=== PATIENT | female | born 1985 ===

== ENCOUNTER 2020-12-03 00:46 | Emergency (ER) | payer OTHER, SELFPAY ==
[2020-12-03 01:12] VITALS: BP 114/67; PULSE 78; RESP 16; TEMP 36.9; O2SAT 99; BMI 24.1
--- NOTE | 2020-12-03 03:12 | ED_ITS ---
HPI - General Adult General Chief complaint: General Medical Stated complaint: abscess Time Seen by Provider: 12/03/20 02:57 History of Present Illness HPI narrative: Patient is 35-year-old female with a history of IV drug abuse. Presents today having swelling to the right hand. Patient denies any fever chills. Has a long history of IV heroin abuse. Related Data Previous Rx's Medication Instructions Recorded clindamycin HCl 300 mg PO Q6H 7 Days #28 cap 12/03/20 ibuprofen 400 mg PO Q6H PRN #20 tab 12/03/20 Allergies Allergy/AdvReac Type Severity Reaction Status Date / Time bee pollen [Bee Stings] Allergy Unknown SWELLING Verified 12/03/20 01:11 AT SITE morphine [Morphine] Allergy Unknown SKIN Verified 12/03/20 01:11 BUBBLED Penicillins Allergy Unknown HIVES Verified 12/03/20 01:11 BREATHING PBROBLEM Review of Systems Review of Systems: No fever no chills Positive rash Positive swelling to the right hand All systems reviewed otherwise negative PMFSH Past Medical History Attestation statement: The following information was validated with the patient. Medical History Asthma Fungus infection in blood MRSA (methicillin resistant staph aureus) culture positive Sepsis Substance abuse Social History Social History Advance Directives: No Physical Exam Vital Signs: Vital Signs: Last Vital Signs Temp 98.4 F 12/03/20 01:12 Pulse 78 12/03/20 01:12 Resp 16 12/03/20 01:12 BP 114/67 12/03/20 01:12 Pulse Ox 99 12/03/20 01:12 Body Mass Index 24.1 Appearance: Alert. Oriented X3. No acute distress. Eyes: Pupils equal, round and reactive to light. ENT: Pharynx normal. Neck: Normal inspection. Neck supple. No lymph nodes noted. No crepitus CVS: Normal heart rate and rhythm. Pulses normal. Normal S1 and S2 Respiratory: No respiratory distress. Breath sounds normal. No Wheezing. No rales Abdomen: Soft and nontender. No rigidity. No distention. good BS x4 Skin: Positive abscess noted in the dorsum of right hand Extremities: No lower extremity edema. Neurovascular intact to all extremities. No Lacerations. Positive large fluctuant swelling approximately 5 cm x 5 cm in size over the dorsum of right hand. Red warm and tender to the Neuro: Oriented X 3. No motor deficit. No sensory deficit. Moving all extermities. No slurred speech Procedures Abscess I/D Site: hand Side (if applicable): right Sedation/analgesia: other Local Anesthetic: lidocaine 1% Amount of anesthesia used (mL): 5 Technique: needle aspiration and incised with blade Amount of fluid expressed (mL): 20 Sent for culture/gram staining?: Yes Irrigation: Yes Packing used?: iodoform Medical Decision Making MDM Narrative Medical decision making narrative: Abscess I&D close follow-up in 2 days for wo und check. Will start antibiotic as there is gross erythema. Patient has a previous history of MRSA. Will start patient on clindamycin. Discharge Plan Discharge Clinical Impression: Abscess Patient Disposition: Home, Self-Care Instructions: Cellulitis (ED), Abscess (ED) Prescriptions: New ibuprofen 400 mg tablet 400 mg PO Q6H PRN (Reason: pain) Qty: 20 RF: 0 clindamycin HCl 300 mg capsule 300 mg PO Q6H 7 Days Qty: 28 RF: 0 Referrals: Physician,None [Primary Care Provider] - 2 days (Follow-up in the emergency department in 2 days.)
--- NOTE | 2020-12-03 03:39 | PC.NURSE ---
This tech assisted with an abscess to the right outer hand. pt was cleaned and a bulky dressing was applied with a cling wrap. pt tolerated procedure well, wound culture collected and sent to lab. rosalio aware
[2020-12-03] MEDS: Lidocaine HCl 1 % MPF 5 ML VIAL 10 ML SUBCUT (03:51)
== END 2020-12-03 05:00 | disposition home or self-care (01) ==
PROVIDERS: Emergency Provider Emergency Medicine Emergency Medical Services
DX: L02.511 Cutaneous abscess of right hand (principal); F11.10 Opioid abuse, uncomplicated
CPT/HCPCS: 10060; 87071; 87077; 87186; 87205; 96372; 99284

== ENCOUNTER 2021-08-12 10:56 | Emergency (ER) | payer OTHER, SELFPAY ==
[2021-08-12 11:08] VITALS: BP 132/80; PULSE 50; PULSE 60; RESP 12; O2SAT 100; BMI 20.9
--- NOTE | 2021-08-12 11:11 | ED.OVERDOSE ---
HPI - Overdose General Chief Complaint: ETOH/Substance Use Stated Complaint: HEROIN USE, ? LACED PER PT Time Seen by Provider: 08/12/21 10:59 Source: patient Mode of arrival: EMS Limitations: no limitations History of Present Illness HPI Narrative: 35 y/o female presenting for evaluation after she injected heroin today. She thinks that was something else in it and does not feel right. She reports feeling cold all over and having body aches as well as severe nausea. She is uncooperative with examination or history taking. Wants to be left alone. She was not given any Narcan. complaint: accidental overdose Onset (ago): minute(s) Intent: unwilling to say Context: Accidental Overdose: wanted to get high Associated symptoms: depression and paranoia Related Data Previous Rx's Medication Instructions Recorded clindamycin HCl 300 mg capsule 300 mg PO Q6H 7 Days #28 cap 12/03/20 ibuprofen 400 mg tablet 400 mg PO Q6H PRN #20 tab 12/03/20 Allergies Allergy/AdvReac Type Severity Reaction Status Date / Time bee pollen [Bee Stings] Allergy Unknown SWELLING Verified 12/03/20 01:11 AT SITE morphine [Morphine] Allergy Unknown SKIN Verified 12/03/20 01:11 BUBBLED Penicillins Allergy Unknown HIVES Verified 12/03/20 01:11 BREATHING PBROBLEM Review of Systems Review of Systems: Constitutional: No Fever, + Chills ENT/Mouth: No sore throat, No Rhinorrhea, No Swallowing Difficulty Eyes: No Eye Pain, No Swelling, No Redness Cardiovascular: No Chest Pain, No SOB Respiratory: No Cough, No Sputum Gastrointestinal: + Nausea, No Vomiting, No Diarrhea, No abdominal Pain Genitourinary: No Dysuria, No Urinary Frequency, No Hematuria Musculoskeletal: No joint pain, No Myalgias Skin: No Skin Lesions, No rash Neuro: No Weakness, No Numbness, No Dizziness, + Headache Psych: + Anxiety/Panic, + Depression, No SI Heme/Lymph: No Bruising, No Lymphadenopathy PMFSH Past Medical History Medical History Asthma Fungus infection in blood MRSA (methicillin resistant staph aureus) culture positive Sepsis Substance abuse Social History Social History Substance Use Type: Heroin Advance Directives: No Advance Directives Information Provided: Yes Physical Exam Vital Signs: Vital Signs: Last Vital Signs Pulse 50 08/12/21 11:08 Resp 14 08/12/21 14:00 Pulse Ox 100 08/12/21 11:08 BMI result Body Mass Index 20.9 Appearance: Curled up on the stretcher young female wrapped in several blankets HEENT: normal inspection. Pupils 2 mm bilaterally reactive to light. CVS: Normal heart rate and rhythm. Pulses normal. Respiratory: No respiratory distress. Answering yes no questions lungs are clear Skin: Skin warm and dry. Normal skin color. Normal skin turgor. No rashes. Extremities: Wrapped up in pants and a puffy jacket unable to assess unwilling to take them off Neuro: Lethargic, uncooperative when awoken. Moves all extremities. Intermittently follows commands. Course Course Course Narrative: 35-year-old female with a history of heroin use presents to the ER after IV heroin use concerned that there was ?something else in it. She rides the ER lethargic but protecting her airway. No hypoxia. RR 12. Uncooperative with examination, refusing to change consultant. She is in agreement to stay in ERfor monitoring and is interested in talking to aircraft launch and recovery technician about detox. Reevaluation(s) Reevaluation #1: Patient has been accepted to a detox facility in [place]. She will need to do intake. Labs and COVID have been sent for medical clearance. Reevaluation #2: Labs are normal, COVID negative, negative. U tox positive for opiates, fentanyl, cocaine. She is starting to feel unwell and would like some ?medications for comfort. Will give her dose of clonidine and monitor closely. She has been accepted to a detox awaiting placement between 8 09:00 o'clock tonight. Physician observation started at 5:37pm. Patient placed in physician observation because patient is awaiting placement to detox. At the time observation was started patient's vital signs were stable. Patient is alert and oriented. Neuro exam is lethargi but non-focal. CV: RRR and lungs are clear. Will continue to monitor. MDM - Overdose Lab Data Result diagrams: 08/12/21 12:59 08/12/21 12:59 Labs: Lab Results 08/12/21 08/12/21 08/12/21 Range/Units 12:59 12:59 12:59 WBC 8.2 (4.8-10.8) X10*3/uL RBC 4.67 (4.20-5.50) X10*6/uL Hgb 12.6 (12.0-16.0) g/dl Hct 38.3 (37.0-47.0) % MCV 82.0 (80.0-98.0) fL MCH 27.0 (27.0-33.0) pg MCHC 32.9 (31.0-35.0) g/dl RDW 13.8 (11.0-16.0) % Plt Count 206 (160-400) X10*3/uL MPV 11.0 (9.4-12.3) fL Immature Gran % (Auto) 0.2 (0.0-0.4) % Neut % (Auto) 68.5 (45-73) % Lymph % (Auto) 20.7 (20-40) % [place] % (Auto) 8.9 (2-11) % Eos % (Auto) 1.3 (0-4) % Baso % (Auto) 0.4 (0-2) % Lymph # (Auto) 1.7 (1.2-4.9) X10*3/uL [place] # (Auto) 0.7 (0.1-1.2) X10*3/uL Eos # (Auto) 0.1 (0.0-0.4) X10*3/uL Baso # (Auto) 0.0 (0.0-0.2) X10*3/uL Abs Immat Gran (auto) 0.02 (0.00-0.03) X10*3/uL Absolute Neuts (auto) 5.6 (2.0-8.3) x10*3/uL Absolute Nucleated RBC 0.000 (0.0-0.012) X10*3/uL Nucleated RBC % (auto) 0.0 (0.0-0.2) /100WBC Sodium 139 (135-145) mmol/L Potassium 3.6 (3.3-5.1) mmol/L Chloride 105 (96-108) mmol/L Carbon Dioxide 26 (22-29) mmol/L Anion Gap 12 (12-20) BUN 15 (9-16) mg/dL Creatinine 0.75 (0.5-1.4) mg/dL Estim Creat Clear Calc 94.2 Estimated GFR > 60 Random Glucose 109 (60-115) mg/dL Calcium 9.3 (8.4-10.2) mg/dL Total Bilirubin 0.3 (0.0-1.0) mg/dL Direct Bilirubin 0.2 (0.0-0.5) mg/dL AST 18 (5-31) U/L ALT 19 (0-31) U/L Alkaline Phosphatase 98 (39-117) U/L Total Protein 7.4 (6.5-8.0) g/dL Albumin 3.9 (3.5-5.0) g/dL Urine Test (NEGATIVE) Urine Opiates Screen (Not Detect) Urine Fentanyl Screen (Not Detect) Ur Barbiturates Screen (Not Detect) Ur Phencyclidine Scrn (Not Detect) Ur Amphetamines Screen (Not Detect) U Benzodiazepines Scrn (Not Detect) Urine Cocaine Screen (Not Detect) U Marijuana (THC) Screen (Not Detect) COVID-19 (KORI) Negative (Negative) COVID-19 Clin Com See Note 08/12/21 08/12/21 Range/Units 17:00 17:00 WBC (4.8-10.8) X10*3/uL RBC (4.20-5.50) X10*6/uL Hgb (12.0-16.0) g/dl Hct (37.0-47.0) % MCV (80.0-98.0) fL MCH (27.0-33.0) pg MCHC (31.0-35.0) g/dl RDW (11.0-16.0) % Plt Count (160-400) X10*3/uL MPV (9.4-12.3) fL Immature Gran % (Auto) (0.0-0.4) % Neut % (Auto) (45-73) % Lymph % (Auto) (20-40) % [place] % (Auto) (2-11) % Eos % (Auto) (0-4) % Baso % (Auto) (0-2) % Lymph # (Auto) (1.2-4.9) X10*3/uL [place] # (Auto) (0.1-1.2) X10*3/uL Eos # (Auto) (0.0-0.4) X10*3/uL Baso # (Auto) (0.0-0.2) X10*3/uL Abs Immat Gran (auto) (0.00-0.03) X10*3/uL Absolute Neuts (auto) (2.0-8.3) x10*3/uL Absolute Nucleated RBC (0.0-0.012) X10*3/uL Nucleated RBC % (auto) (0.0-0.2) /100WBC Sodium (135-145) mmol/L Potassium (3.3-5.1) mmol/L Chloride (96-108) mmol/L Carbon Dioxide (22-29) mmol/L Anion Gap (12-20) BUN (9-16) mg/dL Creatinine (0.5-1.4) mg/dL Estim Creat Clear Calc Estimated GFR Random Glucose (60-115) mg/dL Calcium (8.4-10.2) mg/dL Total Bilirubin (0.0-1.0) mg/dL Direct Bilirubin (0.0-0.5) mg/dL AST (5-31) U/L ALT (0-31) U/L Alkaline Phosphatase (39-117) U/L Total Protein (6.5-8.0) g/dL Albumin (3.5-5.0) g/dL Urine Test NEGATIVE (NEGATIVE) Urine Opiates Screen POSITIVE H (Not Detect) Urine Fentanyl Screen POSITIVE H (Not Detect) Ur Barbiturates Screen Not Detected (Not Detect) Ur Phencyclidine Scrn Not Detected (Not Detect) Ur Amphetamines Screen Not Detected (Not Detect) U Benzodiazepines Scrn Not Detected (Not Detect) Urine Cocaine Screen POSITIVE H (Not Detect) U Marijuana (THC) Screen Not Detected (Not Detect) COVID-19 (KORI) (Negative) COVID-19 Clin Com Critical Care Time Critical Care Time Critical Care Time: No Discharge Plan Discharge Clinical Impression: Opioid use disorder Patient Disposition: Xfer Other Transfer Details: Detox facility in [place] Instructions: Opioid Use Disorder (ED) Additional Instructions: Your urine test was positive for fentanyl, opiates, cocaine. Do not use heroin, it can kill you Go directly to detox from the ER Take all of your medications as prescribed. Follow up with your doctor NICKOLAS Prescriptions: No Action ibuprofen 400 mg tablet 400 mg PO Q6H PRN (Reason: pain) Qty: 20 RF: 0 clindamycin HCl 300 mg capsule 300 mg PO Q6H 7 Days Qty: 28 RF: 0
--- NOTE | 2021-08-12 11:32 | PC.NURSE ---
patient refusing to keep o2 sat prob on to monitor o2 level. will continue to monitor patient respiratory status.
--- NOTE | 2021-08-12 11:46 | MHC.RECOVSUP ---
? Reason for consult:Recovery Support o Current location:[facility] o Identified substance use concern:Heroin - Withdrawal - Seeking ATS (detox) - Support ? Intervention: o Community resources provided o Harm reduction discussion ? Plan: To attempt to speak with patient later. o ? Additional information:Attempted to speak with patient, but patient appears to be impaired. Patient says she wants detox but is uncooperative.
[2021-08-12 13:04] LABS: MANUAL DIFF FLAG NO
[2021-08-12 13:07] LABS: Basophils Percent Auto 0.4 % (0-2); Eosinophils Absolute Auto 0.1 X10*3/uL (0.0-0.4); Eosinophils Percent Auto 1.3 % (0-4); Hematocrit 38.3 % (37.0-47.0); Hemoglobin 12.6 g/dl (12.0-16.0); Imm Gran Abs Auto 0.02 X10*3/uL (0.00-0.03); Imm Gran Pct Auto 0.2 % (0.0-0.4); Lymphocytes Absolute Auto 1.7 X10*3/uL (1.2-4.9); Lymphocytes Percent Auto 20.7 % (20-40); Mean Corpuscular HGB Conc 32.9 g/dl (31.0-35.0); Monocytes Absolute Auto 0.7 X10*3/uL (0.1-1.2); Monocytes Percent Auto 8.9 % (2-11); Neutrophils Absolute Auto 5.6 x10*3/uL (2.0-8.3); Neutrophils Percent Auto 68.5 % (45-73); Platelet Count 206 X10*3/uL (160-400); Red Blood Count 4.67 X10*6/uL (4.20-5.50); Red Cell Distribution Width 13.8 % (11.0-16.0); White Blood Count 8.2 X10*3/uL (4.8-10.8)
--- NOTE | 2021-08-12 13:19 | MHC.RECOVSUP ---
Recovery Support note: Patient is a 35 year old [place] speaking female who presented to [facility] ED under the influence of heroin. Patient reports that she uses IV heroin and that she was concerned that something besides heroin was in her supply. Patient stated she feels different. Patient came to the hospital to be evaluated. Patient was seen by passenger coach driver and patient expressed interest in going to detox. This property underwriter attempted to meet with patient however she is still under the influence of heroin and difficult to arouse. Patient wakes briefly and endorses interest in going to detox. This property underwriter will refer patient to ATS facilities.
[2021-08-12 13:21] LABS: Alanine Aminotransferase 19 U/L (0-31); Albumin Level 3.9 g/dL (3.5-5.0); Alkaline Phosphatase 98 U/L (39-117); Anion Gap 12 (12-20); Aspartate Amino Transferase 18 U/L (5-31); Bilirubin Direct 0.2 mg/dL (0.0-0.5); Bilirubin Total 0.3 mg/dL (0.0-1.0); Blood Urea Nitrogen 15 mg/dL (9-16); Calcium 9.3 mg/dL (8.4-10.2); Carbon Dioxide 26 mmol/L (22-29); Chloride 105 mmol/L (96-108); Creatinine Clr Calc Pharmacy 94.2; Estimated Glomerular Filt Rate > 60; Glucose Random 109 mg/dL (60-115); Potassium 3.6 mmol/L (3.3-5.1); Sodium 139 mmol/L (135-145); Total Protein 7.4 g/dL (6.5-8.0)
[2021-08-12 13:28] LABS: COVID-19 Test Negative (Negative)
[2021-08-12 14:00] VITALS: RESP 14
[2021-08-12 16:00] VITALS: BP 108/57; PULSE 72; RESP 12; TEMP 36.8; O2SAT 97
[2021-08-12 17:09] LABS: UPreg QC Valid YES; Urine Pregnancy NEGATIVE (NEGATIVE)
[2021-08-12 17:20] LABS: Amphetamine Screen Urine Not Detected (Not Detect); Barbiturates, Urine Not Detected (Not Detect); Benzodiazepines Screen Urine Not Detected (Not Detect); Cannabinoid Screen Urine Not Detected (Not Detect); Cocaine Screen Urine POSITIVE (Not Detect); Fentanyl, urine POSITIVE (Not Detect); Opiate Screen Urine POSITIVE (Not Detect); Phencyclidine Screen Urine Not Detected (Not Detect)
--- NOTE | 2021-08-12 17:30 | MHC.RECOVSUP ---
Recovery Support note: Patient completed intake with [facility] and has been accepted. Admission time scheduled for [id number].
[2021-08-12 17:46] VITALS: BP 108/57; PULSE 72
[2021-08-12] MEDS: cloNIDine HCL 0.1 MG TABLET PO (17:46)
== END 2021-08-12 20:31 | disposition other institution (70) ==
PROVIDERS: Physician Assistant; Emergency Provider Emergency Medicine
DX: F11.10 Opioid abuse, uncomplicated (principal); Z20.822 Contact with and (suspected) exposure to COVID-19; F41.9 Anxiety disorder, unspecified; R11.0 Nausea; R53.83 Other fatigue; F19.10 Other psychoactive substance abuse, uncomplicated; Z86.14 Personal history of Methicillin resistant Staphylococcus aureus infection; Z91.19 Patient's noncompliance with other medical treatment and regimen
CPT/HCPCS: 36415; 80048; 80076; 80307; 81025; 85025; 87635; 99284; 99285

== ENCOUNTER 2021-09-23 20:29 | Inpatient (IN) | payer OTHER, SELFPAY ==
--- NOTE | ~2021-09-23 | US_ITS ---
EXAMINATION: US OBSTETRICAL ULTRASOUND CLINICAL INFORMATION: New . Drug use. Quadrants 5975, 6-7 weeks COMPARISON: None. LMP: Not known. Gestational age by maternal dates is not known. Estimated date of delivery by maternal dates is not known. TECHNIQUE: Routine transabdominal imaging of pelvis was performed. FINDINGS: There is a single intrauterine gestational sac with visible yolk sac, embryo/fetus, and cardiac activity. There is no significant subchorionic hemorrhage or hematoma. HR: 150 beats per minute. CRL (crown rump length): 0.54 cm (6 weeks 3 days +/- 4 days). STEPAN (estimated date of delivery): 05/17/2022 +/- 4 days. MATERNAL ADNEXA: The right maternal ovary measures 4.0 x 2.7 x 2.6 cm. Probable corpus luteal. The left maternal ovary measures 2.8 x 2.0 x 2.9 cm. There is no significant maternal adnexal mass. No free fluid seen in the cul-de-sac. No maternal pelvic ascites. US/US OB <= 14 weeks fetus IMPRESSION: 1. Single intrauterine gestation with ultrasound gestational age of 6 weeks and 3 days +/- 4 days. 2. Estimated date of delivery is 05/17/2022 +/- 4 days. 3. No maternal adnexal mass or pelvic ascites.
--- NOTE | ~2021-09-23 | XR_ITS ---
EXAMINATION: XR FOOT, LEFT CLINICAL INFORMATION: Swelling and infection COMPARISON: 03/07/2008 TECHNIQUE: AP, lateral, and oblique views of the left foot. FINDINGS: Diffuse soft tissue swelling about the forefoot and midfoot. No acute fracture or dislocation seen. No bony destructive lesion or periosteal reaction. No radiopaque foreign body or soft tissue gas XR/XR foot LT min 3V IMPRESSION: Diffuse soft tissue swelling but no acute bony abnormality.
[2021-09-23 20:39] VITALS: BP 90/56; BP 96/61; PULSE 102; PULSE 103; RESP 18; TEMP 36.6; O2SAT 100; O2SAT 98; BMI 21.5
[2021-09-23 21:12] LABS: MANUAL DIFF FLAG NO
[2021-09-23 21:16] LABS: Basophils Percent Auto 0.2 % (0-2); Eosinophils Absolute Auto 0.1 X10*3/uL (0.0-0.4); Eosinophils Percent Auto 0.3 % (0-4); Hematocrit 41.9 % (37.0-47.0); Hemoglobin 13.6 g/dl (12.0-16.0); Imm Gran Abs Auto 0.09 X10*3/uL (0.00-0.03); Imm Gran Pct Auto 0.5 % (0.0-0.4); Lymphocytes Percent Auto 11.3 % (20-40); Mean Corpuscular HGB Conc 32.5 g/dl (31.0-35.0); Mean Corpuscular Hemoglobin 26.8 pg (27.0-33.0); Mean Corpuscular Volume 82.6 fL (80.0-98.0); Mean Platelet Volume 10.8 fL (9.4-12.3); Monocytes Absolute Auto 1.4 X10*3/uL (0.1-1.2); Monocytes Percent Auto 7.8 % (2-11); Neutrophils Absolute Auto 14.3 x10*3/uL (2.0-8.3); Neutrophils Percent Auto 79.9 % (45-73); Platelet Count 284 X10*3/uL (160-400); Red Blood Count 5.07 X10*6/uL (4.20-5.50); White Blood Count 17.9 X10*3/uL (4.8-10.8)
[2021-09-23 21:22] LABS: COVID-19 Test Positive (Negative)
[2021-09-23 21:23] LABS: Lactic Acid 1.1 mmol/L (0.5-2.0)
[2021-09-23 21:26] LABS: Anion Gap 13 (12-20); Blood Urea Nitrogen 7 mg/dL (9-16); Calcium 9.3 mg/dL (8.4-10.2); Carbon Dioxide 25 mmol/L (22-29); Chloride 98 mmol/L (96-108); Estimated Glomerular Filt Rate > 60; Glucose Random 109 mg/dL (60-115); Sodium 132 mmol/L (135-145)
[2021-09-23 22:00] VITALS: BP 97/55; PULSE 68; RESP 16; TEMP 36.7; O2SAT 97
--- NOTE | 2021-09-23 22:16 | ED_ITS ---
HPI - Extremity Injury (Lower) General Chief Complaint: Skin/Abscess/Foreign Body Stated Complaint: L foot Infection Time Seen by Provider: 09/23/21 21:34 Source: patient Mode of arrival: EMS History of Present Illness HPI Narrative: 35-year-old female arrives via EMS with complaints of left foot infection that she states started when she injected cocaine into left foot 4 weeks ago, states she noticed her foot getting infected 2 weeks ago. Patient states she tried draining the foot today using needle of her own inset pus started come out. Patient last injected heroin and cocaine this morning and describes her pain as 10/10 and unable to ambulate on the foot. She also describes chills but is unsure of any fevers. Patient states she has not COVID- 19 vaccinated. Related Data Home Medications Medication Instructions Recorded Confirmed methadone 10 mg/mL intravenous 80 mg DAILY 09/23/21 09/23/21 syringe Allergies Allergy/AdvReac Type Severity Reaction Status Date / Time bee pollen [Bee Stings] Allergy Unknown SWELLING Verified 09/23/21 20:39 AT SITE morphine [Morphine] Allergy Unknown SKIN Verified 09/23/21 20:39 BUBBLED Penicillins Allergy Unknown HIVES Verified 09/23/21 20:39 BREATHING PBROBLEM Review of Systems Review of Systems: Pertinent positives and negatives as stated in HPI 10 point review of systems otherwise negative. PMFSH Past Medical History Source: nursing notes reviewed Medical History Asthma Fungus infection in blood MRSA (methicillin resistant staph aureus) culture positive Sepsis Substance abuse Social History Social History Substance Use Type: Heroin Advance Directives: No Advance Directives Information Provided: Yes Patient : No Physical Exam Vital Signs: Vital Signs: Last Vital Signs Temp 97.6 F 09/23/21 23:20 Pulse 61 09/23/21 23:20 Resp 14 09/23/21 23:20 BP 96/51 L 09/23/21 23:20 Pulse Ox 100 09/23/21 23:20 BMI result Body Mass Index 21.5 VITAL SIGNS: Reviewed. GENERAL: Appears older than stated age, in no acute distress. HEAD: Normocephalic/atraumatic EYES: PERRLA, EOMI EARS: Ext canals without abnormality OROPHARYNX: no oral lesions noted, posterior pharynx clear LUNGS: Normal breath sounds. No adventitious sounds or accessory muscle use. SpO2<97> CARDIOVASCULAR: Regular rate and rhythm without noted murmurs. ABDOMEN: Soft, non-tender, non-distended with bowel sounds. MUSCULOSKELETAL: No tenderness, deformities, or effusions noted on gross inspection. EXTREMITIES: No cyanosis, clubbing or edema; LEFT FOOT: Erythematous, swollen, with noted 3 cm fluctuant abscess on the dorsum of the foot SKIN: Inspection of the skin reveals no rashes, ulcerations NEUROLOGIC: Alert and oriented x 4. Course Course Course Narrative: 2216: I suspect infection. 35-year-old female with history and clinical presentation consistent with left foot cellulitis and suspect patient is bacteremic. She received sepsis fluids as well as antibiotics and incision and drainage was conducted. She is otherwise hemodynamically stable and is also noted be COVID-19 positive. All investigations reviewed. This case was discussed with inpatient hospitalist who accepts admission. MDM - Extremity Injury (Lower) Lab Data Result diagrams: 09/23/21 21:02 09/23/21 21:02 Labs: Lab Results 09/23/21 09/23/21 09/23/21 Range/Units 21:02 21:02 21:02 WBC 17.9 H (4.8-10.8) X10*3/uL RBC 5.07 (4.20-5.50) X10*6/uL Hgb 13.6 (12.0-16.0) g/dl Hct 41.9 (37.0-47.0) % MCV 82.6 (80.0-98.0) fL MCH 26.8 L (27.0-33.0) pg MCHC 32.5 (31.0-35.0) g/dl RDW 14.0 (11.0-16.0) % Plt Count 284 D (160-400) X10*3/uL MPV 10.8 (9.4-12.3) fL Immature Gran % (Auto) 0.5 H (0.0-0.4) % Neut % (Auto) 79.9 H (45-73) % Lymph % (Auto) 11.3 L (20-40) % [place] % (Auto) 7.8 (2-11) % Eos % (Auto) 0.3 (0-4) % Baso % (Auto) 0.2 (0-2) % Lymph # (Auto) 2.0 (1.2-4.9) X10*3/uL [place] # (Auto) 1.4 H (0.1-1.2) X10*3/uL Eos # (Auto) 0.1 (0.0-0.4) X10*3/uL Baso # (Auto) 0.0 (0.0-0.2) X10*3/uL Abs Immat Gran (auto) 0.09 H (0.00-0.03) X10*3/uL Absolute Neuts (auto) 14.3 H (2.0-8.3) x10*3/uL Absolute Nucleated RBC 0.000 (0.0-0.012) X10*3/uL Nucleated RBC % (auto) 0.0 (0.0-0.2) /100WBC Sodium 132 L (135-145) mmol/L Potassium 4.0 (3.3-5.1) mmol/L Chloride 98 (96-108) mmol/L Carbon Dioxide 25 (22-29) mmol/L Anion Gap 13 (12-20) BUN 7 L D (9-16) mg/dL Creatinine 0.75 (0.5-1.4) mg/dL Estim Creat Clear Calc 79.0 Estimated GFR > 60 Random Glucose 109 (60-115) mg/dL Lactic Acid 1.1 (0.5-2.0) mmol/L Calcium 9.3 (8.4-10.2) mg/dL COVID-19 (KORI) (Negative) COVID-19 Clin Com 09/23/21 Range/Units 21:02 WBC (4.8-10.8) X10*3/uL RBC (4.20-5.50) X10*6/uL Hgb (12.0-16.0) g/dl Hct (37.0-47.0) % MCV (80.0-98.0) fL MCH (27.0-33.0) pg MCHC (31.0-35.0) g/dl RDW (11.0-16.0) % Plt Count (160-400) X10*3/uL MPV (9.4-12.3) fL Immature Gran % (Auto) (0.0-0.4) % Neut % (Auto) (45-73) % Lymph % (Auto) (20-40) % [place] % (Auto) (2-11) % Eos % (Auto) (0-4) % Baso % (Auto) (0-2) % Lymph # (Auto) (1.2-4.9) X10*3/uL [place] # (Auto) (0.1-1.2) X10*3/uL Eos # (Auto) (0.0-0.4) X10*3/uL Baso # (Auto) (0.0-0.2) X10*3/uL Abs Immat Gran (auto) (0.00-0.03) X10*3/uL Absolute Neuts (auto) (2.0-8.3) x10*3/uL Absolute Nucleated RBC (0.0-0.012) X10*3/uL Nucleated RBC % (auto) (0.0-0.2) /100WBC Sodium (135-145) mmol/L Potassium (3.3-5.1) mmol/L Chloride (96-108) mmol/L Carbon Dioxide (22-29) mmol/L Anion Gap (12-20) BUN (9-16) mg/dL Creatinine (0.5-1.4) mg/dL Estim Creat Clear Calc Estimated GFR Random Glucose (60-115) mg/dL Lactic Acid (0.5-2.0) mmol/L Calcium (8.4-10.2) mg/dL COVID-19 (KORI) Positive A (Negative) COVID-19 Clin Com See Note Procedures Abscess I/D Site: lower extremity Side (if applicable): left Technique: incised with blade Amount of fluid expressed (mL): 30 Sent for culture/gram staining?: No Irrigation: No Packing used?: none Complications: pain Critical Care Time Critical Care Time Critical Care Time: Yes Total Critical Care Time: 30 Attestation: I personally attest to this time spent taking care of the patient. Discharge Plan Discharge Clinical Impression: Cellulitis of foot, left, Status post incision and drainage, Severe sepsis Patient Disposition: Admitted As Inpatient
[2021-09-23] MEDS: cefEPime HCl 2 GM in 0.9 % Sodium Chloride 50 ML IV (22:49)
[2021-09-23] MEDS: 0.9 % Sodium Chloride 1,551.3 ML 1551.3 ML IV (22:49)
--- NOTE | 2021-09-23 22:57 | PC.NURSE ---
IV established, IVF and ABX infusing per MAR. Med Rec completed with pt. at bedside draining abscess. Pt provided with food/drink per request.
[2021-09-23 23:20] VITALS: BP 96/51; PULSE 61; RESP 14; TEMP 36.4; O2SAT 100
--- NOTE | 2021-09-23 23:21 | PM.IMHP ---
History of Present Illness Date of Service: 09/23/21 Chief Complaint: foot abscess 35-year-old female with past medical history of asthma, MRSA bacteremia, and septae as a boost who presents to the hospital with complaints of left foot abscess. Patient reports that she has had this abscess for few weeks, worsening, no drainage but swelling has increased, increased pain, 10/10, unable to walk on her left foot due to the pain. She denies any fever but has chills. She has no chest pain, no shortness of breath, no abdominal pain nausea or vomiting, no diarrhea constipation, no urinary symptoms and no lower extremity edema. Denies injecting in that area. On arrival to the ED patient's vitals were significant for blood pressure of 108/57 otherwise unremarkable Labs are significant for WBC count of 17.9, sodium of 132, UA positive for leukocyte Estrace 0 with some WBC, positive opioid and fentanyl, as well as cocaine, COVID-19 positive. Denies any shortness of breath and no cough. Foot x-ray shows diffuse soft tissue swelling but no acute bony abnormality. Patient had a slight I&D in the ED and will be admitted for further management Review of Systems Review of Systems: Yes all other systems are reviewed and are negative [facility] Medical History (Updated 09/24/21 @ 03:53 by Jeramy Soto MD) Asthma Fungus infection in blood MRSA (methicillin resistant staph aureus) culture positive Sepsis Substance abuse Pertinent family history: no hx of CAD Surgical History (Updated 09/24/21 @ 03:53 by Jeramy Soto MD) No pertinent past surgical history Social History Substance Use Type: Heroin Advance Directives: No Advance Directives Information Provided: Yes Patient : No Meds Allergies Allergy/AdvReac Type Severity Reaction Status Date / Time bee pollen [Bee Stings] Allergy Unknown SWELLING Verified 09/23/21 20:39 AT SITE morphine [Morphine] Allergy Unknown SKIN Verified 09/23/21 20:39 BUBBLED Penicillins Allergy Unknown HIVES Verified 09/23/21 20:39 BREATHING PBROBLEM Active Medications: Current Medications Acetaminophen (Acetaminophen 325 Mg Tablet) 650 mg PO Q6H PRN PRN Reason: Pain, Mild (Pain Scale 1-3) Enoxaparin Sodium (Enoxaparin Sodium 40 Mg/0.4 Ml Syringe) 40 mg SUBCUT Q24H [facility] Cefepime HCl 2 gm/ Sodium (Chloride) 50 mls @ 100 mls/hr IV Q8H [facility] Vancomycin HCl 1,250 mg/ (Sodium Chloride) 250 mls @ 166.667 mls/hr IV Q12H [facility] Ondansetron HCl (Ondansetron Hcl 4 Mg/2 Ml Vial) 4 mg IVPUSH Q8H PRN PRN Reason: Nausea and Vomiting Pharmacy Consult (Consult Rx Vancomycin Dosing) 1 each MISCELLANE DAILY PRN PRN Reason: Consult order Sodium Chloride (0.9 % Sodium Chloride Flush 3 Ml Syringe) 3 ml IVFLUSH QSHIFT [facility] Home Medications Medication Instructions Recorded Confirmed Last Taken Type methadone 10 mg/mL intravenous 80 mg DAILY 09/23/21 09/23/21 09/21/21 History syringe Physical Exam Vital Signs and Narrative: Vital Signs: Last Vital Signs Temp 97.6 F 09/23/21 23:20 Pulse 61 09/23/21 23:20 Resp 14 09/23/21 23:20 BP 96/51 L 09/23/21 23:20 Pulse Ox 100 09/23/21 23:20 BMI result Body Mass Index 21.5 Const: General: cooperative and no acute distress Orientation/consciousness: patient oriented x3 Eyes: General: appearance normal, both eyes and all related structures Pupils: Equal, round and reactive pupils present Resp: Effort & Inspection: normal respiratory effort Auscultation: clear to auscultation bilaterally Cardio: Rate: regular rate Rhythm: regular rhythm GI: Palpation (GI): Soft to palpation Auscultation: normal bowel sounds Skin: General skin exam: no rashes or lesions noted Neuro: General: patient oriented x3 Cranial nerves: Yes Equal, round and reactive pupils present Cognition (Neuro): normal cognition Extrem: Other: large abscess on the dorsum of left foot, eyrthema, sig tenderenss, draiange Results Labs CBC and Chem 7: 09/23/21 21:02 09/23/21 21:02 Labs: Laboratory Results - last 24 hr 09/23/21 09/23/21 09/23/21 21:02 21:02 21:02 MCV 82.6 MCH 26.8 L MCHC 32.5 RDW 14.0 Plt Count 284 D MPV 10.8 Immature Gran % (Auto) 0.5 H Neut % (Auto) 79.9 H Lymph % (Auto) 11.3 L [place] % (Auto) 7.8 Eos % (Auto) 0.3 Baso % (Auto) 0.2 Lymph # (Auto) 2.0 [place] # (Auto) 1.4 H Eos # (Auto) 0.1 Baso # (Auto) 0.0 Abs Immat Gran (auto) 0.09 H Absolute Neuts (auto) 14.3 H Absolute Nucleated RBC 0.000 Nucleated RBC % (auto) 0.0 Anion Gap 13 Estim Creat Clear Calc 79.0 Estimated GFR > 60 Random Glucose 109 Lactic Acid 1.1 Calcium 9.3 COVID-19 ([facility]I) COVID-19 Clin Com 09/23/21 21:02 MCV MCH MCHC RDW Plt Count MPV Immature Gran % (Auto) Neut % (Auto) Lymph % (Auto) [place] % (Auto) Eos % (Auto) Baso % (Auto) Lymph # (Auto) [place] # (Auto) Eos # (Auto) Baso # (Auto) Abs Immat Gran (auto) Absolute Neuts (auto) Absolute Nucleated RBC Nucleated RBC % (auto) Anion Gap Estim Creat Clear Calc Estimated GFR Random Glucose Lactic Acid Calcium COVID-19 (KORI) Positive A COVID-19 Clin Com See Note Imaging Radiologist's Impressions: Impressions Foot X-Ray 09/23/21 21:51 IMPRESSION: Diffuse soft tissue swelling but no acute bony abnormality. Assessment and Plan (1) Cellulitis of foot, left: Status: Acute (2) Status post incision and drainage: Status: Acute (3) Abscess of left foot: Status: Acute 85-year-old with past medical history of back to ok as well as IV drug use who presents to the hospital with abscess of left foot # left foot abscess/ cellulitis - will treat with broad-spectrum antibiotics given her history of bacteremia and MRSAinfection in the past - general surgery for possible I&D - follow cultures # IV drug use - continue methadone DVT prophylaxis: Lovenox Quality Stroke Does the patient have a stroke diagnosis?: No VTE Prior VTE?: No VTE Risk Level:: Medical - moderate - high VTE Device Contraindication: Treatment Not Indicated VTE Drug Contraindication: N/A - Med Ordered
[2021-09-23] MEDS: vancomycin HCL 1,000 MG in 0.9 % Sodium Chloride 250 ML 270 MG IV (23:22)
[2021-09-24] VITALS (7 sets, daily range): BP systolic 97–137; BP diastolic 50–83; PULSE 61–89; RESP 12–20; TEMP 36.7–37.3; O2SAT 94–100
[2021-09-24 00:18] LABS: Appearance Urine CLEAR; Color Urine YELLOW; Glucose Urine UA NEG (NEG); Leukocyte Esterase Urine 1+ (NEG); Nitrite Urine NEG (NEG); PH 6.5 (5.0-8.0); Specific Gravity - Urine <= 1.005 (1.005-1.025); UACC Culture Trigger YES; UPreg QC Valid YES; Urine Blood NEG (NEG); Urine Ketones NEG (NEG); Urine Pregnancy POSITIVE (NEGATIVE); Urine Protein NEG (NEG-TRACE)
[2021-09-24 00:29] LABS: Amphetamine Screen Urine Not Detected (Not Detect); Barbiturates, Urine Not Detected (Not Detect); Benzodiazepines Screen Urine Not Detected (Not Detect); Cannabinoid Screen Urine POSITIVE (Not Detect); Cocaine Screen Urine POSITIVE (Not Detect); Fentanyl, urine POSITIVE (Not Detect); Opiate Screen Urine POSITIVE (Not Detect); Phencyclidine Screen Urine Not Detected (Not Detect)
[2021-09-24 00:39] LABS: Squamous Epithelial Cell Urine 1+ /LPF
[2021-09-24 00:40] LABS: Bacteria Urine TRACE /LPF
[2021-09-24] MEDS: Lactated Ringers 1,000 ML 999 ML IV (06:20)
--- NOTE | 2021-09-24 06:41 | PC.NURSE ---
LR hung late due to this RN being 1:1 with another pt.
[2021-09-24 09:03] LABS: MANUAL DIFF FLAG NO
[2021-09-24 09:04] LABS: Basophils Percent Auto 0.2 % (0-2); Eosinophils Absolute Auto 0.3 X10*3/uL (0.0-0.4); Eosinophils Percent Auto 1.9 % (0-4); Hematocrit 29.2 % (37.0-47.0); Hemoglobin 9.5 g/dl (12.0-16.0); Imm Gran Abs Auto 0.05 X10*3/uL (0.00-0.03); Imm Gran Pct Auto 0.4 % (0.0-0.4); Lymphocytes Absolute Auto 1.5 X10*3/uL (1.2-4.9); Lymphocytes Percent Auto 11.7 % (20-40); Mean Corpuscular HGB Conc 32.5 g/dl (31.0-35.0); Mean Corpuscular Hemoglobin 27.2 pg (27.0-33.0); Mean Corpuscular Volume 83.7 fL (80.0-98.0); Mean Platelet Volume 10.9 fL (9.4-12.3); Monocytes Absolute Auto 1.1 X10*3/uL (0.1-1.2); Monocytes Percent Auto 8.2 % (2-11); Neutrophils Percent Auto 77.6 % (45-73); Platelet Count 206 X10*3/uL (160-400); Red Blood Count 3.49 X10*6/uL (4.20-5.50); Red Cell Distribution Width 14.4 % (11.0-16.0); White Blood Count 12.9 X10*3/uL (4.8-10.8)
[2021-09-24 09:19] LABS: Anion Gap 10 (12-20); Blood Urea Nitrogen 8 mg/dL (9-16); Calcium 8.3 mg/dL (8.4-10.2); Carbon Dioxide 25 mmol/L (22-29); Chloride 104 mmol/L (96-108); Creatinine Clr Calc Pharmacy 100.4; Estimated Glomerular Filt Rate > 60; Glucose Random 116 mg/dL (60-115); Potassium 3.8 mmol/L (3.3-5.1); Sodium 135 mmol/L (135-145)
--- NOTE | 2021-09-24 09:36 | PHA.MEDREC ---
Pharmacy Consult ? Medication Reconciliation Pharmacy has completed the medication reconciliation. Patient gets methadone from [facility] in [place]. Patient last received 80 mg of methadone on 09/22/2021; verified with VINCENT Quarles. Michell Ramos, ColemanD
[2021-09-24] MEDS: cefEPime HCl 2 GM in 0.9 % Sodium Chloride 50 ML IV ×2 (10:19→16:03)
[2021-09-24] MEDS: vancomycin HCL 1,000 MG in 0.9 % Sodium Chloride 250 ML 270 MG IV ×2 (10:19→21:36)
[2021-09-24] MEDS: methADONE HCl 20 MG/2 ML ORAL.CONC 80 MG PO (10:20)
[2021-09-24] MEDS: 0.9 % Sodium Chloride Flush 3 ML SYRINGE IVFLUSH ×2 (10:20→16:07)
[2021-09-24] MEDS: Enoxaparin Sodium 40 MG/0.4 ML SYRINGE SUBCUT (10:28)
--- NOTE | 2021-09-24 11:39 | P.PNIM_ITS ---
Subjective Subjective Date of Service: 09/24/21 Review of Systems Follow up cellulitis, abscess still with pain, no drainage Physical Exam Verdana 4l Vital Signs: Verdana 4d Verdana 4d Vital Signs: Verdana 4d Verdana 4Bd Last Vital Signs Verdana 4d Stripper Machine Operator New 4d Stripper Machine Operator New 4d Temp 98.6 F 09/24/21 02:50 Stripper Machine Operator New 4d Pulse 89 09/24/21 10:56 Stripper Machine Operator New 4d Resp 14 09/24/21 10:56 BP 117/66 09/24/21 10:56 Pulse Ox 98 09/24/21 10:56 BMI result Body Mass Index 21.5 Appearing in no acute distress lung sounds are clear to auscultation heart regular rate rhythm, clear S1, S2 positive bowel sounds, abdomen is soft, nontender neuro patient is alert x3, no focal deficits edema and erythema noted to dorum of left foot with pinpoint area of abcess Objective Data Active Medications Acetaminophen (Acetaminophen 325 Mg Tablet) 650 mg PO Q6H PRN PRN Reason: Pain, Mild (Pain Scale 1-3) Enoxaparin Sodium (Enoxaparin Sodium 40 Mg/0.4 Ml Syringe) 40 mg SUBCUT Q24H [facility] Last Admin: 09/24/21 10:28 Dose: 40 mg Documented by: HERNANDEZ Hydromorphone HCl (Hydromorphone Hcl 1 Mg/Ml Syringe) 0.5 mg IVPUSH Q3H PRN; Protocol PRN Reason: Pain, Mild (Pain Scale 1-3) Cefepime HCl 2 gm/ Sodium (Chloride) 50 mls @ 100 mls/hr IV Q8H [facility] Last Admin: 09/24/21 10:19 Dose: 100 mls/hr Documented by: HERNANDEZ Vancomycin HCl 1,000 mg/ (Sodium Chloride) 270 mls @ 270 mls/hr IV Q12H [facility] Methadone HCl (Methadone Hcl 20 Mg/2 Ml Oral.Conc) 80 mg PO DAILY [facility] Last Admin: 09/24/21 10:20 Dose: 80 mg Documented by: HERNANDEZ Ondansetron HCl (Ondansetron Hcl 4 Mg/2 Ml Vial) 4 mg IVPUSH Q8H PRN PRN Reason: Nausea and Vomiting Oxycodone HCl (Oxycodone Hcl Immed Release 5 Mg Tablet) 10 mg PO Q4H PRN PRN Reason: Pain, Severe (Pain Scale 7-10) Pharmacy Consult (Consult Rx Vancomycin Dosing) 1 each MISCELLANE DAILY PRN PRN Reason: Consult order Sodium Chloride (0.9 % Sodium Chloride Flush 3 Ml Syringe) 3 ml IVFLUSH QSHIFT [facility] Last Admin: 09/24/21 10:20 Dose: 3 ml Documented by: HERNANDEZ Labs CBC & Chem 7: 09/24/21 08:43 09/24/21 08:43 Labs: Laboratory Results - last 24 hr 09/23/21 09/23/21 09/23/21 21:02 21:02 21:02 MCV 82.6 MCH 26.8 L MCHC 32.5 RDW 14.0 Plt Count 284 D MPV 10.8 Immature Gran % (Auto) 0.5 H Neut % (Auto) 79.9 H Lymph % (Auto) 11.3 L [place] % (Auto) 7.8 Eos % (Auto) 0.3 Baso % (Auto) 0.2 Lymph # (Auto) 2.0 [place] # (Auto) 1.4 H Eos # (Auto) 0.1 Baso # (Auto) 0.0 Abs Immat Gran (auto) 0.09 H Absolute Neuts (auto) 14.3 H Absolute Nucleated RBC 0.000 Nucleated RBC % (auto) 0.0 Anion Gap 13 Estim Creat Clear Calc 79.0 Estimated GFR > 60 Random Glucose 109 Lactic Acid 1.1 Calcium 9.3 Urine Color Urine Appearance Urine pH Ur Specific [place] Urine Protein Urine Glucose (UA) Urine Ketones Urine Blood Urine Nitrite Ur Leukocyte Esterase Urine RBC Urine WBC Ur Squamous Epith Cells Urine Bacteria Urine Test Urine Opiates Screen Urine Fentanyl Screen Ur Barbiturates Screen Ur Phencyclidine Scrn Ur Amphetamines Screen U Benzodiazepines Scrn Urine Cocaine Screen U Marijuana (THC) Screen COVID-19 ([facility]) COVID-19 Clin Com 09/23/21 09/23/21 09/23/21 21:02 23:55 23:55 MCV MCH MCHC RDW Plt Count MPV Immature Gran % (Auto) Neut % (Auto) Lymph % (Auto) [place] % (Auto) Eos % (Auto) Baso % (Auto) Lymph # (Auto) [place] # (Auto) Eos # (Auto) Baso # (Auto) Abs Immat Gran (auto) Absolute Neuts (auto) Absolute Nucleated RBC Nucleated RBC % (auto) Anion Gap Estim Creat Clear Calc Estimated GFR Random Glucose Lactic Acid Calcium Urine Color YELLOW Urine Appearance CLEAR Urine pH 6.5 Ur Specific [place] <= 1.005 Urine Protein NEG Urine Glucose (UA) NEG Urine Ketones NEG Urine Blood NEG Urine Nitrite NEG Ur Leukocyte Esterase 1+ H Urine RBC 1-4 Urine WBC 1-4 Ur Squamous Epith Cells 1+ Urine Bacteria TRACE Urine Test POSITIVE H Urine Opiates Screen Urine Fentanyl Screen Ur Barbiturates Screen Ur Phencyclidine Scrn Ur Amphetamines Screen U Benzodiazepines Scrn Urine Cocaine Screen U Marijuana (THC) Screen COVID-19 (KORI) Positive A COVID-19 Clin Com See Note 09/23/21 09/24/21 09/24/21 23:55 08:43 08:43 MCV 83.7 MCH 27.2 MCHC 32.5 RDW 14.4 Plt Count 206 D MPV 10.9 Immature Gran % (Auto) 0.4 Neut % (Auto) 77.6 H Lymph % (Auto) 11.7 L [place] % (Auto) 8.2 Eos % (Auto) 1.9 Baso % (Auto) 0.2 Lymph # (Auto) 1.5 [place] # (Auto) 1.1 Eos # (Auto) 0.3 Baso # (Auto) 0.0 Abs Immat Gran (auto) 0.05 H Absolute Neuts (auto) 10.0 H Absolute Nucleated RBC 0.000 Nucleated RBC % (auto) 0.0 Anion Gap 10 L Estim Creat Clear Calc 100.4 Estimated GFR > 60 Random Glucose 116 H Lactic Acid Calcium 8.3 L D Urine Color Urine Appearance Urine pH Ur Specific [place] Urine Protein Urine Glucose (UA) Urine Ketones Urine Blood Urine Nitrite Ur Leukocyte Esterase Urine RBC Urine WBC Ur Squamous Epith Cells Urine Bacteria Urine Test Urine Opiates Screen POSITIVE H Urine Fentanyl Screen POSITIVE H Ur Barbiturates Screen Not Detected Ur Phencyclidine Scrn Not Detected Ur Amphetamines Screen Not Detected U Benzodiazepines Scrn Not Detected Urine Cocaine Screen POSITIVE H U Marijuana (THC) Screen POSITIVE H COVID-19 ([facility]I) COVID-19 Clin Com Assessment and Plan (1) Abscess of left foot: Status: Acute Plan 85-year-old with past medical history of back to me as well as IV drug use who presents to the hospital with abscess of left foot Left foot abscess/ cellulitis will treat with broad-spectrum antibiotics given her history of bacteremia and MRSA infection in the past general surgery for I&D follow cultures Pain management Positive test OB follow up us pending Discussed with Alban, jonathan cephalosporins, amp or clinda, no doxycycline or quinolones current pain medication ok IV drug use continue methadone DVT prophylaxis Lovenox Attending Dr. Burns Quality Stroke Does the patient have a stroke diagnosis?: No VTE Prior VTE?: No VTE Risk Level:: Medical - moderate - high VTE Device Contraindication: Treatment Not Indicated VTE Drug Contraindication: N/A - Med Ordered
--- NOTE | 2021-09-24 11:52 | MHC.CM.PN ---
Attempted to meet with patient in regards to discharge planning. Patient sleeping with ear buds in. Will attempt to meet again. There is no HCP or Covid vaccine available in medical records. Continue to monitor for d/c needs. Patient positive for Covid 09/23.
--- NOTE | 2021-09-24 13:15 | PC.NURSE ---
Pt received from main ER: Pt AOX4 and states pain to L foot cellulitis. Heart sounds normal and lungs clear. Since admission, pt has not known she was . No provider or medical professional made pt aware. When knew how far along she is, she states she has not had a mentrual cycle for several month due to her addiction. JOON Juárez made aware and communication order received to hold on narcs. New orders also received for U/S abd, HCG testing and OBGYN consult. RN will continue to monitor.
[2021-09-24 13:49] LABS: HCG Quantitative 5975 mIU/mL
--- NOTE | 2021-09-24 14:06 | P.CONOB_ITS ---
SPEECH THERAPIST EARLY INTERVENTION - CN: HPI Data of Consult Consult date: 09/24/21 Requesting Physician: Sara Juárez NP Primary Care Provider: Unknown Physician Consult Narrative Narrative: I was consulted on November who is a 35 year old female with history of IV drug abuse was admitted for foot cellulitis/abscess, status post I & D on IV antibiotics, vancomycin 1 g Q12h and cefepime 2 g IV Q 8, urine test was positive, hCG quantitative was 5975, OB ultrasound showed the followin. Single intrauterine gestation with ultrasound gestational age of? 6 weeks and 3 days +/- 4 days. 2. Estimated date of delivery is 05/17/2022 +/- 4 days. 3. No maternal adnexal mass or pelvic ascites.. White count is 12.9, H&H 9.5/29.2, COVID-19 positive, urine tox screen is positive for fentanyl, opiates, cocaine and THC. The patient has no pelvic cramping and or bleeding. On Dilaudid, oxycodone p.r.n. pain, blood culture sent is still pending cc:: CC: Sara Juárze NP PLAN CONSULTANT - Review of Systems Review of Systems ROS Unobtainable: All systems reviewed & are unremarkable except as noted in HPI and below Cardiovascular: Denies Palpatations, Loss of consciousness or Chest pain Respiratory: Denies Cough, Wheezing or Shortness of breath Musculoskeletal: Denies Low back pain Gastrointestinal: Denies Heartburn, Constipation, Diarrhea, Nausea or Vomiting Genitourinary: Denies Pain with urination, Burning with urination or Urinary frequency Neurological: Denies Migranes Psychological: Denies Depression [facility] Past Medical History Medical History Asthma Fungus infection in blood MRSA (methicillin resistant staph aureus) culture positive Sepsis Substance abuse Surgical History Surgical History No pertinent past surgical history Social History Social History Household Members: Significant Other Housing: Apartment Do you presently have visiting nurse or other home services: No Patient Tobacco Use Status: Never used Tobacco Substance Use Type: Marijuana and Opiates service: No Current occupational status: unemployed Meds Allergies Allergy/AdvReac Type Severity Reaction Status Date / Time bee pollen [Bee Stings] Allergy Unknown SWELLING Verified 09/23/21 20:39 AT SITE morphine [Morphine] Allergy Unknown SKIN Verified 09/23/21 20:39 BUBBLED Penicillins Allergy Unknown HIVES Verified 09/23/21 20:39 BREATHING PBROBLEM Active Medications: Current Medications Acetaminophen (Acetaminophen 325 Mg Tablet) 650 mg PO Q6H PRN PRN Reason: Pain, Mild (Pain Scale 1-3) Enoxaparin Sodium (Enoxaparin Sodium 40 Mg/0.4 Ml Syringe) 40 mg SUBCUT Q24H [facility] Last Admin: 09/24/21 10:28 Dose: 40 mg Documented by: Hydromorphone HCl (Hydromorphone Hcl 1 Mg/Ml Syringe) 0.5 mg IVPUSH Q3H PRN; Protocol PRN Reason: Pain, Mild (Pain Scale 1-3) Cefepime HCl 2 gm/ Sodium (Chloride) 50 mls @ 100 mls/hr IV Q8H [facility] Last Admin: 09/24/21 10:19 Dose: 100 mls/hr Documented by: Vancomycin HCl 1,000 mg/ (Sodium Chloride) 270 mls @ 270 mls/hr IV Q12H [facility] Methadone HCl (Methadone Hcl 20 Mg/2 Ml Oral.Conc) 80 mg PO DAILY [facility] Last Admin: 09/24/21 10:20 Dose: 80 mg Documented by: Ondansetron HCl (Ondansetron Hcl 4 Mg/2 Ml Vial) 4 mg IVPUSH Q8H PRN PRN Reason: Nausea and Vomiting Oxycodone HCl (Oxycodone Hcl Immed Release 5 Mg Tablet) 10 mg PO Q4H PRN PRN Reason: Pain, Severe (Pain Scale 7-10) Pharmacy Consult (Consult Rx Vancomycin Dosing) 1 each MISCELLANE DAILY PRN PRN Reason: Consult order Sodium Chloride (0.9 % Sodium Chloride Flush 3 Ml Syringe) 3 ml IVFLUSH QSHIFT [facility] Last Admin: 09/24/21 10:20 Dose: 3 ml Documented by: Home Medications Medication Instructions Recorded Confirmed Last Taken Type methadone 10 mg/mL intravenous 80 mg DAILY 09/23/21 09/23/21 09/21/21 History syringe SPEECH THERAPIST EARLY INTERVENTION Physical Exam Vitals Vital signs: Temp Pulse Resp BP Pulse Ox 98.1 F 77 19 137/83 100 09/24/21 12:41 09/24/21 12:41 09/24/21 12:41 09/24/21 12:41 09/24/21 12:41 BMI result Body Mass Index 21.5 Constitutional General Appearance: Healthy appearing, Well-nourished and Well-developed Psychiatric Mood and Affect: active and alert, normal mood and normal affect Skin Appearance: No rashes and No lesions Lungs Respiratory Effort: No intercostal retractions Auscultation: Clear to auscultation Cardiovascular Auscultation: RRR Abdomen Auscultation/Inspection/Palpation: Normal bowel sounds, Soft, Non-distended and No tenderness Female Genitalia (Pelvic) Exam: Deferred SPEECH THERAPIST EARLY INTERVENTION - Results Labs CBC & Chem 7: 09/26/21 05:49 10/02/21 06:07 Labs: Short CBC 09/23/21 09/24/21 Range/Units 21:02 08:43 WBC 17.9 H 12.9 H (4.8-10.8) X10*3/uL Hgb 13.6 9.5 L D (12.0-16.0) g/dl Hct 41.9 29.2 L D (37.0-47.0) % Plt Count 284 D 206 D (160-400) X10*3/uL BMP 09/23/21 09/24/21 21:02 08:43 Sodium 132 L 135 Potassium 4.0 3.8 Chloride 98 104 Carbon Dioxide 25 25 BUN 7 L D 8 L Creatinine 0.75 0.59 Calcium 9.3 8.3 L D Urine 09/23/21 09/23/21 Range/Units 23:55 23:55 Urine Color YELLOW Urine Appearance CLEAR Urine pH 6.5 (5.0-8.0) Ur Specific [place] <= 1.005 (1.005-1.025) Urine Protein NEG (NEG-TRACE) MG/DL Urine Glucose (UA) NEG (NEG) MG/DL Urine Test POSITIVE H (NEGATIVE) Assessment and Plan (1) Abscess of left foot: Status: Acute Status post I&D on vancomycin 1 g Q12 and cefepime 2 g Q8. Recommend antibiotic management for Gram-positive, MRSA. In case of no improvement on the current antibiotics c/s ID. The following antibiotics can be used including cephalosporins and/or clindamycin, recommended against use of any of the following antibiotics in include Levaquin, doxycycline NSAIDs are contraindicated in for pain management. (2) Early stage of : Status: Acute Ultrasound showed intrauterine viable . Signs and symptoms of spontaneous were discussed with the patient, cramping and or bleeding. vitamin 1 tablet p.o. q.d. Discussed with the patient the following risks of substance use, specifically cocaine, THC and opiates in early include but not limited to: Explained to the patient the following: Opioid use in is associated with the following: gas, intra amniotic infection, growth restriction, miscarriage, septic throm bophlebitis, hemorrhage, and later on in placental abruption, preeclampsia, premature labor and delivery and rupture of membranes Cocaine use in can cause , low weight, small for gestational age, reduced weight THC use in specifically in the 1st trimester can increase the risk of stillbirth rate, visual problem solving, visual?motor coordination, decreased attention span and behavioral problems in the teenage years with poor visual analysis, poorer reading and spelling and lower school performance, in addition to, smaller lengths and head circumferences as well as lower weights . Possible use in with structural anatomic defects with marijuana use in the first month of , in addition to an increase in the risk of anencephaly At the end, the patient was informed the patient was informed of the potential ramification of a positive screen result including mandatory reporting requirements. All questions answered, the patient verbalized understanding (3) COVID-19: Status: Acute Since the patient is , she is a candidate for monoclonal antibody IV. Will send a referral for COVID-19 monoclonal antibody treatment from our office on the behalf of the patient
[2021-09-24] MEDS: oxyCODONE HCl Immed Release 5 MG TABLET 10 MG PO (21:36)
--- NOTE | 2021-09-25 01:07 | PC.NURSE ---
IV pump was nt plugged in and shut off during IV antibiotics infusion-making this antibiotic run late.
[2021-09-25] MEDS: cefEPime HCl 2 GM in 0.9 % Sodium Chloride 50 ML IV ×3 (01:40→16:12)
[2021-09-25] MEDS: Acetaminophen 325 MG TABLET 650 MG PO (01:40)
[2021-09-25] MEDS: oxyCODONE HCl Immed Release 5 MG TABLET 10 MG PO ×4 (01:40→21:39)
[2021-09-25] MEDS: 0.9 % Sodium Chloride Flush 3 ML SYRINGE IVFLUSH ×3 (01:41→16:12)
[2021-09-25 03:17] VITALS: BP 113/52; PULSE 70; RESP 20; TEMP 37.3; O2SAT 98
[2021-09-25 07:05] LABS: Creatinine Clr Calc Pharmacy 92.6; Estimated Glomerular Filt Rate > 60
[2021-09-25 07:08] LABS: Vancomycin Trough 5.1 mcg/mL (10.0-20.0)
--- NOTE | 2021-09-25 07:31 | HE.PHANOTE ---
VANCOMYCIN DOSE ADDENDUM BASED ON TROUGH OF 5.1 DOSE CHANGED TO [id number] WITH NEXT TROUGH 09/26 @ 0600
[2021-09-25 08:00] VITALS: BP 115/51; PULSE 84; RESP 18; TEMP 37.2; O2SAT 98
[2021-09-25] MEDS: Enoxaparin Sodium 40 MG/0.4 ML SYRINGE SUBCUT (08:47)
[2021-09-25] MEDS: Multivitamin TABLET 1 TAB PO (08:48)
[2021-09-25] MEDS: methADONE HCl 20 MG/2 ML ORAL.CONC 80 MG PO (08:49)
--- NOTE | 2021-09-25 09:22 | MHC.CM.PN ---
CM spoke with Patient on room phone at Ext. [phone]. Patient lives an an apartment with an, elderly male friend. Patient receives her Methadone from [facility]. A 51-A was filed r/t Patient being and a positive Toxicology screen for Opiates, Fentanyl, Cocaine, Marijuana. Patient has no PCP and no OBGYN (Patient reports that she just found out yesterday that she was ). FOB is not involved and Patient has 2 other children who are NOT in her care (with their Father). 51 A called in to CPS and form faxed to [facility] at [phone] and uploaded into [employer].Home no services VS Care Team interventions appears to be the goal and CM has initiated and will follow for dc planning.
[2021-09-25] MEDS: vancomycin HCL 1,250 MG in 0.9 % Sodium Chloride 250 ML 166.67 MG IV ×2 (10:00→21:39)
[2021-09-25 11:30] VITALS: BP 125/69; PULSE 72; RESP 18; TEMP 37.4; O2SAT 99
--- NOTE | 2021-09-25 12:53 | P.CONGS_ITS ---
History of Present Illness Consult details Consult date: 09/25/21 Narrative: [age] year female referred for left foot abscess. She has a known history of IV drug abuse, with previous septicemia in the past. She admitted 2 days ago because of left foot abscess. She said says she had a swollen area on the dorsum of left foot for about a week. She says that this is on an area which she uses for IV drug abuse. She states that the and I and D was done in the ER yesterday and the area has been draining spontaneously although this had remained swollen. She describes pain on the area and says that she needs higher doses of pain medications. Review of Systems Verdana 4l Constitutional: Verdana 4d Constitutional: Verdana 4d Verdana 4d Denies chills and Denies fever(s) Verdana 4l Cardiovascular: Verdana 4d Cardiovascular: Verdana 4d Verdana 4d Denies chest pain, Denies dyspnea and Denies dyspnea on exertion Verdana 4l Respiratory: Verdana 4d Verdana 4d Respiratory: Verdana 4d Denies cough, Denies dyspnea and Denies dyspnea on exertion Verdana 4l Gastrointestinal: Verdana 4d Gastrointestinal: Verdana 4d Verdana 4d Denies hematochezia and Denies change in bowel habits Verdana 4l Genitourinary: Verdana 4d Verdana 4d Genitourinary: Verdana 4d Denies hematuria Verdana 4l Musculoskeletal: Verdana 4d Musculoskeletal: Verdana 4d Verdana 4d Denies back pain and Denies limited range of motion Verdana 4l Neurologic: Verdana 4d Denies focal weakness and Denies convulsions Verdana 4l Psychiatric: Verdana 4d Verdana 4d Psychiatric: Verdana 4d Denies depression and Denies mood swings PMFSH Past Medical History Medical History Asthma Fungus infection in blood MRSA (methicillin resistant staph aureus) culture positive Sepsis Substance abuse Surgical History Surgical History No pertinent past surgical history Social History Social History Household Members: Significant Other Housing: Apartment Do you presently have visiting nurse or other home services: No Patient Tobacco Use Status: Never used Tobacco Substance Use Type: Marijuana and Opiates service: No Current occupational status: unemployed Meds Allergies Allergy/AdvReac Type Severity Reaction Status Date / Time bee pollen [Bee Stings] Allergy Unknown SWELLING Verified 09/23/21 20:39 AT SITE morphine [Morphine] Allergy Unknown SKIN Verified 09/23/21 20:39 BUBBLED Penicillins Allergy Unknown HIVES Verified 09/23/21 20:39 BREATHING PBROBLEM Active Medications: Current Medications Acetaminophen (Acetaminophen 325 Mg Tablet) 650 mg PO Q6H PRN PRN Reason: Pain, Mild (Pain Scale 1-3) Last Admin: 09/25/21 01:40 Dose: 650 mg Documented by: Enoxaparin Sodium (Enoxaparin Sodium 40 Mg/0.4 Ml Syringe) 40 mg SUBCUT Q24H [facility] Last Admin: 09/25/21 08:47 Dose: 40 mg Documented by: Hydromorphone HCl (Hydromorphone Hcl 1 Mg/Ml Syringe) 0.5 mg IVPUSH Q3H PRN; Protocol PRN Reason: Pain, Mild (Pain Scale 1-3) Cefepime HCl 2 gm/ Sodium (Chloride) 50 mls @ 100 mls/hr IV Q8H [facility] Last Infusion: 09/25/21 10:13 Dose: Infused Documented by: Vancomycin HCl 1,250 mg/ (Sodium Chloride) 250 mls @ 166.667 mls/hr IV Q12H [facility] Last Admin: 09/25/21 10:00 Dose: 166.67 mls/hr Documented by: Methadone HCl (Methadone Hcl 20 Mg/2 Ml Oral.Conc) 80 mg PO DAILY [facility] Last Admin: 09/25/21 08:49 Dose: 80 mg Documented by: Multivitamins/Vitamin C (Multivitamin Tablet) 1 tab PO DAILY [facility] Last Admin: 09/25/21 08:48 Dose: 1 tab Documented by: Ondansetron HCl (Ondansetron Hcl 4 Mg/2 Ml Vial) 4 mg IVPUSH Q8H PRN PRN Reason: Nausea and Vomiting Oxycodone HCl (Oxycodone Hcl Immed Release 5 Mg Tablet) 10 mg PO Q4H PRN PRN Reason: Pain, Severe (Pain Scale 7-10) Last Admin: 09/25/21 08:48 Dose: 10 mg Documented by: Pharmacy Consult (Consult Rx Vancomycin Dosing) 1 each MISCELLANE DAILY PRN PRN Reason: Consult order Sodium Chloride (0.9 % Sodium Chloride Flush 3 Ml Syringe) 3 ml IVFLUSH QSHIFT [facility] Last Admin: 09/25/21 08:46 Dose: 3 ml Documented by: Home Medications Medication Instructions Recorded Confirmed Last Taken Type methadone 10 mg/mL 80 mg DAILY 09/23/21 09/23/21 09/21/21 History intravenous syringe Physical Exam Verdana 4l Vital Signs: Verdana 4d Verdana 4d Vital Signs: Verdana 4d Verdana 4Bd Last Vital Signs Verdana 4d Dispatcher Chief Oil New 4d Dispatcher Chief Oil New 4d Temp 99.3 F 09/25/21 11:30 Dispatcher Chief Oil New 4d Pulse 72 09/25/21 11:30 Dispatcher Chief Oil New 4d Resp 18 09/25/21 11:30 BP 125/69 09/25/21 11:30 Pulse Ox 99 09/25/21 11:30 BMI result Body Mass Index 21.5 Const: General: comfortable and no acute distress Orientation/consciousness: patient oriented x3 Neck: Neck: Yes no lymphadenopathy Resp: Auscultation: clear to auscultation bilaterally Cardio: Rhythm: regular rhythm GI: Palpation (GI): Soft to palpation, nontender and no guarding Neuro: General: patient oriented x3 Extrem: Other: Dorsum of left foot with an area of swelling, redness, and spontaneous drainage. The area of induration is about 4 cm in diameter. There is note of cellulitic changes as well Results Labs Result diagrams: 09/26/21 05:49 10/01/21 08:57 Labs: Abnormal lab results 09/25/21 Range/Units 06:06 Vancomycin Trough 5.1 L (10.0-20.0) mcg/mL BMP 09/25/21 06:06 Creatinine 0.64 Urine 09/23/21 09/23/21 Range/Units 23:55 23:55 Urine Color YELLOW Urine Appearance CLEAR Urine pH 6.5 (5.0-8.0) Ur Specific [place] <= 1.005 (1.005-1.025) Urine Protein NEG (NEG-TRACE) MG/DL Urine Glucose (UA) NEG (NEG) MG/DL Urine Test POSITIVE H (NEGATIVE) All other labs normal. Assessment and Plan (1) Abscess of left foot: Status: Acute Although this had been drained yesterday, I told her that this seems to be still swollen and it would be best to proceed with another I&D. She is not willing to have this done at this point. She says that the area is draining already and she wants to continue with warm compresses and to try to massage the area to squeeze out drainage. I explained to her that this may not be optimal. She says that he will let me know if she changes her mind but she will continue with current care at this time. I will however follow while she is in the hospital. Procedures Date of Service Date of Service: 10/26/21
[2021-09-25 13:04] LABS: MANUAL DIFF FLAG NO
[2021-09-25 13:07] LABS: Basophils Percent Auto 0.3 % (0-2); Eosinophils Absolute Auto 0.5 X10*3/uL (0.0-0.4); Hematocrit 35.1 % (37.0-47.0); Hemoglobin 11.3 g/dl (12.0-16.0); Imm Gran Abs Auto 0.03 X10*3/uL (0.00-0.03); Imm Gran Pct Auto 0.3 % (0.0-0.4); Lymphocytes Absolute Auto 2.6 X10*3/uL (1.2-4.9); Lymphocytes Percent Auto 28.4 % (20-40); Mean Corpuscular HGB Conc 32.2 g/dl (31.0-35.0); Mean Platelet Volume 11.5 fL (9.4-12.3); Monocytes Absolute Auto 0.7 X10*3/uL (0.1-1.2); Monocytes Percent Auto 7.1 % (2-11); Neutrophils Absolute Auto 5.4 x10*3/uL (2.0-8.3); Neutrophils Percent Auto 58.9 % (45-73); Platelet Count 263 X10*3/uL (160-400); Red Blood Count 4.18 X10*6/uL (4.20-5.50); Red Cell Distribution Width 14.4 % (11.0-16.0); White Blood Count 9.2 X10*3/uL (4.8-10.8)
--- NOTE | 2021-09-25 13:30 | MHC.CLN ---
NUTRITION PATIENT IS APPROXIMATELY 6 WEEKS . ADDING ENSURE BID TO INCREASE NUTRITIONAL INTAKE. PROVIDES 700 KCAL, 40 G PROTEIN.
[2021-09-25 13:32] VITALS: BMI 21.5
[2021-09-25 15:18] VITALS: BP 102/58; PULSE 61; RESP 20; TEMP 36.8; O2SAT 100
--- NOTE | 2021-09-25 17:29 | P.PNIM_ITS ---
Subjective Subjective Date of Service: 09/25/21 Interval History: seen and examined this morning follow up for foot infection reporting pain in left foot, no fever Review of Systems Review of Systems: Yes all other systems are reviewed and are negative Constitutional Constitutional: Denies chills and Denies fever(s) Gastrointestinal Gastrointestinal: Denies nausea Physical Exam Verdana 4l Vital Signs: Verdana 4d Verdana 4d Vital Signs: Verdana 4d Verdana 4Bd Last Vital Signs Verdana 4d Athlete Marketing Agent New 4d Athlete Marketing Agent New 4d Temp 98.2 F 09/25/21 15:18 Athlete Marketing Agent New 4d Pulse 61 09/25/21 15:18 Athlete Marketing Agent New 4d Resp 20 09/25/21 15:18 BP 102/58 L 09/25/21 15:18 Pulse Ox 100 09/25/21 15:18 BMI result Body Mass Index 21.5 Const: General: cooperative, alert and awake Nutritional Appearance: average body habitus Resp: Effort & Inspection: normal respiratory effort and able to speak in complete sentences Cardio: Heart sounds: S1 normal heart sound present and S2 normal heart sound present Skin: Other: see extremity exam below Extrem: Other: erythema/swelling left foot; some purulent drainage present, seems like some fluctuance but pt not allowing extensive exam Objective Data Active Medications Acetaminophen (Acetaminophen 325 Mg Tablet) 650 mg PO Q6H PRN PRN Reason: Pain, Mild (Pain Scale 1-3) Last Admin: 09/25/21 01:40 Dose: 650 mg Documented by: SERAFIN Enoxaparin Sodium (Enoxaparin Sodium 40 Mg/0.4 Ml Syringe) 40 mg SUBCUT Q24H [facility] Last Admin: 09/25/21 08:47 Dose: 40 mg Documented by: EMILE Hydromorphone HCl (Hydromorphone Hcl 1 Mg/Ml Syringe) 0.5 mg IVPUSH Q3H PRN; Protocol PRN Reason: Pain, Mild (Pain Scale 1-3) Cefepime HCl 2 gm/ Sodium (Chloride) 50 mls @ 100 mls/hr IV Q8H [facility] Last Infusion: 09/25/21 17:03 Dose: 0 mls/hr Documented by: TOMAS Vancomycin HCl 1,250 mg/ (Sodium Chloride) 250 mls @ 166.667 mls/hr IV Q12H [facility] Last Infusion: 09/25/21 13:26 Dose: 0 mls/hr Documented by: TOMAS Methadone HCl (Methadone Hcl 20 Mg/2 Ml Oral.Conc) 80 mg PO DAILY [facility] Last Admin: 09/25/21 08:49 Dose: 80 mg Documented by: EMILE Multivitamins/Vitamin C (Multivitamin Tablet) 1 tab PO DAILY [facility] Last Admin: 09/25/21 08:48 Dose: 1 tab Documented by: EMILE Ondansetron HCl (Ondansetron Hcl 4 Mg/2 Ml Vial) 4 mg IVPUSH Q8H PRN PRN Reason: Nausea and Vomiting Oxycodone HCl (Oxycodone Hcl Immed Release 5 Mg Tablet) 10 mg PO Q4H PRN PRN Reason: Pain, Severe (Pain Scale 7-10) Last Admin: 09/25/21 16:14 Dose: 10 mg Documented by: TOMAS Pharmacy Consult (Consult Rx Vancomycin Dosing) 1 each MISCELLANE DAILY PRN PRN Reason: Consult order Sodium Chloride (0.9 % Sodium Chloride Flush 3 Ml Syringe) 3 ml IVFLUSH QSHIFT [facility] Last Admin: 09/25/21 16:12 Dose: 3 ml Documented by: TOMAS Labs CBC & Chem 7: 09/25/21 12:47 09/25/21 06:06 Labs: Laboratory Results - last 24 hr 09/25/21 09/25/21 09/25/21 06:06 06:06 12:47 MCV 84.0 MCH 27.0 MCHC 32.2 RDW 14.4 Plt Count 263 D MPV 11.5 Immature Gran % (Auto) 0.3 Neut % (Auto) 58.9 Lymph % (Auto) 28.4 [place] % (Auto) 7.1 Eos % (Auto) 5.0 H Baso % (Auto) 0.3 Lymph # (Auto) 2.6 [place] # (Auto) 0.7 Eos # (Auto) 0.5 H Baso # (Auto) 0.0 Abs Immat Gran (auto) 0.03 Absolute Neuts (auto) 5.4 Absolute Nucleated RBC 0.000 Nucleated RBC % (auto) 0.0 Estim Creat Clear Calc 92.6 Estimated GFR > 60 Vancomycin Trough 5.1 L Microbiology Microbiology Results: Microbiology 09/23/21 21:00 Blood Culture - Preliminary Blood - Venous No growth after 24 hours. 09/23/21 21:00 Blood Culture - Preliminary Blood - Venous No growth after 24 hours. Assessment and Plan (1) COVID-19: Status: Acute (2) Abscess of left foot: Status: Acute (3) Cellulitis of foot, left: Status: Acute Plan 85-year-old with past medical history of back to mo as well as IV drug use who presents to the hospital with abscess of left foot Left foot abscess/ cellulitis will treat with broad-spectrum antibiotics given her history of bacteremia and MRSA infection in the past I&D done in ED seen by general surgery, pt declined further I &D BCx negative x 24 hours Pain management Positive test OB follow up us showing single intrauterine gestational age around [address] Phoenix, rec cephalosporins, amp or clinda, no doxycycline or quinolones current pain medication ok polysubstance abuse tox screen + for multiple substances continue methadone addiction medicine consult COVID 19 + asymptomatic not requiring supplemental oxygen at this time DVT prophylaxis Lovenox Attending Dr. Burns Quality Stroke Does the patient have a stroke diagnosis?: No VTE Prior VTE?: No VTE Risk Level:: Medical - moderate - high VTE Device Contraindication: Treatment Not Indicated VTE Drug Contraindication: N/A - Med Ordered
[2021-09-25 19:24] VITALS: BP 108/68; PULSE 89; RESP 20; TEMP 37.3; O2SAT 99
[2021-09-25 23:47] VITALS: BP 103/62; PULSE 59; RESP 18; TEMP 36.9; O2SAT 98
[2021-09-26] MEDS: cefEPime HCl 2 GM in 0.9 % Sodium Chloride 50 ML IV ×3 (01:12→16:50)
[2021-09-26] MEDS: 0.9 % Sodium Chloride Flush 3 ML SYRINGE IVFLUSH ×3 (01:12→18:07)
[2021-09-26 04:00] VITALS: BP 110/53; PULSE 63; RESP 18; TEMP 36.9; O2SAT 98
[2021-09-26 06:32] LABS: MANUAL DIFF FLAG NO
[2021-09-26 06:44] LABS: Basophils Percent Auto 0.4 % (0-2); Eosinophils Absolute Auto 0.5 X10*3/uL (0.0-0.4); Eosinophils Percent Auto 5.4 % (0-4); Hematocrit 35.4 % (37.0-47.0); Hemoglobin 11.2 g/dl (12.0-16.0); Imm Gran Abs Auto 0.04 X10*3/uL (0.00-0.03); Imm Gran Pct Auto 0.5 % (0.0-0.4); Lymphocytes Absolute Auto 2.9 X10*3/uL (1.2-4.9); Lymphocytes Percent Auto 34.9 % (20-40); Mean Corpuscular HGB Conc 31.6 g/dl (31.0-35.0); Mean Corpuscular Hemoglobin 26.6 pg (27.0-33.0); Mean Corpuscular Volume 84.1 fL (80.0-98.0); Mean Platelet Volume 11.7 fL (9.4-12.3); Monocytes Absolute Auto 0.8 X10*3/uL (0.1-1.2); Neutrophils Absolute Auto 4.2 x10*3/uL (2.0-8.3); Neutrophils Percent Auto 49.8 % (45-73); Platelet Count 273 X10*3/uL (160-400); Red Blood Count 4.21 X10*6/uL (4.20-5.50); Red Cell Distribution Width 14.6 % (11.0-16.0); White Blood Count 8.3 X10*3/uL (4.8-10.8)
[2021-09-26 06:53] LABS: Anion Gap 14 (12-20); Blood Urea Nitrogen 14 mg/dL (9-16); Calcium 9.2 mg/dL (8.4-10.2); Carbon Dioxide 28 mmol/L (22-29); Chloride 102 mmol/L (96-108); Creatinine Clr Calc Pharmacy 85.9; Estimated Glomerular Filt Rate > 60; Glucose Random 77 mg/dL (60-115); Potassium 4.6 mmol/L (3.3-5.1); Sodium 139 mmol/L (135-145)
[2021-09-26 07:03] LABS: Vancomycin Trough 15.8 mcg/mL (10.0-20.0)
[2021-09-26 08:00] VITALS: BP 98/42; PULSE 72; RESP 16; TEMP 36.3; O2SAT 97
[2021-09-26] MEDS: vancomycin HCL 1,000 MG in 0.9 % Sodium Chloride 250 ML 270 MG IV ×2 (09:54→21:30)
[2021-09-26] MEDS: Multivitamin TABLET 1 TAB PO (09:55)
[2021-09-26] MEDS: methADONE HCl 20 MG/2 ML ORAL.CONC 80 MG PO (09:55)
[2021-09-26] MEDS: Enoxaparin Sodium 40 MG/0.4 ML SYRINGE SUBCUT (09:55)
[2021-09-26] MEDS: oxyCODONE HCl Immed Release 5 MG TABLET 10 MG PO ×3 (10:21→22:19)
--- NOTE | 2021-09-26 10:34 | P.PNGS_ITS ---
Subjective Subjective Date of Service: 09/26/21 Interval history: Says she is still very tender on the area of the abscess Requiring a lot of pain meds Physical Exam Verdana 4l Vital Signs: Verdana 4d Verdana 4d Vital Signs: Verdana 4d Verdana 4Bd Last Vital Signs Verdana 4d Business Resiliency Manager New 4d Business Resiliency Manager New 4d Temp 97.3 F 09/26/21 08:00 Business Resiliency Manager New 4d Pulse 72 09/26/21 08:00 Business Resiliency Manager New 4d Resp 16 09/26/21 08:00 BP 98/42 L 09/26/21 08:00 Pulse Ox 97 09/26/21 08:00 BMI result Body Mass Index 21.5 Const: General: no acute distress Orientation/consciousness: patient oriented x3 Resp: Effort & Inspection: normal respiratory effort Cardio: Rate: regular rate Neuro: General: patient oriented x3 Extrem: Other: Dorsum of left foot, with large area of induration, central fluctuance, with drainage, cellulitic changes Objective Data Active Medications Acetaminophen (Acetaminophen 325 Mg Tablet) 650 mg PO Q6H PRN PRN Reason: Pain, Mild (Pain Scale 1-3) Last Admin: 09/25/21 01:40 Dose: 650 mg Documented by: SERAFIN Enoxaparin Sodium (Enoxaparin Sodium 40 Mg/0.4 Ml Syringe) 40 mg SUBCUT Q24H [facility] Last Admin: 09/26/21 09:55 Dose: 40 mg Documented by: TOMAS Hydromorphone HCl (Hydromorphone Hcl 1 Mg/Ml Syringe) 0.5 mg IVPUSH Q3H PRN; Protocol PRN Reason: Pain, Mild (Pain Scale 1-3) Cefepime HCl 2 gm/ Sodium (Chloride) 50 mls @ 100 mls/hr IV Q8H [facility] Last Infusion: 09/26/21 08:54 Dose: 0 mls/hr Documented by: TOMAS Vancomycin HCl 1,000 mg/ (Sodium Chloride) 270 mls @ 270 mls/hr IV Q12H [facility] Last Admin: 09/26/21 09:54 Dose: 270 mls/hr Documented by: TOMAS Methadone HCl (Methadone Hcl 20 Mg/2 Ml Oral.Conc) 80 mg PO DAILY [facility] Last Admin: 09/26/21 09:55 Dose: 80 mg Documented by: TOMAS Multivitamins/Vitamin C (Multivitamin Tablet) 1 tab PO DAILY [facility] Last Admin: 09/26/21 09:55 Dose: 1 tab Documented by: TOMAS Ondansetron HCl (Ondansetron Hcl 4 Mg/2 Ml Vial) 4 mg IVPUSH Q8H PRN PRN Reason: Nausea and Vomiting Oxycodone HCl (Oxycodone Hcl Immed Release 5 Mg Tablet) 10 mg PO Q4H PRN PRN Reason: Pain, Severe (Pain Scale 7-10) Last Admin: 09/26/21 10:21 Dose: 10 mg Documented by: TOMAS Pharmacy Consult (Consult Rx Vancomycin Dosing) 1 each MISCELLANE DAILY PRN PRN Reason: Consult order Sodium Chloride (0.9 % Sodium Chloride Flush 3 Ml Syringe) 3 ml IVFLUSH QSHIFT [facility] Last Admin: 09/26/21 09:56 Dose: 3 ml Documented by: TOMAS Labs CBC & Chem 7: 09/26/21 05:49 09/26/21 05:49 Labs: Laboratory Results - last 24 hr 09/25/21 09/26/21 09/26/21 12:47 05:49 05:49 MCV 84.0 84.1 MCH 27.0 26.6 L MCHC 32.2 31.6 RDW 14.4 14.6 Plt Count 263 D 273 MPV 11.5 11.7 Immature Gran % (Auto) 0.3 0.5 H Neut % (Auto) 58.9 49.8 Lymph % (Auto) 28.4 34.9 [place] % (Auto) 7.1 9.0 Eos % (Auto) 5.0 H 5.4 H Baso % (Auto) 0.3 0.4 Lymph # (Auto) 2.6 2.9 [place] # (Auto) 0.7 0.8 Eos # (Auto) 0.5 H 0.5 H Baso # (Auto) 0.0 0.0 Abs Immat Gran (auto) 0.03 0.04 H Absolute Neuts (auto) 5.4 4.2 Absolute Nucleated RBC 0.000 0.000 Nucleated RBC % (auto) 0.0 0.0 Anion Gap 14 Estim Creat Clear Calc 85.9 Estimated GFR > 60 Random Glucose 77 Calcium 9.2 D Vancomycin Trough 09/26/21 05:49 MCV MCH MCHC RDW Plt Count MPV Immature Gran % (Auto) Neut % (Auto) Lymph % (Auto) [place] % (Auto) Eos % (Auto) Baso % (Auto) Lymph # (Auto) [place] # (Auto) Eos # (Auto) Baso # (Auto) Abs Immat Gran (auto) Absolute Neuts (auto) Absolute Nucleated RBC Nucleated RBC % (auto) Anion Gap Estim Creat Clear Calc Estimated GFR Random Glucose Calcium Vancomycin Trough 15.8 Microbiology Microbiology Results: Microbiology 09/23/21 21:00 Blood Culture - Preliminary Blood - Venous No growth after 48 hours. 09/23/21 21:00 Blood Culture - Preliminary Blood - Venous No growth after 48 hours. Procedures Date of Service Date of Service: 09/26/21 Progress Note: A&P Assessment and plan (1) Abscess of left foot: Status: Acute Assessment and Plan: Has persistent induration despite continuous drainage She says she still has a lot of pain and tenderness I told her that we can do it I and D under anesthesia and to wash out of the area will provide adequate drainage I explained to her the technique of this procedure as well as the risks, benefits, and alternatives She says she understands and wants to proceed Will put her on the add on list today in the OR Fall Risk Details Current Medications: Current Medications Acetaminophen (Acetaminophen 325 Mg Tablet) 650 mg PO Q6H PRN PRN Reason: Pain, Mild (Pain Scale 1-3) Last Admin: 09/25/21 01:40 Dose: 650 mg Documented by: Enoxaparin Sodium (Enoxaparin Sodium 40 Mg/0.4 Ml Syringe) 40 mg SUBCUT Q24H [facility] Last Admin: 09/26/21 09:55 Dose: 40 mg Documented by: Hydromorphone HCl (Hydromorphone Hcl 1 Mg/Ml Syringe) 0.5 mg IVPUSH Q3H PRN; Protocol PRN Reason: Pain, Mild (Pain Scale 1-3) Cefepime HCl 2 gm/ Sodium (Chloride) 50 mls @ 100 mls/hr IV Q8H [facility] Last Infusion: 09/26/21 08:54 Dose: Infused Documented by: Vancomycin HCl 1,000 mg/ (Sodium Chloride) 270 mls @ 270 mls/hr IV Q12H [facility] Last Admin: 09/26/21 09:54 Dose: 270 mls/hr Documented by: Methadone HCl (Methadone Hcl 20 Mg/2 Ml Oral.Conc) 80 mg PO DAILY [facility] Last Admin: 09/26/21 09:55 Dose: 80 mg Documented by: Multivitamins/Vitamin C (Multivitamin Tablet) 1 tab PO DAILY [facility] Last Admin: 09/26/21 09:55 Dose: 1 tab Documented by: Ondansetron HCl (Ondansetron Hcl 4 Mg/2 Ml Vial) 4 mg IVPUSH Q8H PRN PRN Reason: Nausea and Vomiting Oxycodone HCl (Oxycodone Hcl Immed Release 5 Mg Tablet) 10 mg PO Q4H PRN PRN Reason: Pain, Severe (Pain Scale 7-10) Last Admin: 09/26/21 10:21 Dose: 10 mg Documented by: Pharmacy Consult (Consult Rx Vancomycin Dosing) 1 each MISCELLANE DAILY PRN PRN Reason: Consult order Sodium Chloride (0.9 % Sodium Chloride Flush 3 Ml Syringe) 3 ml IVFLUSH QSHIFT [facility] Last Admin: 09/26/21 09:56 Dose: 3 ml Documented by: Time Spent With Patient Time: Total time spent is greater than 50% in coordination of care (as documented) at patient's floor/unit and/or counseling patient: Time with patient: 15 - 24 minutes Quality Stroke Does the patient have a stroke diagnosis?: No VTE Prior VTE?: No VTE Risk Level:: Medical - moderate - high VTE Device Contraindication: Treatment Not Indicated VTE Drug Contraindication: N/A - Med Ordered
[2021-09-26 10:50] LABS: C Reactive Protein 6.28 mg/dL (< or = 0.50)
[2021-09-26 11:20] LABS: Erythrocyte Sedimentation Rate 60 MM/HR (0-20)
[2021-09-26 11:42] VITALS: BP 109/65; PULSE 75; RESP 16; TEMP 36.6; O2SAT 98
--- NOTE | 2021-09-26 14:30 | HO.PM.IMPN ---
Subjective Subjective Date of Service: 09/26/21 Interval History: seen and examined this morning follow up for foot infection foot feeling a little better this morning denies fever or chills Constitutional Constitutional: Denies chills and Denies fever(s) Cardiovascular Cardiovascular: Denies chest pain and Denies dyspnea Respiratory Respiratory: Denies dyspnea Gastrointestinal Gastrointestinal: Denies diarrhea, Denies nausea and Denies vomiting Physical Exam Vital Signs: Vital Signs: Last Vital Signs Temp 97.8 F 09/26/21 11:42 Pulse 75 09/26/21 11:42 Resp 16 09/26/21 11:42 BP 109/65 09/26/21 11:42 Pulse Ox 98 09/26/21 11:42 BMI result Body Mass Index 21.5 Const: General: cooperative, alert and awake Nutritional Appearance: average body habitus Resp: Effort & Inspection: normal respiratory effort and able to speak in complete sentences Cardio: Heart sounds: S1 normal heart sound present and S2 normal heart sound present Skin: Other: see extremity exam below Extrem: Other: erythema/swelling left foot; some purulent drainage present, seems like some fluctuance but pt not allowing extensive exam Objective Data Active Medications Acetaminophen (Acetaminophen 325 Mg Tablet) 650 mg PO Q6H PRN PRN Reason: Pain, Mild (Pain Scale 1-3) Last Admin: 09/25/21 01:40 Dose: 650 mg Documented by: SERAFIN Enoxaparin Sodium (Enoxaparin Sodium 40 Mg/0.4 Ml Syringe) 40 mg SUBCUT Q24H [facility] Last Admin: 09/26/21 09:55 Dose: 40 mg Documented by: TOMAS Hydromorphone HCl (Hydromorphone Hcl 1 Mg/Ml Syringe) 0.5 mg IVPUSH Q3H PRN; Protocol PRN Reason: Pain, Mild (Pain Scale 1-3) Cefepime HCl 2 gm/ Sodium (Chloride) 50 mls @ 100 mls/hr IV Q8H [facility] Last Infusion: 09/26/21 08:54 Dose: 0 mls/hr Documented by: TOMAS Vancomycin HCl 1,000 mg/ (Sodium Chloride) 270 mls @ 270 mls/hr IV Q12H [facility] Last Infusion: 09/26/21 12:22 Dose: 0 mls/hr Documented by: TOMAS Methadone HCl (Methadone Hcl 20 Mg/2 Ml Oral.Conc) 80 mg PO DAILY [facility] Last Admin: 09/26/21 09:55 Dose: 80 mg Documented by: TOMAS Multivitamins/Vitamin C (Multivitamin Tablet) 1 tab PO DAILY [facility] Last Admin: 09/26/21 09:55 Dose: 1 tab Documented by: TOMAS Ondansetron HCl (Ondansetron Hcl 4 Mg/2 Ml Vial) 4 mg IVPUSH Q8H PRN PRN Reason: Nausea and Vomiting Oxycodone HCl (Oxycodone Hcl Immed Release 5 Mg Tablet) 10 mg PO Q4H PRN PRN Reason: Pain, Severe (Pain Scale 7-10) Last Admin: 09/26/21 10:21 Dose: 10 mg Documented by: TOMAS Pharmacy Consult (Consult Rx Vancomycin Dosing) 1 each MISCELLANE DAILY PRN PRN Reason: Consult order Sodium Chloride (0.9 % Sodium Chloride Flush 3 Ml Syringe) 3 ml IVFLUSH QSHIFT [facility] Last Admin: 09/26/21 09:56 Dose: 3 ml Documented by: TOMAS Labs CBC & Chem 7: 09/26/21 05:49 09/26/21 05:49 Labs: Laboratory Results - last 24 hr 09/26/21 09/26/21 09/26/21 05:49 05:49 05:49 MCV 84.1 MCH 26.6 L MCHC 31.6 RDW 14.6 Plt Count 273 MPV 11.7 Immature Gran % (Auto) 0.5 H Neut % (Auto) 49.8 Lymph % (Auto) 34.9 [place] % (Auto) 9.0 Eos % (Auto) 5.4 H Baso % (Auto) 0.4 Lymph # (Auto) 2.9 [place] # (Auto) 0.8 Eos # (Auto) 0.5 H Baso # (Auto) 0.0 Abs Immat Gran (auto) 0.04 H Absolute Neuts (auto) 4.2 Absolute Nucleated RBC 0.000 Nucleated RBC % (auto) 0.0 ESR Anion Gap 14 Estim Creat Clear Calc 85.9 Estimated GFR > 60 Random Glucose 77 Calcium 9.2 D C-Reactive Protein 6.28 H Vancomycin Trough 15.8 09/26/21 06:27 MCV MCH MCHC RDW Plt Count MPV Immature Gran % (Auto) Neut % (Auto) Lymph % (Auto) [place] % (Auto) Eos % (Auto) Baso % (Auto) Lymph # (Auto) [place] # (Auto) Eos # (Auto) Baso # (Auto) Abs Immat Gran (auto) Absolute Neuts (auto) Absolute Nucleated RBC Nucleated RBC % (auto) ESR 60 H Anion Gap Estim Creat Clear Calc Estimated GFR Random Glucose Calcium C-Reactive Protein Vancomycin Trough Microbiology Microbiology Results: Microbiology 09/23/21 21:00 Blood Culture - Preliminary Blood - Venous No growth after 48 hours. 09/23/21 21:00 Blood Culture - Preliminary Blood - Venous No growth after 48 hours. Assessment and Plan (1) COVID-19: Status: Acute (2) Abscess of left foot: Status: Acute (3) Cellulitis of foot, left: Status: Acute (4) Early stage of : Status: Acute Plan 85-year-old with past medical history of back to tx as well as IV drug use who presents to the hospital with abscess of left foot Left foot abscess/ cellulitis continue broad-spectrum antibiotics given her history of bacteremia and MRSA infection in the past I&D done in ED seen by general surgery, pt initially declined further I&D but now plan for I&D in OR today BCx negative x 48 hours Pain management No bony involvement seen on foot xray, Will check ESR Positive test OB follow up us showing single intrauterine gestational age around [address] Phoenix, rec cephalosporins, amp or clinda, no doxycycline or quinolones current pain medication ok polysubstance abuse tox screen + for multiple substances continue methadone addiction medicine consult COVID 19 + asymptomatic not requiring supplemental oxygen at this time Access: difficult stick, multiple blown IVs, poor access, will order midline DVT prophylaxis Lovenox Attending Dr. Burns Quality Stroke Does the patient have a stroke diagnosis?: No VTE Prior VTE?: No VTE Risk Level:: Medical - moderate - high VTE Device Contraindication: Treatment Not Indicated VTE Drug Contraindication: N/A - Med Ordered
--- NOTE | 2021-09-26 15:12 | MHC.CLN ---
F/U PATIENT IS APPROXIMATELY 6 WEEKS . DIET=REGULAR WITH ENSURE BID TO PROMOTE NUTRITIONAL STATUS. SUPPLEMENT PROVIDES 700 KCAL, 40 G PROTEIN. INTAKE AT MEALS APPEARS GOOD. CONTINUE TO MONITOR INTAKE.
--- NOTE | 2021-09-26 15:24 | MHC.CM.PN ---
Female 35 DX Infection No discharge over this weekend per MD rounds. DP Home no services vs Care team community resource information.
--- NOTE | 2021-09-26 15:24 | HO.ADDICTCON ---
History of Present Illness Date of Service: 09/26/2021 Chief Complaint: Cellulitis/Abscess Reason for Consult: OUD, Requesting physician: Ale Parada Discussed with referring provider: Yes Sources of Information: patient interviewed and chart reviewed HPI Narrative: Patient is a 35 year old female with history of OUD, currently on methadone treatment. Medically admitted for cellulitis in her foot secondary to injection drug use. Patient seen in room 483. Awake, alert, pleasant and engaged in interview. She reports she has been in treatment since July when she presented to [facility] [place] use and what she reports was a bad reaction, and was admitted to ATS (detox) from our ED. She then continued with methadone at [facility]. She reports the only times she has used since starting treatment is when she has missed dosing due to transportation issues. She is living in [place] with a friend and consider her housing stable. She has little to no social supports, but is motivated to continue treatment and worked towards sustained recovery. She was informed that she was during this admission and is feeling positive about this . She is requesting assistance setting up OB provider. She is experiencing pain in her foot and will be I&D later this afternoon. Review of Systems Constitutional: Reports as per HPI and Reports no additional constitutional complaints Diagnostics Vital Signs (24Hr): Vital Signs - 24 hr 09/25/21 19:24 09/25/21 23:47 09/26/21 04:00 Temperature 99.2 F 98.4 F 98.4 F Pulse Rate 89 59 63 Respiratory Rate 20 18 18 Blood Pressure 108/68 103/62 110/53 L Pulse Oximetry 99 98 98 09/26/21 08:00 09/26/21 11:42 Temperature 97.3 F 97.8 F Pulse Rate 72 75 Respiratory Rate 16 16 Blood Pressure 98/42 L 109/65 Pulse Oximetry 97 98 BMI result Body Mass Index 21.5 Labs Results: 09/26/21 05:49 09/26/21 05:49 Labs: Laboratory Results - last 48 hr 09/25/21 09/25/21 09/25/21 06:06 06:06 12:47 WBC 9.2 RBC 4.18 L Hgb 11.3 L Hct 35.1 L D MCV 84.0 MCH 27.0 MCHC 32.2 RDW 14.4 Plt Count 263 D MPV 11.5 Immature Gran % (Auto) 0.3 Neut % (Auto) 58.9 Lymph % (Auto) 28.4 [place] % (Auto) 7.1 Eos % (Auto) 5.0 H Baso % (Auto) 0.3 Lymph # (Auto) 2.6 [place] # (Auto) 0.7 Eos # (Auto) 0.5 H Baso # (Auto) 0.0 Abs Immat Gran (auto) 0.03 Absolute Neuts (auto) 5.4 Absolute Nucleated RBC 0.000 Nucleated RBC % (auto) 0.0 ESR Sodium Potassium Chloride Carbon Dioxide Anion Gap BUN Creatinine 0.64 Estim Creat Clear Calc 92.6 Estimated GFR > 60 Random Glucose Calcium C-Reactive Protein Vancomycin Trough 5.1 L 09/26/21 09/26/21 09/26/21 05:49 05:49 05:49 WBC 8.3 RBC 4.21 Hgb 11.2 L Hct 35.4 L MCV 84.1 MCH 26.6 L MCHC 31.6 RDW 14.6 Plt Count 273 MPV 11.7 Immature Gran % (Auto) 0.5 H Neut % (Auto) 49.8 Lymph % (Auto) 34.9 [place] % (Auto) 9.0 Eos % (Auto) 5.4 H Baso % (Auto) 0.4 Lymph # (Auto) 2.9 [place] # (Auto) 0.8 Eos # (Auto) 0.5 H Baso # (Auto) 0.0 Abs Immat Gran (auto) 0.04 H Absolute Neuts (auto) 4.2 Absolute Nucleated RBC 0.000 Nucleated RBC % (auto) 0.0 ESR Sodium 139 Potassium 4.6 D Chloride 102 Carbon Dioxide 28 Anion Gap 14 BUN 14 D Creatinine 0.69 Estim Creat Clear Calc 85.9 Estimated GFR > 60 Random Glucose 77 Calcium 9.2 D C-Reactive Protein 6.28 H Vancomycin Trough 15.8 09/26/21 06:27 WBC RBC Hgb Hct MCV MCH MCHC RDW Plt Count MPV Immature Gran % (Auto) Neut % (Auto) Lymph % (Auto) [place] % (Auto) Eos % (Auto) Baso % (Auto) Lymph # (Auto) [place] # (Auto) Eos # (Auto) Baso # (Auto) Abs Immat Gran (auto) Absolute Neuts (auto) Absolute Nucleated RBC Nucleated RBC % (auto) ESR 60 H Sodium Potassium Chloride Carbon Dioxide Anion Gap BUN Creatinine Estim Creat Clear Calc Estimated GFR Random Glucose Calcium C-Reactive Protein Vancomycin Trough Imaging Radiology Impressions: ITS Impressions Foot X-Ray 09/23/21 21:51 IMPRESSION: Diffuse soft tissue swelling but no acute bony abnormality. Ultrasound 09/24/21 14:08 IMPRESSION: 1. Single intrauterine gestation with ultrasound gestational age of 6 weeks and 3 days +/- 4 days. 2. Estimated date of delivery is 05/17/2022 +/- 4 days. 3. No maternal adnexal mass or pelvic ascites. Mental Status Exam Mental Status Exam Patient Appearance: Well Grooomed and Appropriate Patient Orientation: Person, Place, Time and Situation Level of Consciousness: Awake and Appropriate Patient Behavior: Appropriate Mood Description: Calm and Appropriate Affect Description: Calm Speech Pattern: Clear Thought Process: Goal Oriented and Linear Judgement: Good Medications Medications Current Medications Acetaminophen (Acetaminophen 325 Mg Tablet) 650 mg PO Q6H PRN PRN Reason: Pain, Mild (Pain Scale 1-3) Last Admin: 09/25/21 01:40 Dose: 650 mg Documented by: Enoxaparin Sodium (Enoxaparin Sodium 40 Mg/0.4 Ml Syringe) 40 mg SUBCUT Q24H [facility] Last Admin: 09/26/21 09:55 Dose: 40 mg Documented by: Hydromorphone HCl (Hydromorphone Hcl 1 Mg/Ml Syringe) 0.5 mg IVPUSH Q3H PRN; Protocol PRN Reason: Pain, Mild (Pain Scale 1-3) Cefepime HCl 2 gm/ Sodium (Chloride) 50 mls @ 100 mls/hr IV Q8H [facility] Last Infusion: 09/26/21 08:54 Dose: Infused Documented by: Vancomycin HCl 1,000 mg/ (Sodium Chloride) 270 mls @ 270 mls/hr IV Q12H [facility] Last Infusion: 09/26/21 12:22 Dose: Infused Documented by: Methadone HCl (Methadone Hcl 20 Mg/2 Ml Oral.Conc) 80 mg PO DAILY [facility] Last Admin: 09/26/21 09:55 Dose: 80 mg Documented by: Multivitamins/Vitamin C (Multivitamin Tablet) 1 tab PO DAILY [facility] Last Admin: 09/26/21 09:55 Dose: 1 tab Documented by: Ondansetron HCl (Ondansetron Hcl 4 Mg/2 Ml Vial) 4 mg IVPUSH Q8H PRN PRN Reason: Nausea and Vomiting Oxycodone HCl (Oxycodone Hcl Immed Release 5 Mg Tablet) 10 mg PO Q4H PRN PRN Reason: Pain, Severe (Pain Scale 7-10) Last Admin: 09/26/21 10:21 Dose: 10 mg Documented by: Pharmacy Consult (Consult Rx Vancomycin Dosing) 1 each MISCELLANE DAILY PRN PRN Reason: Consult order Sodium Chloride (0.9 % Sodium Chloride Flush 3 Ml Syringe) 3 ml IVFLUSH QSHIFT [facility] Last Admin: 09/26/21 09:56 Dose: 3 ml Documented by: Allergies Allergies Allergy/AdvReac Type Severity Reaction Status Date / Time bee pollen [Bee Stings] Allergy Unknown SWELLING Verified 09/23/21 20:39 AT SITE morphine [Morphine] Allergy Unknown SKIN Verified 09/23/21 20:39 BUBBLED Penicillins Allergy Unknown HIVES Verified 09/23/21 20:39 BREATHING PBROBLEM Assessment & Plan Assessment & Plan (1) Opioid use disorder: Status: Acute Code(s): F11.90 - Opioid use, unspecified, uncomplicated Assessment and Plan: continue methadone at current dose continue pain medication as needed--may require higher doses given opioid tolerance I spent __40____ minutes with the patient and/or on the patient floor today, greater than?50% of which was spent counseling/coordinating care. PMFSH Past Medical History Medical History Asthma Fungus infection in blood MRSA (methicillin resistant staph aureus) culture positive Sepsis Substance abuse Surgical History Surgical History No pertinent past surgical history Social History Social History Household Members: Significant Other Housing: Apartment Do you presently have visiting nurse or other home services: No Patient Tobacco Use Status: Never used Tobacco Substance Use Type: Marijuana and Opiates service: No Current occupational status: unemployed
--- NOTE | 2021-09-26 15:45 | HO.ANESPROP2 ---
[facility] Active Problems Active Problems: All Active Problems (Updated 09/26/21 @ 14:42 by SON Sung) COVID-19 (Acute) Early stage of (Acute) Abscess of left foot (Acute) Cellulitis of foot, left (Acute) Status post incision and drainage (Acute) Severe sepsis (Acute) Past Medical History Medical History Asthma Fungus infection in blood MRSA (methicillin resistant staph aureus) culture positive Sepsis Substance abuse Family History Family history of problems with anesthesia: No Surgical History Surgical History No pertinent past surgical history History of Problems with Anesthesia: No Social History Social History Household Members: Significant Other Housing: Apartment Do you presently have visiting nurse or other home services: No Patient Tobacco Use Status: Never used Tobacco Substance Use Type: Marijuana and Opiates service: No Current occupational status: unemployed Meds Allergies Allergy/AdvReac Type Severity Reaction Status Date / Time bee pollen [Bee Stings] Allergy Unknown SWELLING Verified 09/23/21 20:39 AT SITE morphine [Morphine] Allergy Unknown SKIN Verified 09/23/21 20:39 BUBBLED Penicillins Allergy Unknown HIVES Verified 09/23/21 20:39 BREATHING PBROBLEM Active Medications: Current Medications Acetaminophen (Acetaminophen 325 Mg Tablet) 650 mg PO Q6H PRN PRN Reason: Pain, Mild (Pain Scale 1-3) Last Admin: 09/25/21 01:40 Dose: 650 mg Documented by: Enoxaparin Sodium (Enoxaparin Sodium 40 Mg/0.4 Ml Syringe) 40 mg SUBCUT Q24H [facility] Last Admin: 09/26/21 09:55 Dose: 40 mg Documented by: Hydromorphone HCl (Hydromorphone Hcl 1 Mg/Ml Syringe) 0.5 mg IVPUSH Q3H PRN; Protocol PRN Reason: Pain, Mild (Pain Scale 1-3) Cefepime HCl 2 gm/ Sodium (Chloride) 50 mls @ 100 mls/hr IV Q8H [facility] Last Infusion: 09/26/21 08:54 Dose: Infused Documented by: Vancomycin HCl 1,000 mg/ (Sodium Chloride) 270 mls @ 270 mls/hr IV Q12H [facility] Last Infusion: 09/26/21 12:22 Dose: Infused Documented by: Methadone HCl (Methadone Hcl 20 Mg/2 Ml Oral.Conc) 80 mg PO DAILY [facility] Last Admin: 09/26/21 09:55 Dose: 80 mg Documented by: Multivitamins/Vitamin C (Multivitamin Tablet) 1 tab PO DAILY [facility] Last Admin: 09/26/21 09:55 Dose: 1 tab Documented by: Ondansetron HCl (Ondansetron Hcl 4 Mg/2 Ml Vial) 4 mg IVPUSH Q8H PRN PRN Reason: Nausea and Vomiting Oxycodone HCl (Oxycodone Hcl Immed Release 5 Mg Tablet) 10 mg PO Q4H PRN PRN Reason: Pain, Severe (Pain Scale 7-10) Last Admin: 09/26/21 10:21 Dose: 10 mg Documented by: Pharmacy Consult (Consult Rx Vancomycin Dosing) 1 each MISCELLANE DAILY PRN PRN Reason: Consult order Sodium Chloride (0.9 % Sodium Chloride Flush 3 Ml Syringe) 3 ml IVFLUSH QSHIFT [facility] Last Admin: 09/26/21 09:56 Dose: 3 ml Documented by: Home Medications Medication Instructions Recorded Confirmed Last Taken Type methadone 10 mg/mL intravenous 80 mg DAILY 09/23/21 09/23/21 09/21/21 History syringe Exam Exam Date and Time: September 26, 2021 1545 Height,Weight and Vital Signs: Height 5 ft 1 in Weight 51.71 kg Last Vital Signs Temp 97.8 F 09/26/21 11:42 Pulse 75 09/26/21 11:42 Resp 16 09/26/21 11:42 BP 109/65 09/26/21 11:42 Pulse Ox 98 09/26/21 11:42 Pertinent Lab Results Pertinent Lab Results: Laboratory Tests 09/23/21 09/23/21 09/23/21 21:02 21:02 21:02 WBC 17.9 H RBC 5.07 Hgb 13.6 Hct 41.9 MCV 82.6 MCH 26.8 L MCHC 32.5 RDW 14.0 Plt Count 284 D MPV 10.8 Immature Gran % (Auto) 0.5 H Neut % (Auto) 79.9 H Lymph % (Auto) 11.3 L [place] % (Auto) 7.8 Eos % (Auto) 0.3 Baso % (Auto) 0.2 Lymph # (Auto) 2.0 [place] # (Auto) 1.4 H Eos # (Auto) 0.1 Baso # (Auto) 0.0 Abs Immat Gran (auto) 0.09 H Absolute Neuts (auto) 14.3 H Absolute Nucleated RBC 0.000 Nucleated RBC % (auto) 0.0 ESR Sodium 132 L Potassium 4.0 Chloride 98 Carbon Dioxide 25 Anion Gap 13 BUN 7 L D Creatinine 0.75 Estim Creat Clear Calc 79.0 Estimated GFR > 60 Random Glucose 109 Lactic Acid 1.1 Calcium 9.3 C-Reactive Protein Beta HCG, Quant Urine Color Urine Appearance Urine pH Ur Specific [place] Urine Protein Urine Glucose (UA) Urine Ketones Urine Blood Urine Nitrite Ur Leukocyte Esterase Urine RBC Urine WBC Ur Squamous Epith Cells Urine Bacteria Urine Test Vancomycin Trough Urine Opiates Screen Urine Fentanyl Screen Ur Barbiturates Screen Ur Phencyclidine Scrn Ur Amphetamines Screen U Benzodiazepines Scrn Urine Cocaine Screen U Marijuana (THC) Screen COVID-19 (KORI) COVID-19 [employer] 09/23/21 09/23/21 09/23/21 21:02 23:55 23:55 WBC RBC Hgb Hct MCV MCH MCHC RDW Plt Count MPV Immature Gran % (Auto) Neut % (Auto) Lymph % (Auto) [place] % (Auto) Eos % (Auto) Baso % (Auto) Lymph # (Auto) [place] # (Auto) Eos # (Auto) Baso # (Auto) Abs Immat Gran (auto) Absolute Neuts (auto) Absolute Nucleated RBC Nucleated RBC % (auto) ESR Sodium Potassium Chloride Carbon Dioxide Anion Gap BUN Creatinine Estim Creat Clear Calc Estimated GFR Random Glucose Lactic Acid Calcium C-Reactive Protein Beta HCG, Quant Urine Color YELLOW Urine Appearance CLEAR Urine pH 6.5 Ur Specific [place] <= 1.005 Urine Protein NEG Urine Glucose (UA) NEG Urine Ketones NEG Urine Blood NEG Urine Nitrite NEG Ur Leukocyte Esterase 1+ H Urine RBC 1-4 Urine WBC 1-4 Ur Squamous Epith Cells 1+ Urine Bacteria TRACE Urine Test POSITIVE H Vancomycin Trough Urine Opiates Screen Urine Fentanyl Screen Ur Barbiturates Screen Ur Phencyclidine Scrn Ur Amphetamines Screen U Benzodiazepines Scrn Urine Cocaine Screen U Marijuana (THC) Screen COVID-19 (KORI) Positive A COVID-19 [employer] Com See Note 09/23/21 09/24/21 09/24/21 23:55 08:43 08:43 WBC 12.9 H RBC 3.49 L D Hgb 9.5 L D Hct 29.2 L D MCV 83.7 MCH 27.2 MCHC 32.5 RDW 14.4 Plt Count 206 D MPV 10.9 Immature Gran % (Auto) 0.4 Neut % (Auto) 77.6 H Lymph % (Auto) 11.7 L [place] % (Auto) 8.2 Eos % (Auto) 1.9 Baso % (Auto) 0.2 Lymph # (Auto) 1.5 [place] # (Auto) 1.1 Eos # (Auto) 0.3 Baso # (Auto) 0.0 Abs Immat Gran (auto) 0.05 H Absolute Neuts (auto) 10.0 H Absolute Nucleated RBC 0.000 Nucleated RBC % (auto) 0.0 ESR Sodium 135 Potassium 3.8 Chloride 104 Carbon Dioxide 25 Anion Gap 10 L BUN 8 L Creatinine 0.59 Estim Creat Clear Calc 100.4 Estimated GFR > 60 Random Glucose 116 H Lactic Acid Calcium 8.3 L D C-Reactive Protein Beta HCG, Quant 5975 Urine Color Urine Appearance Urine pH Ur Specific [place] Urine Protein Urine Glucose (UA) Urine Ketones Urine Blood Urine Nitrite Ur Leukocyte Esterase Urine RBC Urine WBC Ur Squamous Epith Cells Urine Bacteria Urine Test Vancomycin Trough Urine Opiates Screen POSITIVE H Urine Fentanyl Screen POSITIVE H Ur Barbiturates Screen Not Detected Ur Phencyclidine Scrn Not Detected Ur Amphetamines Screen Not Detected U Benzodiazepines Scrn Not Detected Urine Cocaine Screen POSITIVE H U Marijuana (THC) Screen POSITIVE H COVID-19 (KORI) COVID-19 Clin [facility] 09/25/21 09/25/21 09/25/21 06:06 06:06 12:47 WBC 9.2 RBC 4.18 L Hgb 11.3 L Hct 35.1 L D MCV 84.0 MCH 27.0 MCHC 32.2 RDW 14.4 Plt Count 263 D MPV 11.5 Immature Gran % (Auto) 0.3 Neut % (Auto) 58.9 Lymph % (Auto) 28.4 [place] % (Auto) 7.1 Eos % (Auto) 5.0 H Baso % (Auto) 0.3 Lymph # (Auto) 2.6 [place] # (Auto) 0.7 Eos # (Auto) 0.5 H Baso # (Auto) 0.0 Abs Immat Gran (auto) 0.03 Absolute Neuts (auto) 5.4 Absolute Nucleated RBC 0.000 Nucleated RBC % (auto) 0.0 ESR Sodium Potassium Chloride Carbon Dioxide Anion Gap BUN Creatinine 0.64 Estim Creat Clear Calc 92.6 Estimated GFR > 60 Random Glucose Lactic Acid Calcium C-Reactive Protein Beta HCG, Quant Urine Color Urine Appearance Urine pH Ur Specific [place] Urine Protein Urine Glucose (UA) Urine Ketones Urine Blood Urine Nitrite Ur Leukocyte Esterase Urine RBC Urine WBC Ur Squamous Epith Cells Urine Bacteria Urine Test Vancomycin Trough 5.1 L Urine Opiates Screen Urine Fentanyl Screen Ur Barbiturates Screen Ur Phencyclidine Scrn Ur Amphetamines Screen U Benzodiazepines Scrn Urine Cocaine Screen U Marijuana (THC) Screen COVID-19 (KORI) COVID-19 [employer] 09/26/21 09/26/21 09/26/21 05:49 05:49 05:49 WBC 8.3 RBC 4.21 Hgb 11.2 L Hct 35.4 L MCV 84.1 MCH 26.6 L MCHC 31.6 RDW 14.6 Plt Count 273 MPV 11.7 Immature Gran % (Auto) 0.5 H Neut % (Auto) 49.8 Lymph % (Auto) 34.9 [place] % (Auto) 9.0 Eos % (Auto) 5.4 H Baso % (Auto) 0.4 Lymph # (Auto) 2.9 [place] # (Auto) 0.8 Eos # (Auto) 0.5 H Baso # (Auto) 0.0 Abs Immat Gran (auto) 0.04 H Absolute Neuts (auto) 4.2 Absolute Nucleated RBC 0.000 Nucleated RBC % (auto) 0.0 ESR Sodium 139 Potassium 4.6 D Chloride 102 Carbon Dioxide 28 Anion Gap 14 BUN 14 D Creatinine 0.69 Estim Creat Clear Calc 85.9 Estimated GFR > 60 Random Glucose 77 Lactic Acid Calcium 9.2 D C-Reactive Protein 6.28 H Beta HCG, Quant Urine Color Urine Appearance Urine pH Ur Specific [place] Urine Protein Urine Glucose (UA) Urine Ketones Urine Blood Urine Nitrite Ur Leukocyte Esterase Urine RBC Urine WBC Ur Squamous Epith Cells Urine Bacteria Urine Test Vancomycin Trough 15.8 Urine Opiates Screen Urine Fentanyl Screen Ur Barbiturates Screen Ur Phencyclidine Scrn Ur Amphetamines Screen U Benzodiazepines Scrn Urine Cocaine Screen U Marijuana (THC) Screen COVID-19 ([facility]ORI) COVID-19 Clin Com 09/26/21 06:27 WBC RBC Hgb Hct MCV MCH MCHC RDW Plt Count MPV Immature Gran % (Auto) Neut % (Auto) Lymph % (Auto) [place] % (Auto) Eos % (Auto) Baso % (Auto) Lymph # (Auto) [place] # (Auto) Eos # (Auto) Baso # (Auto) Abs Immat Gran (auto) Absolute Neuts (auto) Absolute Nucleated RBC Nucleated RBC % (auto) ESR 60 H Sodium Potassium Chloride Carbon Dioxide Anion Gap BUN Creatinine Estim Creat Clear Calc Estimated GFR Random Glucose Lactic Acid Calcium C-Reactive Protein Beta HCG, Quant Urine Color Urine Appearance Urine pH Ur Specific [place] Urine Protein Urine Glucose (UA) Urine Ketones Urine Blood Urine Nitrite Ur Leukocyte Esterase Urine RBC Urine WBC Ur Squamous Epith Cells Urine Bacteria Urine Test Vancomycin Trough Urine Opiates Screen Urine Fentanyl Screen Ur Barbiturates Screen Ur Phencyclidine Scrn Ur Amphetamines Screen U Benzodiazepines Scrn Urine Cocaine Screen U Marijuana (THC) Screen COVID-19 ([facility]ORI) COVID-19 Clin Com Airway Mallampati Class: II TM Dist: >3cm Neck ROM: Full Assessment and Plan Assessment Anesthesia Assessment: Anesthesia Plan Discussed Final Anesthetic Review Family History of Problems with Anesthesia: No History of Problems with Anesthesia: No NPO: Yes ASA Class: II and Emergency Final Preanesthetic Review: Meds/Allgs Chart Reviewed, Anes Risks/Benef Reviewed and DNR Form (If Appl.) Patient Risk: Intermediate Procedure Risk: Low Anesthetic Plan Anesthetic Plan: MAC: Disposition: Inp. Admit - Standard Bed
--- NOTE | 2021-09-26 15:49 | HO.MIDLINE_ITS ---
PICC Line Insertion Diagnosis: [Left foot infection] Indication: [IV antibiotics needed] Pertinent Labs: [Reviewed] Technique: Using sterile technique including cap and mask, glove and drape, the [Left] arm was prepped and draped in the usual sterile fashion of full barrier technique with CHG. Using ultrasound guidance, [Left basilic] vein access was o btained on first attempt. Ultrasound was used to document vein patency and for needle entry. A formal ultrasound picture was recorded. A single lumen, Non- PASV Midline (20G x 8CM). Procedure was performed in room 483. Vascular Wire Spring Relay Adjuster has released the line for use and it is currently dressed with a StatLock, Tegaderm, and CHG disc. Verification has been performed for blood return and line patency. Arm Circumference: [25 CM] Equipment: [Bespoke Powerglide pro midline] Catheter Type: [single lumen, Non-PASV midline (20G X 8CM)] Lot #: [[id number]]
--- NOTE | 2021-09-26 16:12 | P.OP_ITS ---
Operative Note Operative Note Date of Service: 09/26/21 Narrative: Preop diagnosis: Left foot abscess Postop diagnosis: Left foot abscess Procedure: I and D of left foot abscess and debridement along with washout, under anesthesia Surgeon: Ethan Ferrari MD The patient is a 35 year female with known IV drug abuse, who was admitted because of an abscess and cellulitis of the left foot from an IV access site. I had recommended I&D but she had initially refused this because of her pain and tenderness any she had stated the area was already draining. However, I discussed this with her because I felt that spontaneous drainage was not adequate. I recommended to her the option of proceeding with I and D under anesthesia if she were willing and she had agreed. She understood the technique of this procedure as well as the risks, benefits, and alternatives . The patient was COVID positive and was in her 1st trimester . She understood the implications of anesthesia to her . She was brought to the operating room and placed supine under monitored an esthesia care. The left foot dorsum was prepped and draped in the usual sterile fashion. A surgical time-out was done. The patient was on scheduled antibiotics . There was note of an area of induration on the dorsum of the left foot along with centrall fluctuance and some drainage. There was note of significant cellulitis. I I generously infiltrated the area with lidocaine 1%. I then used a blade number 11 to incise the and enter the abscess cavity. I made a cruciate incision to allow adequate drainage. There was note of some purulent material and fibrinous exudates within the cavity. I did some cultures of the abscess. I did some sharp debridement with Metzenbaum scissors to clear the area of the fibrinous exudates. I then copiously irrigated the cavity. There was note of good hemostasis and I applied a light packing. Gauze dressings were then applied. I wrapped the foot with Izaiah roll. The procedure was then completed The patient tolerated procedure well. There were no complications noted. Initial and final counts of sponges and instruments were correct. Estimated blood loss was about 5 cc. The patient was then recovered in the OR.
[2021-09-26] MEDS: HYDROmorphone HCl 1 MG/ML SYRINGE 0.5 MG IVPUSH ×2 (18:02→21:30)
[2021-09-26 20:00] VITALS: BP 134/68; PULSE 70; RESP 20; TEMP 37.4; O2SAT 99
[2021-09-26 21:30] VITALS: RESP 18
[2021-09-26] MEDS: Heparin Sodium,Porcine Flush 50 UNITS, 0.9 % Sodium Chloride Flush 5 ML IVFLUSH (21:31)
[2021-09-27] VITALS (10 sets, daily range): BP systolic 98–112; BP diastolic 49–66; PULSE 53–71; RESP 16–20; TEMP 36.2–37.3; O2SAT 98–99
[2021-09-27] MEDS: HYDROmorphone HCl 1 MG/ML SYRINGE 0.5 MG IVPUSH ×4 (01:17→21:49)
[2021-09-27] MEDS: cefEPime HCl 2 GM in 0.9 % Sodium Chloride 50 ML IV ×2 (01:17→06:15)
[2021-09-27] MEDS: 0.9 % Sodium Chloride Flush 3 ML SYRINGE IVFLUSH ×4 (01:22→20:00)
[2021-09-27 07:50] LABS: Anion Gap 11 (12-20); Blood Urea Nitrogen 14 mg/dL (9-16); Calcium 8.9 mg/dL (8.4-10.2); Carbon Dioxide 27 mmol/L (22-29); Chloride 103 mmol/L (96-108); Creatinine Clr Calc Pharmacy 91.1; Estimated Glomerular Filt Rate > 60; Glucose Random 91 mg/dL (60-115); Potassium 4.6 mmol/L (3.3-5.1); Sodium 136 mmol/L (135-145); Vancomycin Trough 7.7 mcg/mL (10.0-20.0)
--- NOTE | 2021-09-27 08:32 | HE.PHANOTE ---
RE: VANCO DOSING Latest trough was 7.7. I recommend increasing the dose BACK to 1250mg q12h with a suspected AUC of 455; trough of 10.1. Next trough is scheduled for 09/28 @0700. I suspect that the trough before this one was falsely elevated. Per Cassia ROGERS's note, the abx did not finish infusing until 0112 on 09/26 due to a pump malfunction. The trough was subsequently drawn at 0549, roughly 5 hours after the end of the infusion. I will schedule my trough after 2 doses to assess efficacy and safety.
[2021-09-27] MEDS: methADONE HCl 20 MG/2 ML ORAL.CONC 80 MG PO (10:35)
[2021-09-27] MEDS: Heparin Sodium,Porcine Flush 50 UNITS, 0.9 % Sodium Chloride Flush 5 ML IVFLUSH ×3 (10:35→20:00)
[2021-09-27] MEDS: Enoxaparin Sodium 40 MG/0.4 ML SYRINGE SUBCUT (10:36)
[2021-09-27] MEDS: Multivitamin TABLET 1 TAB PO (10:36)
[2021-09-27] MEDS: vancomycin HCL 1,250 MG in 0.9 % Sodium Chloride 250 ML 166.67 MG IV ×2 (10:37→19:59)
--- NOTE | 2021-09-27 11:39 | MHC.RECOVSUP ---
Recovery Support note: This sign writer hand spoke with patient over the phone to discuss pain management and recovery resources. Patient reports that the pain has improved and that it is currently 8/10. Patient reports she cannot walk due to the foot pain. Patient feels her pain is being well managed at this time. Encouraged patient to reach out to staff if pain worsens. Patient reports she is unsure if the person she is living with will allow her to continue living there with a child. Discussed with patient alternatives such as sober living or family shelters. Emailed patient information on [facility], a program that would be able to provide ongoing support for patient after discharge. Explained that the business support administrator through this program may be able to work with her after discharge to secure an alternative living arrangement. Patient acknowledged. Additional resources for women in recovery emailed to patient. This sign writer hand will follow up with patient tomorrow to discuss [facility] and to inquire on whether patient would like to be referred to the program. Patient reports she was previously connected with a womens volleyball coach through [facility]. This sign writer hand will attempt to get patient in contact with this womens volleyball coach per patient's request. Discussed case with Kenyatta Portillo NP.
--- NOTE | 2021-09-27 13:27 | P.PNIM_ITS ---
Subjective Subjective Date of Service: 09/27/21 Interval History: seen and examined this morning follow up for foot cellulitis/abscess s/p I&D in OR yesterday still reporting pain Review of Systems Review of Systems: Yes all other systems are reviewed and are negative Constitutional Constitutional: Denies chills and Denies fever(s) Cardiovascular Cardiovascular: Denies palpitations and Denies dyspnea Respiratory Respiratory: Denies cough and Denies dyspnea Endocrine Endocrine: Denies palpitations Physical Exam Verdana 4l Vital Signs: Verdana 4d Verdana 4d Vital Signs: Verdana 4d Verdana 4Bd Last Vital Signs Verdana 4d Awning Hanger New 4d Awning Hanger New 4d Temp 97.6 F 09/27/21 11:17 Awning Hanger New 4d Pulse 69 09/27/21 11:17 Awning Hanger New 4d Resp 20 09/27/21 11:17 BP 103/56 L 09/27/21 11:17 Pulse Ox 99 09/27/21 11:17 BMI result Body Mass Index 21.5 Const: General: cooperative, alert and awake Nutritional Appearance: average body habitus Resp: Effort & Inspection: normal respiratory effort and able to speak in complete sentences Cardio: Heart sounds: S1 normal heart sound present and S2 normal heart sound present Skin: Other: see extremity exam below Extrem: Other: foot wrapped in c/d/i dressing Objective Data Active Medications Acetaminophen (Acetaminophen 325 Mg Tablet) 650 mg PO Q6H PRN PRN Reason: Pain, Mild (Pain Scale 1-3) Last Admin: 09/25/21 01:40 Dose: 650 mg Documented by: SERAFIN Heparin Sodium (Porcine) 50 (units/ Sodium Chloride 5 ml) 0 units IVFLUSH TID [facility] Last Admin: 09/27/21 10:35 Dose: 50 unit Documented by: OLIVIA Enoxaparin Sodium (Enoxaparin Sodium 40 Mg/0.4 Ml Syringe) 40 mg SUBCUT Q24H [facility] Last Admin: 09/27/21 10:36 Dose: 40 mg Documented by: OLIVIA Hydromorphone HCl (Hydromorphone Hcl 1 Mg/Ml Syringe) 0.5 mg IVPUSH Q3H PRN; Protocol PRN Reason: Pain, Mild (Pain Scale 1-3) Last Admin: 09/27/21 06:14 Dose: 0.5 mg Documented by: DOUGLAS Cefepime HCl 2 gm/ Sodium (Chloride) 50 mls @ 100 mls/hr IV Q8H [facility] Last Infusion: 09/27/21 11:09 Dose: 0 mls/hr Documented by: OLIVIA Vancomycin HCl 1,250 mg/ (Sodium Chloride) 250 mls @ 166.667 mls/hr IV Q12H [facility] Last Infusion: 09/27/21 13:20 Dose: 0 mls/hr Documented by: OLIVIA Methadone HCl (Methadone Hcl 20 Mg/2 Ml Oral.Conc) 80 mg PO DAILY [facility] Last Admin: 09/27/21 10:35 Dose: 80 mg Documented by: OLIVIA Multivitamins/Vitamin C (Multivitamin Tablet) 1 tab PO DAILY [facility] Last Admin: 09/27/21 10:36 Dose: 1 tab Documented by: OLIVIA Ondansetron HCl (Ondansetron Hcl 4 Mg/2 Ml Vial) 4 mg IVPUSH Q8H PRN PRN Reason: Nausea and Vomiting Oxycodone HCl (Oxycodone Hcl Immed Release 5 Mg Tablet) 10 mg PO Q4H PRN PRN Reason: Pain, Severe (Pain Scale 7-10) Last Admin: 09/26/21 22:19 Dose: 10 mg Documented by: DOUGLAS Pharmacy Consult (Consult Rx Vancomycin Dosing) 1 each MISCELLANE DAILY PRN PRN Reason: Consult order Sodium Chloride (0.9 % Sodium Chloride Flush 3 Ml Syringe) 3 ml IVFLUSH QSHIFT [facility] Last Admin: 09/27/21 10:36 Dose: 3 ml Documented by: OLIVIA Labs CBC & Chem 7: 09/26/21 05:49 09/27/21 07:00 Labs: Laboratory Results - last 24 hr 09/27/21 09/27/21 07:00 07:00 Anion Gap 11 L Estim Creat Clear Calc 91.1 Estimated GFR > 60 Random Glucose 91 Calcium 8.9 Vancomycin Trough 7.7 L Microbiology Microbiology Results: Microbiology 09/26/21 Unknown Gram Stain - Final Foot Left Routine Culture - Preliminary Staphylococcus aureus Assessment and Plan (1) Opioid use disorder: Status: Acute (2) COVID-19: Status: Acute (3) Early stage of : Status: Acute (4) Abscess of left foot: Status: Acute (5) Cellulitis of foot, left: Status: Acute Plan 85-year-old with past medical history of back to me as well as IV drug use who presents to the hospital with abscess of left foot Left foot abscess/ cellulitis continue broad-spectrum antibiotics given her history of bacteremia and MRSA infection in the past I&D done in ED and I&D in OR by surgery 09/26 BCx negative x 48 hours No bony involvement seen on foot xray, ESR 60 follow up wound cultures continue current abx for now Positive test OB follow up us showing single intrauterine gestational age around [address] Phoenix, rec cephalosporins, amp or clinda, no doxycycline or quinolones current pain medication ok polysubstance abuse tox screen + for multiple substances continue methadone see by addiction medicine COVID 19 + mild cough, no sob not requiring supplemental oxygen at this time Access: difficult stick, multiple blown IVs, poor access, midline placed 09/26 DVT prophylaxis Lovenox Attending Dr. Santamaria Quality Stroke Does the patient have a stroke diagnosis?: No VTE Prior VTE?: No VTE Risk Level:: Medical - moderate - high VTE Device Contraindication: Treatment Not Indicated VTE Drug Contraindication: N/A - Med Ordered
[2021-09-27] MEDS: oxyCODONE HCl Immed Release 5 MG TABLET 10 MG PO (19:59)
[2021-09-27] MEDS: Acetaminophen 325 MG TABLET 650 MG PO (19:59)
[2021-09-28 07:31] LABS: Anion Gap 11 (12-20); Blood Urea Nitrogen 13 mg/dL (9-16); Calcium 8.8 mg/dL (8.4-10.2); Carbon Dioxide 27 mmol/L (22-29); Chloride 103 mmol/L (96-108); Creatinine Clr Calc Pharmacy 97.1; Estimated Glomerular Filt Rate > 60; Glucose Random 90 mg/dL (60-115); Potassium 4.4 mmol/L (3.3-5.1); Sodium 137 mmol/L (135-145)
[2021-09-28 07:38] LABS: Vancomycin Trough 12.7 mcg/mL (10.0-20.0)
--- NOTE | 2021-09-28 07:47 | HE.PHANOTE ---
RE VANCO Trough now therapuetic, calculated AUC is 445. Will get one more trough after 2 doses, then resume three dose trough intervals
[2021-09-28 08:00] VITALS: BP 98/64; PULSE 77; RESP 18; TEMP 36.6; O2SAT 98
[2021-09-28] MEDS: Heparin Sodium,Porcine Flush 50 UNITS, 0.9 % Sodium Chloride Flush 5 ML IVFLUSH ×3 (09:05→22:09)
[2021-09-28] MEDS: Multivitamin TABLET 1 TAB PO (09:06)
[2021-09-28] MEDS: Enoxaparin Sodium 40 MG/0.4 ML SYRINGE SUBCUT (09:06)
[2021-09-28] MEDS: methADONE HCl 20 MG/2 ML ORAL.CONC 80 MG PO (09:06)
[2021-09-28] MEDS: 0.9 % Sodium Chloride Flush 3 ML SYRINGE IVFLUSH ×3 (09:06→20:38)
[2021-09-28] MEDS: vancomycin HCL 1,250 MG in 0.9 % Sodium Chloride 250 ML 166.67 MG IV (09:07)
[2021-09-28] MEDS: HYDROmorphone HCl 1 MG/ML SYRINGE 0.5 MG IVPUSH ×3 (09:07→22:16)
--- NOTE | 2021-09-28 11:26 | P.PNIM_ITS ---
Subjective Subjective Date of Service: 09/28/21 Interval History: seen and examined this morning follow up for left foot cellulitis/abscess pain improving, no shortness of breath Review of Systems Review of Systems: Yes all other systems are reviewed and are negative Constitutional Constitutional: Denies chills and Denies fever(s) Cardiovascular Cardiovascular: Denies dyspnea Respiratory Respiratory: Denies dyspnea Gastrointestinal Gastrointestinal: Denies diarrhea and Denies vomiting Physical Exam Verdana 4l Vital Signs: Verdana 4d Verdana 4d Vital Signs: Verdana 4d Verdana 4Bd Last Vital Signs Verdana 4d Epic Interface Analyst New 4d Epic Interface Analyst New 4d Temp 97.9 F 09/28/21 08:00 Epic Interface Analyst New 4d Pulse 77 09/28/21 08:00 Epic Interface Analyst New 4d Resp 18 09/28/21 08:00 BP 98/64 09/28/21 08:00 Pulse Ox 98 09/28/21 08:00 BMI result Body Mass Index 21.5 Const: General: cooperative, alert and awake Nutritional Appearance: average body habitus Resp: Effort & Inspection: normal respiratory effort and able to speak in complete sentences Cardio: Heart sounds: S1 normal heart sound present and S2 normal heart sound present Skin: Other: left foot erythema and swelling improving, no fluctuance, no drainage Extrem: Other: able to move all 4 extremities spontaneously Objective Data Active Medications Acetaminophen (Acetaminophen 325 Mg Tablet) 650 mg PO Q6H PRN PRN Reason: Pain, Mild (Pain Scale 1-3) Last Admin: 09/27/21 19:59 Dose: 650 mg Documented by: DOUGLAS Heparin Sodium (Porcine) 50 (units/ Sodium Chloride 5 ml) 0 units IVFLUSH TID [facility] Last Admin: 09/28/21 09:05 Dose: 5 unit Documented by: OLIVIA Enoxaparin Sodium (Enoxaparin Sodium 40 Mg/0.4 Ml Syringe) 40 mg SUBCUT Q24H [facility] Last Admin: 09/28/21 09:06 Dose: 40 mg Documented by: OLIVIA Hydromorphone HCl (Hydromorphone Hcl 1 Mg/Ml Syringe) 0.5 mg IVPUSH Q3H PRN; Protocol PRN Reason: Pain, Mild (Pain Scale 1-3) Last Admin: 09/28/21 09:07 Dose: 0.5 mg Documented by: OLIVIA Vancomycin HCl 1,250 mg/ (Sodium Chloride) 250 mls @ 166.667 mls/hr IV Q12H [facility] Last Infusion: 09/28/21 11:10 Dose: 0 mls/hr Documented by: OLIVIA Methadone HCl (Methadone Hcl 20 Mg/2 Ml Oral.Conc) 80 mg PO DAILY [facility] Last Admin: 09/28/21 09:06 Dose: 80 mg Documented by: OLIVIA Multivitamins/Vitamin C (Multivitamin Tablet) 1 tab PO DAILY [facility] Last Admin: 09/28/21 09:06 Dose: 1 tab Documented by: OLIVIA Ondansetron HCl (Ondansetron Hcl 4 Mg/2 Ml Vial) 4 mg IVPUSH Q8H PRN PRN Reason: Nausea and Vomiting Oxycodone HCl (Oxycodone Hcl Immed Release 5 Mg Tablet) 10 mg PO Q4H PRN PRN Reason: Pain, Severe (Pain Scale 7-10) Last Admin: 09/27/21 19:59 Dose: 10 mg Documented by: DOUGLAS Pharmacy Consult (Consult Rx Vancomycin Dosing) 1 each MISCELLANE DAILY PRN PRN Reason: Consult order Sodium Chloride (0.9 % Sodium Chloride Flush 3 Ml Syringe) 3 ml IVFLUSH QSHIFT [facility] Last Admin: 09/28/21 09:06 Dose: 3 ml Documented by: OLIVIA Labs CBC & Chem 7: 09/26/21 05:49 09/28/21 07:02 Labs: Laboratory Results - last 24 hr 09/28/21 09/28/21 07:02 07:02 Anion Gap 11 L Estim Creat Clear Calc 97.1 Estimated GFR > 60 Random Glucose 90 Calcium 8.8 Vancomycin Trough 12.7 Microbiology Microbiology Results: Microbiology 09/26/21 Unknown Gram Stain - Final Foot Left Routine Culture - Final Methicillin Res Staph Aureus Assessment and Plan (1) COVID-19: Status: Acute (2) Early stage of : Status: Acute (3) Abscess of left foot: Status: Acute (4) Cellulitis of foot, left: Status: Acute Plan 85-year-old with past medical history of back to [place] as well as IV drug use who p resents to the hospital with abscess of left foot Left foot abscess/ cellulitis I&D done in ED and I&D in OR by surgery 09/26 BCx negative x 48 hours No bony involvement seen on foot xray, ESR 60 wound cultures growing MRSA continue IV vancomycin ID consult pending Positive test OB follow up us showing single intrauterine gestational age around [address] Phoenix, rec cephalosporins, amp or clinda, no doxycycline or quinolones current pain medication ok polysubstance abuse tox screen + for multiple substances continue methadone seen by addiction medicine COVID 19 + mild cough, no sob not requiring supplemental oxygen at this time Access: difficult stick, multiple blown IVs, poor access, midline placed 09/26 DVT prophylaxis Lovenox Attending Dr. Matthews Quality Stroke Does the patient have a stroke diagnosis?: No VTE Prior VTE?: No VTE Risk Level:: Medical - moderate - high VTE Device Contraindication: Treatment Not Indicated VTE Drug Contraindication: N/A - Med Ordered
[2021-09-28 12:00] VITALS: BP 114/61; PULSE 66; RESP 18; TEMP 36.8; O2SAT 98
--- NOTE | 2021-09-28 12:38 | MHC.RECOVSUP ---
Recovery Support note: This investigative writer followed up with patient to discuss resources reviewed yesterday. Patient is interested in a referral to [facility]. This investigative writer will complete referral on 09/29/21 and they will follow up with patient directly. Patient reports improvement in pain and continues to report that the pain is well managed. Encouraged patient to reach out if needed or if pain worsens.
[2021-09-28 15:46] VITALS: BP 100/56; PULSE 52; RESP 18; TEMP 36.7; O2SAT 98
[2021-09-28] MEDS: oxyCODONE HCl Immed Release 5 MG TABLET 10 MG PO (19:42)
[2021-09-28 20:00] VITALS: BP 107/54; PULSE 66; RESP 18; TEMP 36.8; O2SAT 99
[2021-09-28] MEDS: vancomycin HCL 1,250 MG in 0.9 % Sodium Chloride 250 ML 1666.67 MG IV (20:33)
[2021-09-28 23:10] VITALS: BP 99/48; PULSE 63; RESP 20; TEMP 36.1; O2SAT 98
[2021-09-29 03:32] VITALS: BP 110/56; PULSE 65; RESP 18; TEMP 37.1; O2SAT 98
[2021-09-29 03:54] LABS: Syphilis Screen Nonreactive (Nonreactive)
[2021-09-29 04:44] LABS: HBS Num1 > 1000.00 mIU/mL (0-7.99); HBc Num1 0.15 S/CO (0.00-0.79); HBsAGNum1 0.19 S/CO (0.00-0.99); HIV AB/AG Nonreactive (Nonreactive); HIV Num 1 0.08 S/CO (0.00-0.99); Hepatitis B Core Antibody Nonreactive (Nonreactive); Hepatitis B Surface Antigen Negative (Negative); ~Hepatitis B Surface Antibody REACTIVE (Nonreactive); ~Hepatitis C Antibody Reactive (Nonreactive)
[2021-09-29 05:49] LABS: CT PCR NOT DETECTED (Not Detect.); NG PCR NOT DETECTED (Not Detect.)
[2021-09-29 07:54] LABS: Anion Gap 12 (12-20); Blood Urea Nitrogen 12 mg/dL (9-16); Calcium 8.9 mg/dL (8.4-10.2); Carbon Dioxide 27 mmol/L (22-29); Chloride 102 mmol/L (96-108); Creatinine Clr Calc Pharmacy 95.5; Estimated Glomerular Filt Rate > 60; Glucose Random 86 mg/dL (60-115); Potassium 4.5 mmol/L (3.3-5.1); Sodium 136 mmol/L (135-145)
[2021-09-29 07:58] VITALS: BP 107/58; PULSE 75; RESP 18; TEMP 37.2; O2SAT 98
[2021-09-29 08:02] LABS: Vancomycin Trough 11.9 mcg/mL (10.0-20.0)
--- NOTE | 2021-09-29 08:17 | HE.PHANOTE ---
Trough came back at 11.9,cr 0.62, auc 453, next level due 09/30@1900
[2021-09-29] MEDS: Heparin Sodium,Porcine Flush 50 UNITS, 0.9 % Sodium Chloride Flush 5 ML IVFLUSH ×2 (08:37→20:23)
[2021-09-29] MEDS: 0.9 % Sodium Chloride Flush 3 ML SYRINGE IVFLUSH (08:38)
[2021-09-29] MEDS: Enoxaparin Sodium 40 MG/0.4 ML SYRINGE SUBCUT (08:38)
[2021-09-29] MEDS: Multivitamin TABLET 1 TAB PO (08:38)
[2021-09-29] MEDS: HYDROmorphone HCl 1 MG/ML SYRINGE 0.5 MG IVPUSH (08:39)
[2021-09-29] MEDS: methADONE HCl 20 MG/2 ML ORAL.CONC 80 MG PO (08:39)
[2021-09-29] MEDS: vancomycin HCL 1,250 MG in 0.9 % Sodium Chloride 250 ML 166.6 MG IV (08:40)
--- NOTE | 2021-09-29 09:18 | HO.POSTANES ---
Post Anesthesia Evaluation Post Anesthesia Evaluation Vital Signs: Vital Signs Temp Pulse Resp BP Pulse Ox 09/29/21 07:58 98.9 F 75 18 107/58 L 98 09/29/21 03:32 98.7 F 65 18 110/56 L 98 09/28/21 23:10 97.0 F 63 20 99/48 L 98 Anesthesia: Monitored Mental Status: Awake Pain Control: Satisfactory Nausea/Vomiting: None Hydration: Adequate Anesthesia-Related Issues: No Anes. Related Issues
[2021-09-29 11:21] VITALS: BP 119/71; PULSE 78; RESP 18; TEMP 36.8; O2SAT 98
--- NOTE | 2021-09-29 13:09 | MHC.RECOVRN ---
Met with pt to check in. Pt awake, alert, engaged in conversation. Pt reports pain r/t foot has been manageable. Pt provided with list of recovery homes in [place] for women and families. Pt interested in [facility] in [place]. Pt has transition coach through [facility] and also goes to [facility]. Pt does not have mold burner, however, will plan to go to [facility] for care. Pt hopeful for and reports making good choices like ordering decaf coffee. Pt requesting t/w to notify [facility] of patient's admission only. Discussed with Kenyatta Portillo APRN.
--- NOTE | 2021-09-29 13:28 | P.PNIM_ITS ---
Subjective Subjective Date of Service: 09/29/21 Review of Systems seen and examined this morning follow up for left foot cellulitis/abscess pain improving, no shortness of breath Physical Exam Verdana 4l Vital Signs: Verdana 4d Verdana 4d Vital Signs: Verdana 4d Verdana 4Bd Last Vital Signs Verdana 4d Reed Polisher New 4d Reed Polisher New 4d Temp 98.3 F 09/29/21 11:21 Reed Polisher New 4d Pulse 78 09/29/21 11:21 Reed Polisher New 4d Resp 18 09/29/21 11:21 BP 119/71 09/29/21 11:21 Pulse Ox 98 09/29/21 11:21 BMI result Body Mass Index 21.5 Appearing in no acute distress lung sounds are clear to auscultation heart regular rate rhythm, clear S1, S2 positive bowel sounds, abdomen is soft, nontender neuro patient is alert x3, no focal deficits Objective Data Active Medications Acetaminophen (Acetaminophen 325 Mg Tablet) 650 mg PO Q6H PRN PRN Reason: Pain, Mild (Pain Scale 1-3) Last Admin: 09/27/21 19:59 Dose: 650 mg Documented by: DOUGLAS Heparin Sodium (Porcine) 50 (units/ Sodium Chloride 5 ml) 0 units IVFLUSH TID [facility] Last Admin: 09/29/21 08:37 Dose: 50 unit Documented by: ROMARIO Enoxaparin Sodium (Enoxaparin Sodium 40 Mg/0.4 Ml Syringe) 40 mg SUBCUT Q24H [facility] Last Admin: 09/29/21 08:38 Dose: 40 mg Documented by: ROMARIO Hydromorphone HCl (Hydromorphone Hcl 1 Mg/Ml Syringe) 0.5 mg IVPUSH Q3H PRN; Protocol PRN Reason: Pain, Mild (Pain Scale 1-3) Last Admin: 09/29/21 08:39 Dose: 0.5 mg Documented by: ROMARIO Vancomycin HCl 1,250 mg/ (Sodium Chloride) 250 mls @ 166.667 mls/hr IV Q12H [facility] Last Infusion: 09/29/21 10:21 Dose: 0 mls/hr Documented by: ROMARIO Methadone HCl (Methadone Hcl 20 Mg/2 Ml Oral.Conc) 80 mg PO DAILY [facility] Last Admin: 09/29/21 08:39 Dose: 80 mg Documented by: ROMARIO Multivitamins/Vitamin C (Multivitamin Tablet) 1 tab PO DAILY [facility] Last Admin: 09/29/21 08:38 Dose: 1 tab Documented by: ROMARIO Ondansetron HCl (Ondansetron Hcl 4 Mg/2 Ml Vial) 4 mg IVPUSH Q8H PRN PRN Reason: Nausea and Vomiting Oxycodone HCl (Oxycodone Hcl Immed Release 5 Mg Tablet) 10 mg PO Q4H PRN PRN Reason: Pain, Severe (Pain Scale 7-10) Last Admin: 09/28/21 19:42 Dose: 10 mg Documented by: ESTUARDO Pharmacy Consult (Consult Rx Vancomycin Dosing) 1 each MISCELLANE DAILY PRN PRN Reason: Consult order Sodium Chloride (0.9 % Sodium Chloride Flush 3 Ml Syringe) 3 ml IVFLUSH QSHIFT [facility] Last Admin: 09/29/21 08:38 Dose: 3 ml Documented by: ROMARIO Labs CBC & Chem 7: 09/26/21 05:49 09/29/21 07:34 Labs: Laboratory Results - last 24 hr 09/28/21 09/28/21 09/28/21 11:48 11:48 18:10 Anion Gap Estim Creat Clear Calc Estimated GFR Random Glucose Calcium Vancomycin Trough T.pallidum Ab (EIA) Nonreactive Chlam trachomat DNA PCR NOT DETECTED Hep Bs Antigen Negative Hep Bs Antibody REACTIVE Hep B Core Total Ab Nonreactive Hepatitis C Ab (EIA) Reactive H HIV 1&2 Ab/P24 Ag 4thGn Nonreactive N.gonorrhoeae DNA (PCR) NOT DETECTED 09/29/21 09/29/21 07:34 07:34 Anion Gap 12 Estim Creat Clear Calc 95.5 Estimated GFR > 60 Random Glucose 86 Calcium 8.9 Vancomycin Trough 11.9 T.pallidum Ab (EIA) Chlam trachomat DNA PCR Hep Bs Antigen Hep Bs Antibody Hep B Core Total Ab Hepatitis C Ab (EIA) HIV 1&2 Ab/P24 Ag 4thGn N.gonorrhoeae DNA (PCR) Microbiology Microbiology Results: Microbiology 09/23/21 21:00 Blood Culture - Final Blood - Venous No growth after 5 days. 09/23/21 21:00 Blood Culture - Final Blood - Venous No growth after 5 days. 09/26/21 Unknown Gram Stain - Final Foot Left Routine Culture - Final Methicillin Res Staph Aureus Assessment and Plan (1) COVID-19: Status: Acute (2) Early stage of : Status: Acute (3) Abscess of left foot: Status: Acute (4) Cellulitis of foot, left: Status: Acute Plan 85-year-old with past medical history of back to [place] as well as IV drug use who presents to the hospital with abscess of left foot Left foot abscess/ cellulitis I&D done in ED and I&D in OR by surgery 09/26 BCx negative x 48 hours No bony involvement seen on foot xray, ESR 60 wound cultures growing MRSA continue IV vancomycin ID consult rec treating with vancomycin for 4 more days and then discharge Positive test OB follow up us showing single intrauterine gestational age around [address] Phoenix, rec cephalosporins, amp or clinda, no doxycycline or quinolones current pain medication ok polysubstance abuse tox screen + for multiple substances continue methadone seen by addiction medicine COVID 19 + mild cough, no sob not requiring supplemental oxygen at this time DISPO plan for dc when vancomycin completed Access: difficult stick, multiple blown IVs, poor access, midline placed 09/26 DVT prophylaxis Lovenox Attending Dr. Burns Quality Stroke Does the patient have a stroke diagnosis?: No VTE Prior VTE?: No VTE Risk Level:: Medical - moderate - high VTE Device Contraindication: Treatment Not Indicated VTE Drug Contraindication: N/A - Med Ordered
--- NOTE | 2021-09-29 14:14 | MHC.CM.PN ---
Female 35 DX Foot infection. Patient requires IV ABX. No dc today. A referral has been sent to [facility]. No available bed today. DP [facility] vs Home with PO ABX. Patient will arrange for transport.
--- NOTE | 2021-09-29 14:17 | MHC.CLN ---
F/U PO 75-100% DIET RX: REGULAR-APPROPRIATE ENSURE BID IN PLACE TO INCREASE KCALS PROVIDES 700KCALS, 40G PROTEIN CONTINUE TO MONITOR PO INTAKE CLOSELY
[2021-09-29 15:26] VITALS: BP 109/57; PULSE 74; RESP 20; TEMP 36.9; O2SAT 99
[2021-09-29] MEDS: oxyCODONE HCl Immed Release 5 MG TABLET 10 MG PO ×2 (15:33→20:22)
--- NOTE | 2021-09-29 16:22 | W.PM.IDCN ---
History of Present Illness Data of Consult Service Date: 09/29/21 Requesting physician: Sara Juárez Primary Care Provider: Unknown Physician HPI Reason for consult: MRSA foot abscess,COVID She presents with left foot discomfort She denies injecting into skin. She is a polysubstance user including opioids Review of Systems Review of Systems: Yes all other systems are reviewed and are negative PMFSH Past Medical History Medical History Asthma Fungus infection in blood MRSA (methicillin resistant staph aureus) culture positive Sepsis Substance abuse Family History Family history: reviewed and not pertinent Surgical History Surgical History No pertinent past surgical history Social History Social History Household Members: Significant Other Housing: Apartment Do you presently have visiting nurse or other home services: No Patient Tobacco Use Status: Never used Tobacco Substance Use Type: Marijuana and Opiates service: No Current occupational status: unemployed Meds Allergies Allergy/AdvReac Type Severity Reaction Status Date / Time bee pollen [Bee Stings] Allergy Unknown SWELLING Verified 09/23/21 20:39 AT SITE morphine [Morphine] Allergy Unknown SKIN Verified 09/23/21 20:39 BUBBLED Penicillins Allergy Unknown HIVES Verified 09/23/21 20:39 BREATHING PBROBLEM Active Medications: Current Medications Acetaminophen (Acetaminophen 325 Mg Tablet) 650 mg PO Q6H PRN PRN Reason: Pain, Mild (Pain Scale 1-3) Last Admin: 09/27/21 19:59 Dose: 650 mg Documented by: Heparin Sodium (Porcine) 50 (units/ Sodium Chloride 5 ml) 0 units IVFLUSH TID [facility] Last Admin: 09/29/21 14:57 Dose: Not Given Documented by: Enoxaparin Sodium (Enoxaparin Sodium 40 Mg/0.4 Ml Syringe) 40 mg SUBCUT Q24H [facility] Last Admin: 09/29/21 08:38 Dose: 40 mg Documented by: Hydromorphone HCl (Hydromorphone Hcl 1 Mg/Ml Syringe) 0.5 mg IVPUSH Q3H PRN; Protocol PRN Reason: Pain, Mild (Pain Scale 1-3) Last Admin: 09/29/21 08:39 Dose: 0.5 mg Documented by: Vancomycin HCl 1,250 mg/ (Sodium Chloride) 250 mls @ 166.667 mls/hr IV Q12H [facility] Stop: 10/02/21 23:59 Last Infusion: 09/29/21 10:21 Dose: Infused Documented by: Methadone HCl (Methadone Hcl 20 Mg/2 Ml Oral.Conc) 80 mg PO DAILY [facility] Last Admin: 09/29/21 08:39 Dose: 80 mg Documented by: Multivitamins/Vitamin C (Multivitamin Tablet) 1 tab PO DAILY [facility] Last Admin: 09/29/21 08:38 Dose: 1 tab Documented by: Ondansetron HCl (Ondansetron Hcl 4 Mg/2 Ml Vial) 4 mg IVPUSH Q8H PRN PRN Reason: Nausea and Vomiting Oxycodone HCl (Oxycodone Hcl Immed Release 5 Mg Tablet) 10 mg PO Q4H PRN PRN Reason: Pain, Severe (Pain Scale 7-10) Last Admin: 09/29/21 15:33 Dose: 10 mg Documented by: Pharmacy Consult (Consult Rx Vancomycin Dosing) 1 each MISCELLANE DAILY PRN PRN Reason: Consult order Sodium Chloride (0.9 % Sodium Chloride Flush 3 Ml Syringe) 3 ml IVFLUSH QSHIFT [facility] Last Admin: 09/29/21 15:23 Dose: Not Given Documented by: Home Medications Medication Instructions Recorded Confirmed Last Taken Type methadone 10 mg/mL intravenous 80 mg DAILY 09/23/21 09/23/21 09/21/21 History syringe Physical Exam Vital Signs: Vital Signs: Last Vital Signs Temp 98.5 F 09/29/21 15:26 Pulse 74 09/29/21 15:26 Resp 20 09/29/21 15:26 BP 109/57 L 09/29/21 15:26 Pulse Ox 99 09/29/21 15:26 BMI result Body Mass Index 21.5 Const: General: cooperative Eyes: General: appearance normal, both eyes and all related structures Pupils: Equal, round and reactive pupils present Resp: Effort & Inspection: normal respiratory effort Cardio: Rate: regular rate Rhythm: regular rhythm GI: Palpation (GI): Soft to palpation and nontender Skin: General skin exam: no rashes or lesions noted Neuro: Cranial nerves: Yes Equal, round and reactive pupils present Extrem: Other: left foot abscess resolving after drainage,no cellulitis or tinea pedis Results Labs CBC & Chem 7: 09/26/21 05:49 10/02/21 06:07 Labs: BMP 09/29/21 07:34 Sodium 136 Potassium 4.5 Chloride 102 Carbon Dioxide 27 BUN 12 Creatinine 0.62 Calcium 8.9 Microbiology Microbiology Results: Microbiology 09/23/21 21:00 Blood - Venous Blood Culture - Final No growth after 5 days. 09/23/21 21:00 Blood - Venous Blood Culture - Final No growth after 5 days. 09/26/21 Unknown Foot Left Gram Stain - Final 09/26/21 Unknown Foot Left Routine Culture - Final Methicillin Res Staph Aureus Assessment and Plan (1) Abscess of left foot: Status: Acute She is and has MRSA. She is in first trimester She has no bacteremia or osteomyelitis. Would give Vancomycin IV another four days or so and then discharge on no antibiotics She isnt a good candidate for oral medication due to and leaving with IV with opioid use disorder could be risky with risk for clot or infection PICC line outside of hospital (2) COVID-19: Status: Acute She is asymptomatic monoclonal antibodies considered (3) Opioid use disorder: Status: Acute (4) Early stage of : Status: Acute
[2021-09-29 19:20] VITALS: BP 119/52; PULSE 73; RESP 18; TEMP 36.8; O2SAT 99
[2021-09-29] MEDS: vancomycin HCL 1,250 MG in 0.9 % Sodium Chloride 250 ML 166.67 MG IV (20:23)
[2021-09-29 23:48] VITALS: BP 93/46; PULSE 61; RESP 18; TEMP 37; O2SAT 98
[2021-09-30] MEDS: 0.9 % Sodium Chloride Flush 3 ML SYRINGE IVFLUSH ×2 (01:14→10:02)
[2021-09-30 03:56] VITALS: BP 102/47; PULSE 62; RESP 18; TEMP 37.1; O2SAT 98
[2021-09-30 07:39] VITALS: BP 96/47; PULSE 59; RESP 20; TEMP 37.1; O2SAT 98
[2021-09-30] MEDS: Enoxaparin Sodium 40 MG/0.4 ML SYRINGE SUBCUT (10:00)
[2021-09-30] MEDS: methADONE HCl 20 MG/2 ML ORAL.CONC 80 MG PO (10:00)
[2021-09-30] MEDS: Heparin Sodium,Porcine Flush 50 UNITS, 0.9 % Sodium Chloride Flush 5 ML IVFLUSH ×3 (10:00→22:27)
[2021-09-30] MEDS: Multivitamin TABLET 1 TAB PO (10:01)
[2021-09-30] MEDS: oxyCODONE HCl Immed Release 5 MG TABLET 10 MG PO ×3 (10:04→20:10)
[2021-09-30] MEDS: vancomycin HCL 1,250 MG in 0.9 % Sodium Chloride 250 ML 166.67 MG IV ×2 (10:06→20:35)
[2021-09-30 11:10] VITALS: BP 103/51; PULSE 69; RESP 20; TEMP 37.2; O2SAT 96
--- NOTE | 2021-09-30 11:46 | P.PNIM_ITS ---
Subjective Subjective Date of Service: 09/30/21 Interval History: seen and examined this AM continues to feel better in regards to the foot reports ambulating on it denies fevers or chills Review of Systems negative except HPI Physical Exam Verdana 4l Vital Signs: Verdana 4d Verdana 4d Vital Signs: Verdana 4d Verdana 4Bd Last Vital Signs Verdana 4d Gasoline Locomotive Crane Operator New 4d Gasoline Locomotive Crane Operator New 4d Temp 98.9 F 09/30/21 11:10 Gasoline Locomotive Crane Operator New 4d Pulse 69 09/30/21 11:10 Gasoline Locomotive Crane Operator New 4d Resp 20 09/30/21 11:10 BP 103/51 L 09/30/21 11:10 Pulse Ox 96 09/30/21 11:10 BMI result Body Mass Index 21.5 Const: Other: General - no acute distress, appears comfortable Cardiovascular - regular rate and rhythm, S1-S2 Lungs - normal respiratory effort, clear to auscultation bilaterally, no whee zing Abdomen - soft, nontender, no rebound or guarding Extremities - L foot with significantly improved erythema and edema; minimally tender; packing in place Neuro - awake and alert, no focal deficits Objective Data Active Medications Acetaminophen (Acetaminophen 325 Mg Tablet) 650 mg PO Q6H PRN PRN Reason: Pain, Mild (Pain Scale 1-3) Last Admin: 09/27/21 19:59 Dose: 650 mg Documented by: DOUGLAS Heparin Sodium (Porcine) 50 (units/ Sodium Chloride 5 ml) 0 units IVFLUSH TID [facility] Last Admin: 09/30/21 10:00 Dose: 50 unit Documented by: AMITA Enoxaparin Sodium (Enoxaparin Sodium 40 Mg/0.4 Ml Syringe) 40 mg SUBCUT Q24H [facility] Last Admin: 09/30/21 10:00 Dose: 40 mg Documented by: AMITA Hydromorphone HCl (Hydromorphone Hcl 1 Mg/Ml Syringe) 0.5 mg IVPUSH Q3H PRN; Protocol PRN Reason: Pain, Mild (Pain Scale 1-3) Last Admin: 09/29/21 08:39 Dose: 0.5 mg Documented by: ROMARIO Vancomycin HCl 1,250 mg/ (Sodium Chloride) 250 mls @ 166.667 mls/hr IV Q12H [facility] Stop: 10/02/21 23:59 Last Admin: 09/30/21 10:06 Dose: 166.67 mls/hr Documented by: AMITA Methadone HCl (Methadone Hcl 20 Mg/2 Ml Oral.Conc) 80 mg PO DAILY [facility] Last Admin: 09/30/21 10:00 Dose: 80 mg Documented by: AMITA Multivitamins/Vitamin C (Multivitamin Tablet) 1 tab PO DAILY [facility] Last Admin: 09/30/21 10:01 Dose: 1 tab Documented by: AMITA Ondansetron HCl (Ondansetron Hcl 4 Mg/2 Ml Vial) 4 mg IVPUSH Q8H PRN PRN Reason: Nausea and Vomiting Oxycodone HCl (Oxycodone Hcl Immed Release 5 Mg Tablet) 10 mg PO Q4H PRN PRN Reason: Pain, Severe (Pain Scale 7-10) Last Admin: 09/30/21 10:04 Dose: 10 mg Documented by: AMITA Pharmacy Consult (Consult Rx Vancomycin Dosing) 1 each MISCELLANE DAILY PRN PRN Reason: Consult order Sodium Chloride (0.9 % Sodium Chloride Flush 3 Ml Syringe) 3 ml IVFLUSH QSHIFT [facility] Last Admin: 09/30/21 10:02 Dose: 3 ml Documented by: AMITA Labs CBC & Chem 7: 09/26/21 05:49 09/29/21 07:34 Assessment and Plan (1) COVID-19: Status: Acute (2) Early stage of : Status: Acute (3) Abscess of left foot: Status: Acute (4) Cellulitis of foot, left: Status: Acute Plan 85-year-old with past medical history of back to me as well as IV drug use who presents to the hospital with abscess of left foot Left foot abscess/ cellulitis due to MRSA I&D done in ED and I&D in OR by surgery 09/26 BCx negative x 48 hours No bony involvement seen on foot xray, ESR 60 continue IV vancomycin - last day of antibiotics on evening; unable to use PO due to MRSA + ; ID input appreciated Gen Surg input apprecaited Positive test OB follow up us showing single intrauterine gestational age around [address] Phoenix, rec cephalosporins, amp or clinda, no doxycycline or quinolones current pain medication ok polysubstance abuse tox screen + for multiple substances continue methadone seen by addiction medicine COVID 19 + mild cough, no sob not requiring supplemental oxygen at this time DISPO plan for dc when vancomycin completed Access: difficult stick, multiple blown IVs, poor access, midline placed 09/26 DVT prophylaxis Lovenox Quality Stroke Does the patient have a stroke diagnosis?: No VTE Prior VTE?: No VTE Risk Level:: Medical - moderate - high VTE Device Contraindication: Treatment Not Indicated VTE Drug Contraindication: N/A - Med Ordered
[2021-09-30 15:38] VITALS: BP 111/63; PULSE 67; RESP 16; TEMP 36.7; O2SAT 100
--- NOTE | 2021-09-30 15:44 | MHC.RECOVRN ---
Met with pt to provide support and follow up regarding referrals. Pt reports feeling good but tired. Pt would like to wait to send referrals for residential tx/sober housing at this time. Pt would like to be connected to [facility], referral has been sent. Will continue to follow.
[2021-09-30 18:59] LABS: Creatinine Clr Calc Pharmacy 87.1; Estimated Glomerular Filt Rate > 60
[2021-09-30 19:07] LABS: Vancomycin Random 13.1 mcg/mL (15-20)
[2021-09-30 19:14] VITALS: BP 110/54; PULSE 65; RESP 16; TEMP 37.1; O2SAT 99
[2021-09-30] MEDS: HYDROmorphone HCl 1 MG/ML SYRINGE 0.5 MG IVPUSH (22:09)
[2021-10-01] VITALS (7 sets, daily range): BP systolic 98–128; BP diastolic 53–66; PULSE 56–80; RESP 16–18; TEMP 36.1–37.4; O2SAT 98–100
[2021-10-01] MEDS: oxyCODONE HCl Immed Release 5 MG TABLET 10 MG PO ×3 (00:39→22:32)
[2021-10-01] MEDS: 0.9 % Sodium Chloride Flush 3 ML SYRINGE IVFLUSH ×3 (00:45→15:52)
[2021-10-01 09:34] LABS: Anion Gap 11 (12-20); Blood Urea Nitrogen 13 mg/dL (9-16); Calcium 9.1 mg/dL (8.4-10.2); Carbon Dioxide 27 mmol/L (22-29); Chloride 102 mmol/L (96-108); Creatinine Clr Calc Pharmacy 83.4; Estimated Glomerular Filt Rate > 60; Glucose Random 174 mg/dL (60-115); Sodium 136 mmol/L (135-145)
--- NOTE | 2021-10-01 09:42 | PHA.PROG ---
Admission Date/Time: September 23, 2021 23:19 Indication: Skin and Soft Tissue Weight in k.71 kg Adjusted body weight in Kg: [place] body weight in Kg: Obesity Dosing Indication % IBW: Serum Creatinine - Last 168 Hours 09/25/21 09/26/21 09/27/21 06:06 05:49 07:00 Creatinine 0.64 0.69 0.65 09/28/21 09/29/21 09/30/21 07:02 07:34 18:35 Creatinine 0.61 0.62 0.68 10/01/21 08:57 Creatinine 0.71 Estimated CrCl and GFR - Last 168 Hours 09/25/21 09/26/21 09/27/21 06:06 05:49 07:00 Estim Creat Clear Calc 92.6 85.9 91.1 Estimated GFR > 60 > 60 > 60 09/28/21 09/29/21 09/30/21 07:02 07:34 18:35 Estim Creat Clear Calc 97.1 95.5 87.1 Estimated GFR > 60 > 60 > 60 10/01/21 08:57 Estim Creat Clear Calc 83.4 Estimated GFR > 60 Vancomycin Loading Dose: Current Vancomycin Dosing Regimen: 1250 mg q12h Vancomycin Monitoring using AUC goal of 400 - 600 range with trough as surrogate marker: Estimating a AUC of 510 and trough of 12.2 Date and Time for next Vancomycin Level to be drawn: 10/01 @ 1900 Vancomycin Trough 11.9 mcg/mL (10.0-20.0) 09/29/21 07:34 Pharmacist Comments on Vancomycin Plan: Plan to continue current regimen and will continue to monitor renal function. Vancomycin dosing will take advantage of [employer] as a clinical decision support tool that uses Bayesian modeling to calculate individual patient's pharmacokinetic parameters and forecast the patient's drug concentration time course with the target goal AUC 24 range of 400 - 600 mg/L/hr.
[2021-10-01] MEDS: methADONE HCl 20 MG/2 ML ORAL.CONC 80 MG PO (10:12)
[2021-10-01] MEDS: Multivitamin TABLET 1 TAB PO (10:12)
[2021-10-01] MEDS: vancomycin HCL 1,250 MG in 0.9 % Sodium Chloride 250 ML 1666.67 MG IV (10:33)
--- NOTE | 2021-10-01 11:05 | P.PNIM_ITS ---
Subjective Subjective Date of Service: 10/01/21 Review of Systems seen and examined this AM continues to feel better in regards to the foot reports ambulating on it denies fevers or chills Physical Exam Verdana 4l Vital Signs: Verdana 4d Verdana 4d Vital Signs: Verdana 4d Verdana 4Bd Last Vital Signs Verdana 4d Retail Store Clerk New 4d Retail Store Clerk New 4d Temp 97.0 F 10/01/21 07:29 Retail Store Clerk New 4d Pulse 56 10/01/21 07:29 Retail Store Clerk New 4d Resp 18 10/01/21 07:29 BP 100/54 L 10/01/21 07:29 Pulse Ox 98 10/01/21 07:29 BMI result Body Mass Index 21.5 Appearing in no acute distress lung sounds are clear to auscultation heart regular rate rhythm, clear S1, S2 positive bowel sounds, abdomen is soft, nontender neuro patient is alert x3, no focal deficits Objective Data Active Medications Acetaminophen (Acetaminophen 325 Mg Tablet) 650 mg PO Q6H PRN PRN Reason: Pain, Mild (Pain Scale 1-3) Last Admin: 09/27/21 19:59 Dose: 650 mg Documented by: DOUGLAS Heparin Sodium (Porcine) 50 (units/ Sodium Chloride 5 ml) 0 units IVFLUSH TID [facility] Last Admin: 10/01/21 10:13 Dose: 50 unit Documented by: AMITA Enoxaparin Sodium (Enoxaparin Sodium 40 Mg/0.4 Ml Syringe) 40 mg SUBCUT Q24H [facility] Last Admin: 10/01/21 10:32 Dose: Not Given Documented by: AMITA Non-Admin Reason: Patient Refused Hydromorphone HCl (Hydromorphone Hcl 1 Mg/Ml Syringe) 0.5 mg IVPUSH Q3H PRN; Protocol PRN Reason: Pain, Mild (Pain Scale 1-3) Last Admin: 09/30/21 22:09 Dose: 0.5 mg Documented by: ELMO Vancomycin HCl 1,250 mg/ (Sodium Chloride) 250 mls @ 166.667 mls/hr IV Q12H [facility] Stop: 10/02/21 23:59 Last Infusion: 10/01/21 10:46 Dose: 0 mls/hr Documented by: AMITA Methadone HCl (Methadone Hcl 20 Mg/2 Ml Oral.Conc) 80 mg PO DAILY [facility] Last Admin: 10/01/21 10:12 Dose: 80 mg Documented by: AMITA Multivitamins/Vitamin C (Multivitamin Tablet) 1 tab PO DAILY [facility] Last Admin: 10/01/21 10:12 Dose: 1 tab Documented by: AMITA Ondansetron HCl (Ondansetron Hcl 4 Mg/2 Ml Vial) 4 mg IVPUSH Q8H PRN PRN Reason: Nausea and Vomiting Oxycodone HCl (Oxycodone Hcl Immed Release 5 Mg Tablet) 10 mg PO Q4H PRN PRN Reason: Pain, Severe (Pain Scale 7-10) Last Admin: 10/01/21 00:39 Dose: 10 mg Documented by: CHAPARRO Sodium Chloride (0.9 % Sodium Chloride Flush 3 Ml Syringe) 3 ml IVFLUSH QSHIFT [facility] Last Admin: 10/01/21 10:13 Dose: 3 ml Documented by: AMITA Labs CBC & Chem 7: 09/26/21 05:49 10/01/21 08:57 Labs: Laboratory Results - last 24 hr 09/30/21 09/30/21 10/01/21 18:35 18:35 08:57 Anion Gap 11 L Estim Creat Clear Calc 87.1 83.4 Estimated GFR > 60 > 60 Random Glucose 174 H Calcium 9.1 Random Vancomycin 13.1 L Assessment and Plan (1) COVID-19: Status: Acute (2) Early stage of : Status: Acute (3) Abscess of left foot: Status: Acute (4) Cellulitis of foot, left: Status: Acute Plan 85-year-old with past medical history of back to tx as well as IV drug use who presents to the hospital with abscess of left foot Left foot abscess/ cellulitis due to MRSA I&D done in ED and I&D in OR by surgery 09/26 BCx negative x 48 hours No bony involvement seen on foot xray, ESR 60 continue IV vancomycin - last day of antibiotics on evening; unable to use PO due to MRSA + ; ID input appreciated Gen Surg input appreciated Positive test OB follow up us showing single intrauterine gestational age around [address] Phoenix, rec cephalosporins, amp or clinda, no doxycycline or quinolones current pain medication ok polysubstance abuse tox screen + for multiple substances continue methadone seen by addiction medicine COVID 19 + mild cough, no sob not requiring supplemental oxygen at this time DISPO plan for dc when vancomycin completed likely 10/02/21 Access: difficult stick, multiple blown IVs, poor access, midline placed 09/26 DVT prophylaxis Lovenox Attending Dr. Burns Quality Stroke Does the patient have a stroke diagnosis?: No VTE Prior VTE?: No VTE Risk Level:: Medical - moderate - high VTE Device Contraindication: Treatment Not Indicated VTE Drug Contraindication: N/A - Med Ordered
--- NOTE | 2021-10-01 12:59 | P.PNGS_ITS ---
Subjective Subjective Date of Service: 10/01/21 Interval history: No new complaints Says she is ready to be discharged Physical Exam Verdana 4l Vital Signs: Verdana 4d Verdana 4d Vital Signs: Verdana 4d Verdana 4Bd Last Vital Signs Verdana 4d Weatherization And Housing Inspector New 4d Weatherization And Housing Inspector New 4d Temp 99.3 F 10/01/21 12:00 Weatherization And Housing Inspector New 4d Pulse 70 10/01/21 12:00 Weatherization And Housing Inspector New 4d Resp 16 10/01/21 12:00 BP 111/64 10/01/21 12:00 Pulse Ox 98 10/01/21 12:00 BMI result Body Mass Index 21.5 Const: General: comfortable and no acute distress Resp: Effort & Inspection: normal respiratory effort GI: Palpation (GI): Soft to palpation Extrem: Other: I and D and debridement site on the right foot is dry, clean, edema induration has resolved, wound open with good granulation Objective Data Active Medications Acetaminophen (Acetaminophen 325 Mg Tablet) 650 mg PO Q6H PRN PRN Reason: Pain, Mild (Pain Scale 1-3) Last Admin: 09/27/21 19:59 Dose: 650 mg Documented by: DOUGLAS Heparin Sodium (Porcine) 50 (units/ Sodium Chloride 5 ml) 0 units IVFLUSH TID [facility] Last Admin: 10/01/21 11:41 Dose: Not Given Documented by: AMITA Non-Admin Reason: Patient Refused Enoxaparin Sodium (Enoxaparin Sodium 40 Mg/0.4 Ml Syringe) 40 mg SUBCUT Q24H [facility] Last Admin: 10/01/21 10:32 Dose: Not Given Documented by: AMITA Non-Admin Reason: Patient Refused Hydromorphone HCl (Hydromorphone Hcl 1 Mg/Ml Syringe) 0.5 mg IVPUSH Q3H PRN; Protocol PRN Reason: Pain, Mild (Pain Scale 1-3) Last Admin: 09/30/21 22:09 Dose: 0.5 mg Documented by: ELMO Vancomycin HCl 1,250 mg/ (Sodium Chloride) 250 mls @ 166.667 mls/hr IV Q12H [facility] Stop: 10/02/21 23:59 Last Infusion: 10/01/21 10:46 Dose: 0 mls/hr Documented by: AMITA Methadone HCl (Methadone Hcl 20 Mg/2 Ml Oral.Conc) 80 mg PO DAILY [facility] Last Admin: 10/01/21 10:12 Dose: 80 mg Documented by: AMITA Multivitamins/Vitamin C (Multivitamin Tablet) 1 tab PO DAILY [facility] Last Admin: 10/01/21 10:12 Dose: 1 tab Documented by: AMITA Ondansetron HCl (Ondansetron Hcl 4 Mg/2 Ml Vial) 4 mg IVPUSH Q8H PRN PRN Reason: Nausea and Vomiting Oxycodone HCl (Oxycodone Hcl Immed Release 5 Mg Tablet) 10 mg PO Q4H PRN PRN Reason: Pain, Severe (Pain Scale 7-10) Last Admin: 10/01/21 00:39 Dose: 10 mg Documented by: CHAPARRO Sodium Chloride (0.9 % Sodium Chloride Flush 3 Ml Syringe) 3 ml IVFLUSH QSHIFT [facility] Last Admin: 10/01/21 10:13 Dose: 3 ml Documented by: AMITA Labs CBC & Chem 7: 09/26/21 05:49 10/01/21 08:57 Labs: Laboratory Results - last 24 hr 09/30/21 09/30/21 10/01/21 18:35 18:35 08:57 Anion Gap 11 L Estim Creat Clear Calc 87.1 83.4 Estimated GFR > 60 > 60 Random Glucose 174 H Calcium 9.1 Random Vancomycin 13.1 L Procedures Date of Service Date of Service: 10/01/21 Progress Note: A&P Assessment and plan (1) Abscess of left foot: Status: Acute Assessment and Plan: Status post I and D and debridement Dressings changed, packing removed Dry gauze applied and foot wrapped in Izaiah roll Patient instructed on same wound care with dry gauze daily No need for topical antibiotics Good wound care is important Rest of plan as per hospitalist service Fall Risk Details Current Medications: Current Medications Acetaminophen (Acetaminophen 325 Mg Tablet) 650 mg PO Q6H PRN PRN Reason: Pain, Mild (Pain Scale 1-3) Last Admin: 09/27/21 19:59 Dose: 650 mg Documented by: Heparin Sodium (Porcine) 50 (units/ Sodium Chloride 5 ml) 0 units IVFLUSH TID [facility] Last Admin: 10/01/21 11:41 Dose: Not Given Documented by: Enoxaparin Sodium (Enoxaparin Sodium 40 Mg/0.4 Ml Syringe) 40 mg SUBCUT Q24H [facility] Last Admin: 10/01/21 10:32 Dose: Not Given Documented by: Hydromorphone HCl (Hydromorphone Hcl 1 Mg/Ml Syringe) 0.5 mg IVPUSH Q3H PRN; Protocol PRN Reason: Pain, Mild (Pain Scale 1-3) Last Admin: 09/30/21 22:09 Dose: 0.5 mg Documented by: Vancomycin HCl 1,250 mg/ (Sodium Chloride) 250 mls @ 166.667 mls/hr IV Q12H [facility] Stop: 10/02/21 23:59 Last Infusion: 10/01/21 10:46 Dose: Infused Documented by: Methadone HCl (Methadone Hcl 20 Mg/2 Ml Oral.Conc) 80 mg PO DAILY [facility] Last Admin: 10/01/21 10:12 Dose: 80 mg Documented by: Multivitamins/Vitamin C (Multivitamin Tablet) 1 tab PO DAILY [facility] Last Admin: 10/01/21 10:12 Dose: 1 tab Documented by: Ondansetron HCl (Ondansetron Hcl 4 Mg/2 Ml Vial) 4 mg IVPUSH Q8H PRN PRN Reason: Nausea and Vomiting Oxycodone HCl (Oxycodone Hcl Immed Release 5 Mg Tablet) 10 mg PO Q4H PRN PRN Reason: Pain, Severe (Pain Scale 7-10) Last Admin: 10/01/21 00:39 Dose: 10 mg Documented by: Sodium Chloride (0.9 % Sodium Chloride Flush 3 Ml Syringe) [facility] Last Admin: 10/01/21 10:13 Dose: 3 ml Documented by: Time Spent With Patient Time: Total time spent is greater than 50% in coordination of care (as documented) at patient's floor/unit and/or counseling patient: Time with patient: 15 - 24 minutes Quality Stroke Does the patient have a stroke diagnosis?: No VTE Prior VTE?: No VTE Risk Level:: Medical - moderate - high VTE Device Contraindication: Treatment Not Indicated VTE Drug Contraindication: N/A - Med Ordered
--- NOTE | 2021-10-01 14:37 | MHC.CLN ---
F/U PO REMAINS 75-100% DIET RX: REGULAR-APPROPRIATE ENSURE BID IN PLACE TO INCREASE KCALS PROVIDES 700KCALS, 40G PROTEIN CONTINUE TO MONITOR PO INTAKE CLOSELY
[2021-10-01] MEDS: Heparin Sodium,Porcine Flush 50 UNITS, 0.9 % Sodium Chloride Flush 5 ML IVFLUSH ×2 (15:49→22:31)
--- NOTE | 2021-10-01 15:51 | MHC.CM.PN ---
Female 35 DX Foot infection Covid+ No dc today per MD rounds. Patient continues to receive IV ABX. Last dose tomorrow PM. Anticipate discharge tomorrow or Wednesday. DP home with or without services. Patient will arrange for transportation.
[2021-10-01 19:28] LABS: Vancomycin Trough 12.9 mcg/mL (10.0-20.0)
--- NOTE | 2021-10-01 19:46 | HE.PHANOTE ---
RE MARCE Patient's clinical picture better. Last trough was 12.9; AUC 505. Continue 1250mg Q12H, next trough 10/03 @0700
[2021-10-01] MEDS: vancomycin HCL 1,250 MG in 0.9 % Sodium Chloride 250 ML 166.6 MG IV (22:31)
[2021-10-02 04:00] VITALS: BP 103/45; PULSE 62; RESP 20; TEMP 36.7
[2021-10-02 06:50] LABS: Anion Gap 11 (12-20); Blood Urea Nitrogen 16 mg/dL (9-16); Calcium 9.3 mg/dL (8.4-10.2); Carbon Dioxide 27 mmol/L (22-29); Chloride 102 mmol/L (96-108); Estimated Glomerular Filt Rate > 60; Glucose Random 86 mg/dL (60-115); Potassium 4.5 mmol/L (3.3-5.1); Sodium 135 mmol/L (135-145)
[2021-10-02 07:15] VITALS: BP 100/52; PULSE 59; RESP 18; TEMP 37.2; O2SAT 99
--- NOTE | 2021-10-02 08:33 | PHA.PROG ---
Admission Date/Time: September 23, 2021 23:19 Indication: Skin and Soft Tissue Weight in k.71 kg Adjusted body weight in Kg: [place] body weight in Kg: Obesity Dosing Indication % IBW: Serum Creatinine - Last 168 Hours 09/26/21 09/27/21 09/28/21 05:49 07:00 07:02 Creatinine 0.69 0.65 0.61 09/29/21 09/30/21 10/01/21 07:34 18:35 08:57 Creatinine 0.62 0.68 0.71 10/02/21 06:07 Creatinine 0.63 Estimated CrCl and GFR - Last 168 Hours 09/26/21 09/27/21 09/28/21 05:49 07:00 07:02 Estim Creat Clear Calc 85.9 91.1 97.1 Estimated GFR > 60 > 60 > 60 09/29/21 09/30/21 10/01/21 07:34 18:35 08:57 Estim Creat Clear Calc 95.5 87.1 83.4 Estimated GFR > 60 > 60 > 60 10/02/21 06:07 Estim Creat Clear Calc 94.0 Estimated GFR > 60 Vancomycin Loading Dose: Current Vancomycin Dosing Regimen: 1250mg q12h Vancomycin Monitoring using AUC goal of 400 - 600 range with trough as surrogate marker: Current regimen is predicting a AUC of 459 and a trough of 10.4. Date and Time for next Vancomycin Level to be drawn: 10/03 @ 0700 Vancomycin Trough 12.9 mcg/mL (10.0-20.0) 10/01/21 18:57 Pharmacist Comments on Vancomycin Plan: Will continue current regimen and continue to monitor renal function. Vancomycin dosing will take advantage of [employer] as a clinical decision support tool that uses Bayesian modeling to calculate individual patient's pharmacokinetic parameters and forecast the patient's drug concentration time course with the target goal AUC 24 range of 400 - 600 mg/L/hr.
--- NOTE | 2021-10-02 10:02 | PM.EVENT ---
Event Note Date of Service: 10/02/21 Event Note: Went to see patient for morning rounds today. She told me that she would like to be discharged today. I have informed her that she has an additional 24 hours of IV antibiotics left prior to her discharge. I have informed her (in layman's terms) the risks of leaving AMA which including, but are not limited to -- in adequate treatment for her MRSA cellulitis / abscess, worsening of her infection and possibility of sepsis + bacteremia and the potential results of these and even possibly . Furthermore, in the context of her , she risks the life of her unborn child. She is able to explain back to me in her own words what the potential risks are. She states that if things worsen, she will return to the ED.T The patient is AAOx3 and her insight intact. Despite the above, she will be signing out AMA.
[2021-10-02] MEDS: Multivitamin TABLET 1 TAB PO (10:09)
[2021-10-02] MEDS: oxyCODONE HCl Immed Release 5 MG TABLET 10 MG PO (10:14)
[2021-10-02] MEDS: methADONE HCl 20 MG/2 ML ORAL.CONC 80 MG PO (10:18)
[2021-10-02 11:11] VITALS: BP 104/56; PULSE 67; RESP 18; TEMP 36.6; O2SAT 98
--- NOTE | 2021-10-02 13:46 | HO.MIDLINE ---
PICC Line Insertion MIDLINE REMOVAL FUNCTIONAL, PATENT SINGLE LUMEN NON-PASV (20G X 8CM) MIDLINE REMOVED FROM LUE. PT REFUSING FURTHER ATTEMPTS AT IV ACCESS AT THIS TIME. RN AND HOSPITALIST AWARE.
--- NOTE | 2021-10-02 14:12 | MHC.RECOVRN ---
Pt deciding to leave AMA, t/w met with pt to check in and provide last dose letter. Pt reported midline was painful during infusions and could not tolerate the pain during this morning's abx. Pt would not let staff attempt to flush the line. At that point, pt informed staff to remove the midline and desire to discharge. Pt reports If I thought it was going to hurt me to leave, I wouldn't. Pt however understands the risks of a self directed discharge. Pt will take [facility] [place] to [place]. Pt has many resources relating to and recovery. Pt encouraged to reach out to t/w and/or return to the hospital if needed. Pt agreeable.
[2021-10-02 14:27] LABS: Glucose-6-Phosphate Dehydrogen 14.7 U/g Hgb (7.0-20.5)
--- NOTE | 2021-10-02 14:33 | MHC.CM.PN ---
Patient left against medical advice.
== END 2021-10-02 13:45 | disposition left against medical advice (07) | DRG 566 ==
LOC: HO.ED 23:04 → HO.EDOVER 23:30 → HO.IMC 09-24 14:07
PROVIDERS: Internal Medicine; Physician Assistant Medical; Surgery; Admitting Provider Internal Medicine; Emergency Provider Student in an Organized Health Care Education/Training Program; Visit Provider Family Medicine
PROC: 0HBNXZZ Excision of Left Foot Skin, External Approach (ICD-10-PCS; principal; 2021-09-26 16:45)
DX: O99.711 Diseases of the skin and subcutaneous tissue complicating pregnancy, first trimester (principal); U07.1 COVID-19; O98.511 Other viral diseases complicating pregnancy, first trimester; L03.116 Cellulitis of left lower limb; O99.321 Drug use complicating pregnancy, first trimester; B95.62 Methicillin resistant Staphylococcus aureus infection as the cause of diseases classified elsewhere; F11.20 Opioid dependence, uncomplicated; Z88.0 Allergy status to penicillin; Z88.5 Allergy status to narcotic agent; Z86.14 Personal history of Methicillin resistant Staphylococcus aureus infection; Z3A.01 Less than 8 weeks gestation of pregnancy
CPT/HCPCS: 36410; 36415; 73630; 76801; 80048; 80202; 80307; 81001; 81025; 82565; 82955; 83605; 84702; 85025; 85652; 86140; 86704; 86706; 86780; 86803; 87040; 87071; 87077; 87186; 87205; 87340; 87389; 87491; 87591; 87635; 96365; 96375; 99024; 99285; J0692; J1170; J1642; J1650; J3370

== ENCOUNTER 2022-10-16 21:42 | Inpatient (IN) | payer OTHER, SELFPAY ==
--- NOTE | ~2022-10-16 | CT_ITS ---
EXAMINATION: CT FOOT WITH CONTRAST, RIGHT CLINICAL INFORMATION: Foot abscess COMPARISON: Previous x-ray from earlier the same day TECHNIQUE: Axial images through the right foot following IV contrast. Patient was administered 100 mL of Omnipaque [address] of the chest and foot. This CT examination was performed using dose optimization techniques as appropriate, variously including the following: *Automated exposure control *Adjustment of mA and/or kV according to patient size (this includes techniques or standardized protocols for targeted exams where dose is matched to indication/reason for exam; i.e. extremities or head) *Use of iterative reconstruction technique DLP: 133 mGy-cm FINDINGS: There is question of a small amount of fluid at the first MTP joint adjacent to the medial first metatarsal head. This area measures approximately 2 x 5 mm axial image 37 series 9. There is some adjacent soft tissue swelling seen in this region as well. No fracture, dislocation or x-ray evidence of osteomyelitis is seen. The joint spaces are otherwise normal. No evidence of septic arthritis is seen. Soft tissues are otherwise normal. No soft tissue foreign body is seen. CT/CT foot RT w IV con IMPRESSION: Question small amount of fluid at the first MTP joint and adjacent to the medial first metatarsal head and adjacent soft tissue swelling. No soft tissue foreign body or evidence of osteomyelitis or septic arthritis seen.
--- NOTE | ~2022-10-16 | XR_ITS ---
EXAMINATION: XR FOOT, RIGHT CLINICAL INFORMATION: Right great toe effusion. COMPARISON: None TECHNIQUE: AP, lateral, and oblique views of the right foot. FINDINGS: The bones and soft tissues appear unremarkable. No fracture appreciated. Alignment is anatomic. Joint spaces appear maintained. XR/XR foot RT 2V IMPRESSION: Normal plain film examination of the right foot.
--- NOTE | ~2022-10-16 | XR_ITS ---
EXAMINATION: XR CHEST CLINICAL INFORMATION: Cough COMPARISON: September 18, 2019 TECHNIQUE: AP portable view of the chest was obtained. FINDINGS: There is interstitial disease seen within the right chest with ill-defined patchy density about the mid lung. No pneumothorax or pleural effusion. Heart normal size. No evidence of pulmonary edema. XR/XR chest 1V IMPRESSION: Right lung disease with interstitial and more confluent airspace component which may be infectious in etiology with small focus of confluent pneumonitis.
--- NOTE | ~2022-10-16 | CT_ITS ---
EXAMINATION: CT CHEST WITH CONTRAST CLINICAL INFORMATION: Cough and shortness of breath. Follow up abnormal chest x-ray. COMPARISON: Previous chest x-ray from earlier the same day. TECHNIQUE: Multidetector volumetric CT imaging of the chest was obtained after the administration of 50 mL of Omnipaque 350 intravenous contrast without immediate adverse reactions. Axial MIP volume rendering provided. Sagittal and coronal reformatted images were obtained. This CT examination was performed using dose optimization techniques as appropriate, variously including the following: *Automated exposure control *Adjustment of mA and/or kV according to patient size (this includes techniques or standardized protocols for targeted exams where dose is matched to indication/reason for exam; i.e. extremities or head) *Use of iterative reconstruction technique DLP: 166 mGy-cm FINDINGS: FUND DIRECTOR: Bilateral pulmonary nodules. LUNGS: There are multiple pulmonary nodules seen. Some larger nodules are cavitary. Largest right pulmonary nodule measures 1.8 x 1.3 cm in the right lower lobe and is cavitary. Largest left pulmonary nodule measures 1.3 cm in the left lower lobe and is cavitary. MEDIASTINUM: There is suggestion of right middle lobe pulmonary emboli, for example, axial image [id number], series 16. There is diffuse mediastinal and bilateral hilar lymphadenopathy. Larger lymph nodes are upper normal in size. Normal heart size. No pericardial effusion. Normal caliber thoracic aorta. PLEURA: There is no pleural effusion. No pleural mass or thickening. AXILLA: No lymphadenopathy. UPPER ABDOMEN: Unremarkable. OSSEOUS STRUCTURES: Unremarkable. CT/CT chest w IV con IMPRESSION: Bilateral pulmonary nodules. Larger pulmonary nodules are cavitary. Infectious, inflammatory and neoplastic processes should be considered. Probable right middle lobe pulmonary emboli. In particular, septic emboli should be considered. Fleischner guidelines were followed. Findings were communicated to Dr. Schultz by telephone on 08/16/2023 at 6:45 PM
--- NOTE | ~2022-10-16 | XR_ITS ---
EXAMINATION: XR CHEST CLINICAL INFORMATION: Shortness of breath COMPARISON: Chest radiograph yesterday, chest CT 10/17/2022 TECHNIQUE: Frontal view of the chest was obtained. FINDINGS: Since yesterday's study there's been no real significant interval change once again noted are patchy opacities in both lungs. Heart size normal. No pleural effusions. Pulmonary nodules seen on the prior CT scan not well appreciated on this exam. XR/XR chest 1V IMPRESSION: No significant interval change when compared to yesterday's study. Bilateral pulmonary opacities.
--- NOTE | ~2022-10-16 | XR_ITS ---
EXAMINATION: XR CHEST CLINICAL INFORMATION: Shortness of breath. COMPARISON: 10/17/[address] scan dated 10/17/2022. TECHNIQUE: Frontal view of the chest was obtained. FINDINGS: Patchy opacities have minimally decreased including a more focal opacity in the right lower lung. The heart and mediastinal structures are unremarkable. XR/XR chest 1V IMPRESSION: Bilateral patchy opacities appear minimally improved. Please refer to the most recent CT scan for more detailed findings. Continued short-term radiographic follow-up is recommended as clinically indicated.
[2022-10-16 22:21] VITALS: BP 114/63; PULSE 94; RESP 16; TEMP 36.1; O2SAT 98
[2022-10-16 22:50] LABS: Red Cell Distribution Width 14.7 % (11.0-16.0)
[2022-10-16 22:51] LABS: Hematocrit 36.5 % (37.0-47.0); Hemoglobin 11.8 g/dl (12.0-16.0); Mean Corpuscular HGB Conc 32.3 g/dl (31.0-35.0); Mean Corpuscular Hemoglobin 25.4 pg (27.0-33.0); Mean Corpuscular Volume 78.7 fL (80.0-98.0); Mean Platelet Volume 12.8 fL (9.4-12.3); PLT CLUMP 1; Red Blood Count 4.64 X10*6/uL (4.20-5.50)
[2022-10-16 23:03] LABS: COVID-19 Test Negative (Negative); IDNOW Serial# 6674DD1D
[2022-10-16 23:05] LABS: Alanine Aminotransferase 11 U/L (0-31); Albumin Level 3.4 g/dL (3.5-5.0); Alkaline Phosphatase 100 U/L (39-117); Anion Gap 15 (12-20); Aspartate Amino Transferase 16 U/L (5-31); Bilirubin Total 0.4 mg/dL (0.0-1.0); Blood Urea Nitrogen 28 mg/dL (9-16); Calcium 8.8 mg/dL (8.4-10.2); Carbon Dioxide 23 mmol/L (22-29); Chloride 97 mmol/L (96-108); Creatinine Clr Calc Pharmacy 50.6; Estimated Glomerular Filt Rate 53; Glucose Random 239 mg/dL (60-115); Potassium 4.1 mmol/L (3.3-5.1); Sodium 131 mmol/L (135-145)
[2022-10-16 23:16] LABS: PLT ABN DIST 1; Platelet Count 84 X10*3/uL (160-400); White Blood Count 16.3 X10*3/uL (4.8-10.8)
[2022-10-17] VITALS (7 sets, daily range): BP systolic 96–116; BP diastolic 45–81; PULSE 69–90; RESP 15–17; TEMP 36.4–39.4; O2SAT 96–100
[2022-10-17 02:11] LABS: Appearance Urine Cloudy; Color Urine Dark Yellow; Glucose Urine UA Negative (Negative); Leukocyte Esterase Urine Small (1+) (Negative); Nitrite Urine Negative (Negative); PH 5.5 (5.0-9.0); Specific Gravity - Urine >= 1.030 (1.005-1.025); UMIC TRIGGER UACC YES; Urine Blood Negative (Negative); Urine Ketones Trace mg/dL (Negative); Urine Protein 100 (2+) mg/dL (Neg-Trace)
[2022-10-17 02:28] LABS: Bacteria Urine Trace (None Seen); Hyaline Casts Urine >20 /LPF (0-2); RBC Urine 0-2 /HPF (0-2); UACC Culture Trigger YES
--- NOTE | 2022-10-17 03:51 | PC.NURSE ---
Took over care at 3:30am pt is sleeping at this time, no sign of distress. Will continue to monitor.
--- NOTE | 2022-10-17 04:48 | ED_ITS ---
HPI - General Adult General Chief complaint: General Medical Stated complaint: Fever Time Seen by Provider: 10/17/22 04:47 Source: patient Mode of arrival: ambulatory Limitations: no limitations History of Present Illness HPI narrative: Patient IV drug user uses heroin cocaine been having fever for last 3 4 days fe eling weak and tired also noticed right greater toe swelling with redness checked her temperature was 99.1 degrees took Tylenol before arrival. Feels shortness of breath has chronic cough no palpitation history of sepsis in the past, history of MRSA bacteremia is in the past Related Data Home Medications Medication Instructions Recorded Confirmed methadone 10 mg/mL intravenous 80 mg DAILY 09/23/21 09/23/21 syringe Allergies Allergy/AdvReac Type Severity Reaction Status Date / Time bee pollen [Bee Stings] Allergy Unknown SWELLING Verified 09/23/21 20:39 AT SITE morphine [Morphine] Allergy Unknown SKIN Verified 09/23/21 20:39 BUBBLED Penicillins Allergy Unknown HIVES Verified 09/23/21 20:39 BREATHING PBROBLEM Review of Systems Review of Systems: Yes all other systems are reviewed and are negative PMFSH Past Medical History Medical History Asthma Fungus infection in blood MRSA (methicillin resistant staph aureus) culture positive Sepsis Substance abuse Surgical History No pertinent past surgical history Social History Social History Household Members: Significant Other Housing: Apartment Do you presently have visiting nurse or other home services: No Alcohol intake: current Patient Tobacco Use Status: Never used Tobacco Smoked in Last 30 Days: Yes Use of substances other than those prescribed or required for medical reasons: Yes Substance Use Type: Heroin Advance Directives: No service: No Current occupational status: unemployed Physical Exam ED Vital Signs: Vital Signs - 24 hr 10/16/22 22:21 10/17/22 01:42 10/17/22 04:06 Temperature 97.0 F Pulse Rate 94 73 69 Respiratory Rate 16 17 15 Blood Pressure 114/63 96/65 98/45 L Pulse Oximetry 98 100 97 Oxygen Delivery Method Room Air Room Air Room Air 10/17/22 06:56 10/17/22 07:49 Temperature 97.6 F 98.6 F Pulse Rate 90 Respiratory Rate 16 Blood Pressure 112/71 Pulse Oximetry 98 Oxygen Delivery Method Room Air BMI result Body Mass Index 20.0 Appearance: Alert. Oriented X3. No acute distress. Eyes: PERRLA, No Nystagmus ENT: Pharynx normal. Oral Mucosa moist Neck: Normal inspection. Neck supple. CVS: Normal heart rate and rhythm. Pulses normal. No murmur/rub Respiratory: No respiratory distress. Equal air entry bilateral, bilateral rhonchi no crackles Abdomen: Soft and nontender. Bowel sounds are present, no mass palpable, no CVA tenderness Skin: Skin warm and dry. Normal skin color. Normal skin turgor. Extremities: No lower extremity edema. No calf tenderness multiple IVDA track ariza cellulitic changes right greater toe Neuro: Oriented X 3. No motor deficit. No sensory deficit.No cerebellar signs , cranial nerves II-XII intact Medications Administered Discontinued Medications Generic Name Dose Route Start Last Admin Trade Name Freq PRN Reason Stop Dose Admin Piperacillin Sod/Tazobactam 50 mls @ 100 mls/hr 10/17/22 04:49 10/17/22 07:03 Sod 3.375 gm/ Sodium Chloride IV 10/17/22 05:18 Infused ONCE ONE Infusion Vancomycin HCl 1,250 mg/ 250 mls @ 166.667 mls/hr 10/17/22 05:00 10/17/22 07:02 Sodium Chloride IV 10/17/22 06:29 166.67 mls/hr ONCE ONE Administration Sodium Chloride 1,000 mls @ 999 mls/hr 10/17/22 04:54 10/17/22 06:28 Ns IV 10/17/22 05:54 999 mls/hr .Q1H1M ONE Administration Sodium Chloride 1,000 mls @ 999 mls/hr 10/17/22 06:15 10/17/22 07:03 Ns IV 10/17/22 07:15 999 mls/hr .Q1H1M ONE Administration Medical Decision Making Medical Decision Making [facility] Narrative: Patient with IV drug user with subjective fever with leukocytosis and lactic acidosis meeting the criteria for sepsis will start patient on IV vancomycin as patient had history of MRSA bacteremia also will give Zosyn for Gram-negative coverage admit patient for further evaluation Consult Healthcare Provider Management of the patient was discussed with: Hospitalist Lab Data [facility] Lab Attestation statement: I reviewed the patient's lab results. 10/16/22 22:43 10/16/22 22:43 Labs: Lab Results 10/16/22 10/16/22 10/16/22 Range/Units 22:43 22:43 22:43 WBC 16.3 H (4.8-10.8) X10*3/uL RBC 4.64 (4.20-5.50) X10*6/uL Hgb 11.8 L (12.0-16.0) g/dl Hct 36.5 L (37.0-47.0) % MCV 78.7 L (80.0-98.0) fL MCH 25.4 L (27.0-33.0) pg MCHC 32.3 (31.0-35.0) g/dl RDW 14.7 (11.0-16.0) % Plt Count 84 L D (160-400) X10*3/uL MPV 12.8 H (9.4-12.3) fL Absolute Nucleated RBC 0.000 (0.0-0.012) X10*3/uL Nucleated RBC % (auto) 0.0 (0.0-0.2) /100WBC Sodium 131 L (135-145) mmol/L Potassium 4.1 (3.3-5.1) mmol/L Chloride 97 (96-108) mmol/L Carbon Dioxide 23 (22-29) mmol/L Anion Gap 15 (12-20) BUN 28 H (9-16) mg/dL Creatinine 1.16 (0.5-1.4) mg/dL Estim Creat Clear Calc 50.6 Estimated GFR 53 Random Glucose 239 H (60-115) mg/dL Lactic Acid (0.5-2.0) mmol/L Calcium 8.8 (8.4-10.2) mg/dL Total Bilirubin 0.4 (0.0-1.0) mg/dL AST 16 (5-31) U/L ALT 11 (0-31) U/L Alkaline Phosphatase 100 (39-117) U/L Total Protein 7.0 (6.5-8.0) g/dL Albumin 3.4 L (3.5-5.0) g/dL Urine Color Urine Appearance Urine pH (5.0-9.0) Ur Specific [place] (1.005-1.025) Urine Protein (Neg-Trace) mg/dL Urine Glucose (UA) (Negative) mg/dL Urine Ketones (Negative) mg/dL Urine Blood (Negative) Urine Nitrite (Negative) Ur Leukocyte Esterase (Negative) Urine RBC (0-2) /HPF Urine WBC (0-5) /HPF Ur Squamous Epith Cells (0-2) /HPF Urine Bacteria (None Seen) Hyaline Casts (0-2) /LPF COVID-19 ([facility]) Negative (Negative) COVID-19 Clin Com See Note 10/17/22 10/17/22 Range/Units 02:04 05:44 WBC (4.8-10.8) X10*3/uL RBC (4.20-5.50) X10*6/uL Hgb (12.0-16.0) g/dl Hct (37.0-47.0) % MCV (80.0-98.0) fL MCH (27.0-33.0) pg MCHC (31.0-35.0) g/dl RDW (11.0-16.0) % Plt Count (160-400) X10*3/uL MPV (9.4-12.3) fL Absolute Nucleated RBC (0.0-0.012) X10*3/uL Nucleated RBC % (auto) (0.0-0.2) /100WBC Sodium (135-145) mmol/L Potassium (3.3-5.1) mmol/L Chloride (96-108) mmol/L Carbon Dioxide (22-29) mmol/L Anion Gap (12-20) BUN (9-16) mg/dL Creatinine (0.5-1.4) mg/dL Estim Creat Clear Calc Estimated GFR Random Glucose (60-115) mg/dL Lactic Acid 2.1 H* (0.5-2.0) mmol/L Calcium (8.4-10.2) mg/dL Total Bilirubin (0.0-1.0) mg/dL AST (5-31) U/L ALT (0-31) U/L Alkaline Phosphatase (39-117) U/L Total Protein (6.5-8.0) g/dL Albumin (3.5-5.0) g/dL Urine Color Dark Yellow Urine Appearance Cloudy Urine pH 5.5 (5.0-9.0) Ur Specific [place] >= 1.030 H (1.005-1.025) Urine Protein 100 (2+) H (Neg-Trace) mg/dL Urine Glucose (UA) Negative (Negative) mg/dL Urine Ketones Trace (Negative) mg/dL Urine Blood Negative (Negative) Urine Nitrite Negative (Negative) Ur Leukocyte Esterase Small (1+) H (Negative) Urine RBC 0-2 (0-2) /HPF Urine WBC 11-20 H (0-5) /HPF Ur Squamous Epith Cells 11-20 (0-2) /HPF Urine Bacteria Trace (None Seen) Hyaline Casts >20 (0-2) /LPF COVID-19 ([facility]) (Negative) COVID-19 Clin Com Discharge Plan Discharge Clinical Impression: Sepsis, Polysubstance abuse Patient Disposition: Admitted As Inpatient
[2022-10-17 06:05] LABS: Lactic Acid 2.1 mmol/L (0.5-2.0)
--- NOTE | 2022-10-17 06:08 | PC.NURSE ---
Critical lab received from Luther at the lab: Lactic acid 2.1. Dr Major pink.
--- NOTE | 2022-10-17 06:20 | PC.NURSE ---
pt a difficult stick Iv placed at 6:15am after multiple attempts. Iv placed in left IJ
[2022-10-17] MEDS: 0.9 % Sodium Chloride 1,000 ML 999 ML IV ×2 (06:28→07:03)
[2022-10-17] MEDS: Piperacillin Sodium/Tazobactam 3.375 GM in 0.9 % Sodium Chloride 50 ML IV (06:28)
--- NOTE | 2022-10-17 06:47 | PC.NURSE ---
pt requesting multiple drinks and food, pt being medicated per oct.
[2022-10-17] MEDS: vancomycin HCL 1,250 MG in 0.9 % Sodium Chloride 250 ML 166.67 MG IV (07:02)
[2022-10-17 07:52] LABS: Reflex Lactate? Lactic Acid Added
--- NOTE | 2022-10-17 08:36 | MHC.RECOVRN ---
Met with pt in ED22 to assess for withdrawal and discuss substance use. Pt familiar with t/w from previous admission in 08/2021. At that time, pt was receiving 80 mg methadone. Pt reports she did not continue with the OTP due to something happened and I was embarrassed. Pt unable to engage fully in conversation due to restlessness related to opioid withdrawal. Reports body aches and diaphoresis. Pt reports using 2 bundles heroin, IV, last use 4PM on 10/16/22. Requesting methadone and to reconnect with OTP. Discussed with Kenyatta Portillo APRN.
[2022-10-17] MEDS: methADONE HCl 20 MG/2 ML ORAL.CONC 40 MG PO (09:30)
--- NOTE | 2022-10-17 09:33 | PC.NURSE ---
pt irritable, reporting she has here for over 24 hours without food, water and just being poked . pt reports she refuses being poked any more. pt stated that she feels she is on display for the world because the curtain is open and she does not have any underwear. pt has been covered with a blanket and niki. this typewriter assembler attempted to pull repeat lactic off of pts IV line without blood return. pt reports I refuse to be stuck again . pt given a pitcher of water, jello and pudding. she stated to t/w, If I dont get to sleep for at least two hours next, I'm AMAing .
--- NOTE | 2022-10-17 09:38 | PC.NURSE ---
PCT attempted to re-draw pt Lactic level. pt irritable. not allowing for repeat attempt.
--- NOTE | 2022-10-17 09:50 | PHA.MEDREC ---
Pharmacy Consult ? Medication Reconciliation Pharmacy has completed the medication reconciliation. Spoke to patient about medications taken at home. She only claims occasional albuterol rescue inhaler use. Denies any other home medications.
--- NOTE | 2022-10-17 11:47 | MHC.RECOVRN ---
Reassessed for withdrawal-sleeping at this time.
--- NOTE | 2022-10-17 12:15 | P.HPHOSP_ITS ---
History of Present Illness Date of Service: 10/17/22 <SON Wright - Last Filed: 10/17/22 12:52> Attending physician on admission: Mustapha Barr <SON Wright - Last Filed: 10/17/22 12:52> Chief Complaint: fever, chills <SON Wright - Last Filed: 10/17/22 12:52> 36-year-old female with history of asthma, hepatitis-C, polysubstance abuse including IV heroin and cocaine (last use yesterday), history of MRSA, and history of fungal bacteremia who is homeless presented to the ED earlier today for evaluation of subjective fevers and fatigue ongoing for 4 days. The patient is reporting drenching sweats, chills, and hot flashes. She has also had a nonproductive cough for several days but denies sob, wheezing, chest pain. She has a regular IV drug abuser and commonly injects in the feet and lower legs bilaterally, and hands and forearms bilaterally. For the last week or so she has felt mild discomfort and noticed redness and swelling of the 1st MTP of the right foot. She has been able to ambulate. Per EMS, temperature was 99.1 degrees but has developed fever of 103.0, vitals otherwise stable. Leukocytosis of 16.3. Mild microcytic anemia with H/H 11.8/36.5%, MCV 78.7. Platelets 84. Creatinine 1.16, BUN 28. Sodium 131, potassium 4.1, chloride 97, CO2 23. Lactic acid 2.1. Blood cultures pending. UA with 1+ leukocytes, urinary sediment, trace bacteria, 2+ protein, and elevated specific gravity. Negative for COVID-19. Chest x-ray showing interstitial a more confluent airspace with possible infectious etiology and small focus of confluent pneumonitis. X-ray of left foot is negative. Patient treated empirically with vancomycin and Zosyn in the ED along with 2 L IV NS. <SON Wright - Last Filed: 10/17/22 12:52> Review of Systems Review of Systems: General: No malaise, unintentional weight loss. +subjective fevers, +chills, +sweats HEENT: No blurred vision, diplopia. No sore throat, nasal congestion, rhinorrhea, sinus pain, ear pain Cardiovascular: No chest pain, palpitations, or leg edema Respiratory: No shortness of breath, wheezing. +cough GI: No abdominal pain, nausea, vomiting, diarrhea, constipation, melena, hematochezia : No dysuria, hematuria, increased urinary frequency, decreased urinary output MSK: No myalgia, back pain. +pain right great toe Neuro: No headaches, weakness, paresthesias Skin: No rashes or lesions <SON Wright - Last Filed: 10/17/22 12:52> [facility] Medical History: Medical History Abscess of left foot Asthma Cellulitis of foot, left COVID-19 Early stage of Fungus infection in blood Hepatitis C MRSA (methicillin resistant staph aureus) culture positive Sepsis Sepsis Substance abuse <SON Wright - Last Filed: 10/17/22 12:52> Surgical History: Surgical History No pertinent past surgical history Status post incision and drainage <SON Wright - Last Filed: 10/17/22 12:52> Social History: Social History (Updated 10/17/22 @ 12:40 by SON Wright) Household Members: Significant Other Housing: Apartment Do you presently have visiting nurse or other home services: No Alcohol intake: current Patient Tobacco Use Status: Never used Tobacco Smoked in Last 30 Days: Yes Use of substances other than those prescribed or required for medical reasons: Yes Substance Use Type: Crack/Cocaine and Heroin Advance Directives: No service: No Current occupational status: unemployed <SON Wright - Last Filed: 10/17/22 12:52> Meds Allergies/Adverse reactions: Allergies Allergy/AdvReac Type Severity Reaction Status Date / Time bee pollen [Bee Stings] Allergy Unknown SWELLING Verified 09/23/21 20:39 AT SITE morphine [Morphine] Allergy Unknown SKIN Verified 09/23/21 20:39 BUBBLED Penicillins Allergy Unknown HIVES Verified 09/23/21 20:39 BREATHING PBROBLEM <SON Wright - Last Filed: 10/17/22 12:52> Active Medications: Current Medications Acetaminophen (Acetaminophen 325 Mg Tablet) 650 mg PO Q6H PRN PRN Reason: Pain, Mild, fever Albuterol Sulfate (Albuterol Sulfate 90 Mcg 8 Gm Inhaler) 2 puff INHALE Q4H PRN PRN Reason: Shortness Of Breath Enoxaparin Sodium (Enoxaparin Sodium 40 Mg/0.4 Ml Syringe) 40 mg SUBCUT Q24H [facility] Cefepime HCl 2 gm/ Sodium (Chloride) 50 mls @ 100 mls/hr IV Q8H [facility] Methadone HCl (Methadone Hcl 20 Mg/2 Ml Oral.Conc) 40 mg PO DAILY [facility] Last Admin: 10/17/22 09:30 Dose: 40 mg Ondansetron HCl (Ondansetron Hcl 4 Mg/2 Ml Vial) 4 mg IVPUSH Q8H PRN PRN Reason: Nausea and Vomiting Pharmacy Consult (Consult Rx Perform Med Rec) 1 each MISCELLANE ONCE PRN PRN Reason: Consult order Pharmacy Consult (Consult Rx Vancomycin Dosing) 1 each MISCELLANE DAILY PRN PRN Reason: Consult order Senna (Sennosides 8.6 Mg Tablet) 17.2 mg PO BEDTIME PRN PRN Reason: Constipation Sodium Chloride (0.9 % Sodium Chloride Flush 3 Ml Syringe) 3 ml IVFLUSH QSHIFT [facility] <SON Wright - Last Filed: 10/17/22 12:52> Home medications: Home Medications Medication Instructions Recorded Confirmed Last Taken Type albuterol sulfate 90 mcg/actuation 2 puff inhalation Q4H PRN 10/17/22 10/17/22 Unknown History aerosol inhaler Shortness Of Breath <SON Wright - Last Filed: 10/17/22 12:52> Physical Exam Vital Signs and Narrative: Vital Signs: Last Vital Signs Temp 103.0 F H 10/17/22 12:07 Pulse 90 10/17/22 06:56 Resp 16 10/17/22 06:56 BP 112/71 10/17/22 06:56 Pulse Ox 98 10/17/22 06:56 O2 Del Method 10/17/22 06:56 BMI result Body Mass Index 20.0 <SON Wright Last Filed: 10/17/22 12:52> Constitutional - Awake and Alert, No apparent distress Eyes - PERRLA, EOMI Cardiovascular - S1S2, RRR, No edema Respiratory - Normal lung expansion, Normal respiratory effort, No respiratory distress, rhonchi lower lobes Gastrointestinal - NT / ND; +BS; No rebound or guarding Extremities - no calf tenderness bilaterally, no swelling Musculoskeletal - Normal inspection, normal ROM Skin - Hot/Dry. Track ariza of the medial ankles and lower legs without erythema or abscess. Mild swelling, warmth of the rigiht 1st mtp Neurological - Alert & oriented x3, CN II-XII in tact, 5/5 strength BUE and BLE Psychological - Appropriate affect <SON Wright - Last Filed: 10/17/22 12:52> Results Labs CBC and Chem 7: 10/16/22 22:43 10/16/22 22:43 <SON Wright - Last Filed: 10/17/22 12:52> Labs: Laboratory Results - last 24 hr 10/16/22 10/16/22 10/16/22 22:43 22:43 22:43 MCV 78.7 L MCH 25.4 L MCHC 32.3 RDW 14.7 Plt Count 84 L D MPV 12.8 H Absolute Nucleated RBC 0.000 Nucleated RBC % (auto) 0.0 Anion Gap 15 Estim Creat Clear Calc 50.6 Estimated GFR 53 Random Glucose 239 H Lactic Acid Calcium 8.8 Total Bilirubin 0.4 AST 16 ALT 11 Alkaline Phosphatase 100 Total Protein 7.0 Albumin 3.4 L Urine Color Urine Appearance Urine pH Ur Specific [place] Urine Protein Urine Glucose (UA) Urine Ketones Urine Blood Urine Nitrite Ur Leukocyte Esterase Urine RBC Urine WBC Ur Squamous Epith Cells Urine Bacteria Hyaline Casts COVID-19 ([facility]) Negative COVID-19 Clin Com See Note 10/17/22 10/17/22 02:04 05:44 MCV MCH MCHC RDW Plt Count MPV Absolute Nucleated RBC Nucleated RBC % (auto) Anion Gap Estim Creat Clear Calc Estimated GFR Random Glucose Lactic Acid 2.1 H* Calcium Total Bilirubin AST ALT Alkaline Phosphatase Total Protein Albumin Urine Color Dark Yellow Urine Appearance Cloudy Urine pH 5.5 Ur Specific [place] >= 1.030 H Urine Protein 100 (2+) H Urine Glucose (UA) Negative Urine Ketones Trace Urine Blood Negative Urine Nitrite Negative Ur Leukocyte Esterase Small (1+) H Urine RBC 0-2 Urine WBC 11-20 H Ur Squamous Epith Cells 11-20 Urine Bacteria Trace Hyaline Casts >20 COVID-19 ([facility]) COVID-19 Clin Com <SON Wright - Last Filed: 10/17/22 12:52> Imaging Radiologist's Impressions: Impressions Foot X-Ray 10/17/22 07:40 IMPRESSION: Normal plain film examination of the right foot. Chest X-Ray 10/17/22 08:35 IMPRESSION: Right lung disease with interstitial and more confluent airspace component which may be infectious in etiology with small focus of confluent pneumonitis. <SON Wright - Last Filed: 10/17/22 12:52> Assessment and Plan (1) Fever: Status: Acute <SON Wright - Last Filed: 10/17/22 12:52> (2) Severe sepsis: Status: Acute <SON Wright - Last Filed: 10/17/22 12:52> (3) Polysubstance abuse: Status: Acute <SON Wright - Last Filed: 10/17/22 12:52> 36-year-old female with history of asthma, hepatitis-C, polysubstance abuse including IV heroin and cocaine (last use yesterday), history of MRSA, and history of fungal bacteremia who is homeless admitted for fever and severe sepsis of unclear etiology in [facility]. #Severe sepsis- unspecified source at this time -WBC 16.8, Febrile to 103. thombocytopenia with PLT 88, Lactic acid 2.1 -Pt initially refused repeat lactic acid. Will reattempt -Received 2L IV NS in ED -Obtaining CT right foot to rule out abscess in IVDA -Also has cough with abn cxr- will evaluate CT chest -UA also positive. UC pending -Blood cultures pending -Has history fungal bacteremia. 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 Cover with antifungal if no improvement, most likely source is bacterial -Continue vanco and zosyn -tylenol prn for fever -Continue IVF # acute cough -question of interstitial lung disease and pneumonitis on CXR -chest CT pending -negative for COVID-19 -respiratory panel pending -methylprednisolone 40 mg b.i.d. -albuterol p.r.n. -symptomatic management # mild intermittent asthma-without acute exacerbation -albuterol p.r.n. #Polysubstance abuse -IV heroin and cocaine abuse -Given 40mg methadone in ED. -Addiction medicine consult placed -Agreeable to detox -U tox pending #Acute thombocytopenia- d/t sepsis -follow cbc #Chronic microcytic anemia -iron studies pending -above transfusion threshold -monitor CBC # chronic hepatitis-C -patient desires treatment. Follow up outpatient with Gastroenterology # homelessness -case management DVT prophylaxis-SCPs d/t thrombocytopenia Full code Patient requires inpatient stay of at least 2 midnights for management of severe sepsis in IV drug abuser with unclear etiology at this time requiring broad- spectrum antibiotics and ongoing investigation into cause <SON Wright - Last Filed: 10/17/22 12:52> 36-year-old female with history of asthma, hepatitis-C, polysubstance abuse including IV heroin and cocaine (last use yesterday), history of MRSA, and history of fungal bacteremia who is homeless admitted for fever and severe sepsis of unclear etiology in IVDA. #Severe sepsis- unspecified source at this time -WBC 16.8, Febrile to 103. thombocytopenia with PLT 88, Lactic acid 2.1 -Pt initially refused repeat lactic acid. Will reattempt -Received 2L IV NS in ED -Obtaining CT right foot to rule out abscess in IVDA -Also has cough with abn cxr- will evaluate CT chest -UA also positive. UC pending -Blood cultures pending -Has history fungal bacteremia. 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 Cover with antifungal if no improvement, most likely source is bacterial -Continue vanco and zosyn -tylenol prn for fever -Continue IVF # acute cough -question of interstitial lung disease and pneumonitis on CXR -chest CT pending -negative for COVID-19 -respiratory panel pending -methylprednisolone 40 mg b.i.d. -albuterol p.r.n. -symptomatic management # mild intermittent asthma-without acute exacerbation -albuterol p.r.n. #Polysubstance abuse -IV heroin and cocaine abuse -Given 40mg methadone in ED. -Addiction medicine consult placed -Agreeable to detox -U tox pending #Acute thombocytopenia- d/t sepsis -follow cbc #Chronic microcytic anemia -iron studies pending -above transfusion threshold -monitor CBC # chronic hepatitis-C -patient desires treatment. Follow up outpatient with Gastroenterology # homelessness -case management DVT prophylaxis-SCPs d/t thrombocytopenia Full code Patient requires inpatient stay of at least 2 midnights for management of severe sepsis in IV drug abuser with unclear etiology at this time requiring broad-s pectrum antibiotics and ongoing investigation into cause Addendum to history and physical by the advanced practice provider, SON Herrera I interviewed and examined the patient. I discussed their presentation and management with the TRA. I reviewed the history and physical and agree with the documentation, with the following additions and corrections: 36yo F with hx IVDA presenting with 4d of fever/chills/sweats. Found to be severely septic with leukocytosis + fever, LA 2.1 CXR with confluent pneumonitis. Also concern of redness of R 1st MTP joint of foot. Plan admit to M/S, CT R foot + CT chest, cover with vanco + pip-kristofer, follow BCx. <Mustapha Barr MD - Last Filed: 10/17/22 14:11> Time Spent With Patient Time: Total time managing care of this patient today ____ minutes. <SON Wright - Last Filed: 10/17/22 12:52> Quality Stroke Does the patient have a stroke diagnosis?: No <SON Wright - Last Filed: 10/17/22 12:52> VTE Prior VTE?: No <SON Wright - Last Filed: 10/17/22 12:52> VTE Risk Level:: Medical - moderate - high <SON Wright - Last Filed: 10/17/22 12:52> VTE Device Contraindication: Treatment Not Indicated <SON Wright - Last Filed: 10/17/22 12:52> VTE Drug Contraindication: N/A - Med Ordered <SON Wright - Last Filed: 10/17/22 12:52>
[2022-10-17] MEDS: Acetaminophen 325 MG TABLET 650 MG PO (13:00)
[2022-10-17] MEDS: cefEPime HCl 2 GM in 0.9 % Sodium Chloride 50 ML IV ×2 (13:01→22:19)
[2022-10-17] MEDS: methylPREDNISolone Sod Succ 40 MG/ML VIAL IVPUSH (13:03)
[2022-10-17] MEDS: 0.9 % Sodium Chloride 1,000 ML 100 ML IVCONT ×2 (13:06→23:11)
--- NOTE | 2022-10-17 13:33 | PHA.PROG ---
Admission Date/Time: October 17, 2022 12:02 Indication: Severe sepsis- unspecified source at this time Weight in k.081 kg Adjusted body weight in K.9 kg [place] body weight in K.8 kg Obesity Dosing Indication % IBW: N/A Serum Creatinine - Last 168 Hours 10/16/22 22:43 Creatinine 1.16 Estimated CrCl and GFR - Last 168 Hours 10/16/22 22:43 Estim Creat Clear Calc 50.6 Estimated GFR 53 Vancomycin Loading Dose: 1250 mg Current Vancomycin Dosing Regimen: 500 mg Q12H Date and Time for next Vancomycin Level to be drawn: 10/18 @ 1700 Pharmacist Comments on Vancomycin Plan: patient received adequate loading dose on 10/17 @ 0702 Maintenance dose vanoc 500 mg Q12H is schedule to start 10/17 @ 1900. Expected AYC 434 with a trough of 14.3 level to be drawn prior to 4th dose Pharmacy will monitor renal function daily. Michell Ramos PharmD Vancomycin dosing will take advantage of [employer] as a clinical decision support tool that uses Bayesian modeling to calculate individual patient's pharmacokinetic parameters and forecast the patient's drug concentration time course with the target goal AUC 24 range of 400 - 600 mg/L/hr.
--- NOTE | 2022-10-17 15:20 | MHC.RECOVRN ---
Pt appears to continue resting comfortably.
[2022-10-17 15:50] LABS: ~Lactic Acid-LAB USE ONLY 1.8 mmol/L (0.5-2.0)
[2022-10-17 15:57] LABS: Adenovirus PCR Not Detected (Not Detect.); Bordetella parapertussis PCR Not Detected (Not Detect.); Bordetella pertussis PCR Not Detected (Not Detect.); Chlamydia pneumoniae PCR Not Detected (Not Detect.); Coronavirus 229E PCR Not Detected (Not Detect.); Coronavirus HKU1 PCR Not Detected (Not Detect.); Coronavirus NL63 PCR Not Detected (Not Detect.); Coronavirus OC43 PCR Not Detected (Not Detect.); Human metapneumovirus PCR Not Detected (Not Detect.); Influenza A PCR Not Detected (Not Detect.); Influenza B PCR Not Detected (Not Detect.); Mycoplasma pneumoniae PCR Not Detected (Not Detect.); Parainfluenza 1 PCR Not Detected (Not Detect.); Parainfluenza 2 PCR Not Detected (Not Detect.); Parainfluenza 3 PCR Not Detected (Not Detect.); Parainfluenza 4 PCR Not Detected (Not Detect.); RSV PCR Not Detected (Not Detect.); Rhino/Enterovirus PCR Not Detected (Not Detect.); SARS-CoV-2 PCR Not Detected (Not Detect.)
[2022-10-17 16:06] LABS: Anion Gap 14 (12-20); Blood Urea Nitrogen 17 mg/dL (9-16); C Reactive Protein 15.57 mg/dL (< or = 0.50); Calcium 8.2 mg/dL (8.4-10.2); Carbon Dioxide 23 mmol/L (22-29); Chloride 102 mmol/L (96-108); Creatinine Clr Calc Pharmacy 71.6; Estimated Glomerular Filt Rate > 60; Glucose Random 185 mg/dL (60-115); Iron 17 mcg/dL (30-160); Percent Iron Saturation 9 % (15-50); Sodium 135 mmol/L (135-145); Total Iron Binding Capacity 199 mcg/dL (228-428); Unsaturated Iron Binding 182 ug/dL
[2022-10-17 16:20] LABS: Ferritin 192 ng/mL (10-122)
[2022-10-17 16:26] LABS: Erythrocyte Sedimentation Rate 42 MM/HR (0-20)
[2022-10-17 17:04] LABS: Amphetamine Screen Urine Not Detected (Not Detect); Barbiturates, Urine Not Detected (Not Detect); Benzodiazepines Screen Urine Not Detected (Not Detect); Cannabinoid Screen Urine Not Detected (Not Detect); Cocaine Screen Urine POSITIVE (Not Detect); Fentanyl, urine POSITIVE (Not Detect); Opiate Screen Urine Not Detected (Not Detect); Phencyclidine Screen Urine Not Detected (Not Detect)
[2022-10-17] MEDS: iohexoL 350 MG/ML 100 ML INFUS..BTL IV (17:55)
[2022-10-17] MEDS: vancomycin HCL 500 MG in 0.9 % Sodium Chloride 100 ML 110 MG IV (20:25)
--- NOTE | 2022-10-17 22:45 | PC.NURSE ---
PT resting comfortably on stretcher. Wakens upon verbal stimuli. A&Ox4, denies any pain. Fluids running to L IJ. Meds given as documented. RN to RN report given. Pt will be transported to room 347 by transporter. Pt aware of plan. Pt belongings are in ED pod locker #9.
--- NOTE | 2022-10-18 | ECG_ITS ---
Test Reason : chest pain Blood Pressure : / mmHG Vent. Rate : 069 BPM Atrial Rate : 069 BPM P-R Int : 134 ms QRS Dur : 084 ms QT Int : 406 ms P-R-T Axes : 059 065 036 degrees QTc Int : 435 ms Normal sinus rhythm Normal ECG When compared with ECG of 26-MAY-2019 14:32, Vent. rate has decreased BY 45 BPM Referred By: Noah Pagan Electronically Signed By:CORNEL CROOK
[2022-10-18] MEDS: methylPREDNISolone Sod Succ 40 MG/ML VIAL IVPUSH ×2 (00:31→12:15)
[2022-10-18 03:35] VITALS: BP 116/81; PULSE 72; RESP 17; TEMP 36.9; O2SAT 96
[2022-10-18] MEDS: vancomycin HCL 500 MG in 0.9 % Sodium Chloride 100 ML 110 MG IV (06:27)
[2022-10-18 08:00] VITALS: BP 101/58; PULSE 84; RESP 18; TEMP 37.3; O2SAT 95
[2022-10-18] MEDS: Acetaminophen 325 MG TABLET 650 MG PO (09:02)
[2022-10-18] MEDS: methADONE HCl 20 MG/2 ML ORAL.CONC 40 MG PO (09:02)
[2022-10-18] MEDS: Ascorbic Acid 250 MG TABLET PO (09:03)
[2022-10-18] MEDS: Ferrous Sulfate 324 MG TABLET.DR PO (09:03)
[2022-10-18] MEDS: 0.9 % Sodium Chloride 1,000 ML 100 ML IVCONT (09:04)
[2022-10-18 09:25] VITALS: BP 130/70
--- NOTE | 2022-10-18 09:57 | MHC.CM.PN ---
PATIENT STATES THAT SHE USUALLY TAKES 80 MG METHADONE AND HOPES TO GET IT, 40 WON'T CUT IT RN AWARE. NO DME OR VNA SERVICES METHADONE CLINIC IS ON [facility] IN [place] SHE FEELS THAT DC WILL NOT BE FOR AT LEAST A FEW DAYS. NO HCP ON FILE NO PCP. CASE MANAGEMENT FOLLOWING
--- NOTE | 2022-10-18 11:04 | PM.EVENT ---
Event Note Date of Service: 10/18/22 Event Note: Addiction note: Addiction consult placed, patient seen by Recovery Support RN on 10/17, methadoen 40mg ordered with good effect at that time. Today, patient is being worked up for TB, deferring patient exam until that is completed. Discussed with RN--patient still appearing and reporting withdrawal sx. Plan: -additional 10mg ordered today -methadone increased to 50mg QD Time Spent With Patient Time: Total time managing care of this patient today ____ minutes.
[2022-10-18] MEDS: methADONE HCl 20 MG/2 ML ORAL.CONC 10 MG PO (12:15)
--- NOTE | 2022-10-18 13:03 | P.PNIM_ITS ---
Subjective Subjective Date of Service: 10/18/22 Interval History: Complaining of withdrawal symptoms, feeling cold, hot, shakiness, denies shortness of breath, no nausea, no vomiting, tolerating diet denies chest pain, no palpitations, no lightheadedness, no dizziness, right foot pain is better. Review of Systems Review of Systems: Yes all other systems are reviewed and are negative Physical Exam Vital Signs: Vital Signs: Last Vital Signs Temp 99.1 F 10/18/22 08:00 Pulse 84 10/18/22 08:00 Resp 18 10/18/22 08:00 BP 130/70 10/18/22 09:25 Pulse Ox 95 10/18/22 08:00 O2 Del Method 10/18/22 08:00 BMI result Body Mass Index 20.0 Const: Other: General resting comfortably, anxious. Neck supple no JVD. CVS regular rate rhythm, Respiratory lungs clear to auscultation, no respiratory distress, no wheeze, no rhonchi. Gastrointestinal abdomen soft, nontender, bowel sounds audible, no guarding , no rigidity. Extremities no edema. Right foot swelling redness improved Neuro nonfocal Psych appropriate affect Skin track ariza both lower extremities without erythema Objective Data Active Medications Acetaminophen (Acetaminophen 325 Mg Tablet) 650 mg PO Q6H PRN PRN Reason: Pain, Mild, fever Last Admin: 10/18/22 09:02 Dose: 650 mg Documented By: MERCEDES Albuterol Sulfate (Albuterol Sulfate 90 Mcg 8 Gm Inhaler) 2 puff INHALE Q4H PRN PRN Reason: Shortness Of Breath Ascorbic Acid (Ascorbic Acid 250 Mg Tablet) 250 mg PO DAILY [facility] Last Admin: 10/18/22 09:03 Dose: 250 mg Documented By: MERCEDES Ferrous Sulfate (Ferrous Sulfate 324 Mg Tablet.) 324 mg PO DAILY [facility] Last Admin: 10/18/22 09:03 Dose: 324 mg Documented By: MERCEDES Sodium Chloride (Ns) 1,000 mls @ 100 mls/hr IVCONT .Q10H [facility] Last Admin: 10/18/22 09:04 Dose: 100 mls/hr Documented By: MERCEDES Vancomycin HCl 500 mg/ Sodium (Chloride) 110 mls @ 110 mls/hr IV Q12H [facility] Last Infusion: 10/18/22 08:20 Dose: 0 mls/hr Documented By: MERCEDES Methadone HCl (Methadone Hcl 20 Mg/2 Ml Oral.Conc) 50 mg PO DAILY [facility] Methylprednisolone Sodium Succinate (Methylprednisolone Sod Succ 40 Mg/Ml Vial) 40 mg IVPUSH Q12H [facility] Last Admin: 10/18/22 12:15 Dose: 40 mg Documented By: MERCEDES Ondansetron HCl (Ondansetron Hcl 4 Mg/2 Ml Vial) 4 mg IVPUSH Q8H PRN PRN Reason: Nausea and Vomiting Pharmacy Consult (Consult Rx Perform Med Rec) 1 each MISCELLANE ONCE PRN PRN Reason: Consult order Pharmacy Consult (Consult Rx Vancomycin Dosing) 1 each MISCELLANE DAILY PRN PRN Reason: Consult order Senna (Sennosides 8.6 Mg Tablet) 17.2 mg PO BEDTIME PRN PRN Reason: Constipation Sodium Chloride (0.9 % Sodium Chloride Flush 3 Ml Syringe) 3 ml IVFLUSH QSHIFT [facility] Last Admin: 10/18/22 09:03 Dose: Not Given Documented By: MERCEDES Non-Admin Reason: IV Running Labs 10/16/22 22:43 10/17/22 15:23 Labs: Laboratory Results - last 24 hr 10/17/22 10/17/22 10/17/22 13:49 15:23 15:23 ESR Anion Gap 14 Estim Creat Clear Calc 71.6 Estimated GFR > 60 Random Glucose 185 H Lactic Acid F/U @ 2Hr 1.8 Calcium 8.2 L D Iron 17 L TIBC 199 L % Saturation 9 L Unsat Iron Binding 182 Ferritin 192 H C-Reactive Protein 15.57 H Urine Opiates Screen Urine Fentanyl Screen Ur Barbiturates Screen Ur Phencyclidine Scrn Ur Amphetamines Screen U Benzodiazepines Scrn Urine Cocaine Screen U Marijuana (THC) Screen Respiratory Panel [place] See Note Adenovirus (Rapid PCR) Not Detected B.pert (TEM-PCR) Not Detected B.parapertussis DNA PCR Not Detected C. pneumoniae DNA (PCR) Not Detected Coronavirus OC43 (PCR) Not Detected Coronavirus HKU1 (PCR) Not Detected Coronavirus 229E (PCR) Not Detected Coronavirus NL63 (PCR) Not Detected Human Metapneumovir PCR Not Detected Influenza A (RT-PCR) Not Detected Influenza B (RT-PCR) Not Detected M. pneumoniae (PCR) Not Detected Parainfluenza 1 (PCR) Not Detected Parainfluenza 2 (PCR) Not Detected Parainfluenza 3 (PCR) Not Detected Parainfluenza 4 (PCR) Not Detected RSV (PCR) Not Detected Entero/Rhino (PCR) Not Detected SARS-CoV-2 RNA (RT-PCR) Not Detected 10/17/22 10/17/22 15:23 16:44 ESR 42 H Anion Gap Estim Creat Clear Calc Estimated GFR Random Glucose Lactic Acid F/U @ 2Hr Calcium Iron TIBC % Saturation Unsat Iron Binding Ferritin C-Reactive Protein Urine Opiates Screen Not Detected Urine Fentanyl Screen POSITIVE H Ur Barbiturates Screen Not Detected Ur Phencyclidine Scrn Not Detected Ur Amphetamines Screen Not Detected U Benzodiazepines Scrn Not Detected Urine Cocaine Screen POSITIVE H U Marijuana (THC) Screen Not Detected Respiratory Panel [place] Adenovirus (Rapid PCR) B.pert (TEM-PCR) B.parapertussis DNA PCR C. pneumoniae DNA (PCR) Coronavirus OC43 (PCR) Coronavirus HKU1 (PCR) Coronavirus 229E (PCR) Coronavirus NL63 (PCR) Human Metapneumovir PCR Influenza A (RT-PCR) Influenza B (RT-PCR) M. pneumoniae (PCR) Parainfluenza 1 (PCR) Parainfluenza 2 (PCR) Parainfluenza 3 (PCR) Parainfluenza 4 (PCR) RSV (PCR) Entero/Rhino (PCR) SARS-CoV-2 RNA (RT-PCR) Microbiology Microbiology Results: Microbiology 10/17/22 05:44 Urine Culture - Final Urine clean catch - Urine arias top No growth. 10/17/22 05:44 Blood Culture - Preliminary Blood - Venous Staphylococcus aureus 10/17/22 05:44 Blood Culture - Preliminary Blood - Venous Staphylococcus aureus Assessment and Plan (1) Severe sepsis: Status: Acute (2) Polysubstance abuse: Status: Acute Plan 36-year-old female with history of asthma, hepatitis-C, polysubstance abuse including IV heroin and cocaine (last use yesterday), history of MRSA, and history of fungal bacteremia who is homeless admitted for fever and severe sepsis of unclear etiology in [facility]. #Severe sepsis-with septic emboli to lungs -on admission WBC 16.8, Febrile to 103. thombocytopenia with PLT 88, Lactic acid 2.1 Lactic acid normalized, no recurrent fevers blood cultures positive for Gram-positive cocci CT right foot showed no abscess, no osteomyelitis or septic arthritis , CT chest consistent with septic emboli,UA positive. UC pending, COVID negative, respiratory viral panel negative -tylenol prn for fever, DC airborne precautions, echo to rule out vegetations Continue iv vanco and cefepime., follow CBC, BMP # mild intermittent asthma-without acute exacerbation, continue albuterol p.r.n. DC IV steroids #Polysubstance abuse -IV heroin and cocaine abuse -being followed by Addiction Team continue methadone , will add hydroxyzine prn for withdrawal symptoms -U tox positive for fentanyl and cocaine #Acute thombocytopenia- d/t sepsis, follow cbc #Chronic microcytic anemia, above threshold level # chronic hepatitis-C -patient desires treatment.? Follow up outpatient with [facility] # homelessness -consult to case management DVT prophylaxis-SCPs d/t thrombocytopenia Full code Patient requires continued inpatient stay for management of severe sepsis with bacteremia on IV antibiotics. Time Spent With Patient Time: Total time managing care of this patient today ____ minutes. Quality Stroke Does the patient have a stroke diagnosis?: No VTE Prior VTE?: No VTE Risk Level:: Medical - moderate - high VTE Device Contraindication: Treatment Not Indicated VTE Drug Contraindication: N/A - Med Ordered
[2022-10-18] MEDS: hydrOXYzine HCL 25 MG TABLET PO (15:35)
[2022-10-18 16:00] VITALS: BP 100/61; PULSE 60; RESP 18; TEMP 36.5; O2SAT 96
[2022-10-18] MEDS: cefEPime HCl 2 GM in 0.9 % Sodium Chloride 50 ML IV ×2 (16:04→22:47)
[2022-10-18] MEDS: 0.9 % Sodium Chloride Flush 3 ML SYRINGE IVFLUSH ×2 (16:07→22:58)
[2022-10-18 17:28] LABS: Basophils Absolute Auto 0.1 X10*3/uL (0.0-0.2); Basophils Percent Auto 0.5 % (0-2); Eosinophils Percent Auto 0.2 % (0-4); Hematocrit 33.8 % (37.0-47.0); Hemoglobin 11.2 g/dl (12.0-16.0); Imm Gran Abs Auto 0.33 X10*3/uL (0.00-0.03); Imm Gran Pct Auto 2.2 % (0.0-0.4); Lymphocytes Absolute Auto 1.3 X10*3/uL (1.2-4.9); Lymphocytes Percent Auto 8.5 % (20-40); MANUAL DIFF FLAG SCAN; Mean Corpuscular HGB Conc 33.1 g/dl (31.0-35.0); Mean Corpuscular Hemoglobin 25.9 pg (27.0-33.0); Mean Corpuscular Volume 78.2 fL (80.0-98.0); Monocytes Percent Auto 6.4 % (2-11); Neutrophils Absolute Auto 12.6 x10*3/uL (2.0-8.3); Neutrophils Percent Auto 82.2 % (45-73); PLT CLUMP 1; Red Blood Count 4.32 X10*6/uL (4.20-5.50); Red Cell Distribution Width 15.4 % (11.0-16.0); SCAN SMEAR FLAG 1
[2022-10-18 17:30] LABS: Platelet Count 66 X10*3/uL (160-400); White Blood Count 15.3 X10*3/uL (4.8-10.8)
[2022-10-18 17:36] LABS: SLIDE REVIEW VERIFIED; Vancomycin Trough 2.7 mcg/mL (10.0-20.0)
[2022-10-18 17:43] LABS: Anion Gap 18 (12-20); Blood Urea Nitrogen 17 mg/dL (9-16); Calcium 8.4 mg/dL (8.4-10.2); Carbon Dioxide 20 mmol/L (22-29); Chloride 108 mmol/L (96-108); Creatinine Clr Calc Pharmacy 83.8; Estimated Glomerular Filt Rate > 60; Glucose Random 213 mg/dL (60-115); Potassium 4.6 mmol/L (3.3-5.1); Sodium 141 mmol/L (135-145)
--- NOTE | 2022-10-18 18:03 | HE.PHANOTE ---
vancomycin dosing addendum Vancomycin trough 2.7. pt creatinine improving. increasing dose to 1000 mg q12h. next level 10/19/22 @1700
[2022-10-18] MEDS: vancomycin HCL 1,000 MG in 0.9 % Sodium Chloride 250 ML 270 MG IV (18:37)
[2022-10-18 20:00] VITALS: BP 116/72; PULSE 83; RESP 18; TEMP 35.9; O2SAT 100
--- NOTE | 2022-10-18 20:18 | P.CONPL_ITS ---
History of Present Illness History of Present Illness Consult date: 10/18/22 Chief complaint: abscess, fever, ivda Narrative: This is an inpatient pulmonary consultation. The patient is a 36-year-old female with history of asthma, hepatitis-C, polysubstance abuse including IV heroin and cocaine (last use yesterday), history of MRSA, and history of fungal bacteremia who is homeless presented to the ED earlier today for evaluation of subjective fevers and fatigue ongoing for 4 days.? The patient is reporting drenching sweats, chills, and hot flashes.? She has also had a nonproductive cough for several days but denies sob, wheezing, chest pain. She has a regular IV drug abuser and commonly injects in the feet and lower legs bilaterally, and hands and forearms bilaterally.? For the last week or so she has felt mild discomfort and noticed redness and swelling of the 1st MTP of the right foot.? She has been able to ambulate.? Per EMS, temperature was 99.1 degrees but has developed fever of 103.0, vitals otherwise stable.? Leukocytosis of 16.3.? I personally reviewed the CT chest consistent with cavitary lesions from hemotagenous spreading MRSA infection. No suspicion for TB. Review of Systems Review of Systems: General: No malaise, unintentional weight loss. +subjective fevers, +chills, +sweats HEENT: No blurred vision, diplopia. No sore throat, nasal congestion, rhinorrhea, sinus pain, ear pain Cardiovascular: No chest pain, palpitations, or leg edema Respiratory: No shortness of breath, wheezing. +cough GI: No abdominal pain, nausea, vomiting, diarrhea, constipation, melena, hematochezia : No dysuria, hematuria, increased urinary frequency, decreased urinary output MSK: No myalgia, back pain. +pain right great toe Neuro: No headaches, weakness, paresthesias Skin: No rashes or lesions PMFSH Past Medical History Medical History (Updated 10/18/22 @ 20:29 by Alexei Juárez MD) Abscess of left foot Asthma Cavitary lesion of lung Cellulitis of foot, left COVID-19 Early stage of Fungus infection in blood Hepatitis C MRSA (methicillin resistant staph aureus) culture positive Sepsis Sepsis Substance abuse Surgical History Surgical History No pertinent past surgical history Status post incision and drainage Social History Social History (Updated 10/17/22 @ 12:40 by SON Wright) Household Members: Other Housing: Apartment Housing Other:: homeless Do you presently have visiting nurse or other home services: No Alcohol intake: current Patient Tobacco Use Status: Current everyday Tobacco user Tobacco use type: Cigarette Cigarette Packs Per Day: 1 Cigarettes Per Day: 20.0 Years Smoked: 15 Second Hand Smoke Exposure: No Substance Use Type: Crack/Cocaine, Heroin and IV Drugs service: No Current occupational status: unemployed Meds Allergies Allergy/AdvReac Type Severity Reaction Status Date / Time bee pollen [Bee Stings] Allergy Unknown SWELLING Verified 09/23/21 20:39 AT SITE morphine [Morphine] Allergy Unknown SKIN Verified 09/23/21 20:39 BUBBLED Penicillins Allergy Unknown HIVES Verified 09/23/21 20:39 BREATHING PBROBLEM Active Medications: Current Medications Acetaminophen (Acetaminophen 325 Mg Tablet) 650 mg PO Q6H PRN PRN Reason: Pain, Mild, fever Last Admin: 10/18/22 09:02 Dose: 650 mg Albuterol Sulfate (Albuterol Sulfate 90 Mcg 8 Gm Inhaler) 2 puff INHALE Q4H PRN PRN Reason: Shortness Of Breath Ascorbic Acid (Ascorbic Acid 250 Mg Tablet) 250 mg PO DAILY [facility] Last Admin: 10/18/22 09:03 Dose: 250 mg Ferrous Sulfate (Ferrous Sulfate 324 Mg Tablet.Dr) 324 mg PO DAILY [facility] Last Admin: 10/18/22 09:03 Dose: 324 mg Hydroxyzine HCl (Hydroxyzine Hcl 25 Mg Tablet) 25 mg PO Q6H PRN PRN Reason: Anxiety Last Admin: 10/18/22 15:35 Dose: 25 mg Cefepime HCl 2 gm/ Sodium (Chloride) 50 mls @ 100 mls/hr IV Q8H [facility] Last Infusion: 10/18/22 16:56 Dose: Infused Vancomycin HCl 1,000 mg/ (Sodium Chloride) 270 mls @ 270 mls/hr IV Q12H [facility] Last Infusion: 10/18/22 19:55 Dose: Infused Methadone HCl (Methadone Hcl 20 Mg/2 Ml Oral.Conc) 50 mg PO DAILY [facility] Ondansetron HCl (Ondansetron Hcl 4 Mg/2 Ml Vial) 4 mg IVPUSH Q8H PRN PRN Reason: Nausea and Vomiting Pharmacy Consult (Consult Rx Perform Med Rec) 1 each MISCELLANE ONCE PRN PRN Reason: Consult order Pharmacy Consult (Consult Rx Vancomycin Dosing) 1 each MISCELLANE DAILY PRN PRN Reason: Consult order Senna (Sennosides 8.6 Mg Tablet) 17.2 mg PO BEDTIME PRN PRN Reason: Constipation Sodium Chloride (0.9 % Sodium Chloride Flush 3 Ml Syringe) [facility] Last Admin: 10/18/22 16:07 Dose: 3 ml Home Medications Medication Instructions Recorded Confirmed Last Taken Type albuterol sulfate 90 mcg/actuation 2 puff inhalation Q4H PRN 10/17/22 10/17/22 Unknown History aerosol inhaler Shortness Of Breath Physical Exam Vital Signs: Vital Signs: Last Vital Signs Temp 97.7 F 10/18/22 16:00 Pulse 60 10/18/22 16:00 Resp 18 10/18/22 16:00 BP 100/61 10/18/22 16:00 Pulse Ox 96 10/18/22 16:00 O2 Del Method 10/18/22 16:00 BMI result Body Mass Index 20.0 Const: Other: General resting comfortably, anxious. Neck supple no JVD. CVS regular rate rhythm, Respiratory lungs clear to auscultation, no respiratory distress, no wheeze, no rhonchi. Gastrointestinal abdomen soft, nontender, bowel sounds audible, no guarding , no rigidity. Extremities no edema. Right foot swelling redness improved Neuro nonfocal Psych appropriate affect Skin track ariza both lower extremities without erythema Results Laboratory Findings 10/18/22 17:09 10/18/22 17:09 Abnormal lab findings: Abnormal Labs 10/16/22 10/16/22 10/17/22 22:43 22:43 02:04 WBC 16.3 H Hgb 11.8 L Hct 36.5 L MCV 78.7 L MCH 25.4 L Plt Count 84 L D MPV 12.8 H Immature Gran % (Auto) Neut % (Auto) Lymph % (Auto) Abs Immat Gran (auto) Absolute Neuts (auto) ESR Sodium 131 L Carbon Dioxide BUN 28 H Random Glucose 239 H Lactic Acid Calcium Iron TIBC % Saturation Ferritin C-Reactive Protein Albumin 3.4 L Ur Specific Momence >= 1.030 H Urine Protein 100 (2+) H Ur Leukocyte Esterase Small (1+) H Urine WBC 11-20 H Vancomycin Trough Urine Fentanyl Screen Urine Cocaine Screen 10/17/22 10/17/22 10/17/22 05:44 15:23 15:23 WBC Hgb Hct MCV MCH Plt Count MPV Immature Gran % (Auto) Neut % (Auto) Lymph % (Auto) Abs Immat Gran (auto) Absolute Neuts (auto) ESR 42 H Sodium Carbon Dioxide BUN 17 H Random Glucose 185 H Lactic Acid 2.1 H* Calcium 8.2 L D Iron 17 L TIBC 199 L % Saturation 9 L Ferritin 192 H C-Reactive Protein 15.57 H Albumin Ur Specific Momence Urine Protein Ur Leukocyte Esterase Urine WBC Vancomycin Trough Urine Fentanyl Screen Urine Cocaine Screen 10/17/22 10/18/22 10/18/22 16:44 17:09 17:09 WBC Hgb Hct MCV MCH Plt Count MPV Immature Gran % (Auto) Neut % (Auto) Lymph % (Auto) Abs Immat Gran (auto) Absolute Neuts (auto) ESR Sodium Carbon Dioxide 20 L BUN 17 H Random Glucose 213 H Lactic Acid Calcium Iron TIBC % Saturation Ferritin C-Reactive Protein Albumin Ur Specific Momence Urine Protein Ur Leukocyte Esterase Urine WBC Vancomycin Trough 2.7 L Urine Fentanyl Screen POSITIVE H Urine Cocaine Screen POSITIVE H 10/18/22 17:09 WBC 15.3 H Hgb 11.2 L Hct 33.8 L MCV 78.2 L MCH 25.9 L Plt Count 66 L MPV Immature Gran % (Auto) 2.2 H Neut % (Auto) 82.2 H Lymph % (Auto) 8.5 L Abs Immat Gran (auto) 0.33 H Absolute Neuts (auto) 12.6 H ESR Sodium Carbon Dioxide BUN Random Glucose Lactic Acid Calcium Iron TIBC % Saturation Ferritin C-Reactive Protein Albumin Ur Specific Momence Urine Protein Ur Leukocyte Esterase Urine WBC Vancomycin Trough Urine Fentanyl Screen Urine Cocaine Screen Microbiology: Microbiology 10/17/22 05:44 Urine clean catch - Urine arias top Urine Culture - Final No growth. 10/17/22 05:44 Blood - Venous Blood Culture - Preliminary Staphylococcus aureus 10/17/22 05:44 Blood - Venous Blood Culture - Preliminary Staphylococcus aureus Assessment and Plan (1) Septic pulmonary embolism: Status: Acute (2) Cavitary lesion of lung: Status: Acute Plan No need for TB precautions Continue abx for septic pulmonary cavitary lesions ECHO to r/o endocarditis Time Spent With Patient Time: Total time managing care of this patient today ____ minutes. Procedures Date of Service Date of Service: 10/18/22
[2022-10-18 21:44] VITALS: BP 116/72; PULSE 83; RESP 18; TEMP 35.9; O2SAT 100
[2022-10-19 03:52] VITALS: BP 137/81; PULSE 79; RESP 17; TEMP 37.1; O2SAT 96
[2022-10-19] MEDS: cefEPime HCl 2 GM in 0.9 % Sodium Chloride 50 ML IV (05:58)
[2022-10-19] MEDS: vancomycin HCL 1,000 MG in 0.9 % Sodium Chloride 250 ML 270 MG IV (06:28)
[2022-10-19 06:57] VITALS: BP 126/67; PULSE 89; RESP 16; TEMP 36.6; O2SAT 98
--- NOTE | 2022-10-19 07:00 | CA_ITS ---
Transthoracic Echocardiogram Patient (Last, First, Middle): November, Gender: Female Date of : 1985 Age: 36 Procedure Date: 10/19/2022 Procedure Type: Transthoracic Echocardiogram Location: S3E Height: 154.94 cm Weight: 48.08 kg BSA: 1.44 m2 Heart Rate: 82 bpm BP: 126 / 67 mmHg Bung Driver: GURDEEP Referring MD: Babita CLINE Symptoms: septic emboli Study Quality: Adequate ECG Rhythm: Sinus Conclusions: - The left ventricular systolic function is normal. The calculated ejection fraction is 55% by biplane method. - There is mild tricuspid valve regurgitation. Vegetation attached to tricuspid leaflet; 1.67 x 0.8cm. Findings Left Ventricle Normal left ventricular cavity size. There is normal left ventricular wall thickness. The left ventricular systolic function is normal. The calculated ejection fraction is 55% by biplane method. There is no evidence of regional wall motion abnormalities. Diastolic function is normal for age. LV peak GLS -17.9%. Right Ventricle Normal right ventricular cavity size and systolic function. Atria Both atria are normal in size. Aortic Valve There is a normal trileaflet aortic valve. There is no aortic valve stenosis. There is no aortic valve regurgitation. Mitral Valve The mitral valve appears normal. There is trace mitral valve regurgitation. There is no mitral valve stenosis. Pulmonic Valve The pulmonic valve is likely normal. Tricuspid Valve There is mild tricuspid valve regurgitation. There is no evidence of pulmonary hypertension. Vegetation attached to tricuspid leaflet; 1.67 x 0.8cm. Great Vessels The asc aorta is normal in size. Venous The inferior vena cava is normal in size and collapses less than 50% with inspiration. Pericardium/Pleural There is no evidence of pericardial effusion. Prior Study Comparison No prior study available for comparison. Measurements 2D Linear Measurements IVSd: 0.66 0.6-0.9/0.6-1.0 cm LVIDd: 4.51 3.9-5.3/4.2-5.9 cm LVIDd Index: 3.13 2.4-3.2/2.2-3.1 cm/m2 LVIDs: 2.95 2.0-3.6 cm LVPWd: 0.87 0.7-1.1 cm LA Diam: 2.80 2.7-3.8/3.0-4.0 cm LAIDs Index: 1.94 1.5-2.3 cm/m2 LV Mass: 133.30 67-162/88-224 g LV Mass Index: 92.57 43-95/49-115 g/m2 LVOT Diam: 1.90 3.0+(-)1.3 cm 2D Systolic Function EF 4C: 51.90 >55% EF 2C: 58.60 >55% EF BiP: 55.30 >55% Mitral Valve MV Pk E: 0.76 MV PK A: 0.73 MV Decel Time: 235.00 E/A: 1.00 E'Lateral: 13.50 E'Medial: 11.30 E/E' Med: 6.70 E/E' Lat: 5.60 PHT: 69.00 MVA PHT: 3.19 Decel [place]: 3.23 Aortic Valve AoV Pk Cristian: 1.79 AoV Mn Cristian: 1.30 AoV VTI: 0.32 AoV Pk Grad: 13.00 Aov Mn Grad: 7.00 BELLA Cont.VTI: 2.06 LVOT LVOT Pk Cristian: 1.41 LVOT Mn Cristian: 0.99 LVOT VTI: 0.23 LVOT Pk Grad: 8.00 LVOT Mn Grad: 5.00 LVOT Diam: 1.90 LVOT Area: 2.84 Diastolic Function MV Pk E: 0.76 MV Pk A: 0.73 E/A: 1.00 E'Medial: 11.30 E/E' Med: 6.70 E' Laterial: 13.50 E/E' Lat: 5.60 Right Ventricle TAPSE (mm): 24.00 TVS' Cristian: 12.70 Tricuspid Valve TR Pk Cristian: 2.58 TR Pk Grad: 30.00 RA Press: 8.00 RVSP: 38.00 Great Vessels Aorta Sinus of Valsalva: 2.80 2.0-3.5 cm Ao Asc: 2.60 2.1-3.4 cm Pulmonary Valve PV Pk Cristian: 1.45 Peak PV Grad: 8.00 Updated in Other Vendor System with Status of Final Riley Loyd MD electronically signed on 10/19/2022 12:08:18 PM with status of Final
[2022-10-19] MEDS: Ascorbic Acid 250 MG TABLET PO (07:26)
[2022-10-19] MEDS: hydrOXYzine HCL 25 MG TABLET PO (07:26)
[2022-10-19] MEDS: Ferrous Sulfate 324 MG TABLET.DR PO (07:26)
[2022-10-19] MEDS: methADONE HCl 20 MG/2 ML ORAL.CONC 50 MG PO (07:26)
[2022-10-19] MEDS: 0.9 % Sodium Chloride Flush 3 ML SYRINGE IVFLUSH ×3 (07:28→20:20)
[2022-10-19 08:18] LABS: HIV Num 1 1.53 S/CO (0.00-0.99)
[2022-10-19 09:58] LABS: HIV AB/AG Nonreactive (Nonreactive); HIV Num 2 0.07 S/CO; HIV Num 3 0.06 S/CO
--- NOTE | 2022-10-19 10:03 | MHC.RECOVRN ---
Met with pt in 347 to follow up regarding methadone titration. Pt laying in bed, asleep, wakes to voice. Pt reports difficulty sleeping. Pt states 50 mg of methadone is holding me for now but would like to continue increasing. Pt is unsure when last dose at [facility] was and is aware of titration process. Spoke with pts RN who reports pt was uncomfortable this morning prior to methadone administration due to withdrawal. Discussed with Kenyatta Portillo APRN. Plan to add additional 10 mg methadone this evening.
--- NOTE | 2022-10-19 11:24 | MHC.RECOVRN ---
OTP referral sent to [facility].
--- NOTE | 2022-10-19 11:57 | HO.PM.IMPN ---
Subjective Subjective Date of Service: 10/19/22 Interval History: Feeling better less withdrawal symptoms this morning with use of hydroxyzine, no fevers, no chills tolerating diet. Review of Systems Review of Systems: Yes all other systems are reviewed and are negative Physical Exam Vital Signs: Vital Signs: Last Vital Signs Temp 98 F 10/19/22 06:57 Pulse 89 10/19/22 06:57 Resp 16 10/19/22 06:57 BP 126/67 10/19/22 06:57 Pulse Ox 98 10/19/22 06:57 O2 Del Method 10/19/22 06:57 BMI result Body Mass Index 20.0 Const: Other: General? resting c omfortably, anxiou s.? Neck supple no JVD. CVS? regular rate rhythm, Resp iratory lungs sarah r to auscultation, no respiratory di stress, no wheeze, no rhonchi. Gastr ointestinal abdome n soft, nontender, bowel sounds chase ble, no guarding , no rigidity. Extr emities no edema.? Right foot swelli ng redness improve d Neuro nonfocal P sych appropriate a ffect Skin track m arks both lower ex tremities without erythema Objective Data Active Medications Acetaminophen (Acetaminophen 325 Mg Tablet) 650 mg PO Q6H PRN PRN Reason: Pain, Mild, fever Last Admin: 10/18/22 09:02 Dose: 650 mg Documented By: MERCEDES Albuterol Sulfate (Albuterol Sulfate 90 Mcg 8 Gm Inhaler) 2 puff INHALE Q4H PRN PRN Reason: Shortness Of Breath Ascorbic Acid (Ascorbic Acid 250 Mg Tablet) 250 mg PO DAILY [facility] Last Admin: 10/19/22 07:26 Dose: 250 mg Documented By: MERCEDES Ferrous Sulfate (Ferrous Sulfate 324 Mg Tablet.) 324 mg PO DAILY [facility] Last Admin: 10/19/22 07:26 Dose: 324 mg Documented By: MERCEDES Hydroxyzine HCl (Hydroxyzine Hcl 25 Mg Tablet) 25 mg PO Q6H PRN PRN Reason: Anxiety Last Admin: 10/19/22 07:26 Dose: 25 mg Documented By: MERCEDES Cefepime HCl 2 gm/ Sodium (Chloride) 50 mls @ 100 mls/hr IV Q8H [facility] Last Infusion: 10/19/22 06:28 Dose: 0 mls/hr Documented By: MARE Vancomycin HCl 1,000 mg/ (Sodium Chloride) 270 mls @ 270 mls/hr IV Q12H [facility] Last Infusion: 10/19/22 08:09 Dose: 0 mls/hr Documented By: MERCEDES Methadone HCl (Methadone Hcl 20 Mg/2 Ml Oral.Conc) 50 mg PO DAILY [facility] Last Admin: 10/19/22 07:26 Dose: 50 mg Documented By: MERCEDES Ondansetron HCl (Ondansetron Hcl 4 Mg/2 Ml Vial) 4 mg IVPUSH Q8H PRN PRN Reason: Nausea and Vomiting Pharmacy Consult (Consult Rx Perform Med Rec) 1 each MISCELLANE ONCE PRN PRN Reason: Consult order Pharmacy Consult (Consult Rx Vancomycin Dosing) 1 each MISCELLANE DAILY PRN PRN Reason: Consult order Senna (Sennosides 8.6 Mg Tablet) 17.2 mg PO BEDTIME PRN PRN Reason: Constipation Sodium Chloride (0.9 % Sodium Chloride Flush 3 Ml Syringe) 3 ml IVFLUSH QSHIFT [facility] Last Admin: 10/19/22 07:28 Dose: 3 ml Documented By: MERCEDES Labs 10/18/22 17:09 10/18/22 17:09 Labs: Laboratory Results - last 24 hr 10/16/22 10/18/22 10/18/22 22:43 17:09 17:09 MCV MCH MCHC RDW Plt Count MPV Immature Gran % (Auto) Neut % (Auto) Lymph % (Auto) Cassia % (Auto) Eos % (Auto) Baso % (Auto) Lymph # (Auto) Cassia # (Auto) Eos # (Auto) Baso # (Auto) Abs Immat Gran (auto) Absolute Neuts (auto) Absolute Nucleated RBC Nucleated RBC % (auto) Smear Tech's Comments Anion Gap 18 Estim Creat Clear Calc 83.8 Estimated GFR > 60 Random Glucose 213 H Calcium 8.4 Vancomycin Trough 2.7 L HIV 1&2 Ab/P24 Ag 4thGn Nonreactive 10/18/22 17:09 MCV 78.2 L MCH 25.9 L MCHC 33.1 RDW 15.4 Plt Count 66 L MPV Not Reportable Immature Gran % (Auto) 2.2 H Neut % (Auto) 82.2 H Lymph % (Auto) 8.5 L Cassia % (Auto) 6.4 Eos % (Auto) 0.2 Baso % (Auto) 0.5 Lymph # (Auto) 1.3 Cassia # (Auto) 1.0 Eos # (Auto) 0.0 Baso # (Auto) 0.1 Abs Immat Gran (auto) 0.33 H Absolute Neuts (auto) 12.6 H Absolute Nucleated RBC 0.000 Nucleated RBC % (auto) 0.0 Smear Tech's Comments VERIFIED Anion Gap Estim Creat Clear Calc Estimated GFR Random Glucose Calcium Vancomycin Trough HIV 1&2 Ab/P24 Ag 4thGn Microbiology Microbiology Results: Microbiology 10/17/22 05:44 Blood Culture - Final Blood - Venous Staphylococcus aureus 10/17/22 05:44 Blood Culture - Final Blood - Venous Staphylococcus aureus 10/17/22 05:44 Urine Culture - Final Urine clean catch - Urine arias top No growth. Assessment and Plan (1) Severe sepsis: Status: Acute (2) Polysubstance abuse: Status: Acute Plan 36-year-old female with history of asthma, hepatitis-C, polysubstance abuse including IV heroin and cocaine (last use yesterday), history of MRSA, and history of fungal bacteremia who is homeless admitted for fever and severe sepsis of unclear etiology in [facility]. #Severe sepsis-with septic emboli to lungs -no recurrent fevers WBC trending down, lactic acid normalized blood cultures positive for MSSA CT right foot showed no abscess, no osteomyelitis or septic arthritis , CT chest consistent with septic emboli,UA positive. UC pending, COVID negative, respiratory viral panel negative -tylenol prn for fever, echo ordered to rule out vegetations Continue iv vanco and cefepime day 2., follow CBC, BMP Await ID input # mild intermittent asthma-without acute exacerbation, continue albuterol p.r.n. DC IV steroids #Polysubstance abuse -IV heroin and cocaine abuse -being followed by Addiction Team continue methadone , and hydroxyzine prn for withdrawal symptoms -U tox positive for fentanyl and cocaine #Acute thombocytopenia- d/t sepsis, follow cbc #Chronic microcytic anemia, above threshold level # chronic hepatitis-C -patient desires treatment.? Follow up outpatient with Gastroenterology # homelessness -consult to case management DVT prophylaxis-SCPs d/t thrombocytopenia Full code Patient requires continued inpatient stay for management of severe sepsis with bacteremia on IV antibiotics. Time Spent With Patient Time: Total time managing care of this patient today ____ minutes. Quality Stroke Does the patient have a stroke diagnosis?: No VTE Prior VTE?: No VTE Risk Level:: Medical - moderate - high VTE Device Contraindication: Treatment Not Indicated VTE Drug Contraindication: N/A - Med Ordered
[2022-10-19 12:23] LABS: Hematocrit 33.3 % (37.0-47.0); Hemoglobin 10.9 g/dl (12.0-16.0); Mean Corpuscular HGB Conc 32.7 g/dl (31.0-35.0); Mean Corpuscular Volume 79.5 fL (80.0-98.0); Mean Platelet Volume 12.6 fL (9.4-12.3); Platelet Count 130 X10*3/uL (160-400); Red Blood Count 4.19 X10*6/uL (4.20-5.50); Red Cell Distribution Width 15.6 % (11.0-16.0); White Blood Count 14.7 X10*3/uL (4.8-10.8)
[2022-10-19 12:38] LABS: Blood Urea Nitrogen 11 mg/dL (9-16); Calcium 8.3 mg/dL (8.4-10.2); Creatinine Clr Calc Pharmacy 90.3; Estimated Glomerular Filt Rate > 60; Glucose Random 124 mg/dL (60-115)
[2022-10-19 12:47] LABS: Anion Gap 12 (12-20); Carbon Dioxide 27 mmol/L (22-29); Chloride 103 mmol/L (96-108); Potassium 3.9 mmol/L (3.3-5.1); Sodium 138 mmol/L (135-145)
[2022-10-19] MEDS: Acetaminophen 325 MG TABLET 650 MG PO (15:26)
[2022-10-19 15:41] VITALS: BP 135/64; PULSE 86; RESP 18; TEMP 38.3; O2SAT 97
[2022-10-19 16:22] VITALS: TEMP 37.1
[2022-10-19] MEDS: methADONE HCl 20 MG/2 ML ORAL.CONC 10 MG PO (17:13)
--- NOTE | 2022-10-19 17:45 | PC.NURSE ---
1730 went into pts room to give methadone, pt found to be with sister in room acting strange; cleaning tables, fidgeting, and talking more than usual. pt has a history of cocaine use and IVDU. Nursing photographic laboratory supervisor Monica made aware
[2022-10-19 17:46] LABS: Creatinine Clr Calc Pharmacy 77.2; Estimated Glomerular Filt Rate > 60
[2022-10-19 18:04] LABS: Vancomycin Trough 6.5 mcg/mL (10.0-20.0)
--- NOTE | 2022-10-19 18:21 | HE.PHANOTE ---
RE: vanco Trough on 10/19 came back at 6.5; increased dose to 1250mg Q12H with predicted AUC 488mg/L, trough 10.9. Will continue to monitor. Next level to be drawn 10/20 @1700
[2022-10-19 19:35] VITALS: BP 149/69; PULSE 78; RESP 18; TEMP 37.1; O2SAT 98
[2022-10-19] MEDS: vancomycin HCL 1,250 MG in 0.9 % Sodium Chloride 250 ML 166.67 MG IV (20:20)
--- NOTE | 2022-10-19 22:37 | P.CNID_ITS ---
History of Present Illness Data of Consult Service Date: 10/19/22 Requesting physician: Noah Pagan Primary Care Provider: Unknown Physician HPI Reason for consult: MSSA bacteremia She presents with weakness and chills. She has 2/18 MSSA bacteremia. 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 right foot no osteomyelitis. Review of Systems Review of Systems: Yes all other systems are reviewed and are negative PMFSH Past Medical History Medical History Abscess of left foot Asthma Cavitary lesion of lung Cellulitis of foot, left COVID-19 Early stage of Fungus infection in blood Hepatitis C MRSA (methicillin resistant staph aureus) culture positive Sepsis Sepsis Substance abuse Family History Family history: reviewed and not pertinent Surgical History Surgical History No pertinent past surgical history Status post incision and drainage Social History Social History Household Members: Other Housing: Apartment Housing Other:: homeless Do you presently have visiting nurse or other home services: No Alcohol intake: current Patient Tobacco Use Status: Current everyday Tobacco user Tobacco use type: Cigarette Cigarette Packs Per Day: 1 Cigarettes Per Day: 20.0 Years Smoked: 15 Second Hand Smoke Exposure: No Substance Use Type: Crack/Cocaine, Heroin and IV Drugs service: No Current occupational status: unemployed Meds Allergies Allergy/AdvReac Type Severity Reaction Status Date / Time bee pollen [Bee Stings] Allergy Unknown SWELLING Verified 09/23/21 20:39 AT SITE morphine [Morphine] Allergy Unknown SKIN Verified 09/23/21 20:39 BUBBLED Penicillins Allergy Unknown HIVES Verified 09/23/21 20:39 BREATHING PBROBLEM Active Medications: Current Medications Acetaminophen (Acetaminophen 325 Mg Tablet) 650 mg PO Q6H PRN PRN Reason: Pain, Mild, fever Last Admin: 10/19/22 15:26 Dose: 650 mg Albuterol Sulfate (Albuterol Sulfate 90 Mcg 8 Gm Inhaler) 2 puff INHALE Q4H PRN PRN Reason: Shortness Of Breath Ascorbic Acid (Ascorbic Acid 250 Mg Tablet) 250 mg PO DAILY [facility] Last Admin: 10/19/22 07:26 Dose: 250 mg Ferrous Sulfate (Ferrous Sulfate 324 Mg Tablet.) 324 mg PO DAILY [facility] Last Admin: 10/19/22 07:26 Dose: 324 mg Hydroxyzine HCl (Hydroxyzine Hcl 25 Mg Tablet) 25 mg PO Q6H PRN PRN Reason: Anxiety Last Admin: 10/19/22 07:26 Dose: 25 mg Vancomycin HCl 1,250 mg/ (Sodium Chloride) 250 mls @ 166.667 mls/hr IV Q12H [facility] Last Admin: 10/19/22 20:20 Dose: 166.67 mls/hr Methadone HCl (Methadone Hcl 20 Mg/2 Ml Oral.Conc) 50 mg PO DAILY [facility] Last Admin: 10/19/22 07:26 Dose: 50 mg Methadone HCl (Methadone Hcl 20 Mg/2 Ml Oral.Conc) 10 mg PO DAILY@1800 [facility] Last Admin: 10/19/22 17:13 Dose: 10 mg Ondansetron HCl (Ondansetron Hcl 4 Mg/2 Ml Vial) 4 mg IVPUSH Q8H PRN PRN Reason: Nausea and Vomiting Pharmacy Consult (Consult Rx Perform Med Rec) 1 each MISCELLANE ONCE PRN PRN Reason: Consult order Pharmacy Consult (Consult Rx Vancomycin Dosing) 1 each MISCELLANE DAILY PRN PRN Reason: Consult order Senna (Sennosides 8.6 Mg Tablet) 17.2 mg PO BEDTIME PRN PRN Reason: Constipation Sodium Chloride (0.9 % Sodium Chloride Flush 3 Ml Syringe) 3 ml IVFLUSH QSHIFT [facility] Last Admin: 10/19/22 20:20 Dose: 3 ml Home Medications Medication Instructions Recorded Confirmed Last Taken Type albuterol sulfate 90 mcg/actuation 2 puff inhalation Q4H PRN 10/17/22 10/17/22 U nknown History aerosol inhaler Shortness Of Breath Physical Exam Vital Signs: Vital Signs: Last Vital Signs Temp 98.8 F 10/19/22 19:35 Pulse 78 10/19/22 19:35 Resp 18 10/19/22 19:35 BP 149/69 H 10/19/22 19:35 Pulse Ox 98 10/19/22 19:35 O2 Del Method 10/19/22 19:35 BMI result Body Mass Index 20.0 Const: General: cooperative HEENT: Head: Yes normal to inspection Face and sinus: Yes normal facial exam Mouth: Normal oral and palatal mucosa present Teeth and gingiva: dentition normal Eyes: General: appearance normal, both eyes and all related structures Pupils: Equal, round and reactive pupils present Resp: Effort & Inspection: normal respiratory effort Cardio: Other: 09/04 LOREN Rate: regular rate Rhythm: regular rhythm GI: Palpation (GI): Soft to palpation and nontender : General: Yes no CVA tenderness Back/Spine/Pelvis: Back: no CVA tenderness Skin: General skin exam: no rashes or lesions noted Neuro: General: moves all extremities Cranial nerves: Yes Equal, round and reactive pupils present Extrem: General: Yes normal to inspection Psych: Appearance: grossly normal Results Labs 10/19/22 12:10 10/19/22 17:17 Labs: Short CBC 10/19/22 Range/Units 12:10 WBC 14.7 H (4.8-10.8) X10*3/uL Hgb 10.9 L (12.0-16.0) g/dl Hct 33.3 L (37.0-47.0) % Plt Count 130 L D (160-400) X10*3/uL BMP 10/19/22 10/19/22 12:10 17:17 Sodium 138 Potassium 3.9 Chloride 103 Carbon Dioxide 27 BUN 11 Creatinine 0.65 0.76 Calcium 8.3 L Microbiology Microbiology Results: Microbiology 10/17/22 05:44 Blood - Venous Blood Culture - Final Staphylococcus aureus 10/17/22 05:44 Blood - Venous Blood Culture - Final Staphylococcus aureus 10/17/22 05:44 Urine clean catch - Urine arias top Urine Culture - Final No growth. Assessment and Plan (1) Cavitary lesion of lung: Status: Acute She has MSSA bacteremia She has hives and breathing problems with PCN. (2) Septic pulmonary embolism: Status: Acute (3) Severe sepsis: Status: Acute Plan Continue Vancomycin 4 weeks (trough appropriate for endocarditis). Recheck blood cultures and PICC line when negative culture for three days. If leaves AMA would give po Doxycycline for thirty days ,but probably not effective. Time Spent With Patient Time: Total time managing care of this patient today ____ minutes.
[2022-10-20 03:31] VITALS: BP 112/66; PULSE 76; RESP 18; O2SAT 94
[2022-10-20 06:58] VITALS: BP 99/57; PULSE 76; RESP 16; TEMP 36.1; O2SAT 94
[2022-10-20] MEDS: methADONE HCl 20 MG/2 ML ORAL.CONC 50 MG PO (07:22)
[2022-10-20] MEDS: Ascorbic Acid 250 MG TABLET PO (07:24)
[2022-10-20] MEDS: Ferrous Sulfate 324 MG TABLET.DR PO (07:24)
[2022-10-20] MEDS: vancomycin HCL 1,250 MG in 0.9 % Sodium Chloride 250 ML 166.6 MG IV ×2 (07:26→20:39)
[2022-10-20] MEDS: 0.9 % Sodium Chloride Flush 3 ML SYRINGE IVFLUSH ×3 (07:32→20:40)
[2022-10-20] MEDS: Acetaminophen 325 MG TABLET 650 MG PO ×2 (07:38→17:36)
[2022-10-20] MEDS: Albuterol Sulfate 90 MCG 8 GM INHALER 2 PUFF INHALE ×2 (08:15→20:39)
--- NOTE | 2022-10-20 10:21 | MHC.RECOVRN ---
This rfp writer met w/ patient, patient was resting in bed, sitting up. Patient reports slept well with 10mg at night of MTD, patient states I feel like I am at a comfortable dose and I don't want to go up anymore . Patient states received the news of vegetation on heart. Sister Tiffany entered room, this rfp writer, patient and sister reviewed information related to heart infection. Discussed plan of care, importance of IV ABX. Harm reduction reviewed. Patient verbalized understanding. Patient reports feeling sleepy, going to nap.
--- NOTE | 2022-10-20 11:27 | MHC.CM.PN ---
EMR REVIEWED, CM MET W/PT TO DISCUSS DISPO D/T BACTEREMIA/ENDOCARDITIS, PT NEW TO METHADONE AND AWARE SHE WILL NEED 4WKS IV ABX AT SNF D/T METHADONE/CURRENT IV SA, REFERRAL TO BE PLACED TO FACILITIES THAT TAKE PT'S W/METHADONE, CM WILL CONT TO FOLLOW D/C NEEDS.
[2022-10-20 11:33] LABS: Hematocrit 32.8 % (37.0-47.0); Hemoglobin 10.8 g/dl (12.0-16.0); Mean Corpuscular HGB Conc 32.9 g/dl (31.0-35.0); Mean Corpuscular Hemoglobin 26.1 pg (27.0-33.0); Mean Corpuscular Volume 79.2 fL (80.0-98.0); Mean Platelet Volume 11.5 fL (9.4-12.3); Platelet Count 142 X10*3/uL (160-400); Red Blood Count 4.14 X10*6/uL (4.20-5.50); Red Cell Distribution Width 15.4 % (11.0-16.0); White Blood Count 15.8 X10*3/uL (4.8-10.8)
--- NOTE | 2022-10-20 11:48 | P.PNIM_ITS ---
Subjective Subjective Date of Service: 10/20/22 Interval History: Feeling better this morning, less withdrawal symptoms on current dose of methadone, no nausea, no vomiting, no abdominal pain tolerating diet, had 1 episode of fever 101 yesterday afternoon with no recurrent fevers, no acute events overnight. Review of Systems Review of Systems: Yes all other systems are reviewed and are negative Physical Exam Vital Signs: Vital Signs: Last Vital Signs Temp 97 F 10/20/22 06:58 Pulse 76 10/20/22 06:58 Resp 16 10/20/22 06:58 BP 99/57 L 10/20/22 06:58 Pulse Ox 94 10/20/22 06:58 O2 Del Method 10/20/22 06:58 BMI result Body Mass Index 20.0 Const: Other: General? resting comfortably, no distress Neck supple no JVD. CVS? regular rate rhythm, Respiratory lungs clear to auscultation, no respiratory distress, no wheeze, no rhonchi. Gastrointestinal abdomen soft, nontender, bowel sounds audible, no guarding , no rigidity. Extremities no edema.? Right swelling improved Neuro nonfocal Psych appropriate affect Skin track ariza both lower extremities without erythema Objective Data Active Medications Acetaminophen (Acetaminophen 325 Mg Tablet) 650 mg PO Q6H PRN PRN Reason: Pain, Mild, fever Last Admin: 10/20/22 07:38 Dose: 650 mg Documented By: SABRA Albuterol Sulfate (Albuterol Sulfate 90 Mcg 8 Gm Inhaler) 2 puff INHALE Q4H PRN PRN Reason: Shortness Of Breath Last Admin: 10/20/22 08:15 Dose: 2 puff Documented By: SABRA Ascorbic Acid (Ascorbic Acid 250 Mg Tablet) 250 mg PO DAILY [facility] Last Admin: 10/20/22 07:24 Dose: 250 mg Documented By: SABRA Ferrous Sulfate (Ferrous Sulfate 324 Mg Tablet.Dr) 324 mg PO DAILY [facility] Last Admin: 10/20/22 07:24 Dose: 324 mg Documented By: SABRA Hydroxyzine HCl (Hydroxyzine Hcl 25 Mg Tablet) 25 mg PO Q6H PRN PRN Reason: Anxiety Last Admin: 10/19/22 07:26 Dose: 25 mg Documented By: MERCEDES Vancomycin HCl 1,250 mg/ (Sodium Chloride) 250 mls @ 166.667 mls/hr IV Q12H [facility] Last Infusion: 10/20/22 09:40 Dose: 0 mls/hr Documented By: SABRA Methadone HCl (Methadone Hcl 20 Mg/2 Ml Oral.Conc) 50 mg PO DAILY [facility] Last Admin: 10/20/22 07:22 Dose: 50 mg Documented By: SABRA Methadone HCl (Methadone Hcl 20 Mg/2 Ml Oral.Conc) 10 mg PO DAILY@1800 [facility] Last Admin: 10/19/22 17:13 Dose: 10 mg Documented By: MERCEDES Ondansetron HCl (Ondansetron Hcl 4 Mg/2 Ml Vial) 4 mg IVPUSH Q8H PRN PRN Reason: Nausea and Vomiting Pharmacy Consult (Consult Rx Perform Med Rec) 1 each MISCELLANE ONCE PRN PRN Reason: Consult order Pharmacy Consult (Consult Rx Vancomycin Dosing) 1 each MISCELLANE DAILY PRN PRN Reason: Consult order Senna (Sennosides 8.6 Mg Tablet) 17.2 mg PO BEDTIME PRN PRN Reason: Constipation Sodium Chloride (0.9 % Sodium Chloride Flush 3 Ml Syringe) 3 ml IVFLUSH QSHIFT [facility] Last Admin: 10/20/22 07:32 Dose: 3 ml Documented By: SABRA Labs 10/20/22 11:22 10/19/22 17:17 Labs: Laboratory Results - last 24 hr 10/19/22 10/19/22 10/19/22 12:10 12:10 17:17 MCV 79.5 L MCH 26.0 L MCHC 32.7 RDW 15.6 Plt Count 130 L D MPV 12.6 H Absolute Nucleated RBC 0.000 Nucleated RBC % (auto) 0.0 Anion Gap 12 Estim Creat Clear Calc 90.3 Estimated GFR > 60 Random Glucose 124 H Calcium 8.3 L Vancomycin Trough 6.5 L 10/19/22 10/20/22 17:17 11:22 MCV 79.2 L MCH 26.1 L MCHC 32.9 RDW 15.4 Plt Count 142 L MPV 11.5 Absolute Nucleated RBC 0.000 Nucleated RBC % (auto) 0.0 Anion Gap Estim Creat Clear Calc 77.2 Estimated GFR > 60 Random Glucose Calcium Vancomycin Trough Microbiology Microbiology Results: Microbiology 10/17/22 05:44 Blood Culture - Final Blood - Venous Staphylococcus aureus 10/17/22 05:44 Blood Culture - Final Blood - Venous Staphylococcus aureus Assessment and Plan (1) Severe sepsis: Status: Acute (2) Polysubstance abuse: Status: Acute Plan 36-year-old female with history of asthma, hepatitis-C, polysubstance abuse including IV heroin and cocaine (last use yesterday), history of MRSA, and history of fungal bacteremia who is homeless admitted for fever and severe sepsis of unclear etiology in [facility]. #Severe sepsis-with septic emboli to lungs and tricuspid vegetation -recurrent fevers persistent leukocytosis, blood cultures positive for MSSA CT right foot showed no abscess, no osteomyelitis or septic arthritis , CT chest consistent with septic emboli, echo showed tricuspid vegetation, UA positive. UC neg., COVID negative, respiratory viral panel negative Continue iv vanco D3 repeat blood cultures , Tylenol for pain # mild intermittent asthma-without acute exacerbation, continue albuterol p.r.n. DC IV steroids #Polysubstance abuse -IV heroin and cocaine abuse -being followed by Addiction Team continue methadone , and hydroxyzine prn for withdrawal symptoms -U tox positive for fentanyl and cocaine #Acute thombocytopenia- d/t sepsis, repeat platelet count improved #Chronic microcytic anemia, is stable hematocrit. # chronic hepatitis-C -patient desires treatment.? Follow up outpatient with Gastroenterology # homelessness -arrange for safe discharge DVT prophylaxis-SCPs d/t thrombocytopenia Full code Patient requires continued inpatient stay for management of bacteremia on IV antibiotics. Time Spent With Patient Time: Total time managing care of this patient today ____ minutes. Quality Stroke Does the patient have a stroke diagnosis?: No VTE Prior VTE?: No VTE Risk Level:: Medical - moderate - high VTE Device Contraindication: Treatment Not Indicated VTE Drug Contraindication: N/A - Med Ordered
[2022-10-20 12:14] LABS: Creatinine Clr Calc Pharmacy 77.2; Estimated Glomerular Filt Rate > 60
[2022-10-20 12:28] LABS: Anion Gap 12 (12-20); Blood Urea Nitrogen 12 mg/dL (9-16); Carbon Dioxide 26 mmol/L (22-29); Chloride 101 mmol/L (96-108); Creatinine Clr Calc Pharmacy 78.2; Estimated Glomerular Filt Rate > 60; Glucose Random 104 mg/dL (60-115); Potassium 3.4 mmol/L (3.3-5.1); Sodium 136 mmol/L (135-145)
[2022-10-20 15:22] VITALS: BP 114/62; PULSE 70; RESP 16; TEMP 37.7; O2SAT 95
--- NOTE | 2022-10-20 15:57 | MHC.RECOVRN ---
This telegraphic typewriter repairer went to check on patient, patient resting comfortably, patient awake, resting in bed under covers, watching t.v. Patient states resting comfortably. Provider aware.
[2022-10-20] MEDS: methADONE HCl 20 MG/2 ML ORAL.CONC 10 MG PO (17:30)
[2022-10-20 17:35] VITALS: TEMP 38.5
[2022-10-20 18:30] VITALS: TEMP 37.4
--- NOTE | 2022-10-20 19:13 | HE.PHANOTE ---
Patients vancomycin trough was never pull for today @1700, patient was a hard stick . Put in another random level in for tomorrow @0500, to ensure efficacy vs safety.
[2022-10-20 19:31] VITALS: BP 106/57; PULSE 80; RESP 18; TEMP 36.2; O2SAT 96
[2022-10-20 20:08] LABS: Vancomycin Trough 8.2 mcg/mL (10.0-20.0)
--- NOTE | 2022-10-20 20:55 | PC.NURSE ---
Pharmacy called this RN to administered the current dose of 1250 mg at this time. New dose adjustment next day.
[2022-10-21] VITALS (10 sets, daily range): BP systolic 105–125; BP diastolic 55–65; PULSE 77–113; RESP 16–18; TEMP 36.3–38.9; O2SAT 94–96
[2022-10-21] MEDS: Acetaminophen 325 MG TABLET 650 MG PO ×3 (03:34→20:18)
[2022-10-21] MEDS: hydrOXYzine HCL 25 MG TABLET PO (03:35)
[2022-10-21] MEDS: vancomycin HCL 1,000 MG in 0.9 % Sodium Chloride 250 ML 270 MG IV (06:00)
[2022-10-21] MEDS: 0.9 % Sodium Chloride Flush 3 ML SYRINGE IVFLUSH ×2 (07:34→22:38)
[2022-10-21] MEDS: methADONE HCl 20 MG/2 ML ORAL.CONC 50 MG PO (07:38)
[2022-10-21] MEDS: Ferrous Sulfate 324 MG TABLET.DR PO (07:40)
[2022-10-21] MEDS: Ascorbic Acid 250 MG TABLET PO (07:41)
[2022-10-21] MEDS: Albuterol Sulfate 90 MCG 8 GM INHALER 2 PUFF INHALE (07:43)
[2022-10-21 11:11] LABS: Hematocrit 36.2 % (37.0-47.0); Hemoglobin 11.5 g/dl (12.0-16.0); Mean Corpuscular HGB Conc 31.8 g/dl (31.0-35.0); Mean Corpuscular Hemoglobin 25.7 pg (27.0-33.0); Mean Corpuscular Volume 80.8 fL (80.0-98.0); Mean Platelet Volume 11.6 fL (9.4-12.3); Platelet Count 153 X10*3/uL (160-400); Red Blood Count 4.48 X10*6/uL (4.20-5.50); Red Cell Distribution Width 15.2 % (11.0-16.0); White Blood Count 13.8 X10*3/uL (4.8-10.8)
--- NOTE | 2022-10-21 11:13 | HO.PM.IMPN ---
Subjective Subjective Date of Service: 10/21/22 Interval History: Feeling better with less withdrawal symptoms complaining of chest congestion, requesting for pain medication for generalized pain, also concern about daily blood draws, no recurrent fevers in last 24 hours Repeat 1/2 blood culture positive for Gram-positive cocci. Review of Systems [employer] no headache no dizziness no urinary urgency, no frequency GI no nausea,no vomiting, + diarrhea Review of Systems: Yes all other systems are reviewed and are negative Physical Exam Vital Signs: Vital Signs: Last Vital Signs Temp 97.3 F 10/21/22 07:51 Pulse 77 10/21/22 07:51 Resp 16 10/21/22 07:51 BP 105/57 L 10/21/22 07:51 Pulse Ox 96 10/21/22 07:51 O2 Del Method 10/21/22 07:51 BMI result Body Mass Index 20.0 Const: Other: General? resting comfortably, no distress Neck supple no JVD. CVS? regular rate rhythm, Respiratory lungs course breath sound, bilateral rhonchi, no respiratory distress, no wheeze Gastrointestinal abdomen soft, nontender, bowel sounds audible, no guarding , no rigidity. Extremities no edema.? Right foot swelling improved. Neuro nonfocal Psych appropriate affect Skin track ariza both lower extremities without erythema Objective Data Active Medications Acetaminophen (Acetaminophen 325 Mg Tablet) 650 mg PO Q6H PRN PRN Reason: Pain, Mild, fever Last Admin: 10/21/22 03:34 Dose: 650 mg Documented By: HAWA Albuterol Sulfate (Albuterol Sulfate 90 Mcg 8 Gm Inhaler) 2 puff INHALE Q4H PRN PRN Reason: Shortness Of Breath Last Admin: 10/21/22 07:43 Dose: 2 puff Documented By: SABRA Ascorbic Acid (Ascorbic Acid 250 Mg Tablet) 250 mg PO DAILY [facility] Last Admin: 10/21/22 07:41 Dose: 250 mg Documented By: SABRA Ferrous Sulfate (Ferrous Sulfate 324 Mg Tablet.) 324 mg PO DAILY [facility] Last Admin: 10/21/22 07:40 Dose: 324 mg Documented By: SABRA Hydroxyzine HCl (Hydroxyzine Hcl 25 Mg Tablet) 25 mg PO Q6H PRN PRN Reason: Anxiety Last Admin: 10/21/22 03:35 Dose: 25 mg Documented By: HO.OZORALB Vancomycin HCl 1,000 mg/ (Sodium Chloride) 270 mls @ 270 mls/hr IV Q8H [facility] Last Infusion: 10/21/22 07:47 Dose: 0 mls/hr Documented By: SABRA Methadone HCl (Methadone Hcl 20 Mg/2 Ml Oral.Conc) 50 mg PO DAILY [facility] Last Admin: 10/21/22 07:38 Dose: 50 mg Documented By: SABRA Methadone HCl (Methadone Hcl 20 Mg/2 Ml Oral.Conc) 10 mg PO DAILY@1800 [facility] Last Admin: 10/20/22 17:30 Dose: 10 mg Documented By: SABRA Ondansetron HCl (Ondansetron Hcl 4 Mg/2 Ml Vial) 4 mg IVPUSH Q8H PRN PRN Reason: Nausea and Vomiting Oxycodone HCl (Oxycodone Hcl Immed Release 5 Mg Tablet) 5 mg PO Q6H PRN PRN Reason: Pain, Severe (Pain Scale 7-10) Pharmacy Consult (Consult Rx Perform Med Rec) 1 each MISCELLANE ONCE PRN PRN Reason: Consult order Pharmacy Consult (Consult Rx Vancomycin Dosing) 1 each MISCELLANE DAILY PRN PRN Reason: Consult order Senna (Sennosides 8.6 Mg Tablet) 17.2 mg PO BEDTIME PRN PRN Reason: Constipation Sodium Chloride (0.9 % Sodium Chloride Flush 3 Ml Syringe) 3 ml IVFLUSH QSHIFT [facility] Last Admin: 10/21/22 07:34 Dose: 3 ml Documented By: SABRA Labs 10/21/22 11:04 10/20/22 11:22 Labs: Laboratory Results - last 24 hr 10/20/22 10/20/22 10/20/22 11:22 11:22 11:22 MCV 79.2 L MCH 26.1 L MCHC 32.9 RDW 15.4 Plt Count 142 L MPV 11.5 Absolute Nucleated RBC 0.000 Nucleated RBC % (auto) 0.0 Anion Gap 12 Estim Creat Clear Calc 78.2 77.2 Estimated GFR > 60 > 60 Random Glucose 104 Calcium 8.0 L Vancomycin Trough 10/20/22 10/21/22 19:40 11:04 MCV 80.8 MCH 25.7 L MCHC 31.8 RDW 15.2 Plt Count 153 L MPV 11.6 Absolute Nucleated RBC 0.000 Nucleated RBC % (auto) 0.0 Anion Gap Estim Creat Clear Calc Estimated GFR Random Glucose Calcium Vancomycin Trough 8.2 L Microbiology Microbiology Results: Microbiology 10/20/22 11:22 Blood Culture - Preliminary Blood - Venous Prelim: GPC Gram Stain only Assessment and Plan (1) Severe sepsis: Status: Acute (2) Polysubstance abuse: Status: Acute Plan 36-year-old female with history of asthma, hepatitis-C, polysubstance abuse including IV heroin and cocaine (last use yesterday), history of MRSA, and history of fungal bacteremia who is homeless admitted for fever and severe sepsis of unclear etiology in [facility]. #Severe sepsis-with septic emboli to lungs and tricuspid vegetation -no recurrent fevers, WBC is trending down,blood cultures positive for MSSA , repeat blood culture 10/20, 08/31 positive for Gram-positive cocci CT right foot showed no abscess, no osteomyelitis or septic arthritis , CT chest consistent with septic emboli, echo showed tricuspid vegetation, UA neg., COVID negative, respiratory viral panel negative Continue iv vanco D4 , Tylenol for pain Id recommend 4 weeks of antibiotics. # mild intermittent asthma-without acute exacerbation, noted to have chest congestion rhonchi likely due to bilateral pulmonary nodules, septic emboli will place patient on cough medication, updraft treatment and albuterol p.r.n. #Polysubstance abuse -IV heroin and cocaine abuse -being followed by Addiction Team continue methadone , and hydroxyzine prn for withdrawal symptoms -U tox positive for fentanyl and cocaine #Acute thombocytopenia- d/t sepsis, repeat platelet count improved #Chronic microcytic anemia, stable hematocrit. # chronic hepatitis-C -patient desires treatment.? Follow up outpatient with Gastroenterology # homelessness -arrange for safe discharge DVT prophylaxis-SCPs d/t thrombocytopenia Full code Patient requires continued inpatient stay for management of persistent bacteremia on IV antibiotics. Time Spent With Patient Time: Total time managing care of this patient today ____ minutes. Quality Stroke Does the patient have a stroke diagnosis?: No VTE Prior VTE?: No VTE Risk Level:: Medical - moderate - high VTE Device Contraindication: Treatment Not Indicated VTE Drug Contraindication: N/A - Med Ordered
[2022-10-21 11:25] LABS: Creatinine Clr Calc Pharmacy 76.2; Estimated Glomerular Filt Rate > 60
[2022-10-21] MEDS: oxyCODONE HCl Immed Release 5 MG TABLET PO ×2 (12:47→18:17)
--- NOTE | 2022-10-21 13:03 | MHC.CM.PN ---
No discharge today per MD rounds. Patient continues on IV ABX for Endocarditis and bacteremia. DP pending TB results.
--- NOTE | 2022-10-21 15:54 | PM.IDPN ---
Subjective Subjective Date of Service: 10/20/22 Critical Care Time (minutes): 15 Comment: she complains of diffuse pain /achiness body Objective Data Labs 10/21/22 11:04 10/21/22 11:04 Labs: Laboratory Results - last 24 hr 10/20/22 10/21/22 10/21/22 19:40 11:04 11:04 WBC 13.8 H RBC 4.48 Hgb 11.5 L Hct 36.2 L MCV 80.8 MCH 25.7 L MCHC 31.8 RDW 15.2 Plt Count 153 L MPV 11.6 Absolute Nucleated RBC 0.000 Nucleated RBC % (auto) 0.0 Creatinine 0.77 Estim Creat Clear Calc 76.2 Estimated GFR > 60 Vancomycin Trough 8.2 L Microbiology Microbiology Results: Microbiology 10/20/22 11:56 Blood - Venous Blood Culture - Preliminary No growth after 24 hours. 10/20/22 11:22 Blood - Venous Blood Culture - Preliminary Prelim: GPC Gram Stain only 10/17/22 05:44 Blood - Venous Blood Culture - Final Staphylococcus aureus 10/17/22 05:44 Blood - Venous Blood Culture - Final Staphylococcus aureus 10/17/22 05:44 Urine clean catch - Urine arias top Urine Culture - Final No growth. Physical Exam Vital Signs: Vital Signs: Last Vital Signs Temp 101.6 F H 10/21/22 15:22 Pulse 92 10/21/22 15:22 Resp 16 10/21/22 15:22 BP 109/59 L 10/21/22 15:22 Pulse Ox 94 10/21/22 15:22 O2 Del Method 10/21/22 15:22 BMI result Body Mass Index 20.0 Const: General: cooperative Eyes: General: appearance normal, both eyes and all related structures Resp: Effort & Inspection: normal respiratory effort Cardio: Rate: regular rate Rhythm: regular rhythm GI: Inspection: Yes normal to inspection Extrem: General: Yes normal to inspection Assessment and Plan Assessment and plan (1) Cavitary lesion of lung: Status: Acute (2) Septic pulmonary embolism: Status: Acute Plan There is persistent bacteremia,likely MSSA. She has endocarditis Suggest Switch to IV Daptomycin 8 mg/kg/day Recheck blood culture 48 hours Time Spent With Patient Time: Total time managing care of this patient today ____ minutes.
--- NOTE | 2022-10-21 16:09 | HO.ADDICTPRO ---
Subjective Subjective Date of Service: 10/21/22 Reason For Visit: abscess, fever, ivda Interim History: Patient seen in follow up. Has been receiving methadone 50mg AM and 10mg in the evening. She reports the split dosing is very helpful with anxiety and sleep in the evenings. This chief underwriter advised patient that while here dosing schedule would remain the same, however it is unlikely SNF will be able to accommodate this and may just end up getting full 60mg every morning. Patient verbalized understanding. Discussed substance use [place] [facility] [place], during that admission patient learned she was . She reports daughter was born in February, in DCF custody immediately following . Patient reports she has been using heroin and crack cocaine daily. Living on the streets. Discussed method of use and patient acknowledged reusing syringes, which likely contributed to current infection/endocarditis . Patient visibly uncomfortable, SOB when speaking, but denying any withdrawal sx. Reporting pain in my lungs and chest . Review of Systems Constitutional: Reports as per HPI and Reports excessive sweating Endocrine: Reports excessive sweating Mental Status Exam Mental Status Exam Patient Appearance: Fatigued Level of Consciousness: Awake and Lethargic Mood Description: Anxious Affect Description: Anxious Judgement: Good Diagnostics Vital Signs (24Hr): Vital Signs - 24 hr 10/20/22 17:35 10/20/22 18:30 10/20/22 19:31 Temperature 101.3 F H 99.3 F 97.1 F Pulse Rate 80 Respiratory Rate 18 Blood Pressure 106/57 L Pulse Oximetry 96 Oxygen Delivery Method Room Air 10/21/22 03:21 10/21/22 04:46 10/21/22 07:51 Temperature 98.9 F 97.3 F Pulse Rate 98 77 Respiratory Rate 18 16 16 Blood Pressure 117/55 L 105/57 L Pulse Oximetry 94 96 Oxygen Delivery Method Room Air Room Air 10/21/22 11:59 10/21/22 13:46 10/21/22 15:13 Temperature 101.3 F H Pulse Rate 77 78 Respiratory Rate 18 18 Blood Pressure Pulse Oximetry Oxygen Delivery Method 10/21/22 15:22 Temperature 101.6 F H Pulse Rate 92 Respiratory Rate 16 Blood Pressure 109/59 L Pulse Oximetry 94 Oxygen Delivery Method Room Air BMI result Body Mass Index 20.0 Labs 10/21/22 11:04 10/21/22 11:04 Labs: Laboratory Results - last 48 hr 10/19/22 10/19/22 10/20/22 17:17 17:17 11:22 WBC 15.8 H RBC 4.14 L Hgb 10.8 L Hct 32.8 L MCV 79.2 L MCH 26.1 L MCHC 32.9 RDW 15.4 Plt Count 142 L MPV 11.5 Absolute Nucleated RBC 0.000 Nucleated RBC % (auto) 0.0 Sodium Potassium Chloride Carbon Dioxide Anion Gap BUN Creatinine 0.76 Estim Creat Clear Calc 77.2 Estimated GFR > 60 Random Glucose Calcium Vancomycin Trough 6.5 L 10/20/22 10/20/22 10/20/22 11:22 11:22 19:40 WBC RBC Hgb Hct MCV MCH MCHC RDW Plt Count MPV Absolute Nucleated RBC Nucleated RBC % (auto) Sodium 136 Potassium 3.4 Chloride 101 Carbon Dioxide 26 Anion Gap 12 BUN 12 Creatinine 0.75 0.76 Estim Creat Clear Calc 78.2 77.2 Estimated GFR > 60 > 60 Random Glucose 104 Calcium 8.0 L Vancomycin Trough 8.2 L 10/21/22 10/21/22 11:04 11:04 WBC 13.8 H RBC 4.48 Hgb 11.5 L Hct 36.2 L MCV 80.8 MCH 25.7 L MCHC 31.8 RDW 15.2 Plt Count 153 L MPV 11.6 Absolute Nucleated RBC 0.000 Nucleated RBC % (auto) 0.0 Sodium Potassium Chloride Carbon Dioxide Anion Gap BUN Creatinine 0.77 Estim Creat Clear Calc 76.2 Estimated GFR > 60 Random Glucose Calcium Vancomycin Trough Imaging Radiology Impressions: ITS Impressions Foot X-Ray 10/17/22 07:40 IMPRESSION: Normal plain film examination of the right foot. Chest X-Ray 10/17/22 08:35 IMPRESSION: Right lung disease with interstitial and more confluent airspace component which may be infectious in etiology with small focus of confluent pneumonitis. Chest CT 10/17/22 18:15 IMPRESSION: Bilateral pulmonary nodules. Larger pulmonary nodules are cavitary. Infectious, inflammatory and neoplastic processes should be considered. Probable right middle lobe pulmonary emboli. In particular, septic emboli should be considered. Fleischner guidelines were followed. Findings were communicated to Dr. Schultz by telephone on 08/16/2023 at 6:[address] 10/17/22 18:15 IMPRESSION: Question small amount of fluid at the first MTP joint and adjacent to the medial first metatarsal head and adjacent soft tissue swelling. No soft tissue foreign body or evidence of osteomyelitis or septic arthritis seen. Medications Medications Current Medications Acetaminophen (Acetaminophen 325 Mg Tablet) 650 mg PO Q6H PRN PRN Reason: Pain, Mild, fever Last Admin: 10/21/22 11:56 Dose: 650 mg Albuterol Sulfate (Albuterol Sulfate 90 Mcg 8 Gm Inhaler) 2 puff INHALE Q4H PRN PRN Reason: Shortness Of Breath Last Admin: 10/21/22 07:43 Dose: 2 puff Ascorbic Acid (Ascorbic Acid 250 Mg Tablet) 250 mg PO DAILY [facility] Last Admin: 10/21/22 07:41 Dose: 250 mg Albuterol Sulfate 2.5 mg/ (Ipratropium [place] 0.5 mg) 0 mg INHALE RQID [facility] Last Admin: 10/21/22 15:12 Dose: 1 each Enoxaparin Sodium (Enoxaparin Sodium 40 Mg/0.4 Ml Syringe) 40 mg SUBCUT Q24H [facility] Ferrous Sulfate (Ferrous Sulfate 324 Mg Tablet.Dr) 324 mg PO DAILY [facility] Last Admin: 10/21/22 07:40 Dose: 324 mg Guaifenesin/Dextromethorphan (Guaifenesin Dm 100/10/5 Ml 5 Ml Syrup) 10 ml PO TID [facility] Hydroxyzine HCl (Hydroxyzine Hcl 25 Mg Tablet) 25 mg PO Q6H PRN PRN Reason: Anxiety Last Admin: 10/21/22 03:35 Dose: 25 mg Daptomycin 400 mg/ Sodium (Chloride) 58 mls @ 116 mls/hr IV Q24H [facility] Methadone HCl (Methadone Hcl 20 Mg/2 Ml Oral.Conc) 50 mg PO DAILY [facility] Last Admin: 10/21/22 07:38 Dose: 50 mg Methadone HCl (Methadone Hcl 20 Mg/2 Ml Oral.Conc) 10 mg PO DAILY@1800 [facility] Last Admin: 10/20/22 17:30 Dose: 10 mg Ondansetron HCl (Ondansetron Hcl 4 Mg/2 Ml Vial) 4 mg IVPUSH Q8H PRN PRN Reason: Nausea and Vomiting Oxycodone HCl (Oxycodone Hcl Immed Release 5 Mg Tablet) 5 mg PO Q6H PRN PRN Reason: Pain, Severe (Pain Scale 7-10) Last Admin: 10/21/22 12:47 Dose: 5 mg Pharmacy Consult (Consult Rx Perform Med Rec) 1 each MISCELLANE ONCE PRN PRN Reason: Consult order Pharmacy Consult (Consult Rx Vancomycin Dosing) 1 each MISCELLANE DAILY PRN PRN Reason: Consult order Senna (Sennosides 8.6 Mg Tablet) 17.2 mg PO BEDTIME PRN PRN Reason: Constipation Sodium Chloride (0.9 % Sodium Chloride Flush 3 Ml Syringe) 3 ml IVFLUSH QSHIFT [facility] Last Admin: 10/21/22 07:34 Dose: 3 ml Allergies Allergies Allergy/AdvReac Type Severity Reaction Status Date / Time bee pollen [Bee Stings] Allergy Unknown SWELLING Verified 09/23/21 20:39 AT SITE morphine [Morphine] Allergy Unknown SKIN Verified 09/23/21 20:39 BUBBLED Penicillins Allergy Unknown HIVES Verified 09/23/21 20:39 BREATHING PBROBLEM Assessment & Plan Assessment & Plan (1) Opioid use disorder: Status: Acute Code(s): F11.90 - Opioid use, unspecified, uncomplicated Assessment and Plan: continue methadone at current dose will continue to follow Total time managing care of this patient today __20__ minutes.
[2022-10-21] MEDS: Enoxaparin Sodium 40 MG/0.4 ML SYRINGE SUBCUT (16:12)
[2022-10-21] MEDS: DAPTOmycin 400 MG in 0.9 % Sodium Chloride 50 ML 116 MG IV (16:12)
[2022-10-21] MEDS: guaiFENesin DM 100/10/5 ML 5 ML SYRUP 10 ML PO ×2 (16:13→20:19)
[2022-10-21] MEDS: methADONE HCl 20 MG/2 ML ORAL.CONC 10 MG PO (17:44)
[2022-10-22] VITALS (7 sets, daily range): BP systolic 106–117; BP diastolic 56–74; PULSE 71–98; RESP 16–20; TEMP 36.2–38; O2SAT 89–99
[2022-10-22 06:39] LABS: TS Negative Control Passed; TS Panel A 0; TS Panel B 0; TS Positive Control Passed; TSpotTB Negative (Negative)
[2022-10-22] MEDS: Ascorbic Acid 250 MG TABLET PO (07:24)
[2022-10-22] MEDS: Ferrous Sulfate 324 MG TABLET.DR PO (07:24)
[2022-10-22] MEDS: Acetaminophen 325 MG TABLET 650 MG PO ×3 (07:24→20:20)
[2022-10-22] MEDS: oxyCODONE HCl Immed Release 5 MG TABLET PO ×3 (07:24→20:20)
[2022-10-22] MEDS: methADONE HCl 20 MG/2 ML ORAL.CONC 50 MG PO (07:25)
[2022-10-22] MEDS: guaiFENesin DM 100/10/5 ML 5 ML SYRUP 10 ML PO (07:25)
[2022-10-22] MEDS: 0.9 % Sodium Chloride Flush 3 ML SYRINGE IVFLUSH ×3 (07:25→20:21)
[2022-10-22] MEDS: Enoxaparin Sodium 40 MG/0.4 ML SYRINGE SUBCUT (13:30)
[2022-10-22] MEDS: DAPTOmycin 400 MG in 0.9 % Sodium Chloride 50 ML 116 MG IV (15:45)
--- NOTE | 2022-10-22 16:06 | P.PNIM_ITS ---
Subjective Subjective Date of Service: 10/22/22 Interval History: seen and examined this morning follow up for endocarditis still reporting fever this morning pain with inspiration Review of Systems Review of Systems: Yes all other systems are reviewed and are negative Constitutional Constitutional: Reports fever(s) Cardiovascular Cardiovascular: Reports chest pain and Denies dyspnea Respiratory Respiratory: Reports pain on inspiration, Reports pain with cough and Denies dyspnea Gastrointestinal Gastrointestinal: Denies abdominal pain Physical Exam Vital Signs: Vital Signs: Last Vital Signs Temp 97.8 F 10/22/22 15:44 Pulse 88 10/22/22 15:44 Resp 20 10/22/22 15:44 BP 117/74 10/22/22 15:44 Pulse Ox 98 10/22/22 15:44 O2 Del Method 10/22/22 15:44 BMI result Body Mass Index 20.0 Const: General: comfortable, no acute distress, alert and awake Nutritional Appearance: average body habitus Orientation/consciousness: patient oriented x3 Chest: Chest palpation & inspection: normal inspection of the chest Resp: Effort & Inspection: normal respiratory effort and able to speak in complete sentences Cardio: Rate: regular rate Heart sounds: S1 normal heart sound present and S2 normal heart sound present GI: Inspection: No distended Palpation (GI): Soft to palpation Neuro: General: patient oriented x3 Objective Data Active Medications Acetaminophen (Acetaminophen 325 Mg Tablet) 650 mg PO Q6H PRN PRN Reason: Pain, Mild, fever Last Admin: 10/22/22 13:30 Dose: 650 mg Documented By: KIET Albuterol Sulfate (Albuterol Sulfate 90 Mcg 8 Gm Inhaler) 2 puff INHALE Q4H PRN PRN Reason: Shortness Of Breath Last Admin: 10/21/22 07:43 Dose: 2 puff Documented By: GRAZIC Ascorbic Acid (Ascorbic Acid 250 Mg Tablet) 250 mg PO DAILY [facility] Last Admin: 10/22/22 07:24 Dose: 250 mg Documented By: KIET Albuterol Sulfate 2.5 mg/ (Ipratropium [place] 0.5 mg) 0 mg INHALE RQID [facility] Last Admin: 10/22/22 16:06 Dose: 2.5 each Documented By: ULRICC Enoxaparin Sodium (Enoxaparin Sodium 40 Mg/0.4 Ml Syringe) 40 mg SUBCUT Q24H [facility] Last Admin: 10/22/22 13:30 Dose: 40 mg Documented By: KIET Ferrous Sulfate (Ferrous Sulfate 324 Mg Tablet.Dr) 324 mg PO DAILY [facility] Last Admin: 10/22/22 07:24 Dose: 324 mg Documented By: KIET Guaifenesin/Dextromethorphan (Guaifenesin Dm 100/10/5 Ml 5 Ml Syrup) 10 ml PO TID [facility] Last Admin: 10/22/22 13:33 Dose: Not Given Documented By: KIET Non-Admin Reason: Patient Refused Hydroxyzine HCl (Hydroxyzine Hcl 25 Mg Tablet) 25 mg PO Q6H PRN PRN Reason: Anxiety Last Admin: 10/21/22 03:35 Dose: 25 mg Documented By: HAWA Daptomycin 400 mg/ Sodium (Chloride) 58 mls @ 116 mls/hr IV Q24H [facility] Last Admin: 10/22/22 15:45 Dose: 116 mls/hr Documented By: KIET Methadone HCl (Methadone Hcl 20 Mg/2 Ml Oral.Conc) 50 mg PO DAILY [facility] Last Admin: 10/22/22 07:25 Dose: 50 mg Documented By: KIET Methadone HCl (Methadone Hcl 20 Mg/2 Ml Oral.Conc) 10 mg PO DAILY@1800 [facility] Last Admin: 10/21/22 17:44 Dose: 10 mg Documented By: SABRA Ondansetron HCl (Ondansetron Hcl 4 Mg/2 Ml Vial) 4 mg IVPUSH Q8H PRN PRN Reason: Nausea and Vomiting Oxycodone HCl (Oxycodone Hcl Immed Release 5 Mg Tablet) 5 mg PO Q6H PRN PRN Reason: Pain, Severe (Pain Scale 7-10) Last Admin: 10/22/22 13:30 Dose: 5 mg Documented By: KIET Pharmacy Consult (Consult Rx Perform Med Rec) 1 each MISCELLANE ONCE PRN PRN Reason: Consult order Pharmacy Consult (Consult Rx Vancomycin Dosing) 1 each MISCELLANE DAILY PRN PRN Reason: Consult order Senna (Sennosides 8.6 Mg Tablet) 17.2 mg PO BEDTIME PRN PRN Reason: Constipation Sodium Chloride (0.9 % Sodium Chloride Flush 3 Ml Syringe) 3 ml IVFLUSH QSHIFT [facility] Last Admin: 10/22/22 15:45 Dose: 3 ml Documented By: KIET Labs 10/21/22 11:04 10/21/22 11:04 Labs: Laboratory Results - last 24 hr 10/19/22 12:10 TB Test (T-Spot) Com Negative TB Test Nil Control Passed TB Test Panel A 0 TB Test Panel B 0 TB Test Positive Cntrl Passed Microbiology Microbiology Results: Microbiology 10/20/22 11:22 Blood Culture - Final Blood - Venous Staphylococcus aureus 10/20/22 11:56 Blood Culture - Preliminary Blood - Venous Prelim: GPC Gram Stain only Assessment and Plan (1) Cavitary lesion of lung: Status: Acute (2) Septic pulmonary embolism: Status: Acute (3) Endocarditis due to methicillin susceptible Staphylococcus aureus (MSSA): Status: Acute Plan 36-year-old female with history of asthma, hepatitis-C, polysubstance abuse including IV heroin and cocaine (last use yesterday), history of MRSA, and history of fungal bacteremia who is homeless admitted for fever and severe sepsis of unclear etiology in [facility]. Severe sepsis secondary to Acute tricuspid endocarditis and septic pulmonary emboli Recurrent fever, blood cultures positive for MSSA , repeat blood culture 10/[address] right foot showed no abscess, no osteomyelitis or septic arthritis, CT chest consistent with septic emboli, echo showed tricuspid vegetation, UA neg., COVID negative, respiratory viral panel negative Due to persistently + BCx abx changed from vanco to dapto 10/21- follow LFTs, CPK weekly Repeat BCx tomorrow ID recommend 4 weeks of antibiotics - PICC line when BCx negative for 3 days per ID rec mild intermittent asthma without acute exacerbation, noted to have chest congestion rhonchi likely due to bilateral pulmonary nodules, septic emboli will place patient on cough medi cation, updraft treatment and albuterol p.r.n. Polysubstance abuse IV heroin and cocaine abuse being followed by Addiction Team continue methadone , and hydroxyzine prn for withdrawal symptoms U tox positive for fentanyl and cocaine Acute thombocytopenia d/t sepsis, repeat platelet count improved Chronic microcytic anemia, stable hematocrit. chronic hepatitis-C -patient desires treatment.? Follow up outpatient with Gastroenterology homelessness -arrange for safe discharge DVT prophylaxis-SCPs d/t thrombocytopenia Full code Attending - Dr. Burns Patient requires continued inpatient stay for management of persistent bacteremia on IV antibiotics. Time Spent With Patient Time: Total time managing care of this patient today ____ minutes. Quality Stroke Does the patient have a stroke diagnosis?: No VTE Prior VTE?: No VTE Risk Level:: Medical - moderate - high VTE Device Contraindication: Treatment Not Indicated VTE Drug Contraindication: N/A - Med Ordered
[2022-10-22] MEDS: methADONE HCl 20 MG/2 ML ORAL.CONC 10 MG PO (17:23)
[2022-10-23] VITALS (8 sets, daily range): BP systolic 110–114; BP diastolic 60–66; PULSE 76–89; RESP 12–19; TEMP 36.7–37.4; O2SAT 92–99
[2022-10-23] MEDS: Albuterol Sulfate 90 MCG 8 GM INHALER 2 PUFF INHALE (00:54)
[2022-10-23] MEDS: Morphine Sulfate 4 MG/ML CARTRIDGE IVPUSH (01:50)
[2022-10-23 02:11] LABS: UPreg QC Valid YES; Urine Pregnancy NEGATIVE (NEGATIVE)
[2022-10-23] MEDS: Acetaminophen 325 MG TABLET 650 MG PO ×4 (02:25→23:49)
[2022-10-23] MEDS: oxyCODONE HCl Immed Release 5 MG TABLET PO ×2 (02:25→09:08)
[2022-10-23 06:41] LABS: Hematocrit 31.7 % (37.0-47.0); Hemoglobin 10.2 g/dl (12.0-16.0); Mean Corpuscular HGB Conc 32.2 g/dl (31.0-35.0); Mean Corpuscular Hemoglobin 25.9 pg (27.0-33.0); Mean Corpuscular Volume 80.5 fL (80.0-98.0); Platelet Count 180 X10*3/uL (160-400); Red Blood Count 3.94 X10*6/uL (4.20-5.50); White Blood Count 13.3 X10*3/uL (4.8-10.8)
[2022-10-23 07:04] LABS: Alanine Aminotransferase 10 U/L (0-31); Albumin Level 2.7 g/dL (3.5-5.0); Alkaline Phosphatase 74 U/L (39-117); Anion Gap 13 (12-20); Aspartate Amino Transferase 10 U/L (5-31); Bilirubin Direct < 0.2 mg/dL (0.0-0.5); Bilirubin Total 0.2 mg/dL (0.0-1.0); Blood Urea Nitrogen 12 mg/dL (9-16); Calcium 8.4 mg/dL (8.4-10.2); Carbon Dioxide 26 mmol/L (22-29); Chloride 100 mmol/L (96-108); Creatinine Clr Calc Pharmacy 87.6; Estimated Glomerular Filt Rate > 60; Glucose Random 177 mg/dL (60-115); Potassium 4.2 mmol/L (3.3-5.1); Sodium 135 mmol/L (135-145); Total Protein 6.6 g/dL (6.5-8.0)
[2022-10-23] MEDS: methADONE HCl 20 MG/2 ML ORAL.CONC 50 MG PO (09:08)
[2022-10-23] MEDS: Ferrous Sulfate 324 MG TABLET.DR PO (09:08)
[2022-10-23] MEDS: Ascorbic Acid 250 MG TABLET PO (09:09)
[2022-10-23] MEDS: 0.9 % Sodium Chloride Flush 3 ML SYRINGE IVFLUSH ×3 (09:09→20:13)
--- NOTE | 2022-10-23 13:24 | MHC.RECOVRN ---
Met with pt in 387 to check in and provide support. Pt sitting by window, coloring. Pt reports uncontrolled pain 10.5 /10. Pt reports difficulty speaking due to pain. States It feels like someone is karate chopping my sides and back. Pt appears uncomfortable, teary. Kenyatta Portillo APRN, aware.
--- NOTE | 2022-10-23 13:30 | P.PNIM_ITS ---
Subjective Subjective Date of Service: 10/23/22 Interval History: seen and examined this morning follow up for endocarditis denies fever but reporting chest pain with inspiration Review of Systems Review of Systems: Yes all other systems are reviewed and are negative Constitutional Constitutional: Denies chills and Denies fever(s) Respiratory Respiratory: Reports pain on inspiration and Reports pain with cough Physical Exam Vital Signs: Vital Signs: Last Vital Signs Temp 98.5 F 10/23/22 08:05 Pulse 76 10/23/22 11:52 Resp 12 10/23/22 11:52 BP 112/66 10/23/22 08:05 Pulse Ox 93 10/23/22 08:05 O2 Del Method 10/23/22 08:05 BMI result Body Mass Index 20.0 Const: General: comfortable, no acute distress, alert and awake Nutritional Appearance: average body habitus Orientation/consciousness: patient oriented x3 Chest: Chest palpation & inspection: normal inspection of the chest Resp: Effort & Inspection: normal respiratory effort, able to speak in complete sentences and no use of accessory muscles Cardio: Rate: regular rate Heart sounds: S1 normal heart sound present and S2 normal heart sound present GI: Inspection: No distended Palpation (GI): Soft to palpation Neuro: General: patient oriented x3 Extrem: General: Yes no pedal edema Objective Data Active Medications Acetaminophen (Acetaminophen 325 Mg Tablet) 650 mg PO Q6H PRN PRN Reason: Pain, Mild, fever Last Admin: 10/23/22 09:09 Dose: 650 mg Documented By: MERCEDES Albuterol Sulfate (Albuterol Sulfate 90 Mcg 8 Gm Inhaler) 2 puff INHALE Q4H PRN PRN Reason: Shortness Of Breath Last Admin: 10/23/22 00:54 Dose: 2 puff Documented By: YONG Ascorbic Acid (Ascorbic Acid 250 Mg Tablet) 250 mg PO DAILY [facility] Last Admin: 10/23/22 09:09 Dose: 250 mg Documented By: MERCEDES Albuterol Sulfate 2.5 mg/ (Ipratropium [place] 0.5 mg) 0 mg INHALE RQ6H PRN PRN Reason: shortness of breath/wheezing Enoxaparin Sodium (Enoxaparin Sodium 40 Mg/0.4 Ml Syringe) 40 mg SUBCUT Q24H [facility] Last Admin: 10/22/22 13:30 Dose: 40 mg Documented By: KIET Ferrous Sulfate (Ferrous Sulfate 324 Mg Tablet.Dr) 324 mg PO DAILY [facility] Last Admin: 10/23/22 09:08 Dose: 324 mg Documented By: MERCEDES Guaifenesin/Dextromethorphan (Guaifenesin Dm 100/10/5 Ml 5 Ml Syrup) 10 ml PO TID [facility] Last Admin: 10/23/22 09:08 Dose: Not Given Documented By: MERCEDES Non-Admin Reason: Patient Refused Hydroxyzine HCl (Hydroxyzine Hcl 25 Mg Tablet) 25 mg PO Q6H PRN PRN Reason: Anxiety Last Admin: 10/21/22 03:35 Dose: 25 mg Documented By: HAWA Daptomycin 400 mg/ Sodium (Chloride) 58 mls @ 116 mls/hr IV Q24H [facility] Last Infusion: 10/22/22 16:31 Dose: 0 mls/hr Documented By: KIET Methadone HCl (Methadone Hcl 20 Mg/2 Ml Oral.Conc) 50 mg PO DAILY [facility] Last Admin: 10/23/22 09:08 Dose: 50 mg Documented By: MERCEDES Methadone HCl (Methadone Hcl 20 Mg/2 Ml Oral.Conc) 10 mg PO DAILY@1800 [facility] Last Admin: 10/22/22 17:23 Dose: 10 mg Documented By: KIET Ondansetron HCl (Ondansetron Hcl 4 Mg/2 Ml Vial) 4 mg IVPUSH Q8H PRN PRN Reason: Nausea and Vomiting Oxycodone HCl (Oxycodone Hcl Immed Release 5 Mg Tablet) 10 mg PO Q6H PRN PRN Reason: Pain, Severe (Pain Scale 7-10) Pharmacy Consult (Consult Rx Perform Med Rec) 1 each MISCELLANE ONCE PRN PRN Reason: Consult order Pharmacy Consult (Consult Rx Vancomycin Dosing) 1 each MISCELLANE DAILY PRN PRN Reason: Consult order Senna (Sennosides 8.6 Mg Tablet) 17.2 mg PO BEDTIME PRN PRN Reason: Constipation Sodium Chloride (0.9 % Sodium Chloride Flush 3 Ml Syringe) 3 ml IVFLUSH QSHIFT [facility] Last Admin: 10/23/22 09:09 Dose: 3 ml Documented By: MERCEDES Labs 10/23/22 05:27 10/23/22 05:27 Labs: Laboratory Results - last 24 hr 10/23/22 10/23/22 10/23/22 02:00 05:27 05:27 MCV 80.5 MCH 25.9 L MCHC 32.2 RDW 15.0 Plt Count 180 MPV 12.0 Absolute Nucleated RBC 0.000 Nucleated RBC % (auto) 0.0 Anion Gap 13 Estim Creat Clear Calc 87.6 Estimated GFR > 60 Random Glucose 177 H Calcium 8.4 Total Bilirubin 0.2 Direct Bilirubin < 0.2 AST 10 ALT 10 Alkaline Phosphatase 74 Total Creatine Kinase 8 L Total Protein 6.6 Albumin 2.7 L Urine Test NEGATIVE Microbiology Microbiology Results: Microbiology 10/20/22 11:56 Blood Culture - Final Blood - Venous Staphylococcus aureus 10/18/22 09:15 Direct Acid Fast Bacilli Smear - Final Sputum - Expectorated 10/20/22 11:22 Blood Culture - Final Blood - Venous Staphylococcus aureus Assessment and Plan (1) Endocarditis due to methicillin susceptible Staphylococcus aureus (MSSA): Status: Acute (2) Septic pulmonary embolism: Status: Acute Plan 36-year-old female with history of asthma, hepatitis-C, polysubstance abuse including IV heroin and cocaine (last use yesterday), history of MRSA, and history of fungal bacteremia who is homeless admitted for fever and severe sepsis of unclear etiology in [facility]. Severe sepsis secondary to Acute tricuspid endocarditis and septic pulmonary emboli. No fever since night of 10/21 blood cultures positive for MSSA , repeat blood culture 10/20 persistently positive -abx changed from vanco to dapto 10/21- follow LFTs, CPK weekly CT right foot showed no abscess, no osteomyelitis or septic arthritis, CT chest consistent with septic emboli, echo showed tricuspid vegetation, UA neg., COVID negative, respiratory viral panel negative ID recommend 4 weeks of antibiotics - PICC line when BCx negative for 3 days per ID rec if pt has safe dispo surveillance blood cultures pending mild intermittent asthma without acute exacerbation, noted to have chest congestion rhonchi likely due to bilateral pulmonary nodules, septic emboli will place patient on cough medication, updraft treatment and albuterol p.r.n. Polysubstance abuse IV heroin and cocaine abuse being followed by Addiction Team continue methadone , and hydroxyzine prn for withdrawal symptoms U tox positive for fentanyl and cocaine Acute thombocytopenia d/t sepsis, improving Chronic microcytic anemia, stable hematocrit. chronic hepatitis-C -patient desires treatment.? outpatient viral load and treatment if positive homelessness -arrange for safe discharge DVT prophylaxis-SCPs d/t thrombocytopenia Full code Attending - Dr. Burns Patient requires continued inpatient stay for management of persistent bacteremia on IV antibiotics. Time Spent With Patient Time: Total time managing care of this patient today ____ minutes. Quality Stroke Does the patient have a stroke diagnosis?: No VTE Prior VTE?: No VTE Risk Level:: Medical - moderate - high VTE Device Contraindication: Treatment Not Indicated VTE Drug Contraindication: N/A - Med Ordered
[2022-10-23] MEDS: Enoxaparin Sodium 40 MG/0.4 ML SYRINGE SUBCUT (13:46)
[2022-10-23] MEDS: oxyCODONE HCl Immed Release 5 MG TABLET 10 MG PO ×2 (15:07→23:45)
[2022-10-23] MEDS: DAPTOmycin 400 MG in 0.9 % Sodium Chloride 50 ML 100 MG IV (15:08)
--- NOTE | 2022-10-23 15:22 | MHC.CM.PN ---
NEEDS (-) BLOOD CX FOR 3 DAYS PRIOR TO PICC PLACEMENT. WILL NEED LT IV ABX (4 WEEKS) [place] UPDATED
[2022-10-23] MEDS: methADONE HCl 20 MG/2 ML ORAL.CONC 10 MG PO (18:23)
[2022-10-23] MEDS: hydrOXYzine HCL 25 MG TABLET PO (20:13)
[2022-10-24 03:59] VITALS: BP 99/60; PULSE 74; RESP 16; TEMP 36.9; O2SAT 93
--- NOTE | 2022-10-24 04:05 | PC.NURSE ---
repeat blood culture came positive for gram positive cocci, Dr. Soto was made aware.
[2022-10-24] MEDS: Ascorbic Acid 250 MG TABLET PO (07:42)
[2022-10-24] MEDS: Ferrous Sulfate 324 MG TABLET.DR PO (07:42)
[2022-10-24] MEDS: methADONE HCl 20 MG/2 ML ORAL.CONC 50 MG PO (07:43)
[2022-10-24] MEDS: 0.9 % Sodium Chloride Flush 3 ML SYRINGE IVFLUSH ×3 (07:46→23:42)
[2022-10-24] MEDS: oxyCODONE HCl Immed Release 5 MG TABLET 10 MG PO ×4 (07:49→23:39)
[2022-10-24 08:00] VITALS: BP 110/60; PULSE 81; RESP 18; TEMP 37.3; O2SAT 94
[2022-10-24] MEDS: Acetaminophen 325 MG TABLET 650 MG PO ×2 (09:32→15:26)
--- NOTE | 2022-10-24 11:22 | HO.PM.IMPN ---
Subjective Subjective Date of Service: 10/24/22 Interval History: seen and examined this morning follow up for MSSA bacteremia/endocarditis reporting sob with ambulation and pluritic pain no fevers Review of Systems Review of Systems: Yes all other systems are reviewed and are negative Constitutional Constitutional: Denies chills and Denies fever(s) ENT Ears, Nose, Mouth, and Throat: Denies dizziness Cardiovascular Cardiovascular: Denies palpitations Respiratory Respiratory: Reports pain on inspiration and Reports pain with cough Gastrointestinal Gastrointestinal: Denies abdominal pain, Denies nausea and Denies vomiting Neurologic Neurologic: Denies dizziness Endocrine Endocrine: Denies palpitations Physical Exam Vital Signs: Vital Signs: Last Vital Signs Temp 99.2 F 10/24/22 08:00 Pulse 81 10/24/22 08:00 Resp 18 10/24/22 08:00 BP 110/60 10/24/22 08:00 Pulse Ox 94 10/24/22 08:00 O2 Del Method 10/24/22 08:00 BMI result Body Mass Index 20.0 Const: General: alert and awake Nutritional Appearance: thin Orientation/consciousness: patient oriented x3 Resp: Other: course breath sounds b/l Effort & Inspection: normal respiratory effort, able to speak in complete sentences, no respiratory distress and no use of accessory muscles Cardio: Rate: regular rate GI: Inspection: No distended Palpation (GI): Soft to palpation Neuro: General: patient oriented x3 and CN's II-XI intact bilaterally Extrem: General: Yes no pedal edema Objective Data Active Medications Acetaminophen (Acetaminophen 325 Mg Tablet) 650 mg PO Q6H PRN PRN Reason: Pain, Mild, fever Last Admin: 10/24/22 09:32 Dose: 650 mg Documented By: LOVE Albuterol Sulfate (Albuterol Sulfate 90 Mcg 8 Gm Inhaler) 2 puff INHALE Q4H PRN PRN Reason: Shortness Of Breath Last Admin: 10/23/22 00:54 Dose: 2 puff Documented By: YONG Ascorbic Acid (Ascorbic Acid 250 Mg Tablet) 250 mg PO DAILY [facility] Last Admin: 10/24/22 07:42 Dose: 250 mg Documented By: LOVE Albuterol Sulfate 2.5 mg/ (Ipratropium [place] 0.5 mg) 0 mg INHALE RQ6H PRN PRN Reason: shortness of breath/wheezing Enoxaparin Sodium (Enoxaparin Sodium 40 Mg/0.4 Ml Syringe) 40 mg SUBCUT Q24H [facility] Last Admin: 10/23/22 13:46 Dose: 40 mg Documented By: MERCEDES Ferrous Sulfate (Ferrous Sulfate 324 Mg Tablet.Dr) 324 mg PO DAILY [facility] Last Admin: 10/24/22 07:42 Dose: 324 mg Documented By: LOVE Guaifenesin/Dextromethorphan (Guaifenesin Dm 100/10/5 Ml 5 Ml Syrup) 10 ml PO TID [facility] Last Admin: 10/24/22 07:44 Dose: Not Given Documented By: LOVE Non-Admin Reason: Patient Refused Hydroxyzine HCl (Hydroxyzine Hcl 25 Mg Tablet) 25 mg PO Q6H PRN PRN Reason: Anxiety Last Admin: 10/23/22 20:13 Dose: 25 mg Documented By: CASTILFelicitas Daptomycin 400 mg/ Sodium (Chloride) 58 mls @ 116 mls/hr IV Q24H [facility] Last Infusion: 10/23/22 15:53 Dose: 0 mls/hr Documented By: MERCEDES Methadone HCl (Methadone Hcl 20 Mg/2 Ml Oral.Conc) 50 mg PO DAILY [facility] Last Admin: 10/24/22 07:43 Dose: 50 mg Documented By: LOVE Methadone HCl (Methadone Hcl 20 Mg/2 Ml Oral.Conc) 10 mg PO DAILY@1800 [facility] Last Admin: 10/23/22 18:23 Dose: 10 mg Documented By: MERCEDES Ondansetron HCl (Ondansetron Hcl 4 Mg/2 Ml Vial) 4 mg IVPUSH Q8H PRN PRN Reason: Nausea and Vomiting Oxycodone HCl (Oxycodone Hcl Immed Release 5 Mg Tablet) 10 mg PO Q6H PRN PRN Reason: Pain, Severe (Pain Scale 7-10) Last Admin: 10/24/22 07:49 Dose: 10 mg Documented By: LOVE Pharmacy Consult (Consult Rx Perform Med Rec) 1 each MISCELLANE ONCE PRN PRN Reason: Consult order Pharmacy Consult (Consult Rx Vancomycin Dosing) 1 each MISCELLANE DAILY PRN PRN Reason: Consult order Senna (Sennosides 8.6 Mg Tablet) 17.2 mg PO BEDTIME PRN PRN Reason: Constipation Sodium Chloride (0.9 % Sodium Chloride Flush 3 Ml Syringe) 3 ml IVFLUSH QSHIFT [facility] Last Admin: 10/24/22 07:46 Dose: 3 ml Documented By: LOVE Labs 10/23/22 05:27 10/23/22 05:27 Microbiology Microbiology Results: Microbiology 10/23/22 11:23 Blood Culture - Preliminary Blood - Venous Prelim: GPC Gram Stain only 10/23/22 08:06 Blood Culture - Preliminary Blood - Venous Prelim: GPC Gram Stain only 10/20/22 11:56 Blood Culture - Final Blood - Venous Staphylococcus aureus Assessment and Plan (1) Endocarditis due to methicillin susceptible Staphylococcus aureus (MSSA): Status: Acute Plan 36-year-old female with history of asthma, hepatitis-C, polysubstance abuse including IV heroin and cocaine (last use yesterday), history of MRSA, and history of fungal bacteremia who is homeless admitted for fever and severe sepsis of unclear etiology in [facility]. Severe sepsis secondary to Acute tricuspid endocarditis, septic pulmonary emboli and MSSA bacteremia. No fever since night of 10/21 repeat blood culture 10/20 persistently positive - abx changed from vanco to dapto 10/21- follow LFTs, CPK weekly CT right foot showed no abscess, no osteomyelitis or septic arthritis CT chest consistent with septic emboli, echo showed tricuspid vegetation, COVID negative, respiratory viral panel negative ID recommend 4 weeks of antibiotics - PICC line when BCx negative for 3 days per ID rec if pt has safe dispo surveillance blood cultures from 10/23 continue to be positive mild intermittent asthma without acute exacerbation, noted to have chest congestion rhonchi likely due to bilateral pulmonary nodules, septic emboli will place patient on cough medication, updraft treatment and albuterol p.r.n. Polysubstance abuse IV heroin and cocaine abuse being followed by Addiction Team continue methadone , and hydroxyzine prn for withdrawal symptoms U tox positive for fentanyl and cocaine Acute thombocytopenia d/t sepsis, improving Chronic microcytic anemia, stable hematocrit. chronic hepatitis C patient desires treatment - outpatient follow up homelessness -arrange for safe discharge DVT prophylaxis-SCDs Full code Attending - Dr. Huitron Patient requires continued inpatient stay for management of persistent bacteremia on IV antibiotics. Time Spent With Patient Time: Total time managing care of this patient today ____ minutes. Quality Stroke Does the patient have a stroke diagnosis?: No VTE Prior VTE?: No VTE Risk Level:: Medical - moderate - high VTE Device Contraindication: Treatment Not Indicated VTE Drug Contraindication: N/A - Med Ordered
[2022-10-24] MEDS: DAPTOmycin 400 MG in 0.9 % Sodium Chloride 50 ML 116 MG IV (15:26)
[2022-10-24 16:00] VITALS: BP 121/76; PULSE 81; RESP 18; TEMP 37.1; O2SAT 96
[2022-10-24] MEDS: methADONE HCl 20 MG/2 ML ORAL.CONC 10 MG PO (17:11)
[2022-10-24 20:00] VITALS: BP 110/60; PULSE 81; RESP 18; TEMP 36.6; O2SAT 95
[2022-10-25] VITALS (8 sets, daily range): BP systolic 100–122; BP diastolic 56–67; PULSE 72–104; RESP 16–20; TEMP 36.3–38.4; O2SAT 91–98
[2022-10-25] MEDS: Ascorbic Acid 250 MG TABLET PO (08:45)
[2022-10-25] MEDS: Ferrous Sulfate 324 MG TABLET.DR PO (08:45)
[2022-10-25] MEDS: methADONE HCl 20 MG/2 ML ORAL.CONC 50 MG PO (08:46)
[2022-10-25] MEDS: 0.9 % Sodium Chloride Flush 3 ML SYRINGE IVFLUSH ×2 (08:46→15:51)
[2022-10-25] MEDS: Acetaminophen 325 MG TABLET 650 MG PO ×2 (09:01→20:58)
[2022-10-25] MEDS: oxyCODONE HCl Immed Release 5 MG TABLET 10 MG PO ×4 (09:02→21:20)
[2022-10-25] MEDS: Enoxaparin Sodium 40 MG/0.4 ML SYRINGE SUBCUT (13:09)
--- NOTE | 2022-10-25 14:18 | P.PNIM_ITS ---
Subjective Subjective Date of Service: 10/25/22 Interval History: seen and examined this morning follow up for MSSA bacteremia, endocarditis she reports pleuritic pain, difficulty taking big breaths and dyspnea with ambulation reporting subjective fever Review of Systems Review of Systems: Yes all other systems are reviewed and are negative Constitutional Constitutional: Denies chills and Denies fever(s) ENT Ears, Nose, Mouth, and Throat: Denies dizziness Cardiovascular Cardiovascular: Denies palpitations and Reports dyspnea on exertion Respiratory Respiratory: Denies cough, Reports pain on inspiration and Reports dyspnea on exertion Neurologic Neurologic: Denies dizziness Endocrine Endocrine: Denies palpitations Physical Exam Vital Signs: Vital Signs: Last Vital Signs Temp 97.4 F 10/25/22 08:00 Pulse 79 10/25/22 08:00 Resp 16 10/25/22 08:00 BP 117/56 L 10/25/22 08:00 Pulse Ox 92 10/25/22 08:00 O2 Del Method 10/25/22 08:00 BMI result Body Mass Index 20.0 Const: General: comfortable, no acute distress, alert and awake Nutritional Appearance: average body habitus and thin Orientation/consciousness: patient oriented x3 Chest: Chest palpation & inspection: normal inspection of the chest Resp: Other: course breath sounds b/l Effort & Inspection: normal respiratory effort, able to speak in complete sentences, no respiratory distress and no use of accessory muscles Cardio: Rate: regular rate Heart sounds: S1 normal heart sound present and S2 normal heart sound present GI: Inspection: No distended Palpation (GI): Soft to palpation Neuro: General: patient oriented x3 and CN's II-XI intact bilaterally Extrem: General: Yes no pedal edema Objective Data Active Medications Acetaminophen (Acetaminophen 325 Mg Tablet) 650 mg PO Q6H PRN PRN Reason: Pain, Mild, fever Last Admin: 10/25/22 09:01 Dose: 650 mg Documented By: MARYANN Albuterol Sulfate (Albuterol Sulfate 90 Mcg 8 Gm Inhaler) 2 puff INHALE Q4H PRN PRN Reason: Shortness Of Breath Last Admin: 10/23/22 00:54 Dose: 2 puff Documented By: YONG Ascorbic Acid (Ascorbic Acid 250 Mg Tablet) 250 mg PO DAILY [facility] Last Admin: 10/25/22 08:45 Dose: 250 mg Documented By: MARYANN Albuterol Sulfate 2.5 mg/ (Ipratropium [place] 0.5 mg) 0 mg INHALE RQ6H WHILE AWAKE [facility] Enoxaparin Sodium (Enoxaparin Sodium 40 Mg/0.4 Ml Syringe) 40 mg SUBCUT Q24H [facility] Last Admin: 10/25/22 13:09 Dose: 40 mg Documented By: DEMI Ferrous Sulfate (Ferrous Sulfate 324 Mg Tablet.Dr) 324 mg PO DAILY [facility] Last Admin: 10/25/22 08:45 Dose: 324 mg Documented By: MARYANN Guaifenesin/Dextromethorphan (Guaifenesin Dm 100/10/5 Ml 5 Ml Syrup) 10 ml PO TID [facility] Last Admin: 10/25/22 08:46 Dose: Not Given Documented By: MARYANN Non-Admin Reason: Patient Refused Hydroxyzine HCl (Hydroxyzine Hcl 25 Mg Tablet) 25 mg PO Q6H PRN PRN Reason: Anxiety Last Admin: 10/23/22 20:13 Dose: 25 mg Documented By: CASTILM Daptomycin 400 mg/ Sodium (Chloride) 58 mls @ 116 mls/hr IV Q24H [facility] Last Infusion: 10/24/22 16:08 Dose: 0 mls/hr Documented By: LOVE Methadone HCl (Methadone Hcl 20 Mg/2 Ml Oral.Conc) 50 mg PO DAILY [facility] Last Admin: 10/25/22 08:46 Dose: 50 mg Documented By: MARYANN Methadone HCl (Methadone Hcl 20 Mg/2 Ml Oral.Conc) 10 mg PO DAILY@1800 [facility] Last Admin: 10/24/22 17:11 Dose: 10 mg Documented By: LOVE Ondansetron HCl (Ondansetron Hcl 4 Mg/2 Ml Vial) 4 mg IVPUSH Q8H PRN PRN Reason: Nausea and Vomiting Oxycodone HCl (Oxycodone Hcl Immed Release 5 Mg Tablet) 10 mg PO Q4H PRN PRN Reason: Pain, Severe (Pain Scale 7-10) Last Admin: 10/25/22 13:09 Dose: 10 mg Documented By: DEMI Pharmacy Consult (Consult Rx Perform Med Rec) 1 each MISCELLANE ONCE PRN PRN Reason: Consult order Pharmacy Consult (Consult Rx Vancomycin Dosing) 1 each MISCELLANE DAILY PRN PRN Reason: Consult order Senna (Sennosides 8.6 Mg Tablet) 17.2 mg PO BEDTIME PRN PRN Reason: Constipation Sodium Chloride (0.9 % Sodium Chloride Flush 3 Ml Syringe) 3 ml IVFLUSH QSHIFT [facility] Last Admin: 10/25/22 08:46 Dose: 3 ml Documented By: MARYANN Labs 10/23/22 05:27 10/23/22 05:27 Microbiology Microbiology Results: Microbiology 10/23/22 11:23 Blood Culture - Preliminary Blood - Venous Staphylococcus aureus 10/23/22 08:06 Blood Culture - Preliminary Blood - Venous Staphylococcus aureus Assessment and Plan (1) 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 Severe sepsis secondary to Acute tricuspid endocarditis, septic pulmonary emboli and MSSA bacteremia. No fever since night of 10/21 repeat blood culture 10/20 persistently positive - abx changed from vanco to dapto 10/21- follow LFTs, CPK weekly CT right foot showed no abscess, no osteomyelitis or septic arthritis CT chest consistent with septic emboli, echo showed tricuspid vegetation, COVID negative, respiratory viral panel negative ID recommend 4 weeks of antibiotics - PICC line when BCx negative for 3 days per ID rec if pt has safe dispo surveillance blood cultures from 10/23 continue to be positive, d/w ID plan to repeat BCx 10/26 (ordered) repeat CXR showing mild improvement, still reporting WILLIS, will check BNP, and limited echo to re-assess valve mild intermittent asthma without acute exacerbation, noted to have chest congestion rhonchi likely due to bilateral pulmonary nodules, septic emboli will place patient on cough medication, updraft treatment and albuterol p.r.n. Polysubstance abuse IV heroin and cocaine abuse being followed by Addiction Team continue methadone , and hydroxyzine prn for withdrawal symptoms U tox positive for fentanyl and cocaine Acute thombocytopenia d/t sepsis, improving Chronic microcytic anemia, stable hematocrit. chronic hepatitis C patient desires treatment - outpatient follow up homelessness -arrange for safe discharge DVT prophylaxis-SCDs Full code Attending - Dr. Hurst Patient requires continued inpatient stay for management of persistent bacteremia on IV antibiotics. Time Spent With Patient Time: Total time managing care of this patient today ____ minutes. Quality Stroke Does the patient have a stroke diagnosis?: No VTE Prior VTE?: No VTE Risk Level:: Medical - moderate - high VTE Device Contraindication: Treatment Not Indicated VTE Drug Contraindication: N/A - Med Ordered
[2022-10-25] MEDS: DAPTOmycin 400 MG in 0.9 % Sodium Chloride 50 ML 116 MG IV (14:23)
[2022-10-25] MEDS: methADONE HCl 20 MG/2 ML ORAL.CONC 10 MG PO (17:14)
--- NOTE | 2022-10-25 21:25 | PC.NURSE ---
Fever 101.2,Tylenol administered,Sat 90% on RA ,Oxygen placed on at 2 L ,sat 94% ,Dr. Soto notified
--- NOTE | 2022-10-25 21:57 | PC.NURSE ---
RN informed patient about new doctors orders,CXR,lab work.
[2022-10-25 22:51] LABS: Lactic Acid 1.3 mmol/L (0.5-2.0)
[2022-10-26] MEDS: 0.9 % Sodium Chloride Flush 3 ML SYRINGE IVFLUSH ×4 (00:15→22:13)
[2022-10-26 03:13] VITALS: BP 101/55; PULSE 71; RESP 18; TEMP 36.9; O2SAT 95
--- NOTE | 2022-10-26 07:00 | CA_ITS ---
Transthoracic Echocardiogram Limited Patient (Last, First, Middle): November, Gender: Female Date of : 1985 Age: 36 Procedure Date: 10/26/2022 Procedure Type: Transthoracic Echocardiogram Limited Location: S3E Height: 154.94 cm Weight: 48.08 kg BSA: 1.44 m2 Heart Rate: bpm BP: 101 / 55 mmHg Primary Education Professor: Referring MD: Ale CLINE Speech Language Pathologist Assistant: Dorian Crespo MD Symptoms: tricuspid endocarditis; WILLIS - re-eval valve Study Quality: Good ECG Rhythm: Sinus Conclusions: - Large vegetation on the tricuspid valve with [id number] tricuspid regurgitation without pulmonary hypertension Findings Left Ventricle Normal left ventricular size, thickness, and systolic function. The visually estimated ejection fraction is between 60-65%. Spectral Doppler is indicative of a normal filling pattern. Tricuspid Valve There is mild to moderate tricuspid valve regurgitation. The right ventricular systolic pressure is normal. There is no evidence of pulmonary hypertension. Measurements 2D Linear Measurements IVSd: 0.79 0.6-0.9/0.6-1.0 cm LVIDd: 4.23 3.9-5.3/4.2-5.9 cm LVIDd Index: 2.94 2.4-3.2/2.2-3.1 cm/m2 LVIDs: 2.62 2.0-3.6 cm LVPWd: 0.78 0.7-1.1 cm LV Mass: 124.41 67-162/88-224 g LV Mass Index: 86.40 43-95/49-115 g/m2 Tricuspid Valve TR Pk Cristian: 2.70 TR Pk Grad: 29.00 RA Press: 3.00 RVSP: 32.00 Updated in Other Vendor System with Status of Final Dorian Crespo MD electronically signed on 10/26/2022 12:29:14 PM with status of Final
[2022-10-26 08:21] VITALS: BP 104/50; PULSE 79; RESP 17; TEMP 38.1; O2SAT 92
[2022-10-26] MEDS: Acetaminophen 325 MG TABLET 650 MG PO ×3 (09:40→22:14)
[2022-10-26] MEDS: oxyCODONE HCl Immed Release 5 MG TABLET 10 MG PO ×3 (09:40→20:46)
[2022-10-26] MEDS: methADONE HCl 20 MG/2 ML ORAL.CONC 50 MG PO (09:41)
[2022-10-26] MEDS: Ferrous Sulfate 324 MG TABLET.DR PO (09:41)
[2022-10-26] MEDS: Ascorbic Acid 250 MG TABLET PO (09:41)
--- NOTE | 2022-10-26 11:07 | P.PNIM_ITS ---
Subjective Subjective Date of Service: 10/26/22 Interval History: seen and examined this morning follow up for MSSA bacteremia, endocarditis she reports pleuritic pain, difficulty taking big breaths and dyspnea with ambulation reporting subjective fever Review of Systems Review of Systems: Yes all other systems are reviewed and are negative Constitutional Constitutional: Denies chills and Denies fever(s) ENT Ears, Nose, Mouth, and Throat: Denies dizziness Cardiovascular Cardiovascular: Denies palpitations and Reports dyspnea on exertion Respiratory Respiratory: Denies cough, Reports pain on inspiration and Reports dyspnea on exertion Neurologic Neurologic: Denies dizziness Endocrine Endocrine: Denies palpitations Physical Exam Vital Signs: Vital Signs: Last Vital Signs Temp 100.5 F H 10/26/22 08:21 Pulse 79 10/26/22 08:21 Resp 17 10/26/22 08:21 BP 104/50 L 10/26/22 08:21 Pulse Ox 92 10/26/22 08:21 O2 Del Method 10/26/22 08:21 O2 Flow Rate 2 10/25/22 21:09 BMI result Body Mass Index 20.0 Appearing in no acute distress lung sounds are clear to auscultation heart regular rate rhythm, clear S1, S2 positive bowel sounds, abdomen is soft, nontender neuro patient is alert x3, no focal deficits Objective Data Active Medications Acetaminophen (Acetaminophen 325 Mg Tablet) 650 mg PO Q6H PRN PRN Reason: Pain, Mild, fever Last Admin: 10/26/22 09:40 Dose: 650 mg Documented By: MERCEDES Albuterol Sulfate (Albuterol Sulfate 90 Mcg 8 Gm Inhaler) 2 puff INHALE Q4H PRN PRN Reason: Shortness Of Breath Last Admin: 10/23/22 00:54 Dose: 2 puff Documented By: YONG Ascorbic Acid (Ascorbic Acid 250 Mg Tablet) 250 mg PO DAILY [facility] Last Admin: 10/26/22 09:41 Dose: 250 mg Documented By: MERCEDES Albuterol Sulfate 2.5 mg/ (Ipratropium [place] 0.5 mg) 0 mg INHALE RQ6H WHILE AWAKE REPLACED [facility] Last Admin: 10/26/22 08:54 Dose: Not Given Documented By: RISA Non-Admin Reason: Patient Asleep Enoxaparin Sodium (Enoxaparin Sodium 40 Mg/0.4 Ml Syringe) 40 mg SUBCUT Q24H [facility]PL[facility] Last Admin: 10/25/22 13:09 Dose: 40 mg Documented By: DEMI Ferrous Sulfate (Ferrous Sulfate 324 Mg Tablet.Dr) 324 mg PO DAILY [facility] Last Admin: 10/26/22 09:41 Dose: 324 mg Documented By: MERCEDES Guaifenesin/Dextromethorphan (Guaifenesin Dm 100/10/5 Ml 5 Ml Syrup) 10 ml PO TID [facility]PLAC[facility] Last Admin: 10/26/22 09:42 Dose: Not Given Documented By: MERCEDES Non-Admin Reason: Patient Refused Hydroxyzine HCl (Hydroxyzine Hcl 25 Mg Tablet) 25 mg PO Q6H PRN PRN Reason: Anxiety Last Admin: 10/23/22 20:13 Dose: 25 mg Documented By: EMERSON Daptomycin 400 mg/ Sodium (Chloride) 58 mls @ 116 mls/hr IV Q24H REPLACED BY [facility] Last Infusion: 10/25/22 15:45 Dose: 0 mls/hr Documented By: HAYLEE Methadone HCl (Methadone Hcl 20 Mg/2 Ml Oral.Conc) 50 mg PO DAILY [facility] Last Admin: 10/26/22 09:41 Dose: 50 mg Documented By: MERCEDES Methadone HCl (Methadone Hcl 20 Mg/2 Ml Oral.Conc) 10 mg PO DAILY@1800 [facility] Last Admin: 10/25/22 17:14 Dose: 10 mg Documented By: HAYLEE Ondansetron HCl (Ondansetron Hcl 4 Mg/2 Ml Vial) 4 mg IVPUSH Q8H PRN PRN Reason: Nausea and Vomiting Oxycodone HCl (Oxycodone Hcl Immed Release 5 Mg Tablet) 10 mg PO Q4H PRN PRN Reason: Pain, Severe (Pain Scale 7-10) Last Admin: 10/26/22 09:40 Dose: 10 mg Documented By: MERCEDES Pharmacy Consult (Consult Rx Perform Med Rec) 1 each MISCELLANE ONCE PRN PRN Reason: Consult order Pharmacy Consult (Consult Rx Vancomycin Dosing) 1 each MISCELLANE DAILY PRN PRN Reason: Consult order Senna (Sennosides 8.6 Mg Tablet) 17.2 mg PO BEDTIME PRN PRN Reason: Constipation Sodium Chloride (0.9 % Sodium Chloride Flush 3 Ml Syringe) 3 ml IVFLUSH QSHIFT [facility] Last Admin: 10/26/22 09:41 Dose: 3 ml Documented By: MERCEDES Labs 10/23/22 05:27 10/23/22 05:27 Labs: Laboratory Results - last 24 hr 10/25/22 22:08 Lactic Acid 1.3 Microbiology Microbiology Results: Microbiology 10/23/22 11:23 Blood Culture - Final Blood - Venous Staphylococcus aureus 10/23/22 08:06 Blood Culture - Final Blood - Venous Staphylococcus aureus Assessment and Plan (1) Endocarditis due to methicillin susceptible Staphylococcus aureus (MSSA): Status: Acute (2) Septic pulmonary embolism: Status: Acute (3) Polysubstance abuse: Status: Acute Plan 36-year-old female with history of asthma, hepatitis-C, polysubstance abuse including IV heroin and cocaine (last use yesterday), history of MRSA, and history of fungal bacteremia who is homeless admitted for fever and severe sepsis of unclear etiology in [facility]. Severe sepsis secondary to Acute tricuspid endocarditis, septic pulmonary emboli and MSSA bacteremia. abx changed from vanco to dapto 10/21 CT right foot showed no abscess, no osteomyelitis or septic arthritis CT chest consistent with septic emboli, echo showed tricuspid vegetation ID recommend 4 weeks of antibiotics - PICC line when BCx negative for 3 days per ID surveillance blood cultures from 10/23 continue to be positive, d/w ID plan to repeat BCx 10/26 (ordered) repeat CXR showing mild improvement, still reporting WILLIS, will check BNP, and limited echo to re-assess valve mild intermittent asthma without acute exacerbation, noted to have chest congestion rhonchi likely due to bilateral pulmonary nodules, septic emboli will place patient on cough medication, updraft treatment and albuterol p.r.n. Polysubstance abuse IV heroin and cocaine abuse being followed by Addiction Team continue methadone , and hydroxyzine prn for withdrawal symptoms U tox positive for fentanyl and cocaine Acute thombocytopenia d/t sepsis, improving Chronic microcytic anemia stable hematocrit. chronic hepatitis C patient desires treatment - outpatient follow up homelessness -arrange for safe discharge DVT prophylaxis-SCDs Full code Attending - Dr. Burns Patient requires continued inpatient stay for management of persistent bacteremia on IV antibiotics. Time Spent With Patient Time: Total time managing care of this patient today ____ minutes. Quality Stroke Does the patient have a stroke diagnosis?: No VTE Prior VTE?: No VTE Risk Level:: Medical - moderate - high VTE Device Contraindication: Treatment Not Indicated VTE Drug Contraindication: N/A - Med Ordered
--- NOTE | 2022-10-26 11:54 | MHC.CM.PN ---
PATIENT STILL WITH (+) BLOOD CULTURES. NO PLAN FOR PICC PLACEMENT UNTIL SHE IS 3 DAYS WITH (-) RESULTS
[2022-10-26 13:35] LABS: Hematocrit 31.2 % (37.0-47.0); Hemoglobin 9.9 g/dl (12.0-16.0); Mean Corpuscular HGB Conc 31.7 g/dl (31.0-35.0); Mean Corpuscular Hemoglobin 25.4 pg (27.0-33.0); Mean Platelet Volume 10.6 fL (9.4-12.3); Platelet Count 345 X10*3/uL (160-400); Red Cell Distribution Width 14.8 % (11.0-16.0); White Blood Count 13.6 X10*3/uL (4.8-10.8)
[2022-10-26 13:48] LABS: Anion Gap 12 (12-20); Blood Urea Nitrogen 16 mg/dL (9-16); Calcium 8.4 mg/dL (8.4-10.2); Carbon Dioxide 30 mmol/L (22-29); Chloride 100 mmol/L (96-108); Creatinine Clr Calc Pharmacy 80.3; Estimated Glomerular Filt Rate > 60; Glucose Random 134 mg/dL (60-115); Potassium 4.5 mmol/L (3.3-5.1); Sodium 137 mmol/L (135-145)
[2022-10-26 13:56] LABS: B Type Natriuretic Peptide 20 pg/mL (<100)
[2022-10-26] MEDS: Enoxaparin Sodium 40 MG/0.4 ML SYRINGE SUBCUT (13:56)
[2022-10-26 15:30] VITALS: RESP 15; O2SAT 93
[2022-10-26] MEDS: DAPTOmycin 400 MG in 0.9 % Sodium Chloride 50 ML 116 MG IV (15:41)
[2022-10-26 16:00] VITALS: BP 110/62; PULSE 80; RESP 16; TEMP 37.2; O2SAT 92
[2022-10-26] MEDS: methADONE HCl 20 MG/2 ML ORAL.CONC 10 MG PO (17:50)
[2022-10-26 19:42] VITALS: PULSE 84; RESP 16; O2SAT 92
[2022-10-26 20:18] VITALS: BP 124/64; PULSE 92; RESP 16; TEMP 37.6; O2SAT 94
[2022-10-27 03:42] VITALS: BP 116/69; PULSE 73; RESP 16; TEMP 37.1; O2SAT 96
--- NOTE | 2022-10-27 07:30 | HO.PM.IMPN ---
Subjective Subjective Date of Service: 10/27/22 Interval History: seen and examined this morning follow up for MSSA bacteremia, endocarditis reporting subjective fever Review of Systems Review of Systems: Yes all other systems are reviewed and are negative Constitutional Constitutional: Denies chills and Denies fever(s) ENT Ears, Nose, Mouth, and Throat: Denies dizziness Cardiovascular Cardiovascular: Denies palpitations and Reports dyspnea on exertion Respiratory Respiratory: Denies cough, Reports pain on inspiration and Reports dyspnea on exertion Neurologic Neurologic: Denies dizziness Endocrine Endocrine: Denies palpitations Physical Exam Vital Signs: Vital Signs: Last Vital Signs Temp 98.8 F 10/27/22 03:42 Pulse 73 10/27/22 03:42 Resp 16 10/27/22 03:42 BP 116/69 10/27/22 03:42 Pulse Ox 96 10/27/22 03:42 O2 Del Method 10/27/22 03:42 O2 Flow Rate 2 10/25/22 21:09 BMI result Body Mass Index 20.0 Appearing in no acute distress lung sounds are clear to auscultation heart regular rate rhythm, clear S1, S2 positive bowel sounds, abdomen is soft, nontender neuro patient is alert x3, no focal deficits Objective Data Active Medications Acetaminophen (Acetaminophen 325 Mg Tablet) 650 mg PO Q6H PRN PRN Reason: Pain, Mild, fever Last Admin: 10/26/22 22:14 Dose: 650 mg Documented By: WESLEY Albuterol Sulfate (Albuterol Sulfate 90 Mcg 8 Gm Inhaler) 2 puff INHALE Q4H PRN PRN Reason: Shortness Of Breath Last Admin: 10/23/22 00:54 Dose: 2 puff Documented By: YONG Ascorbic Acid (Ascorbic Acid 250 Mg Tablet) 250 mg PO DAILY [facility] Last Admin: 10/26/22 09:41 Dose: 250 mg Documented By: MERCEDES Albuterol Sulfate 2.5 mg/ (Ipratropium [place] 0.5 mg) 0 mg INHALE RQ6H WHILE AWAKE [facility] Last Admin: 10/26/22 19:42 Dose: 2.5 each Documented By: YONG Enoxaparin Sodium (Enoxaparin Sodium 40 Mg/0.4 Ml Syringe) 40 mg SUBCUT Q24H [facility] Last Admin: 10/26/22 13:56 Dose: 40 mg Documented By: DEMI Ferrous Sulfate (Ferrous Sulfate 324 Mg Tablet.) 324 mg PO DAILY [facility] Last Admin: 10/26/22 09:41 Dose: 324 mg Documented By: MERCEDES Guaifenesin/Dextromethorphan (Guaifenesin Dm 100/10/5 Ml 5 Ml Syrup) 10 ml PO TID [facility] Last Admin: 10/26/22 20:46 Dose: Not Given Documented By: WESLEY Non-Admin Reason: Patient Refused Hydroxyzine HCl (Hydroxyzine Hcl 25 Mg Tablet) 25 mg PO Q6H PRN PRN Reason: Anxiety Last Admin: 10/23/22 20:13 Dose: 25 mg Documented By: CASTILM Daptomycin 400 mg/ Sodium (Chloride) 58 mls @ 116 mls/hr IV Q24H [facility] Last Infusion: 10/26/22 16:18 Dose: 0 mls/hr Documented By: MERCEDES Methadone HCl (Methadone Hcl 20 Mg/2 Ml Oral.Conc) 50 mg PO DAILY [facility] Last Admin: 10/26/22 09:41 Dose: 50 mg Documented By: MERCEDES Methadone HCl (Methadone Hcl 20 Mg/2 Ml Oral.Conc) 10 mg PO DAILY@1800 [facility] Last Admin: 10/26/22 17:50 Dose: 10 mg Documented By: MERCEDES Ondansetron HCl (Ondansetron Hcl 4 Mg/2 Ml Vial) 4 mg IVPUSH Q8H PRN PRN Reason: Nausea and Vomiting Oxycodone HCl (Oxycodone Hcl Immed Release 5 Mg Tablet) 10 mg PO Q4H PRN PRN Reason: Pain, Severe (Pain Scale 7-10) Last Admin: 10/26/22 20:46 Dose: 10 mg Documented By: WESLEY Pharmacy Consult (Consult Rx Perform Med Rec) 1 each MISCELLANE ONCE PRN PRN Reason: Consult order Pharmacy Consult (Consult Rx Vancomycin Dosing) 1 each MISCELLANE DAILY PRN PRN Reason: Consult order Senna (Sennosides 8.6 Mg Tablet) 17.2 mg PO BEDTIME PRN PRN Reason: Constipation Sodium Chloride (0.9 % Sodium Chloride Flush 3 Ml Syringe) 3 ml IVFLUSH QSHIFT [facility] Last Admin: 10/26/22 22:13 Dose: 3 ml Documented By: WESLEY Labs 10/26/22 13:30 10/26/22 13:30 Labs: Laboratory Results - last 24 hr 10/26/22 10/26/22 10/26/22 13:30 13:30 13:30 MCV 80.0 MCH 25.4 L MCHC 31.7 RDW 14.8 Plt Count 345 D MPV 10.6 Absolute Nucleated RBC 0.000 Nucleated RBC % (auto) 0.0 Anion Gap 12 Estim Creat Clear Calc 80.3 Estimated GFR > 60 Random Glucose 134 H Calcium 8.4 B-Natriuretic Peptide 20 Microbiology Microbiology Results: Microbiology 10/25/22 22:08 Blood Culture - Preliminary Blood - Venous No growth after 24 hours. 10/26/22 06:00 Blood Culture - Final Blood - Venous 10/26/22 06:00 Blood Culture - Final Blood - Venous 10/23/22 11:23 Blood Culture - Final Blood - Venous Staphylococcus aureus 10/23/22 08:06 Blood Culture - Final Blood - Venous Staphylococcus aureus Assessment and Plan (1) Endocarditis due to methicillin susceptible Staphylococcus aureus (MSSA): Status: Acute (2) Septic pulmonary embolism: Status: Acute (3) Polysubstance abuse: Status: Acute Plan 36-year-old female with history of asthma, hepatitis-C, polysubstance abuse including IV heroin and cocaine (last use yesterday), history of MRSA, and history of fungal bacteremia who is homeless admitted for fever and severe sepsis of unclear etiology in [facility]. Severe sepsis secondary to Acute tricuspid endocarditis, septic pulmonary emboli and MSSA bacteremia. abx changed from vanco to dapto 10/21 CT right foot showed no abscess, no osteomyelitis or septic arthritis CT chest consistent with septic emboli, echo showed tricuspid vegetation ID recommend 4 weeks of antibiotics - PICC line when BCx negative for 3 days per ID surveillance blood cultures from 10/23 continue to be positive, d/w ID plan to repeat BCx 10/26 (ordered) repeat Echo still showing vegetation blood cx pending mild intermittent asthma without acute exacerbation, noted to have chest congestion rhonchi likely due to bilateral pulmonary nodules, septic emboli will place patient on cough medication, updraft treatment and albuterol p.r.n. Polysubstance abuse IV heroin and cocaine abuse being followed by Addiction Team continue methadone , and hydroxyzine prn for withdrawal symptoms U tox positive for fentanyl and cocaine Acute thombocytopenia d/t sepsis, improving Chronic microcytic anemia stable hematocrit. chronic hepatitis C patient desires treatment - outpatient follow up homelessness -arrange for safe discharge DVT prophylaxis-SCDs Full code Attending - Dr. Burns Patient requires continued inpatient stay for management of persistent bacteremia on IV antibiotics. Time Spent With Patient Time: Total time managing care of this patient today ____ minutes. Quality Stroke Does the patient have a stroke diagnosis?: No VTE Prior VTE?: No VTE Risk Level:: Medical - moderate - high VTE Device Contraindication: Treatment Not Indicated VTE Drug Contraindication: N/A - Med Ordered
[2022-10-27 08:00] VITALS: BP 109/56; PULSE 81; RESP 16; TEMP 37.9; O2SAT 95
[2022-10-27 08:23] VITALS: PULSE 73; RESP 15; O2SAT 96
[2022-10-27] MEDS: methADONE HCl 20 MG/2 ML ORAL.CONC 50 MG PO (09:47)
[2022-10-27] MEDS: Ascorbic Acid 250 MG TABLET PO (09:48)
[2022-10-27] MEDS: Ferrous Sulfate 324 MG TABLET.DR PO (09:48)
[2022-10-27] MEDS: Acetaminophen 325 MG TABLET 650 MG PO ×2 (09:48→18:23)
[2022-10-27] MEDS: oxyCODONE HCl Immed Release 5 MG TABLET 10 MG PO ×2 (09:50→18:23)
[2022-10-27] MEDS: hydrOXYzine HCL 25 MG TABLET PO ×2 (09:50→18:23)
[2022-10-27] MEDS: 0.9 % Sodium Chloride Flush 3 ML SYRINGE IVFLUSH (09:54)
[2022-10-27] MEDS: DAPTOmycin 400 MG in 0.9 % Sodium Chloride 50 ML 116 MG IV (14:04)
[2022-10-27 16:00] VITALS: BP 110/57; PULSE 71; RESP 18; TEMP 36.4; O2SAT 94
--- NOTE | 2022-10-27 16:07 | P.PNADD_ITS ---
Subjective Subjective Date of Service: 10/27/22 Reason For Visit: abscess, fever, ivda Interim History: Patient seen in follow up Current methadone dose is 50mg in AM and 10mg at 6pm. Patient appearing much more comfortable than previous visits. Awake, alert, dressed with hair and makeup done, sitting by the window in her room, ambulating without issue. Discussed current methadone dosing and plan to d/c evening dose and have entire dose in AM. Patient agreeable. Review of Systems Constitutional: Reports as per HPI and Reports no additional constitutional complaints Mental Status Exam Mental Status Exam Patient Appearance: Well Grooomed and Appropriate Patient Orientation: Person, Place, Time and Situation Level of Consciousness: Awake, Appropriate and Alert Patient Behavior: Appropriate and Talkative Mood Description: Calm Speech Pattern: Clear Judgement: Fair Diagnostics Vital Signs (24Hr): Vital Signs - 24 hr 10/26/22 19:42 10/26/22 20:18 10/27/22 03:42 Temperature 99.6 F 98.8 F Pulse Rate 84 92 73 Respiratory Rate 16 16 16 Blood Pressure 124/64 116/69 Pulse Oximetry 94 96 Oxygen Delivery Method Room Air Room Air 10/27/22 08:23 10/27/22 08:00 Temperature 100.2 F Pulse Rate 73 81 Respiratory Rate 15 16 Blood Pressure 109/56 L Pulse Oximetry 95 Oxygen Delivery Method Room Air BMI result Body Mass Index 20.0 Labs 10/26/22 13:30 10/26/22 13:30 Labs: Laboratory Results - last 48 hr 10/25/22 10/26/22 10/26/22 22:08 13:30 13:30 WBC 13.6 H RBC 3.90 L Hgb 9.9 L Hct 31.2 L MCV 80.0 MCH 25.4 L MCHC 31.7 RDW 14.8 Plt Count 345 D MPV 10.6 Absolute Nucleated RBC 0.000 Nucleated RBC % (auto) 0.0 Sodium 137 Potassium 4.5 Chloride 100 Carbon Dioxide 30 H Anion Gap 12 BUN 16 Creatinine 0.73 Estim Creat Clear Calc 80.3 Estimated GFR > 60 Random Glucose 134 H Lactic Acid 1.3 Calcium 8.4 B-Natriuretic Peptide 10/26/22 13:30 WBC RBC Hgb Hct MCV MCH MCHC RDW Plt Count MPV Absolute Nucleated RBC Nucleated RBC % (auto) Sodium Potassium Chloride Carbon Dioxide Anion Gap BUN Creatinine Estim Creat Clear Calc Estimated GFR Random Glucose Lactic Acid Calcium B-Natriuretic Peptide 20 Imaging Radiology Impressions: ITS Impressions Foot X-Ray 10/17/22 07:40 IMPRESSION: Normal plain film examination of the right foot. Chest X-Ray 10/17/22 08:35 IMPRESSION: Right lung disease with interstitial and more confluent airspace component which may be infectious in etiology with small focus of confluent pneumonitis. Chest CT 10/17/22 18:15 IMPRESSION: Bilateral pulmonary nodules. Larger pulmonary nodules are cavitary. Infectious, inflammatory and neoplastic processes should be considered. Probable right middle lobe pulmonary emboli. In particular, septic emboli should be considered. Fleischner guidelines were followed. Findings were communicated to Dr. Schultz by telephone on 08/16/2023 at 6:[address] 10/17/22 18:15 IMPRESSION: Question small amount of fluid at the first MTP joint and adjacent to the medial first metatarsal head and adjacent soft tissue swelling. No soft tissue foreign body or evidence of osteomyelitis or septic arthritis seen. Chest X-Ray 10/24/22 10:28 IMPRESSION: Bilateral patchy opacities appear minimally improved. Please refer to the most recent CT scan for more detailed findings. Continued short-term radiographic follow-up is recommended as clinically indicated. Chest X-Ray 10/25/22 22:05 IMPRESSION: No significant interval change when compared to yesterday's study. Bilateral pulmonary opacities. Medications Medications Current Medications Acetaminophen (Acetaminophen 325 Mg Tablet) 650 mg PO Q6H PRN PRN Reason: Pain, Mild, fever Last Admin: 10/27/22 09:48 Dose: 650 mg Albuterol Sulfate (Albuterol Sulfate 90 Mcg 8 Gm Inhaler) 2 puff INHALE Q4H PRN PRN Reason: Shortness Of Breath Last Admin: 10/23/22 00:54 Dose: 2 puff Ascorbic Acid (Ascorbic Acid 250 Mg Tablet) 250 mg PO DAILY [facility] Last Admin: 10/27/22 09:48 Dose: 250 mg Albuterol Sulfate 2.5 mg/ (Ipratropium [place] 0.5 mg) 0 mg INHALE RQ6H WHILE AWAKE [facility] Last Admin: 10/27/22 15:21 Dose: Not Given Enoxaparin Sodium (Enoxaparin Sodium 40 Mg/0.4 Ml Syringe) 40 mg SUBCUT Q24H [facility] Last Admin: 10/27/22 14:04 Dose: Not Given Ferrous Sulfate (Ferrous Sulfate 324 Mg Tablet.Dr) 324 mg PO DAILY [facility] Last Admin: 10/27/22 09:48 Dose: 324 mg Guaifenesin/Dextromethorphan (Guaifenesin Dm 100/10/5 Ml 5 Ml Syrup) 10 ml PO TID [facility] Last Admin: 10/27/22 14:11 Dose: Not Given Hydroxyzine HCl (Hydroxyzine Hcl 25 Mg Tablet) 25 mg PO Q6H PRN PRN Reason: Anxiety Last Admin: 10/27/22 09:50 Dose: 25 mg Daptomycin 400 mg/ Sodium (Chloride) 58 mls @ 116 mls/hr IV Q24H [facility] Last Infusion: 10/27/22 14:20 Dose: 0 mls/hr Methadone HCl (Methadone Hcl 20 Mg/2 Ml Oral.Conc) 50 mg PO DAILY [facility] Last Admin: 10/27/22 09:47 Dose: 50 mg Methadone HCl (Methadone Hcl 20 Mg/2 Ml Oral.Conc) 10 mg PO DAILY@1800 [facility] Last Admin: 10/26/22 17:50 Dose: 10 mg Ondansetron HCl (Ondansetron Hcl 4 Mg/2 Ml Vial) 4 mg IVPUSH Q8H PRN PRN Reason: Nausea and Vomiting Oxycodone HCl (Oxycodone Hcl Immed Release 5 Mg Tablet) 10 mg PO Q4H PRN PRN Reason: Pain, Severe (Pain Scale 7-10) Last Admin: 10/27/22 09:50 Dose: 10 mg Pharmacy Consult (Consult Rx Perform Med Rec) 1 each MISCELLANE ONCE PRN PRN Reason: Consult order Senna (Sennosides 8.6 Mg Tablet) 17.2 mg PO BEDTIME PRN PRN Reason: Constipation Sodium Chloride (0.9 % Sodium Chloride Flush 3 Ml Syringe) 3 ml IVFLUSH QSHIFT [facility] Last Admin: 10/27/22 09:54 Dose: 3 ml Allergies Allergies Allergy/AdvReac Type Severity Reaction Status Date / Time bee pollen [Bee Stings] Allergy Unknown SWELLING Verified 09/23/21 20:39 AT SITE morphine [Morphine] Allergy Unknown SKIN Verified 09/23/21 20:39 BUBBLED Penicillins Allergy Unknown HIVES Verified 09/23/21 20:39 BREATHING PBROBLEM Assessment & Plan Assessment & Plan (1) Opioid use disorder: Status: Acute Code(s): F11.90 - Opioid use, unspecified, uncomplicated Assessment and Plan: * methadone dose to be combined tomorrow morning to 60mg * d/c 10mg in evening * will continue to follow Total time managing care of this patient today __25__ minutes.
[2022-10-27] MEDS: methADONE HCl 20 MG/2 ML ORAL.CONC 10 MG PO (18:22)
[2022-10-27 19:55] VITALS: PULSE 79; RESP 18; O2SAT 94
[2022-10-27 20:00] VITALS: BP 111/58; PULSE 64; RESP 18; TEMP 36.6; O2SAT 95
[2022-10-28 03:26] VITALS: BP 103/55; PULSE 80; RESP 16; TEMP 37.1; O2SAT 94
[2022-10-28] MEDS: Acetaminophen 325 MG TABLET 650 MG PO ×3 (03:58→21:49)
[2022-10-28] MEDS: oxyCODONE HCl Immed Release 5 MG TABLET 10 MG PO ×4 (03:58→21:50)
[2022-10-28] MEDS: hydrOXYzine HCL 25 MG TABLET PO ×2 (03:58→14:13)
[2022-10-28 07:47] VITALS: BP 94/60; PULSE 61; RESP 16; TEMP 36.1; O2SAT 97
[2022-10-28] MEDS: Ferrous Sulfate 324 MG TABLET.DR PO (09:54)
[2022-10-28] MEDS: Ascorbic Acid 250 MG TABLET PO (09:54)
[2022-10-28] MEDS: methADONE HCl 20 MG/2 ML ORAL.CONC 60 MG PO (09:55)
--- NOTE | 2022-10-28 09:57 | P.PNIM_ITS ---
Subjective Subjective Date of Service: 10/28/22 Interval History: seen and examined this morning follow up for MSSA bacteremia, endocarditis reporting subjective fever Review of Systems Review of Systems: Yes all other systems are reviewed and are negative Constitutional Constitutional: Denies chills and Denies fever(s) ENT Ears, Nose, Mouth, and Throat: Denies dizziness Cardiovascular Cardiovascular: Denies palpitations and Reports dyspnea on exertion Respiratory Respiratory: Denies cough, Reports pain on inspiration and Reports dyspnea on exertion Neurologic Neurologic: Denies dizziness Endocrine Endocrine: Denies palpitations Physical Exam Vital Signs: Vital Signs: Last Vital Signs Temp 96.9 F 10/28/22 07:47 Pulse 61 10/28/22 07:47 Resp 16 10/28/22 07:47 BP 94/60 10/28/22 07:47 Pulse Ox 97 10/28/22 07:47 O2 Del Method 10/28/22 07:47 O2 Flow Rate 2 10/25/22 21:09 BMI result Body Mass Index 20.0 Appearing in no acute distress lung sounds are clear to auscultation heart regular rate rhythm, clear S1, S2 positive bowel sounds, abdomen is soft, nontender neuro patient is alert x3, no focal deficits Objective Data Active Medications Acetaminophen (Acetaminophen 325 Mg Tablet) 650 mg PO Q6H PRN PRN Reason: Pain, Mild, fever Last Admin: 10/28/22 03:58 Dose: 650 mg Documented By: OSIEL Albuterol Sulfate (Albuterol Sulfate 90 Mcg 8 Gm Inhaler) 2 puff INHALE Q4H PRN PRN Reason: Shortness Of Breath Last Admin: 10/23/22 00:54 Dose: 2 puff Documented By: YONG Ascorbic Acid (Ascorbic Acid 250 Mg Tablet) 250 mg PO DAILY [facility] Last Admin: 10/27/22 09:48 Dose: 250 mg Documented By: MERCEDES Albuterol Sulfate 2.5 mg/ (Ipratropium [place] 0.5 mg) 0 mg INHALE RQ6H WHILE AWAKE [facility] Last Admin: 10/28/22 08:04 Dose: Not Given Documented By: CYDNEY Non-Admin Reason: Patient Refused Enoxaparin Sodium (Enoxaparin Sodium 40 Mg/0.4 Ml Syringe) 40 mg SUBCUT Q24H [facility] Last Admin: 10/27/22 14:04 Dose: Not Given Documented By: MERCEDES Non-Admin Reason: Patient Refused Ferrous Sulfate (Ferrous Sulfate 324 Mg Tablet.Dr) 324 mg PO DAILY [facility] Last Admin: 10/27/22 09:48 Dose: 324 mg Documented By: MERCEDES Guaifenesin/Dextromethorphan (Guaifenesin Dm 100/10/5 Ml 5 Ml Syrup) 10 ml PO TID [facility] Last Admin: 10/27/22 20:21 Dose: Not Given Documented By: OSIEL Non-Admin Reason: Patient Refused Hydroxyzine HCl (Hydroxyzine Hcl 25 Mg Tablet) 25 mg PO Q6H PRN PRN Reason: Anxiety Last Admin: 10/28/22 03:58 Dose: 25 mg Documented By: OSIEL Daptomycin 400 mg/ Sodium (Chloride) 58 mls @ 116 mls/hr IV Q24H [facility] Last Infusion: 10/27/22 14:20 Dose: 0 mls/hr Documented By: MERCEDES Methadone HCl (Methadone Hcl 20 Mg/2 Ml Oral.Conc) 60 mg PO DAILY [facility] Ondansetron HCl (Ondansetron Hcl 4 Mg/2 Ml Vial) 4 mg IVPUSH Q8H PRN PRN Reason: Nausea and Vomiting Oxycodone HCl (Oxycodone Hcl Immed Release 5 Mg Tablet) 10 mg PO Q4H PRN PRN Reason: Pain, Severe (Pain Scale 7-10) Last Admin: 10/28/22 03:58 Dose: 10 mg Documented By: OSIEL Pharmacy Consult (Consult Rx Perform Med Rec) 1 each MISCELLANE ONCE PRN PRN Reason: Consult order Senna (Sennosides 8.6 Mg Tablet) 17.2 mg PO BEDTIME PRN PRN Reason: Constipation Sodium Chloride (0.9 % Sodium Chloride Flush 3 Ml Syringe) 3 ml IVFLUSH QSHIFT [facility] Last Admin: 10/28/22 01:14 Dose: Not Given Documented By: OSIEL Non-Admin Reason: No Access Labs 10/26/22 13:30 10/26/22 13:30 Microbiology Microbiology Results: Microbiology 10/25/22 22:08 Blood Culture - Preliminary Blood - Venous No growth after 48 hours. Assessment and Plan (1) Endocarditis due to methicillin susceptible Staphylococcus aureus (MSSA): Status: Acute (2) Septic pulmonary embolism: Status: Acute (3) Polysubstance abuse: Status: Acute Plan 36-year-old female with history of asthma, hepatitis-C, polysubstance abuse including IV heroin and cocaine (last use yesterday), history of MRSA, and history of fungal bacteremia who is homeless admitted for fever and severe sepsis of unclear etiology in [facility]. Severe sepsis secondary to Acute tricuspid endocarditis, septic pulmonary emboli and MSSA bacteremia. abx changed from vanco to dapto 10/21 CT right foot showed no abscess, no osteomyelitis or septic arthritis CT chest consistent with septic emboli, echo showed tricuspid vegetation ID recommend 4 weeks of antibiotics repeat Echo still showing vegetation blood cx still pending midline when cx are negative mild intermittent asthma without acute exacerbation, noted to have chest congestion rhonchi likely due to bilateral pulmonary nodules, septic emboli will place patient on cough medication, updraft treatment and albuterol p.r.n. Polysubstance abuse IV heroin and cocaine abuse being followed by Addiction Team continue methadone , and hydroxyzine prn for withdrawal symptoms U tox positive for fentanyl and cocaine Acute thombocytopenia d/t sepsis, improving Chronic microcytic anemia stable hematocrit. chronic hepatitis C patient desires treatment - outpatient follow up homelessness -arrange for safe discharge DVT prophylaxis-SCDs Full code Attending - Dr. Burns Patient requires continued inpatient stay for management of persistent bacteremia on IV antibiotics. Time Spent With Patient Time: Total time managing care of this patient today ____ minutes. Quality Stroke Does the patient have a stroke diagnosis?: No VTE Prior VTE?: No VTE Risk Level:: Medical - moderate - high VTE Device Contraindication: Treatment Not Indicated VTE Drug Contraindication: N/A - Med Ordered
[2022-10-28] MEDS: DAPTOmycin 400 MG in 0.9 % Sodium Chloride 50 ML 116 MG IV (14:14)
[2022-10-28 15:20] VITALS: PULSE 65; RESP 18; O2SAT 97
[2022-10-28 16:00] VITALS: BP 108/56; PULSE 76; RESP 18; TEMP 37.1; O2SAT 98
[2022-10-28] MEDS: 0.9 % Sodium Chloride Flush 3 ML SYRINGE IVFLUSH ×2 (17:21→21:52)
[2022-10-28 19:41] VITALS: BP 114/53; PULSE 76; RESP 18; TEMP 36.9; O2SAT 95
[2022-10-29 03:38] VITALS: BP 102/51; PULSE 69; RESP 16; TEMP 36.3; O2SAT 95
[2022-10-29 06:51] VITALS: BP 104/54; PULSE 67; RESP 16; TEMP 37; O2SAT 94
[2022-10-29] MEDS: Ferrous Sulfate 324 MG TABLET.DR PO (07:50)
[2022-10-29] MEDS: Ascorbic Acid 250 MG TABLET PO (07:50)
[2022-10-29] MEDS: methADONE HCl 20 MG/2 ML ORAL.CONC 60 MG PO (07:50)
[2022-10-29] MEDS: oxyCODONE HCl Immed Release 5 MG TABLET 10 MG PO ×2 (07:56→13:59)
[2022-10-29] MEDS: Acetaminophen 325 MG TABLET 650 MG PO ×2 (07:56→13:59)
[2022-10-29] MEDS: 0.9 % Sodium Chloride Flush 3 ML SYRINGE IVFLUSH ×2 (07:57→14:00)
--- NOTE | 2022-10-29 10:22 | MHC.RECOVRN ---
Addendum entered by Tawanna Guerra RN 10/29/22 14:08: This software writer dropped off resource materials discussed earlier in regard to CSS/TSS. Original Note: This software writer met w/ patient, patient was alert, sitting up in bed, working on coloring pages. Patient reports feels good and stable on 60mg daily in the morning, patient reports slept through the night more comfortably with the single dose versus split dose of MTD. Patient states interested and motivated in recovery programs upon completion of medical care. T/W and patient discussed CSS/TSS levels of care for patient to follow up with. T/W gathered contact info for patient, to drop off at bedside.
[2022-10-29 14:34] VITALS: PULSE 78; RESP 18; O2SAT 97
--- NOTE | 2022-10-29 14:56 | MHC.CM.PN ---
PICC ORDERED. [facility] UPDATED WITH A REQUEST FOR BED OFFER
[2022-10-29 15:32] VITALS: BP 119/61; PULSE 95; RESP 20; TEMP 36.8; O2SAT 96
--- NOTE | 2022-10-29 15:43 | HO.PM.IMPN ---
Subjective Subjective Date of Service: 10/29/22 Interval History: seen and examined this morning follow up for endocarditis, septic pulmonary emboli, MSSA bacteremia breathing/pleuritic pain improving Review of Systems Review of Systems: Yes all other systems are reviewed and are negative Constitutional Constitutional: Denies chills and Denies fever(s) Cardiovascular Cardiovascular: Denies chest pain and Denies palpitations Respiratory Respiratory: Denies cough Gastrointestinal Gastrointestinal: Denies abdominal pain Endocrine Endocrine: Denies palpitations Physical Exam Vital Signs: Vital Signs: Last Vital Signs Temp 98.2 F 10/29/22 15:32 Pulse 95 10/29/22 15:32 Resp 20 10/29/22 15:32 BP 119/61 10/29/22 15:32 Pulse Ox 96 10/29/22 15:32 O2 Del Method 10/29/22 15:32 O2 Flow Rate 2 10/25/22 21:09 BMI result Body Mass Index 20.0 Const: General: comfortable, no acute distress, alert and awake Nutritional Appearance: average body habitus and thin Orientation/consciousness: patient oriented x3 Chest: Chest palpation & inspection: normal inspection of the chest Resp: Other: better aeration Effort & Inspection: normal respiratory effort, able to speak in complete sentences, no respiratory distress and no use of accessory muscles Cardio: Rate: regular rate Heart sounds: S1 normal heart sound present and S2 normal heart sound present GI: Inspection: No distended Palpation (GI): Soft to palpation Neuro: General: patient oriented x3 and CN's II-XI intact bilaterally Extrem: General: Yes no pedal edema Objective Data Active Medications Acetaminophen (Acetaminophen 325 Mg Tablet) 650 mg PO Q6H PRN PRN Reason: Pain, Mild, fever Last Admin: 10/29/22 13:59 Dose: 650 mg Documented By: MARY ELLEN Albuterol Sulfate (Albuterol Sulfate 90 Mcg 8 Gm Inhaler) 2 puff INHALE Q4H PRN PRN Reason: Shortness Of Breath Last Admin: 10/23/22 00:54 Dose: 2 puff Documented By: YONG Ascorbic Acid (Ascorbic Acid 250 Mg Tablet) 250 mg PO DAILY [facility] Last Admin: 10/29/22 07:50 Dose: 250 mg Documented By: MARY ELLEN Albuterol Sulfate 2.5 mg/ (Ipratropium [place] 0.5 mg) 0 mg INHALE RQ6H WHILE AWAKE [facility] Last Admin: 10/29/22 14:32 Dose: 1 each Documented By: LAUREN Enoxaparin Sodium (Enoxaparin Sodium 40 Mg/0.4 Ml Syringe) 40 mg SUBCUT Q24H [facility] Last Admin: 10/29/22 14:40 Dose: Not Given Documented By: CHRIS Non-Admin Reason: Patient Refused Ferrous Sulfate (Ferrous Sulfate 324 Mg Tablet.Dr) 324 mg PO DAILY [facility] Last Admin: 10/29/22 07:50 Dose: 324 mg Documented By: MARY ELLEN Guaifenesin/Dextromethorphan (Guaifenesin Dm 100/10/5 Ml 5 Ml Syrup) 10 ml PO TID [facility] Last Admin: 10/29/22 08:01 Dose: Not Given Documented By: MARY ELLEN Non-Admin Reason: Patient Refused Hydroxyzine HCl (Hydroxyzine Hcl 25 Mg Tablet) 25 mg PO Q6H PRN PRN Reason: Anxiety Last Admin: 10/28/22 14:13 Dose: 25 mg Documented By: DEMI Daptomycin 400 mg/ Sodium (Chloride) 58 mls @ 116 mls/hr IV Q24H [facility] Last Infusion: 10/28/22 15:07 Dose: 0 mls/hr Documented By: JOSE Methadone HCl (Methadone Hcl 20 Mg/2 Ml Oral.Conc) 60 mg PO DAILY [facility] Last Admin: 10/29/22 07:50 Dose: 60 mg Documented By: MARY ELLEN Ondansetron HCl (Ondansetron Hcl 4 Mg/2 Ml Vial) 4 mg IVPUSH Q8H PRN PRN Reason: Nausea and Vomiting Pharmacy Consult (Consult Rx Perform Med Rec) 1 each MISCELLANE ONCE PRN PRN Reason: Consult order Senna (Sennosides 8.6 Mg Tablet) 17.2 mg PO BEDTIME PRN PRN Reason: Constipation Sodium Chloride (0.9 % Sodium Chloride Flush 3 Ml Syringe) 3 ml IVFLUSH QSHIFT [facility] Last Admin: 10/29/22 14:00 Dose: 3 ml Documented By: MARY ELLEN Labs 10/26/22 13:30 10/26/22 13:30 Microbiology Microbiology Results: Microbiology 10/27/22 10:20 Blood Culture - Preliminary Blood - Venous No growth after 48 hours. 02/28/23 10:23 Blood Culture - Preliminary Blood - Venous No growth after 48 hours. Assessment and Plan (1) Endocarditis due to methicillin susceptible Staphylococcus aureus (MSSA): Status: Acute (2) Cavitary lesion of lung: Status: Acute Plan 36-year-old female with history of asthma, hepatitis-C, polysubstance abuse including IV heroin and cocaine (last use yesterday), history of MRSA, and history of fungal bacteremia who is homeless admitted for fever and severe sepsis of unclear etiology in [facility]. Severe sepsis secondary to Acute tricuspid endocarditis, septic pulmonary emboli and MSSA bacteremia. abx changed from vanco to dapto 10/21 CT right foot showed no abscess, no osteomyelitis or septic arthritis CT chest consistent with septic emboli, echo showed tricuspid vegetation repeat limited echo showing increase in tricuspid regurgitation - evidence of CHF - outpatient follow up with cardiology surveillance blood cultures from 10/27 negative x48 hours, plan for midline tomorrow - ID rec 4 wks IV abx from first neg blood culture mild intermittent asthma without acute exacerbation, noted to have chest congestion rhonchi likely due to bilateral pulmonary nodules, septic emboli will place patient on cough medication, updraft treatment and albuterol p.r.n. Polysubstance abuse IV heroin and cocaine abuse being followed by Addiction Team continue methadone , and hydroxyzine prn for withdrawal symptoms U tox positive for fentanyl and cocaine Acute thombocytopenia d/t sepsis, resolved Chronic microcytic anemia stable hematocrit. chronic hepatitis C patient desires treatment - outpatient follow up DVT prophylaxis-SCDs Full code Attending - Dr. Grant hou likely SNF to complete course of IV abx Patient requires continued inpatient stay for management of persistent bacteremia on IV antibiotics. Time Spent With Patient Time: Total time managing care of this patient today ____ minutes. Quality Stroke Does the patient have a stroke diagnosis?: No VTE Prior VTE?: No VTE Risk Level:: Medical - moderate - high VTE Device Contraindication: Treatment Not Indicated VTE Drug Contraindication: N/A - Med Ordered
[2022-10-29] MEDS: DAPTOmycin 400 MG in 0.9 % Sodium Chloride 50 ML 116 MG IV (16:06)
[2022-10-29 19:34] VITALS: BP 93/55; PULSE 77; RESP 18; TEMP 36.7; O2SAT 98
--- NOTE | 2022-10-29 21:34 | MHC.RECOVSUP ---
? Reason for consult:OPI o? Current location:[id number]? o? Identified substance use concern:? -? Support ? Intervention:recovery resources provided ? Plan: o? Follow up tomorrow? ? Additional information:Radames met with pt but she was sleeping and asked me to come back tomorrow. i provided her with population health coach & [facility] pamphlets.
[2022-10-30 03:10] VITALS: BP 100/55; PULSE 62; RESP 18; TEMP 36.2; O2SAT 97
[2022-10-30 08:00] VITALS: BP 112/60; PULSE 69; RESP 18; TEMP 37.6; O2SAT 95
[2022-10-30] MEDS: methADONE HCl 20 MG/2 ML ORAL.CONC 60 MG PO (09:01)
[2022-10-30] MEDS: 0.9 % Sodium Chloride Flush 3 ML SYRINGE IVFLUSH ×3 (09:01→20:57)
[2022-10-30] MEDS: Ascorbic Acid 250 MG TABLET PO (09:02)
[2022-10-30] MEDS: Acetaminophen 325 MG TABLET 650 MG PO ×2 (09:02→17:05)
[2022-10-30] MEDS: Ferrous Sulfate 324 MG TABLET.DR PO (09:02)
[2022-10-30] MEDS: oxyCODONE HCl Immed Release 5 MG TABLET 10 MG PO ×2 (09:02→17:05)
[2022-10-30] MEDS: hydrOXYzine HCL 25 MG TABLET PO ×2 (09:03→17:06)
--- NOTE | 2022-10-30 13:22 | P.PNIM_ITS ---
Subjective Subjective Date of Service: 10/30/22 Interval History: seen and examined this morning follow up for MSSA bacteremia, tricuspid endocarditis overall feeling better, improving pleuritic pain worried about leaving the hospital Review of Systems Review of Systems: Yes all other systems are reviewed and are negative Constitutional Constitutional: Denies chills and Denies fever(s) Cardiovascular Cardiovascular: Denies chest pain, Denies palpitations and Reports dyspnea Respiratory Respiratory: Reports cough and Reports dyspnea Endocrine Endocrine: Denies palpitations Physical Exam Vital Signs: Vital Signs: Last Vital Signs Temp 99.6 F 10/30/22 08:00 Pulse 69 10/30/22 08:00 Resp 18 10/30/22 08:00 BP 112/60 10/30/22 08:00 Pulse Ox 95 10/30/22 08:00 O2 Del Method 10/30/22 08:00 O2 Flow Rate 2 10/25/22 21:09 BMI result Body Mass Index 20.0 Const: General: comfortable, no acute distress, alert and awake Nutritional Appearance: average body habitus and thin Orientation/consciousness: patient oriented x3 Chest: Chest palpation & inspection: normal inspection of the chest Resp: Effort & Inspection: normal respiratory effort, able to speak in complete sentences, no respiratory distress and no use of accessory muscles Cardio: Rate: regular rate Heart sounds: S1 normal heart sound present and S2 normal heart sound present GI: Inspection: No distended Palpation (GI): Soft to palpation Neuro: General: patient oriented x3 and CN's II-XI intact bilaterally Extrem: General: Yes no pedal edema Objective Data Active Medications Acetaminophen (Acetaminophen 325 Mg Tablet) 650 mg PO Q6H PRN PRN Reason: Pain, Mild, fever Last Admin: 10/30/22 09:02 Dose: 650 mg Documented By: MERCEDES Albuterol Sulfate (Albuterol Sulfate 90 Mcg 8 Gm Inhaler) 2 puff INHALE Q4H PRN PRN Reason: Shortness Of Breath Last Admin: 10/23/22 00:54 Dose: 2 puff Documented By: YONG Ascorbic Acid (Ascorbic Acid 250 Mg Tablet) 250 mg PO DAILY [facility] Last Admin: 10/30/22 09:02 Dose: 250 mg Documented By: MERCEDES Albuterol Sulfate 2.5 mg/ (Ipratropium [place] 0.5 mg) 0 mg INHALE RQ6H WHILE AWAKE [facility] Last Admin: 10/30/22 07:47 Dose: Not Given Documented By: LAUREN Non-Admin Reason: Patient Refused Enoxaparin Sodium (Enoxaparin Sodium 40 Mg/0.4 Ml Syringe) 40 mg SUBCUT Q24H [facility] Last Admin: 10/30/22 12:58 Dose: Not Given Documented By: MERCEDES Non-Admin Reason: Patient Refused Ferrous Sulfate (Ferrous Sulfate 324 Mg Tablet.Dr) 324 mg PO DAILY [facility] Last Admin: 10/30/22 09:02 Dose: 324 mg Documented By: MERCEDES Guaifenesin/Dextromethorphan (Guaifenesin Dm 100/10/5 Ml 5 Ml Syrup) 10 ml PO TID [facility] Last Admin: 10/30/22 09:03 Dose: Not Given Documented By: MERCEDES Non-Admin Reason: Patient Refused Hydroxyzine HCl (Hydroxyzine Hcl 25 Mg Tablet) 25 mg PO Q6H PRN PRN Reason: Anxiety Last Admin: 10/30/22 09:03 Dose: 25 mg Documented By: MERCEDES Daptomycin 400 mg/ Sodium (Chloride) 58 mls @ 116 mls/hr IV Q24H [facility] Last Infusion: 10/29/22 16:47 Dose: 0 mls/hr Documented By: MARY ELLEN Methadone HCl (Methadone Hcl 20 Mg/2 Ml Oral.Conc) 60 mg PO DAILY [facility] Last Admin: 10/30/22 09:01 Dose: 60 mg Documented By: MERCEDES Ondansetron HCl (Ondansetron Hcl 4 Mg/2 Ml Vial) 4 mg IVPUSH Q8H PRN PRN Reason: Nausea and Vomiting Oxycodone HCl (Oxycodone Hcl Immed Release 5 Mg Tablet) 10 mg PO Q6H PRN PRN Reason: Pain, Moderate (Pain Scale 4-6 Last Admin: 10/30/22 09:02 Dose: 10 mg Documented By: MERCEDES Pharmacy Consult (Consult Rx Perform Med Rec) 1 each MISCELLANE ONCE PRN PRN Reason: Consult order Senna (Sennosides 8.6 Mg Tablet) 17.2 mg PO BEDTIME PRN PRN Reason: Constipation Sodium Chloride (0.9 % Sodium Chloride Flush 3 Ml Syringe) 3 ml IVFLUSH QSHIFT [facility] Last Admin: 10/30/22 09:01 Dose: 3 ml Documented By: MERCEDES Labs 10/26/22 13:30 10/26/22 13:30 Microbiology Microbiology Results: Microbiology 10/27/22 10:20 Blood Culture - Preliminary Blood - Venous No growth after 48 hours. 10/27/22 10:23 Blood Culture - Preliminary Blood - Venous No growth after 48 hours. Assessment and Plan (1) Endocarditis due to methicillin susceptible Staphylococcus aureus (MSSA): Status: Acute (2) Septic pulmonary embolism: Status: Acute Plan 36-year-old female with history of asthma, hepatitis-C, polysubstance abuse including IV heroin and cocaine (last use yesterday), history of MRSA, and history of fungal bacteremia who is homeless admitted for fever and severe seps is of unclear etiology in [facility]. Severe sepsis secondary to Acute tricuspid endocarditis, septic pulmonary emboli and MSSA bacteremia. abx changed from vanco to dapto 10/21 CT right foot showed no abscess, no osteomyelitis or septic arthritis CT chest consistent with septic emboli, echo showed tricuspid vegetation repeat limited echo showing increase in tricuspid regurgitation - evidence of CHF - outpatient follow up with cardiology surveillance blood cultures from 10/27 negative x72 hours, plan for midline today - ID rec 4 wks IV abx from first neg blood culture mild intermittent asthma without acute exacerbation, noted to have chest congestion rhonchi likely due to bilateral pulmonary nodules, septic emboli will place patient on cough medication, updraft treatment and albuterol p.r.n. Polysubstance abuse IV heroin and cocaine abuse being followed by Addiction Team continue methadone , and hydroxyzine prn for withdrawal symptoms U tox positive for fentanyl and cocaine Acute thombocytopenia d/t sepsis, resolved Chronic microcytic anemia stable hematocrit. chronic hepatitis C patient desires treatment - outpatient follow up DVT prophylaxis-SCDs Full code Attending - Dr. Grant hou likely SNF to complete course of IV abx Patient requires continued inpatient stay for management of persistent bacteremia on IV antibiotics. Time Spent With Patient Time: Total time managing care of this patient today ____ minutes. Quality Stroke Does the patient have a stroke diagnosis?: No VTE Prior VTE?: No VTE Risk Level:: Medical - moderate - high VTE Device Contraindication: Treatment Not Indicated VTE Drug Contraindication: N/A - Med Ordered
--- NOTE | 2022-10-30 15:34 | MHC.CM.PN ---
T/W DISCOVERED THAT PATIENT IS NOT ACTIVE WITH A CLINIC, THOUGHT. [facility] IS ATTEMPTING TO SECURE HER A DIRECT ADMIT SPOT AT [facility] IN [place] BUT LIKELY WILL NOT HAPPEN UNTIL WEDNESDAY [employer] MACHINE IS ALSO ATTEMPTING TO HELP RN AT [facility] TELLS THIS OFFENSIVE COORDINATOR THAT PATIENT WAS DUE TO ARRIVE AT 10/17/22 BUT MISSED HER APPOINTMENT T/W EXPLAINED THAT PATIENT HAS BEEN HERE SINCE THEN AND THAT OUR W[employer] MACHINE MADE THEM AWARE HOSPITALIST AND PATIENT AWARE OF HOLD-UP
[2022-10-30 16:45] VITALS: BP 124/91; PULSE 76; RESP 15; TEMP 36; O2SAT 98
--- NOTE | 2022-10-30 16:52 | P.PICC_ITS ---
PICC Line Insertion NPICC Diagnosis: Left foot abscess Indication: long-term antibiotics needed Pertinent Labs: reviewed Technique: Following informed consent including risks, benefits and alternatives and using sterile technique including cap and mask, sterile gown, glove and drape, the right arm was prepped and draped in the usual sterile fashion of full barrier technique with G. Following completion of [place] Protocol the skin and soft tissues were anesthetized with 1% Lidocaine plain. Using ultrasound guidance, right basilic vein access was obtained by Tom Bustamante RN, but unable to advance guidewire. Right basilic vein was then accessed by Jackeline Larios RN on first attempt. Over an 0.018 wire through peel-away sheath, a 4FR single lumen PASV PICC line was positioned. Catheter length is 35 CM internal length, 1 CM external length, for a total trimmed length of 36 CM. The procedure was performed in S272. Tip verification was performed by Surinder Bojorquez with Sherlock 3CG. Tip located in SVC. Ultrasound was used to document vein patency and for needle entry. A formal ultrasound picture and cardiac rhythm strip was recorded. [employer] has released the line for use and it is currently dressed with a StatLock, Tegaderm, and CHG disc. Verification has been performed for blood return and line patency. (Okay to place PICC once blood cultures are negative X 72 hours, per Dr Shrestha) Arm Circumference: 25 CM Equipment: BARD Power PICC Solo Catheter Type: 4FR Single Lumen PASV PICC Lot #: [id number]
[2022-10-30] MEDS: DAPTOmycin 400 MG in 0.9 % Sodium Chloride 50 ML 116 MG IV (17:04)
[2022-10-30 19:15] VITALS: BP 106/57; PULSE 78; RESP 18; TEMP 36.1; O2SAT 98
[2022-10-30 19:54] VITALS: PULSE 74; RESP 18; O2SAT 98
[2022-10-30] MEDS: 0.9 % Sodium Chloride Flush 10 ML SYRINGE 5 ML IVFLUSH (20:57)
[2022-10-30 21:18] VITALS: BP 126/62; PULSE 97; O2SAT 95
[2022-10-31] MEDS: Acetaminophen 325 MG TABLET 650 MG PO ×3 (03:26→19:08)
[2022-10-31 04:00] VITALS: BP 98/56; PULSE 80; RESP 16; TEMP 37.8; O2SAT 96
[2022-10-31 08:00] VITALS: BP 119/74; PULSE 67; RESP 18; TEMP 36.1; O2SAT 97
[2022-10-31] MEDS: methADONE HCl 20 MG/2 ML ORAL.CONC 60 MG PO (08:58)
[2022-10-31] MEDS: Ascorbic Acid 250 MG TABLET PO (08:58)
[2022-10-31] MEDS: Ferrous Sulfate 324 MG TABLET.DR PO (08:58)
[2022-10-31] MEDS: 0.9 % Sodium Chloride Flush 10 ML SYRINGE 5 ML IVFLUSH ×3 (08:59→19:10)
[2022-10-31] MEDS: 0.9 % Sodium Chloride Flush 3 ML SYRINGE IVFLUSH ×2 (09:00→14:25)
[2022-10-31] MEDS: oxyCODONE HCl Immed Release 5 MG TABLET 10 MG PO ×2 (09:30→19:07)
--- NOTE | 2022-10-31 10:31 | P.PNIM_ITS ---
Subjective Subjective Date of Service: 10/31/22 Interval History: seen and examined this morning follow up for MSSA bacteremia, tricuspid endocarditis overall feeling better, improving pleuritic pain Review of Systems Review of Systems: Yes all other systems are reviewed and are negative Constitutional Constitutional: Denies chills and Denies fever(s) Cardiovascular Cardiovascular: Denies chest pain, Denies palpitations and Reports dyspnea Respiratory Respiratory: Reports cough and Reports dyspnea Endocrine Endocrine: Denies palpitations Physical Exam Vital Signs: Vital Signs: Last Vital Signs Temp 97 F 10/31/22 08:00 Pulse 67 10/31/22 08:00 Resp 18 10/31/22 08:00 BP 119/74 10/31/22 08:00 Pulse Ox 97 10/31/22 08:00 O2 Del Method 10/31/22 08:00 O2 Flow Rate 2 10/25/22 21:09 BMI result Body Mass Index 20.0 Appearing in no acute distress lung sounds are clear to auscultation heart regular rate rhythm, clear S1, S2 positive bowel sounds, abdomen is soft, nontender neuro patient is alert x3, no focal deficits Objective Data Active Medications Acetaminophen (Acetaminophen 325 Mg Tablet) 650 mg PO Q6H PRN PRN Reason: Pain, Mild, fever Last Admin: 10/31/22 09:30 Dose: 650 mg Documented By: CLAIRE Albuterol Sulfate (Albuterol Sulfate 90 Mcg 8 Gm Inhaler) 2 puff INHALE Q4H PRN PRN Reason: Shortness Of Breath Last Admin: 10/23/22 00:54 Dose: 2 puff Documented By: YONG Ascorbic Acid (Ascorbic Acid 250 Mg Tablet) 250 mg PO DAILY [facility] Last Admin: 10/31/22 08:58 Dose: 250 mg Documented By: CLAIRE Albuterol Sulfate 2.5 mg/ (Ipratropium [place] 0.5 mg) 0 mg INHALE RQ6H WHILE AWAKE [facility] Last Admin: 10/31/22 08:29 Dose: Not Given Documented By: CYDNEY Non-Admin Reason: Patient Refused Enoxaparin Sodium (Enoxaparin Sodium 40 Mg/0.4 Ml Syringe) 40 mg SUBCUT Q24H [facility] Last Admin: 10/30/22 12:58 Dose: Not Given Documented By: MERCEDES Non-Admin Reason: Patient Refused Ferrous Sulfate (Ferrous Sulfate 324 Mg Tablet.Dr) 324 mg PO DAILY [facility] Last Admin: 10/31/22 08:58 Dose: 324 mg Documented By: CLAIRE Guaifenesin/Dextromethorphan (Guaifenesin Dm 100/10/5 Ml 5 Ml Syrup) 10 ml PO TID [facility] Last Admin: 10/31/22 09:01 Dose: Not Given Documented By: CLAIRE Non-Admin Reason: IV Running Hydroxyzine HCl (Hydroxyzine Hcl 25 Mg Tablet) 25 mg PO Q6H PRN PRN Reason: Anxiety Last Admin: 10/30/22 17:06 Dose: 25 mg Documented By: MERCEDES Daptomycin 400 mg/ Sodium (Chloride) 58 mls @ 116 mls/hr IV Q24H [facility] Last Infusion: 10/30/22 17:47 Dose: 0 mls/hr Documented By: MERCEDES Methadone HCl (Methadone Hcl 20 Mg/2 Ml Oral.Conc) 60 mg PO DAILY [facility] Last Admin: 10/31/22 08:58 Dose: 60 mg Documented By: CLAIRE Ondansetron HCl (Ondansetron Hcl 4 Mg/2 Ml Vial) 4 mg IVPUSH Q8H PRN PRN Reason: Nausea and Vomiting Oxycodone HCl (Oxycodone Hcl Immed Release 5 Mg Tablet) 10 mg PO Q6H PRN PRN Reason: Pain, Moderate (Pain Scale 4-6 Last Admin: 10/31/22 09:30 Dose: 10 mg Documented By: CLAIRE Pharmacy Consult (Consult Rx Perform Med Rec) 1 each MISCELLANE ONCE PRN PRN Reason: Consult order Senna (Sennosides 8.6 Mg Tablet) 17.2 mg PO BEDTIME PRN PRN Reason: Constipation Sodium Chloride (0.9 % Sodium Chloride Flush 3 Ml Syringe) 3 ml IVFLUSH QSHIFT [facility] Last Admin: 10/31/22 09:00 Dose: 3 ml Documented By: CLAIRE Sodium Chloride (0.9 % Sodium Chloride Flush 10 Ml Syringe) 5 ml IVFLUSH TID [facility] Last Admin: 10/31/22 08:59 Dose: 5 ml Documented By: CLAIRE Labs 10/26/22 13:30 02/27/23 13:30 Microbiology Microbiology Results: Microbiology 10/25/22 22:08 Blood Culture - Final Blood - Venous No growth after 5 days. Assessment and Plan (1) Endocarditis due to methicillin susceptible Staphylococcus aureus (MSSA): Status: Acute (2) Septic pulmonary embolism: Status: Acute Plan 36-year-old female with history of asthma, hepatitis-C, polysubstance abuse including IV heroin and cocaine (last use yesterday), history of MRSA, and history of fungal bacteremia who is homeless admitted for fever and severe sepsis of unclear etiology in [facility]. Severe sepsis secondary to Acute tricuspid endocarditis, septic pulmonary emboli and MSSA bacteremia. abx changed from vanco to dapto 10/21 CT right foot showed no abscess, no osteomyelitis or septic arthritis CT chest consistent with septic emboli, echo showed tricuspid vegetation repeat limited echo showing increase in tricuspid regurgitation - evidence of CHF - outpatient follow up with cardiology surveillance blood cultures from 10/27 negative x72 hours, plan for midline today - ID rec 4 wks IV abx from first neg blood culture mild intermittent asthma without acute exacerbation, noted to have chest congestion rhonchi likely due to bilateral pulmonary nodules, septic emboli will place patient on cough medication, updraft treatment and albuterol p.r.n. Polysubstance abuse IV heroin and cocaine abuse being followed by Addiction Team continue methadone , and hydroxyzine prn for withdrawal symptoms U tox positive for fentanyl and cocaine Acute thombocytopenia d/t sepsis, resolved Chronic microcytic anemia stable hematocrit. chronic hepatitis C patient desires treatment - outpatient follow up DVT prophylaxis-SCDs Full code Attending - Dr. Ej hou likely SNF to complete course of IV abx Patient requires continued inpatient stay for management of persistent bacteremia on IV antibiotics. Time Spent With Patient Time: Total time managing care of this patient today ____ minutes. Quality Stroke Does the patient have a stroke diagnosis?: No VTE Prior VTE?: No VTE Risk Level:: Medical - moderate - high VTE Device Contraindication: Treatment Not Indicated VTE Drug Contraindication: N/A - Med Ordered
[2022-10-31] MEDS: DAPTOmycin 400 MG in 0.9 % Sodium Chloride 50 ML 116 MG IV (14:24)
[2022-10-31 16:00] VITALS: BP 105/55; PULSE 73; RESP 16; TEMP 37.1; O2SAT 98
[2022-10-31 16:06] VITALS: PULSE 71; RESP 18; O2SAT 97
[2022-10-31 19:27] VITALS: PULSE 76; RESP 18; O2SAT 98
[2022-10-31 20:00] VITALS: BP 155/59; PULSE 107; RESP 16; TEMP 37; O2SAT 95
[2022-11-01] MEDS: oxyCODONE HCl Immed Release 5 MG TABLET 10 MG PO (02:59)
[2022-11-01] MEDS: Acetaminophen 325 MG TABLET 650 MG PO ×3 (02:59→19:19)
[2022-11-01] MEDS: hydrOXYzine HCL 25 MG TABLET PO (03:02)
[2022-11-01 03:36] VITALS: BP 108/60; PULSE 84; RESP 16; TEMP 36.7; O2SAT 96
[2022-11-01 07:46] VITALS: BP 106/68; PULSE 63; RESP 18; TEMP 36.2; O2SAT 97
[2022-11-01] MEDS: Ascorbic Acid 250 MG TABLET PO (08:35)
[2022-11-01] MEDS: Ferrous Sulfate 324 MG TABLET.DR PO (08:35)
[2022-11-01] MEDS: methADONE HCl 20 MG/2 ML ORAL.CONC 60 MG PO (08:35)
[2022-11-01] MEDS: 0.9 % Sodium Chloride Flush 10 ML SYRINGE 5 ML IVFLUSH ×2 (08:36→17:12)
--- NOTE | 2022-11-01 09:06 | HO.PM.IMPN ---
Subjective Subjective Date of Service: 11/01/22 Interval History: seen and examined this morning follow up for MSSA bacteremia, tricuspid endocarditis overall feeling better Review of Systems Review of Systems: Yes all other systems are reviewed and are negative Constitutional Constitutional: Denies chills and Denies fever(s) Cardiovascular Cardiovascular: Denies chest pain, Denies palpitations and Reports dyspnea Respiratory Respiratory: Reports cough and Reports dyspnea Endocrine Endocrine: Denies palpitations Physical Exam Vital Signs: Vital Signs: Last Vital Signs Temp 97.1 F 11/01/22 07:46 Pulse 63 11/01/22 07:46 Resp 18 11/01/22 07:46 BP 106/68 11/01/22 07:46 Pulse Ox 97 11/01/22 07:46 O2 Del Method 11/01/22 07:46 O2 Flow Rate 2 10/25/22 21:09 BMI result Body Mass Index 20.0 Appearing in no acute distress lung sounds are clear to auscultation heart regular rate rhythm, clear S1, S2 positive bowel sounds, abdomen is soft, nontender neuro patient is alert x3, no focal deficits Objective Data Active Medications Acetaminophen (Acetaminophen 325 Mg Tablet) 650 mg PO Q6H PRN PRN Reason: Pain, Mild, fever Last Admin: 11/01/22 02:59 Dose: 650 mg Documented By: ESTUARDO Albuterol Sulfate (Albuterol Sulfate 90 Mcg 8 Gm Inhaler) 2 puff INHALE Q4H PRN PRN Reason: Shortness Of Breath Last Admin: 10/23/22 00:54 Dose: 2 puff Documented By: YONG Ascorbic Acid (Ascorbic Acid 250 Mg Tablet) 250 mg PO DAILY [facility] Last Admin: 11/01/22 08:35 Dose: 250 mg Documented By: CLAIRE Enoxaparin Sodium (Enoxaparin Sodium 40 Mg/0.4 Ml Syringe) 40 mg SUBCUT Q24H [facility] Last Admin: 10/31/22 13:55 Dose: Not Given Documented By: CLAIRE Non-Admin Reason: Patient Refused Ferrous Sulfate (Ferrous Sulfate 324 Mg Tablet.) 324 mg PO DAILY [facility] Last Admin: 11/01/22 08:35 Dose: 324 mg Documented By: CLAIRE Guaifenesin/Dextromethorphan (Guaifenesin Dm 100/10/5 Ml 5 Ml Syrup) 10 ml PO TID [facility] Last Admin: 11/01/22 08:40 Dose: Not Given Documented By: CLAIRE Non-Admin Reason: Patient Refused Hydroxyzine HCl (Hydroxyzine Hcl 25 Mg Tablet) 25 mg PO Q6H PRN PRN Reason: Anxiety Last Admin: 11/01/22 03:02 Dose: 25 mg Documented By: ESTUARDO Methadone HCl (Methadone Hcl 20 Mg/2 Ml Oral.Conc) 60 mg PO DAILY [facility] Last Admin: 11/01/22 08:35 Dose: 60 mg Documented By: CLAIRE Ondansetron HCl (Ondansetron Hcl 4 Mg/2 Ml Vial) 4 mg IVPUSH Q8H PRN PRN Reason: Nausea and Vomiting Oxycodone HCl (Oxycodone Hcl Immed Release 5 Mg Tablet) 5 mg PO Q6H PRN PRN Reason: Pain, Moderate (Pain Scale 4-6 Pharmacy Consult (Consult Rx Perform Med Rec) 1 each MISCELLANE ONCE PRN PRN Reason: Consult order Senna (Sennosides 8.6 Mg Tablet) 17.2 mg PO BEDTIME PRN PRN Reason: Constipation Sodium Chloride (0.9 % Sodium Chloride Flush 3 Ml Syringe) 3 ml IVFLUSH QSHIFT [facility] Last Admin: 11/01/22 08:36 Dose: Not Given Documented By: CLAIRE Non-Admin Reason: No Access Sodium Chloride (0.9 % Sodium Chloride Flush 10 Ml Syringe) 5 ml IVFLUSH TID [facility] Last Admin: 11/01/22 08:36 Dose: 5 ml Documented By: CLAIRE Labs 10/26/22 13:30 10/26/22 13:30 Assessment and Plan (1) Endocarditis due to methicillin susceptible Staphylococcus aureus (MSSA): Status: Acute (2) Septic pulmonary embolism: Status: Acute Plan 36-year-old female with history of asthma, hepatitis-C, polysubstance abuse including IV heroin and cocaine (last use yesterday), history of MRSA, and history of fungal bacteremia who is homeless admitted for fever and severe sepsis of unclear etiology in [facility]. Severe sepsis secondary to Acute tricuspid endocarditis, septic pulmonary emboli and MSSA bacteremia. abx changed from vanco to dapto 10/21 CT right foot showed no abscess, no osteomyelitis or septic arthritis CT chest consistent with septic emboli, echo showed tricuspid vegetation repeat limited echo showing increase in tricuspid regurgitation - evidence of CHF - outpatient follow up with cardiology surveillance blood cultures from 10/27 negative x72 hours, plan for midline today - ID rec 4 wks IV abx from first neg blood culture mild intermittent asthma without acute exacerbation, noted to have chest congestion rhonchi likely due to bilateral pulmonary nodules, septic emboli will place patient on cough medication, updraft treatment and albuterol p.r.n. Polysubstance abuse IV heroin and cocaine abuse being followed by Addiction Team continue methadone , and hydroxyzine prn for withdrawal symptoms U tox positive for fentanyl and cocaine Acute thombocytopenia d/t sepsis, resolved Chronic microcytic anemia stable hematocrit. chronic hepatitis C patient desires treatment - outpatient follow up DVT prophylaxis-SCDs Full code Attending - Dr. Ej hou likely SNF to complete course of IV abx Patient requires continued inpatient stay for management of persistent bacteremia on IV antibiotics. Time Spent With Patient Time: Total time managing care of this patient today ____ minutes. Quality Stroke Does the patient have a stroke diagnosis?: No VTE Prior VTE?: No VTE Risk Level:: Medical - moderate - high VTE Device Contraindication: Treatment Not Indicated VTE Drug Contraindication: N/A - Med Ordered
[2022-11-01] MEDS: oxyCODONE HCl Immed Release 5 MG TABLET PO ×2 (09:18→19:19)
[2022-11-01] MEDS: Heparin Sodium,Porcine Flush 50 UNITS/5 ML SYRINGE IVFLUSH (09:33)
--- NOTE | 2022-11-01 13:48 | MHC.RECOVRN ---
Met with pt in 387 to check in and provide support. Pt walking around room, awake, alert, easily engages in conversation. Pt reports doing well but is having some anxiety. Pt future oriented, discussing possible programs after completion of IV antibiotics. Pt has phone numbers and encouraged to call facilities while at [facility] to get on waiting lists as beds can be difficult to obtain. Pt agreeable. Pt reports decreasing amount of oxycodone taken in order to prepare for discharge to [facility]. Pt would like to increase methadone due to concern of possible withdrawal. Pt denies other questions or concerns at this time. Discussed with Kenyatta Portillo APRN.
[2022-11-01 16:00] VITALS: BP 112/61; PULSE 71; RESP 16; TEMP 36.6; O2SAT 97
[2022-11-01] MEDS: DAPTOmycin 400 MG in 0.9 % Sodium Chloride 50 ML 116 MG IV (17:09)
[2022-11-01 20:00] VITALS: BP 110/65; PULSE 73; RESP 16; TEMP 36.9; O2SAT 97
[2022-11-02 03:50] VITALS: BP 112/62; PULSE 75; RESP 16; TEMP 36.8; O2SAT 97
[2022-11-02] MEDS: methADONE HCl 20 MG/2 ML ORAL.CONC 65 MG PO (07:49)
[2022-11-02] MEDS: Ferrous Sulfate 324 MG TABLET.DR PO (07:50)
[2022-11-02] MEDS: oxyCODONE HCl Immed Release 5 MG TABLET PO ×2 (07:50→17:25)
[2022-11-02] MEDS: Ascorbic Acid 250 MG TABLET PO (07:50)
[2022-11-02] MEDS: Acetaminophen 325 MG TABLET 650 MG PO ×2 (07:50→17:24)
[2022-11-02] MEDS: 0.9 % Sodium Chloride Flush 3 ML SYRINGE IVFLUSH ×2 (07:51→09:15)
[2022-11-02 07:57] VITALS: BP 102/66; PULSE 73; RESP 18; TEMP 36.6; O2SAT 98
[2022-11-02] MEDS: 0.9 % Sodium Chloride Flush 10 ML SYRINGE 5 ML IVFLUSH ×2 (09:16→16:08)
--- NOTE | 2022-11-02 10:19 | MHC.CM.PN ---
Addendum entered by Maria Alejandra Crockett 11/02/22 11:28: DC SUMMARY SENT TO [facility] PT WILL TRANSPORT VIA [employer] ONCE AUTH IS RECIEVED Original Note: [facility]IA[facility] HAS INDICATED THEY WILL BE ABLE TO TAKE PT TODAY PENDING METHADONE ARRANGEMENTS AND INSURANCE AUTH [employer] IS ACTIVELY WORKING ON SETTING UP PTS METHADONE TREATMENT AT [facility] SUMMARY WILL BE SENT TO [facility] ONCE AVAILABLE AND THEY WILL SUBMIT FOR AUTH PT WILL ALSO NEED A RAPID COVID
--- NOTE | 2022-11-02 10:44 | MHC.RECOVRN ---
Pts referral sent to [facility] for direct admission. CM aware.
--- NOTE | 2022-11-02 10:49 | P.DS_ITS ---
DS: Providers Provider Date of Service: 11/02/22 Date of admission: 10/17/22 12:02 Primary care physician: Unknown Physician Consults: 10/17/22 12:11 Addiction Medicine Routine Consulting Provider: Addiction Covering Reason for consultation: ivda- heroin and cocaine 10/17/22 18:49 Consult to Infectious Diseases Routine Consulting Provider: Betty Shrestha Reason for consultation: septic emboli 10/17/22 18:59 Consult to Pulmonology Stat Consulting Provider: Alexei Juárez Reason for consultation: bilateral cavitary lesions 10/21/22 13:23 Consult to Infectious Diseases Routine Consulting Provider: Betty Shrestha Reason for consultation: bacteremia Has provider been notified: Yes Attending physician on discharge: Noah Pagan Discharging clinician: Sara Juárez DS: Diagnosis Discharge Diagnosis (1) Endocarditis due to methicillin susceptible Staphylococcus aureus (MSSA): Status: Acute (2) Septic pulmonary embolism: Status: Acute DS: Summary Hospital Course Hospital Course: History and physical as per admitting provider 36-year-old female with history of asthma, hepatitis-C, polysubstance abuse including IV heroin and cocaine (last use yesterday), history of MRSA, and history of fungal bacteremia who is homeless presented to the ED earlier today for evaluation of subjective fevers and fatigue ongoing for 4 days.? The patient is reporting drenching sweats, chills, and hot flashes.? She has also had a nonproductive cough for several days but denies sob, wheezing, chest pain. She has a regular IV drug abuser and commonly injects in the feet and lower legs bilaterally, and hands and forearms bilaterally.? For the last week or so she has felt mild discomfort and noticed redness and swelling of the 1st MTP of the right foot.? She has been able to ambulate.? Per EMS, temperature was 99.1 degrees but has developed fever of 103.0, vitals otherwise stable.? Leukocytosis of 16.3.? Mild microcytic anemia with H/H 11.8/36.5%, MCV 78.7.? Platelets 84.? Creatinine 1.16, BUN 28.? Sodium 131, potassium 4.1, chloride 97, CO2 23.? Lactic acid 2.1.? Blood cultures pendi ng.? UA with 1+ leukocytes, urinary sediment, trace bacteria, 2+ protein, and elevated specific gravity.? Negative for COVID-19.? Chest x-ray showing interstitial a more confluent airspace with possible infectious etiology and small focus of confluent pneumonitis.? X-ray of left foot is negative.? Patient treated empirically with vancomycin and Zosyn in the ED along with 2 L IV NS . Severe sepsis secondary to Acute tricuspid endocarditis, septic pulmonary emboli and MSSA bacteremia. abx changed from vanco to dapto 10/21 CT right foot showed no abscess, no osteomyelitis or septic arthritis CT chest consistent with septic emboli, echo showed tricuspid vegetation, follow up with cardiology o/p repeat limited echo showing increase in tricuspid regurgitation surveillance blood cultures from 10/27 negative x72 hours On Daptomycin total 4 week, last dose 12/02/22 mild intermittent asthma without acute exacerbation, noted to have chest congestion rhonchi likely due to bilateral pulmonary nodules, septic emboli will place patient on cough medication, updraft treatment and albuterol p.r.n. Polysubstance abuse IV heroin and cocaine abuse being followed by Addiction Team continue methadone , and hydroxyzine prn for withdrawal symptoms No methadone on dc, can follow up at [facility] Acute thombocytopenia d/t sepsis, resolved Chronic microcytic anemia stable hematocrit. chronic hepatitis C? patient desires treatment - outpatient follow up Time Spent with Patient Time attestation: Total time managing care of this patient today ____ minutes. Discharge coordination time: Greater than 30 minutes Quality: Safe Use of Opioids Does Pt have an Active Cancer Diagnosis on the Problem List?: No Quality: Stroke Does the patient have a stroke diagnosis?: No Physical Exam Vital Signs: Vital Signs: Last Vital Signs Temp 97.8 F 11/02/22 07:57 Pulse 73 11/02/22 07:57 Resp 18 11/02/22 07:57 BP 102/66 11/02/22 07:57 Pulse Ox 98 11/02/22 07:57 O2 Del Method 11/02/22 07:57 O2 Flow Rate 2 10/25/22 21:09 BMI result Body Mass Index 20.0 Appearing in no acute distress head is normocephalic atraumatic eyes pupils are PERRLA sclera is anicteric mouth throat mucous membranes are intact and moist neck is supple no lymphadenopathy, no JVD noted lung sounds are clear to auscultation heart regular rate rhythm, clear S1, S2 positive bowel sounds, abdomen is soft, nontender neuro patient is alert x3, no focal deficits DS: Data Data Completed and Pending Completed studies during hospitalization [Text1]: Procedures Drainage of Left Foot, Open Approach (09/23/21) Excision of Left Foot Skin, External Approach (09/23/21) Insertion of Infusion Device into Left Basilic Vein, Percutaneous Approach (09/23/21) Discharge Plan Discharge Anticipated Discharge Date/Time: 11/02/22 10:40 Patient Disposition: Xfer Inpatient Rehab Fac Discharge Diagnosis: Severe sepsis secondary to acute tricuspid endocarditis Septic pulmonary emboli MSSA bacteremia Asthma exacerbation Polysubstance abuse Acute thrombocytopenia Discharge Medications: New daptomycin [Cubicin RF] 500 mg recon soln 400 mg IV Q24H Qty: 1 0RF Rx Instructions: administer over 30 mins hydroxyzine HCl 25 mg Tablet 25 mg PO Q6H PRN (Reason: Anxiety) Qty: 20 0RF ferrous sulfate 324 mg (65 mg iron) Tablet,Delayed Release (Dr/Ec) 324 mg PO DAILY Qty: 30 0RF Continued albuterol sulfate 90 mcg/actuation Hfa Aerosol Inhaler 2 puff INHALATION Q4H PRN (Reason: Shortness Of Breath) Discharge Orders: Discharge Order (Routine); Ordered 11/02/22 Ordered By: Sara Juárez Diet: Advance to usual diet Activity on Discharge: As tolerated Stand Alone Forms: Patient Portal Discharge page Care Plan Goals: stop using drugs Follow up outpatient with help doing this Health Concerns: Severe sepsis secondary to acute tricuspid endocarditis Septic pulmonary emboli MSSA bacteremia Asthma exacerbation Polysubstance abuse Acute thrombocytopenia Plan of Treatment: Follow-up with primary care provider when released from rehab Take all medications as prescribed. You will be on daptomycin for a total of 6 weeks last dose 12/02/2022. May remove midline/ PICC line at last dose Assessment: see discharge summary
[2022-11-02 16:00] VITALS: BP 105/71; PULSE 76; RESP 16; TEMP 36.4; O2SAT 98
[2022-11-02] MEDS: DAPTOmycin 400 MG in 0.9 % Sodium Chloride 50 ML 116 MG IV (16:08)
[2022-11-02] MEDS: hydrOXYzine HCL 25 MG TABLET PO (17:34)
== END 2022-11-02 19:15 | DRG 720 ==
LOC: HO.ED 10-17 08:17 → HO.EDOVER 10-17 12:19 → HO.S3 10-17 19:39
PROVIDERS: Hospitalist; Internal Medicine; Physician Assistant Medical; Admitting Provider Physician Assistant; Emergency Provider Internal Medicine; Visit Provider Nurse Practitioner Acute Care
DX: A41.02 Sepsis due to Methicillin resistant Staphylococcus aureus (principal); I26.90 Septic pulmonary embolism without acute cor pulmonale; I33.0 Acute and subacute infective endocarditis; F17.210 Nicotine dependence, cigarettes, uncomplicated; B18.2 Chronic viral hepatitis C; D50.9 Iron deficiency anemia, unspecified; D69.59 Other secondary thrombocytopenia; R65.20 Severe sepsis without septic shock; J98.4 Other disorders of lung; J45.20 Mild intermittent asthma, uncomplicated; F19.139 Other psychoactive substance abuse with withdrawal, unspecified; Z20.822 Contact with and (suspected) exposure to COVID-19; Z86.14 Personal history of Methicillin resistant Staphylococcus aureus infection; Z59.02 Unsheltered homelessness; Z71.6 Tobacco abuse counseling; Z88.0 Allergy status to penicillin; Z88.5 Allergy status to narcotic agent; Z79.899 Other long term (current) drug therapy
CPT/HCPCS: 36415; 36573; 71045; 71260; 73620; 73701; 80048; 80053; 80076; 80202; 80307; 81001; 81025; 82550; 82565; 82728; 83540; 83605; 83880; 85025; 85027; 85652; 86140; 86481; 87040; 87077; 87086; 87116; 87147; 87186; 87205; 87206; 87389; 87633; 87635; 93005; 93306; 93308; 93356; 94640; 99285; C1751; C1894; J0692; J0878; J1642; J1650; J2270; J2543; J2920; J3370; J3371; Q9957; Q9967

== ENCOUNTER 2022-11-27 11:02 | Outpatient (REF) | payer OTHER, SELFPAY ==
[2022-12-01 12:28] LABS: HCV RNA PCR Qn 5010000 IU/mL (NOT DETECTED)
[2022-12-02 00:24] LABS: FIB-ALT 62 U/L (6-29); FIB-Alpha-2-Macroglobulin 211 mg/dL (106-279); FIB-Apolipoprotein A1 217 mg/dL (101-198); FIB-GGT 17 U/L (3-50); FIB-Haptoglobin 194 mg/dL (43-212); FIB-Total Bilirubin 0.3 mg/dL (0.2-1.2); Liver Fibrosis Score 0.03; Liver Fibrosis Stage F0; Nec Inflam Act Grade A0-A1; Nec Inflam Act Score 0.28
[2022-12-05 16:38] LABS: HCV Genotype LiPA 1b
== END 2022-11-27 11:03 | disposition home or self-care (01) ==
LOC: HO.LAB 11:02
PROVIDERS: Visit Provider Internal Medicine
DX: B19.20 Unspecified viral hepatitis C without hepatic coma (principal); I33.0 Acute and subacute infective endocarditis; B95.61 Methicillin susceptible Staphylococcus aureus infection as the cause of diseases classified elsewhere
CPT/HCPCS: 36415; 81596; 87522; 87902; 99212

== ENCOUNTER 2023-02-04 13:01 | Inpatient (IN) | payer MEDICAID, SELFPAY ==
[2023-02-04] VITALS (7 sets, daily range): BP systolic 96–120; BP diastolic 48–70; PULSE 77–118; RESP 18–22; TEMP 36.6–37.2; O2SAT 93–99; BMI 20.8
--- NOTE | ~2023-02-04 | XR_ITS ---
EXAMINATION: XR CHEST CLINICAL INFORMATION: Lethargy COMPARISON: Previous dated 10/25/2022 TECHNIQUE: Frontal view of the chest was obtained. FINDINGS: Does demonstrate areas of patchy opacity. These are felt to be shifting from previous exam. There is no effusion. No convincing evidence for failure. The cardiac silhouette is comparable. Low lung volumes XR/XR chest 1V IMPRESSION: Diffuse patchy areas of opacity consistent with areas of infiltrate. As stated I believe some of these are shifting from previous therefore likely new areas. Continued follow-up recommended
--- NOTE | ~2023-02-04 | CT_ITS ---
EXAMINATION: CT CHEST WITHOUT CONTRAST CLINICAL INFORMATION: Septic emboli versus pneumonia COMPARISON: Previous chest x-ray from earlier the same day and chest CT September 2022 TECHNIQUE: Multidetector volumetric CT imaging of the chest was done. Axial MIP volume rendering provided. Sagittal and coronal reformatted images were obtained. This CT examination was performed using dose optimization techniques as appropriate, variously including the following: *Automated exposure control *Adjustment of mA and/or kV according to patient size (this includes techniques or standardized protocols for targeted exams where dose is matched to indication/reason for exam; i.e. extremities or head) *Use of iterative reconstruction technique DLP: 247 mGy-cm FINDINGS: LUNGS: There are multiple bilateral pulmonary nodules. Largest right pulmonary nodule measures 1.3 x 2 cm in the right upper lobe. Largest left pulmonary nodule measures 1.7 cm in the left upper lobe. Some pulmonary nodules are cavitary. MEDIASTINUM: There is diffuse mediastinal and bilateral hilar lymphadenopathy. The heart does not appear enlarged. No pericardial effusion. CORONARY ARTERY CALCIFICATION: None visualized on this study. PLEURA: Trace right pleural effusion. No left pleural effusion. AXILLA: Small bilateral axillary lymph nodes. Small bilateral lower cervical lymph nodes. No chest wall mass. UPPER ABDOMEN: Spleen not completely imaged but appears prominent. OSSEOUS STRUCTURES: Unremarkable. CT/CT chest wo IV con IMPRESSION: Bilateral pulmonary nodules, some of which are cavitary. Infectious, inflammatory and neoplastic processes should be considered. Findings would be compatible with septic emboli. Diffuse adenopathy. Fleischner guidelines were followed.
--- NOTE | ~2023-02-04 | MR_ITS ---
EXAMINATION: MR LUMBAR SPINE WITHOUT CONTRAST CLINICAL INFORMATION: Bacteremia. Back pain. COMPARISON: None available. TECHNIQUE: MRI of the lumbar spine was obtained using routine sequences without contrast. FINDINGS: Alignment is normal. Vertebral body heights are preserved. There is diffuse reduction of bone marrow signal intensity on the T1 sequences. Intervertebral disc height and signal intensity is maintained at all levels. Annular contours are normal and there is no canal or neuroforaminal compromise. No mass effect on the traversing or foraminal nerve roots. The tip of the conus medullaris is located at L1. No mass effect on the conus. Visualized distal cord signal intensity is normal. Limited visualization of the retroperitoneal anatomy reveals a hydropic gallbladder, with a fundal diameter of 5 cm. Psoas and paraspinal muscle groups are grossly symmetric. MR/MR lumbar spine wo con IMPRESSION: There is diffuse reduction of bone marrow signal intensity on the T1 sequences. This nonspecific finding can be seen in setting of anemia. Other infiltrative bone marrow processes are not excluded. Otherwise unremarkable examination in that there is no canal or neuroforaminal compromise. No mass effect on the traversing or foraminal nerve roots. No evidence of spinal infection. Of note there is a hydropic gallbladder with a fundal diameter measuring 5 cm. A right upper quadrant ultrasound can be taken if there is a clinical concern for acute cholecystitis or hepatobiliary dysfunction.
--- NOTE | 2023-02-04 13:29 | PC.NURSE ---
Alert and oriented. Patient brought in by EMS from [facility]. Stating that she had sepsis a month ago and doesn't feel good. States that she used heroin and cocaine about 30 minutes ago. Alert but slow to respond. VSS. Denies chest pain or SOB. States having 10/10 all over body pain that started 3 days ago. Changed over into hospital [facility] and personal belongings secured by security.
--- NOTE | 2023-02-04 13:31 | PC.NURSE ---
pt belongings in [place]
--- NOTE | 2023-02-04 13:55 | ED_ITS ---
HPI - General Adult General Chief complaint: General Medical Stated complaint: pain all over,heroin/cocain use per ems Time Seen by Provider: 02/04/23 13:54 Source: patient and EMS Mode of arrival: EMS Limitations: no limitations History of Present Illness HPI narrative: Patient is a 37 year old assigned female at with a history of hepatitis C, endocarditis, and IV drug use presenting to the emergency department today with pain. Patient states that she has all over body pain. Patient denies any dizziness, lightheadedness, abdominal pain, nausea, vomiting, fever, chills, blurry vision, double vision, loss of vision, chest pain, difficulty breathing, shortness of breath, back pain, night sweats, pain with urination, increased urinary frequency, increased urinary urgency, blood in her urine or stool, syn cope or a near syncopal episode, recent trauma or falls, bowel incontinence, bladder incontinence, bowel retention, bladder retention, or any other complaints at this time. Severity: mild Severity scale (1-10): 1 Relieving factors: none Exacerbating factors: none Associated symptoms: denies other symptoms Treatments prior to arrival: none Related Data Home Medications Medication Instructions Recorded Confirmed albuterol sulfate 90 mcg/actuation 2 puff inhalation Q4H PRN 10/17/22 10/17/22 aerosol inhaler Shortness Of Breath acetaminophen 650 mg/20.3 mL oral 650 mg PO QID PRN 11/27/22 solution albuterol sulfate 90 mcg/actuation 2 puff inhalation Q6H PRN 11/27/22 aerosol inhaler (ProAir HFA) baclofen 5 mg tablet 5 mg PO DAILY 11/27/22 bisacodyl 10 mg rectal suppository 10 mg WV DAILY PRN 11/27/22 fluoxetine 10 mg capsule 10 mg PO DAILY 11/27/22 ibuprofen 200 mg capsule 200 mg PO Q6H PRN 11/27/22 magnesium hydroxide 400 mg/5 mL 5 ml PO DAILY PRN 11/27/22 oral suspension (Dulcolax (magnesium hydroxide)) methadone 10 mg/mL oral concentrate 10 mg PO DAILY 11/27/22 naloxone 4 mg/actuation nasal spray 4 mg intranasal Q3M PRN 11/27/22 sodium phosphates 19 gram-7 118 ml WV DAILY PRN 11/27/22 gram/118 mL enema (Fleet Enema) Previous Rx's Medication Instructions Recorded ferrous sulfate 324 mg (65 mg 324 mg PO DAILY #30 tabs 11/02/22 iron) tablet,delayed release hydroxyzine HCl 25 mg tablet 25 mg PO Q6H PRN Anxiety #20 tabs 11/02/22 sofosbuvir 400 mg-velpatasvir 100 1 tab PO DAILY 12 weeks #84 tabs 01/04/23 mg tablet (Epclusa) Allergies Allergy/AdvReac Type Severity Reaction Status Date / Time bee pollen [Bee Stings] Allergy Unknown SWELLING Verified 11/27/22 11:11 AT SITE morphine [Morphine] Allergy Unknown SKIN Verified 11/27/22 11:11 BUBBLED Penicillins Allergy Unknown HIVES Verified 11/27/22 11:11 BREATHING PBROBLEM Review of Systems Constitutional: Constitutional: Reports no additional constitutional co mplaints, Reports body ache(s), Denies chills, Denies fever(s) and Denies night sweats Eyes: Eyes: Reports no additional eye complaints, Denies blurry vision, Denies change in vision, Denies diplopia, Denies eye discharge, Denies loss of vision and Denies eye pain ENT: Denies dizziness Cardiovascular: Cardiovascular: Reports no additional cardiovascular compla ints, Denies chest pain, Denies lightheadedness, Denies Loss of Consciousness and Denies dyspnea Respiratory: Respiratory: Reports no additional respiratory complaints and Denies dyspnea Gastrointestinal: Gastrointestinal: Reports no additional gastrointestinal complaints, Denies abdominal pain, Denies melena, Denies hematochezia, Denies change in bowel habits and Denies change in stool character Genitourinary: Genitourinary: Denies hematuria, Denies urinary frequency, Denies dysuria, Denies urinary incontinence, Denies urinary hesitancy and Denies urinary urgency Musculoskeletal: Musculoskeletal: Reports no additional musculoskeletal complaints, Denies numbness and Denies tingling Neurologic: Denies dizziness, Denies loss of vision, Denies numbness and Denies tingling Psychiatric: Psychiatric: Reports no additional psychiatric complaints Endocrine: Endocrine: Reports no additional endocrine complaints Hematologic/Lymphatic: Hematologic/Lymphatic: Reports no additional hematolo gic/lymphatic complaints Allergic/Immunologic: Allergic/Immunologic: Reports no additional allergic/immunologic complaints PMFSH Past Medical History Attestation statement: The following information was validated with the patient. Source: old records reviewed and nursing notes reviewed Medical History (Updated 02/05/23 @ 00:29 by SON Jaquez) Abscess of left foot Asthma Cavitary lesion of lung Cellulitis of foot, left COVID-19 Early stage of Fungus infection in blood Hepatitis C MRSA (methicillin resistant staph aureus) culture positive Opioid use disorder Polysubstance abuse Sepsis Sepsis Severe sepsis Substance abuse Surgical History No pertinent past surgical history Status post incision and drainage Social History Social History Household Members: Unknown / Unable to assess Household Members Other:: pt refused to answer/ trying to sleep Housing: Apartment Housing Other:: homeless Do you presently have visiting nurse or other home services: No (pt refused to answer/ trying to sleep) Unable to assess alcohol history related to: Unknown Alcohol intake: never Patient Tobacco Use Status: Tobacco use Unknown Tobacco use type: Cigarette Cigarette Packs Per Day: 1 Cigarettes Per Day: 20.0 Years Smoked: 15 Smoked in Last 30 Days: Yes Second Hand Smoke Exposure: No Use of substances other than those prescribed or required for medical reasons: Unknown Substance Use Type: IV Drugs Last Used Substance: Just Prior to Admission Last Used Substance Other:: pt refused to answer/ trying to sleep Currently Displaying Signs/Symptoms of Drug Intoxication Withdrawal: No Other Past Substance Use Problem:: pt refused to answer/ trying to sleep Any prior treatment program specific to substance use: Yes Advance Directives: No Advance Directives Information Provided: No Do you have thoughts of harming others: None Do you have a plan to hurt others: No Plan Nutrition Risks: No Nutritional Risk Patient : No : No Poor oral hygiene: No service: No Current occupational status: unemployed Physical Exam ED Vital Signs: Vital Signs - 24 hr 02/04/23 13:21 02/04/23 13:26 02/04/23 14:13 Temperature 98.1 F 98.1 F Pulse Rate 79 77 80 Respiratory Rate 18 18 18 Blood Pressure 113/69 113/69 120/69 Pulse Oximetry 94 94 96 Oxygen Delivery Method Room Air Room Air Room Air 02/04/23 16:12 02/04/23 17:29 Temperature 98.9 F Pulse Rate 93 86 Respiratory Rate 18 18 Blood Pressure 114/53 L 101/48 L Pulse Oximetry 94 98 Oxygen Delivery Method Room Air Room Air BMI result Body Mass Index 20.8 Const General: cooperative, no acute distress, alert and awake Nutritional Appearance: well nourished Orientation/consciousness: patient oriented x3 Limitations: no limitations HENMT Head: Yes normal to inspection and Yes atraumatic Ears: hearing grossly normal bilaterally and external ears normal General nose exam: Normal external nose present, no nasal discharge noted and no epistaxis Face and sinus: Yes normal facial exam, No abrasion and No laceration Mouth: Normal oral and palatal mucosa present, no drooling and no muffled voice Eyes General: appearance normal, both eyes and all related structures Periorbital: periorbital findings normal Eyelids: Yes eyelids normal Conjunctivae: conjunctivae normal Pupils: Equal, round and reactive pupils present EOM: EOMs intact bilaterally Neck Neck: Yes normal visual inspection, Yes full ROM and Yes no lymphadenopathy Chest Chest palpation & inspection: normal inspection of the chest Resp Effort & Inspection: normal respiratory effort and able to speak in complete sentences Auscultation: clear to auscultation bilaterally Cardio Rate: regular rate Rhythm: regular rhythm GI Inspection: Yes normal to inspection Palpation (GI): Soft to palpation, not firm, nontender and no guarding Neuro General: patient oriented x3 and moves all extremities Cranial nerves: Yes Equal, round and reactive pupils present Cognition (Neuro): normal cognition Motor exam (neuro): 5/5 motor strength present throughout Sensory Exam: Normal double simultaneous stimulation for sensation Coordination: [id number] test normal Extrem General: Yes normal to inspection, Yes full ROM and Yes capillary refill normal Psych Appearance: grossly normal Mental Status: mental status grossly normal Affect: normal affect Attitude: cooperative Thought process: Normal thought process present Thought content: Normal thought content present Insight: Good insight present (Psych) Medications Administered Generic Name Dose Route Start Last Admin Trade Name Freq PRN Reason Stop Dose Admin Enoxaparin Sodium 30 mg 02/04/23 22:00 02/04/23 21:54 Enoxaparin Sodium 30 Mg/0.3 Ml Syringe SUBCUT 30 mg Q24H CORNELIUS Administration Ferrous Sulfate 300 mg 02/04/23 20:55 02/04/23 21:57 Ferrous Sulfate 300 Mg/5 Ml Liquid PO Not Given BIDWM [facility] Lactated Ringer's 1,000 mls @ 100 mls/hr 02/04/23 20:30 02/04/23 20:35 Lr IVCONT 100 mls/hr .Q10H CORNELIUS Administration Multivitamins/Vitamin C 1 tab 02/04/23 21:00 02/04/23 21:57 Multivitamin Tablet PO Not Given BEDTIME CORNELIUS Sodium Chloride 3 ml 02/05/23 00:00 02/04/23 21:57 0.9 % Sodium Chloride Flush 3 Ml Syringe IVFLUSH 3 ml QSHIFT CORNELIUS Administration Discontinued Medications Generic Name Dose Route Start Last Admin Trade Name Hetal PRN Reason Stop Dose Admin Sodium Chloride 1,000 mls @ 999 mls/hr 02/04/23 17:05 02/04/23 19:29 Ns IV 02/04/23 18:05 Infused .Q1H1M STA Infusion Sodium Chloride 1,000 mls @ 999 mls/hr 02/04/23 17:06 02/04/23 19:29 Ns IV 02/04/23 18:06 Infused .Q1H1M STA Infusion Vancomycin HCl 1,250 mg/ 250 mls @ 166.667 mls/hr 02/04/23 17:43 02/04/23 19:50 Sodium Chloride IV 02/04/23 19:12 Infused ONCE ONE Infusion Ketorolac Tromethamine 15 mg 02/04/23 14:32 02/04/23 15:12 Ketorolac Tromethamine 15 Mg/Ml Vial IM 02/04/23 14:33 15 mg ONCE ONE Administration Potassium Chloride 40 meq 02/04/23 19:34 02/04/23 20:35 Potassium Chloride Packet 20 Meq Packet PO 02/04/23 19:35 40 meq ONCE ONE Administration Medical Decision Making Medical Decision Making [facility] Narrative: Patient is a 37 year old assigned female at with a history of hepatitis C, endocarditis, and IV drug use presenting to the emergency department today with body aches. Patient's physical exam was unremarkable. Patient's blood work and imaging pending. Patient signed out to SON Orozco. 12:28am patient admitted to the hospital for Endocaritis/REMA Differential Diagnosis Differential Diagnoses: The differential diagnosis associated with the presentation includes lethargy, IV drug use Lab Data 02/04/23 15:33 02/04/23 15:33 Labs: Lab Results 02/04/23 02/04/23 02/04/23 Range/Units 15:17 15:33 15:33 WBC 19.0 H (4.8-10.8) X10*3/uL RBC 4.68 (4.20-5.50) X10*6/uL Hgb 12.1 D (12.0-16.0) g/dl Hct 35.3 L (37.0-47.0) % MCV 75.4 L (80.0-98.0) fL MCH 25.9 L (27.0-33.0) pg MCHC 34.3 (31.0-35.0) g/dl RDW 14.6 (11.0-16.0) % Plt Count 117 L D (160-400) X10*3/uL MPV 12.1 (9.4-12.3) fL Immature Gran % (Auto) 1.3 H (0.0-0.4) % Neut % (Auto) 89.4 H (45-73) % Lymph % (Auto) 3.3 L (20-40) % [place] % (Auto) 5.5 (2-11) % Eos % (Auto) 0.2 (0-4) % Baso % (Auto) 0.3 (0-2) % Lymph # (Auto) 0.6 L (1.2-4.9) X10*3/uL [place] # (Auto) 1.1 (0.1-1.2) X10*3/uL Eos # (Auto) 0.0 (0.0-0.4) X10*3/uL Baso # (Auto) 0.1 (0.0-0.2) X10*3/uL Abs Immat Gran (auto) 0.25 H (0.00-0.03) X10*3/uL Absolute Neuts (auto) 17.0 H (2.0-8.3) x10*3/uL Absolute Nucleated RBC 0.000 (0.0-0.012) X10*3/uL Nucleated RBC % (auto) 0.0 (0.0-0.2) /100WBC ESR (0-20) MM/HR Sodium 131 L (135-145) mmol/L Potassium 3.2 L D (3.3-5.1) mmol/L Chloride 93 L (96-108) mmol/L Carbon Dioxide 23 (22-29) mmol/L Anion Gap 18 (12-20) BUN 90 H (9-16) mg/dL Creatinine 3.91 H (0.5-1.4) mg/dL Estim Creat Clear Calc 14.8 Estimated GFR 13 Random Glucose 135 H (60-115) mg/dL Lactic Acid (0.5-2.0) mmol/L Calcium 8.4 (8.4-10.2) mg/dL Magnesium 2.0 (1.6-2.6) mg/dL Iron 11 L (30-160) mcg/dL TIBC 176 L (228-428) mcg/dL % Saturation 6 L (15-50) % Unsat Iron Binding 165 ug/dL Total Bilirubin 0.6 (0.0-1.0) mg/dL AST 19 (5-31) U/L ALT 10 (0-31) U/L Alkaline Phosphatase 138 H (39-117) U/L Total Creatine Kinase 258 H (26-140) U/L Troponin I High Sens (<3.5-17.0) ng/L C-Reactive Protein 24.79 H (< or = 0.50) mg/dL Total Protein 6.6 (6.5-8.0) g/dL Albumin 2.4 L (3.5-5.0) g/dL Beta HCG, Quant < 2 mIU/mL Salicylates < 5.0 L (15-30) mg/dL Acetaminophen < 17 (<30) mcg/mL Ethyl Alcohol < 10 mg/dL COVID-19 (KORI) Negative (Negative) COVID-19 Clin Com See Note 02/04/23 02/04/23 02/04/23 Range/Units 15:33 16:35 16:36 WBC (4.8-10.8) X10*3/uL RBC (4.20-5.50) X10*6/uL Hgb (12.0-16.0) g/dl Hct (37.0-47.0) % MCV (80.0-98.0) fL MCH (27.0-33.0) pg MCHC (31.0-35.0) g/dl RDW (11.0-16.0) % Plt Count (160-400) X10*3/uL MPV (9.4-12.3) fL Immature Gran % (Auto) (0.0-0.4) % Neut % (Auto) (45-73) % Lymph % (Auto) (20-40) % [place] % (Auto) (2-11) % Eos % (Auto) (0-4) % Baso % (Auto) (0-2) % Lymph # (Auto) (1.2-4.9) X10*3/uL [place] # (Auto) (0.1-1.2) X10*3/uL Eos # (Auto) (0.0-0.4) X10*3/uL Baso # (Auto) (0.0-0.2) X10*3/uL Abs Immat Gran (auto) (0.00-0.03) X10*3/uL Absolute Neuts (auto) (2.0-8.3) x10*3/uL Absolute Nucleated RBC (0.0-0.012) X10*3/uL Nucleated RBC % (auto) (0.0-0.2) /100WBC ESR 63 H (0-20) MM/HR Sodium (135-145) mmol/L Potassium (3.3-5.1) mmol/L Chloride (96-108) mmol/L Carbon Dioxide (22-29) mmol/L Anion Gap (12-20) BUN (9-16) mg/dL Creatinine (0.5-1.4) mg/dL Estim Creat Clear Calc Estimated GFR Random Glucose (60-115) mg/dL Lactic Acid 1.4 (0.5-2.0) mmol/L Calcium (8.4-10.2) mg/dL Magnesium (1.6-2.6) mg/dL Iron (30-160) mcg/dL TIBC (228-428) mcg/dL % Saturation (15-50) % Unsat Iron Binding ug/dL Total Bilirubin (0.0-1.0) mg/dL AST (5-31) U/L ALT (0-31) U/L Alkaline Phosphatase (39-117) U/L Total Creatine Kinase (26-140) U/L Troponin I High Sens < 2.7 (<3.5-17.0) ng/L C-Reactive Protein (< or = 0.50) mg/dL Total Protein (6.5-8.0) g/dL Albumin (3.5-5.0) g/dL Beta HCG, Quant mIU/mL Salicylates (15-30) mg/dL Acetaminophen (<30) mcg/mL Ethyl Alcohol mg/dL COVID-19 (KORI) (Negative) COVID-19 Clin Com Independent Historian Clinical information obtained from an independent historian. History obtained from or confirmed by: EMS (EMS provided additional history and confirmed history given by the patient) Discharge Plan Discharge Clinical Impression: Lethargic, REMA (acute kidney injury), Endocarditis Patient Disposition: Admitted As Inpatient Interventions: Admission Worksheet (ED) Last Done: 02/04/23 21:00 Discharge Date/Time: 02/04/23 21:15
--- NOTE | 2023-02-04 14:07 | ECG_ITS ---
Test Reason : DRUG USE Blood Pressure : / mmHG Vent. Rate : 081 BPM Atrial Rate : 081 BPM P-R Int : 132 ms QRS Dur : 084 ms QT Int : 448 ms P-R-T Axes : 051 014 016 degrees QTc Int : 520 ms Normal sinus rhythm Prolonged QT Abnormal ECG When compared with ECG of 18-OCT-2022 14:47, QT has lengthened Referred By: Angie Puga Electronically Signed By:Bud Pagan
--- NOTE | 2023-02-04 15:10 | MHC.RECOVSUP ---
Addendum entered by Jose Enrique Horan 02/04/23 18:16: RC to follow up. Original Note: Attempted to meet with pt in ED6H but she informed she is in to much pain to discuss recovery at this time. T/W informed provider and will try and meet with pt at another time.
[2023-02-04] MEDS: Ketorolac Tromethamine 15 MG/ML VIAL IM (15:12)
[2023-02-04 15:59] LABS: Basophils Absolute Auto 0.1 X10*3/uL (0.0-0.2); Basophils Percent Auto 0.3 % (0-2); Hemoglobin 12.1 g/dl (12.0-16.0); Lymphocytes Percent Auto 3.3 % (20-40); Red Cell Distribution Width 14.6 % (11.0-16.0); SCAN SMEAR FLAG 1
[2023-02-04 16:01] LABS: Eosinophils Percent Auto 0.2 % (0-4); Hematocrit 35.3 % (37.0-47.0); Imm Gran Abs Auto 0.25 X10*3/uL (0.00-0.03); Imm Gran Pct Auto 1.3 % (0.0-0.4); Lymphocytes Absolute Auto 0.6 X10*3/uL (1.2-4.9); Mean Corpuscular HGB Conc 34.3 g/dl (31.0-35.0); Mean Corpuscular Hemoglobin 25.9 pg (27.0-33.0); Mean Corpuscular Volume 75.4 fL (80.0-98.0); Mean Platelet Volume 12.1 fL (9.4-12.3); Monocytes Absolute Auto 1.1 X10*3/uL (0.1-1.2); Monocytes Percent Auto 5.5 % (2-11); Neutrophils Percent Auto 89.4 % (45-73); Platelet Count 117 X10*3/uL (160-400); Red Blood Count 4.68 X10*6/uL (4.20-5.50)
[2023-02-04 16:06] LABS: MANUAL DIFF FLAG NO; PLT ABN DIST 1
[2023-02-04 16:09] LABS: COVID-19 Test Negative (Negative); IDNOW Serial# BCCEAD1C
[2023-02-04 16:22] LABS: Alanine Aminotransferase 10 U/L (0-31); Albumin Level 2.4 g/dL (3.5-5.0); Alkaline Phosphatase 138 U/L (39-117); Anion Gap 18 (12-20); Aspartate Amino Transferase 19 U/L (5-31); Bilirubin Total 0.6 mg/dL (0.0-1.0); Blood Urea Nitrogen 90 mg/dL (9-16); Calcium 8.4 mg/dL (8.4-10.2); Carbon Dioxide 23 mmol/L (22-29); Chloride 93 mmol/L (96-108); Creatinine Clr Calc Pharmacy 14.8; Estimated Glomerular Filt Rate 13; Ethanol < 10 mg/dL; Glucose Random 135 mg/dL (60-115); Potassium 3.2 mmol/L (3.3-5.1); Sodium 131 mmol/L (135-145); Total Protein 6.6 g/dL (6.5-8.0)
[2023-02-04 16:53] LABS: Acetaminophen LAB < 17 mcg/mL (<30); Salicylate < 5.0 mg/dL (15-30)
[2023-02-04 16:55] LABS: Lactic Acid 1.4 mmol/L (0.5-2.0)
[2023-02-04 17:07] LABS: Troponin-I High Sensitivity < 2.7 ng/L (<3.5-17.0)
[2023-02-04] MEDS: 0.9 % Sodium Chloride 1,000 ML 999 ML IV ×2 (17:24)
[2023-02-04 17:27] LABS: C Reactive Protein 24.79 mg/dL (< or = 0.50)
[2023-02-04 17:37] LABS: HCG Quantitative < 2 mIU/mL
[2023-02-04] MEDS: vancomycin HCL 1,250 MG in 0.9 % Sodium Chloride 250 ML 166.67 MG IV (18:03)
--- NOTE | 2023-02-04 18:04 | PC.NURSE ---
melba running per order
[2023-02-04 18:16] LABS: Erythrocyte Sedimentation Rate 63 MM/HR (0-20)
--- NOTE | 2023-02-04 19:09 | P.HPHOSP_ITS ---
History of Present Illness Date of Service: 02/04/23 Attending physician on admission: Zachary Robles Chief Complaint: Lethargy Pt is a 37-year-old female with a PMH significant for?hepatitis C, endocarditis, IVDU, and mild intermittent asthma who presents to the ED with?lethargy and whol e-body myalgias. Pt was recently admitted to the hospital 10/17/2022-11/02/2022 for severe sepsis secondary to acute tricuspid endocarditis, septic pulmonary emboli, and MSSA bacteremia. Patient was treated with daptomycin and discharged to short-term rehab where she completed a 4 week course of IV antibiotics. Patient was then discharged to [facility] for additional stabilization and treatment for addiction. However patient states that shortly thereafter he was walking ear places where she used to use and soon started using again. Patient states she mostly uses clean needles however some were dirty. Primarily injected in her feet. Says she was using one and a half bundles daily. Patient says that about a week and half ago she began feeling tired and had all over body aches. Had subjective fever, headaches, difficulty moving. Patient states that today she has pain everywhere and in all joints . Reports being unable to move since last night secondary to pain. Has ?chest tightness? with inspiration. Denies nausea, vomiting, diarrhea, abdominal pain. No palpitations. In the ED patient was tachycardic up to 118, tachypneic up to 22, and hypotensive as low as 101/48. Labs were significant for leukocytosis of 19.0, ESR 63, sodium 131, potassium 3.2, chloride 93, BUN 90, creatinine 3.91, iron 11, TIBC 176, iron saturation 6, creatinine kinase 258, C-reactive protein 2 4.79. Troponin negative. Lactic acid 1.4. CXR showed diffuse patchy areas of opacity consistent with areas of infiltrate, likely new. CT?of chest pending. EKG demonstrated normal sinus rhythm with a prolonged QTc of 520 and no evidence of ST elevations or depressions. Pt was treated with ketorolac, IVF, and vancomycin. Pt will be admitted to the hospital for treatment and further evaluation of severe sepsis likely secondary to pulmonary source. Review of Systems Review of Systems: Whole body aches Generalized fatigue Subjective fever, chills Headache Joint pain Shortness of breath, cough Chest tightness with inspiration Yes all other systems are reviewed and are negative [facility] Medical History (Updated 02/04/23 @ 20:38 by SON Singh) Abscess of left foot Asthma Cavitary lesion of lung Cellulitis of foot, left COVID-19 Early stage of Fungus infection in blood Hepatitis C MRSA (methicillin resistant staph aureus) culture positive Opioid use disorder Polysubstance abuse Sepsis Sepsis Severe sepsis Substance abuse Surgical History No pertinent past surgical history Status post incision and drainage Social History Household Members: Other Housing: Apartment Housing Other:: homeless Do you presently have visiting nurse or other home services: No Alcohol intake: never Patient Tobacco Use Status: Current everyday Tobacco user Tobacco use type: Cigarette Cigarette Packs Per Day: 1 Cigarettes Per Day: 20.0 Years Smoked: 15 Smoked in Last 30 Days: Yes Second Hand Smoke Exposure: No Use of substances other than those prescribed or required for medical reasons: Yes Substance Use Type: Crack/Cocaine and Heroin Last Used Substance: Just Prior to Admission Any prior treatment program specific to substance use: Yes Advance Directives: No Advance Directives Information Provided: No service: No Current occupational status: unemployed Meds Allergies Allergy/AdvReac Type Severity Reaction Status Date / Time bee pollen [Bee Stings] Allergy Unknown SWELLING Verified 11/27/22 11:11 AT SITE morphine [Morphine] Allergy Unknown SKIN Verified 11/27/22 11:11 BUBBLED Penicillins Allergy Unknown HIVES Verified 11/27/22 11:11 BREATHING PBROBLEM Active Medications: Current Medications Vancomycin HCl 1,250 mg/ (Sodium Chloride) 250 mls @ 166.667 mls/hr IV ONCE ONE Stop: 02/04/23 19:12 Last Admin: 02/04/23 18:03 Dose: 166.67 mls/hr Pharmacy Consult (Consult Rx Perform Med Rec) 1 each MISCELLANE ONCE PRN PRN Reason: Consult order Home Medications Medication Instructions Recorded Confirmed Last Taken Type albuterol sulfate 90 mcg/actuation 2 puff inhalation Q4H PRN 10/17/22 10/17/22 Unknown History aerosol inhaler Shortness Of Breath acetaminophen 650 mg/20.3 mL oral 650 mg PO QID PRN 11/27/22 Unknown History solution albuterol sulfate 90 mcg/actuation 2 puff inhalation Q6H PRN 11/27/22 Unknown History aerosol inhaler (ProAir HFA) baclofen 5 mg tablet 5 mg PO DAILY 11/27/22 Unknown History bisacodyl 10 mg rectal suppository 10 mg NJ DAILY PRN 11/27/22 Unknown History fluoxetine 10 mg capsule 10 mg PO DAILY 11/27/22 Unknown History ibuprofen 200 mg capsule 200 mg PO Q6H PRN 11/27/22 Unknown History magnesium hydroxide 400 mg/5 mL 5 ml PO DAILY PRN 11/27/22 Unknown History oral suspension (Dulcolax (magnesium hydroxide)) methadone 10 mg/mL oral concentrate 10 mg PO DAILY 11/27/22 Unknown History naloxone 4 mg/actuation nasal spray 4 mg intranasal Q3M PRN 11/27/22 Unknown History sodium phosphates 19 gram-7 118 ml NJ DAILY PRN 11/27/22 Unknown History gram/118 mL enema (Fleet Enema) Physical Exam Vital Signs and Narrative: Vital Signs: Last Vital Signs Temp 98.9 F 02/04/23 17:29 Pulse 86 02/04/23 17:29 Resp 18 02/04/23 17:29 BP 101/48 L 02/04/23 17:29 Pulse Ox 98 02/04/23 17:29 O2 Del Method Room Air 02/04/23 17:29 BMI result Body Mass Index 20.8 Constitutional: Somnolent, arousable to verbal stimuli, initially difficult to keep awake. Unkempt, poor hygiene. Uncomfortable looking, in no acute distress. Mental Status: Oriented to person, place and time. Eyes: Pupils are equal, round, and reactive to light. Ear, Nose, and Throat: Oropharynx clear, mucous membranes dry. Ears and nose without deformities. Trachea midline. Respiratory: Difficult to fully auscultate due to patient's position. Diffuse wheezing and rhonchi bilaterally. Cardiovascular: S1, S2 regular. Holosystolic murmur best heard at lower left sternal border. Gastrointestinal: Abdomen soft, non-tender, non-distended. Normal bowel sounds. Neurologic: Cranial nerves II-XII are grossly intact bilaterally. No focal neurological deficits. Moves all extremities spontaneously. Skin: IV injection sites with bruising on right foot. No evidence of cellulitis noted. Musculoskeletal: No cyanosis or clubbing. Extremities: No edema. Psychiatric: Emotionally labile, cooperative with interview. Results Labs 02/04/23 15:33 02/04/23 15:33 Labs: Laboratory Results - last 24 hr 02/04/23 02/04/23 02/04/23 15:17 15:33 15:33 MCV 75.4 L MCH 25.9 L MCHC 34.3 RDW 14.6 Plt Count 117 L D MPV 12.1 Immature Gran % (Auto) 1.3 H Neut % (Auto) 89.4 H Lymph % (Auto) 3.3 L [place] % (Auto) 5.5 Eos % (Auto) 0.2 Baso % (Auto) 0.3 Lymph # (Auto) 0.6 L [place] # (Auto) 1.1 Eos # (Auto) 0.0 Baso # (Auto) 0.1 Abs Immat Gran (auto) 0.25 H Absolute Neuts (auto) 17.0 H Absolute Nucleated RBC 0.000 Nucleated RBC % (auto) 0.0 ESR Anion Gap 18 Estim Creat Clear Calc 14.8 Estimated GFR 13 Random Glucose 135 H Lactic Acid Calcium 8.4 Total Bilirubin 0.6 AST 19 ALT 10 Alkaline Phosphatase 138 H Total Creatine Kinase 258 H Troponin I High Sens C-Reactive Protein 24.79 H Total Protein 6.6 Albumin 2.4 L Beta HCG, Quant < 2 Salicylates < 5.0 L Acetaminophen < 17 Ethyl Alcohol < 10 COVID-19 (KORI) Negative COVID-19 Clin Com See Note 02/04/23 02/04/23 02/04/23 15:33 16:35 16:36 MCV MCH MCHC RDW Plt Count MPV Immature Gran % (Auto) Neut % (Auto) Lymph % (Auto) [place] % (Auto) Eos % (Auto) Baso % (Auto) Lymph # (Auto) [place] # (Auto) Eos # (Auto) Baso # (Auto) Abs Immat Gran (auto) Absolute Neuts (auto) Absolute Nucleated RBC Nucleated RBC % (auto) ESR 63 H Anion Gap Estim Creat Clear Calc Estimated GFR Random Glucose Lactic Acid 1.4 Calcium Total Bilirubin AST ALT Alkaline Phosphatase Total Creatine Kinase Troponin I High Sens < 2.7 C-Reactive Protein Total Protein Albumin Beta HCG, Quant Salicylates Acetaminophen Ethyl Alcohol COVID-19 (KORI) COVID-19 Clin Com Assessment and Plan (1) Severe sepsis: Status: Resolved (2) Lethargic: Status: Acute Plan Pt is a 37-year-old female with a PMH significant for?hepatitis C, endocarditis, IVDU, and mild intermittent asthma who presents to the ED with?lethargy and whole-body myalgias. Pt was recently admitted to the hospital 10/17/2022-11/02/2022 for severe sepsis secondary to acute tricuspid endocarditis, septic pulmonary emboli, and MSSA bacteremia. Pt will be admitted to the hospital for treatment and further evaluation of severe sepsis likely secondary to pulmonary source. Severe sepsis with pulmonary source CXR with likely new diffuse patchy areas of opacity consistent with areas of infiltrate Patient with reported chest pain with inspiration, productive cough, rhonchi on auscultation Pt meets severe sepsis criteria: WBC, tachypnea, tachycardia, elevated creatinine Pt hypotensive, received 30 mls/kg IVF and Vanco abx Will get CT of chest Patient with previous tricuspid endocarditis and septic pulmonary emboli Follow blood cultures Alter abx course and consult ID as necessary Consider echocardiogram if blood cultures warrant it REMA Patient's creatinine 3.91 at time of presentation Likely secondary to dehydration d/t reduced p.o. intake Patient has received IVF, will be placed on maintenance fluids Follow BMP Polysubstance use IV heroin and cocaine abuse Addiction Team consult, was on methadone and hydroxyzine during last hospitalization Pt relapsed once discharged from rehab Microcytic anemia Patient's iron panel came back low Patient be started on oral iron supplementation Chronic hepatitis C hould follow-up outpatient for treatment Full Code Attending:?Dr. Robles DVT Prophylaxis: Lovenox Pt will require a hospitalization of at least two nights for treatment with IV antibiotics and further evaluation of?severe sepsis with likely pulmonary source. Time Spent With Patient Time: Total time managing care of this patient today ____ minutes. Quality Stroke Does the patient have a stroke diagnosis?: No VTE Prior VTE?: No VTE Risk Level:: Medical - moderate - high VTE Device Contraindication: Treatment Not Indicated VTE Drug Contraindication: N/A - Med Ordered
--- NOTE | 2023-02-04 19:46 | PHA.PROG ---
Admission Date/Time: 02/04/23 Indication: BACTEREMIA Weight in k.895 kg Adjusted body weight in Kg: [place] body weight in Kg: Obesity Dosing Indication % IBW: 4.39% OVER IBW Serum Creatinine - Last 168 Hours 02/04/23 15:33 Creatinine 3.91 H Estimated CrCl and GFR - Last 168 Hours 02/04/23 15:33 Estim Creat Clear Calc 14.8 Estimated GFR 13 Vancomycin Loading Dose: 1250 MG Current Vancomycin Dosing Regimen:750 MG Q 48 HOURS Vancomycin Monitoring using AUC goal of 400 - 600 range with trough as surrogate marker: Date and Time for next Vancomycin Level to be drawn: WILL CHECK LEVEL 02/06 Pharmacist Comments on Vancomycin Plan: Vancomycin dosing will take advantage of Beep as a clinical decision support tool that uses Bayesian modeling to calculate individual patient's pharmacokinetic parameters and forecast the patient's drug concentration time course with the target goal AUC 24 range of 400 - 600 mg/L/hr.
[2023-02-04 20:31] LABS: Iron 11 mcg/dL (30-160); Percent Iron Saturation 6 % (15-50); Total Iron Binding Capacity 176 mcg/dL (228-428); Unsaturated Iron Binding 165 ug/dL
[2023-02-04] MEDS: Potassium Chloride Packet 20 MEQ PACKET 40 MEQ PO (20:35)
[2023-02-04] MEDS: Lactated Ringers 1,000 ML 100 ML IVCONT (20:35)
--- NOTE | 2023-02-04 20:45 | MHC.CM.PN ---
CM attempted to meet with patient with regards to discharge planning. Pt refuses to engage or answer any questions. Pt does tell CM that she is homeless and sleeps on the streets. Denies staying in any shelters. Information obtained from chart review. Pt was admitted to [facility] in October of 2022 with endocarditis and septic PE. Has HX IVDA, hep C, MRSA. Polysubstance abuse: crack/heroin/cocaine. Pt was discharged to [facility] for IV therapy. There is no HCP or PCP listed. Pt will not verify primary contact. scrum coach attempted to meet with patient and patient refused. Pt admitted today with fatigue, sepsis and REMA. CM will attempt to meet with patient again to discuss discharge planning.
[2023-02-04] MEDS: Enoxaparin Sodium 30 MG/0.3 ML SYRINGE SUBCUT (21:54)
[2023-02-04] MEDS: 0.9 % Sodium Chloride Flush 3 ML SYRINGE IVFLUSH (21:57)
--- NOTE | 2023-02-05 | ECG_ITS ---
Test Reason : PROLONGED QTC Blood Pressure : / mmHG Vent. Rate : 073 BPM Atrial Rate : 073 BPM P-R Int : 132 ms QRS Dur : 090 ms QT Int : 406 ms P-R-T Axes : 058 031 004 degrees QTc Int : 447 ms Normal sinus rhythm Nonspecific T wave abnormality Abnormal ECG When compared with ECG of 04-FEB-2023 14:55, QT has shortened Referred By: Kenyatta Portillo Electronically Signed By:Bud Pagan
--- NOTE | 2023-02-05 01:54 | MHC.PIE ---
p; blood cx positive for gpc x2. note; pt on vanco i; dr franks notified e; will cont to monitor
[2023-02-05 03:31] VITALS: BP 116/58; PULSE 95; RESP 20; TEMP 36.6; O2SAT 92
[2023-02-05] MEDS: Lactated Ringers 1,000 ML 100 ML IVCONT ×2 (04:36→14:37)
--- NOTE | 2023-02-05 07:00 | CA_ITS ---
Transthoracic Echocardiogram Patient (Last, First, Middle): November, Gender: Female Date of : 1985 Age: 37 Procedure Date: 02/05/2023 Procedure Type: Transthoracic Echocardiogram Location: S3E Height: 154.94 cm Weight: 49.9 kg BSA: 1.47 m2 Heart Rate: bpm BP: 114 / 60 mmHg Carpet Floor Layer Apprentice: Referring MD: Jason Schultz MD Symptoms: Endocarditis Study Quality: Good ECG Rhythm: Sinus Conclusions: - Normal left ventricular cavity size. There is mildly increased left ventricular wall thickness. The left ventricular systolic function is hyperdynamic. The visually estimated ejection fraction is >70%. - Normal right ventricular cavity size and systolic function. - The left atrium is normal in size. The right atrium is normal in size. - There is moderate tricuspid valve regurgitation. The right ventricular systolic pressure is 41 mmHg. Normal right atrial pressure. Mild pulmonary hypertension is present. 1.8 x 0.9 cm vegetation on the tricuspid valve. Findings Left Ventricle Normal left ventricular cavity size. There is mildly increased left ventricular wall thickness. The left ventricular systolic function is hyperdynamic. The visually estimated ejection fraction is >70%. There is no evidence of regional wall motion abnormalities. Diastolic function is normal for age. Right Ventricle Normal right ventricular cavity size and systolic function. Atria The left atrium is normal in size. The right atrium is normal in size. Aortic Valve Normal aortic valve structure and function. There is no aortic valve stenosis. There is no aortic valve regurgitation. Mitral Valve Normal mitral valve structure and function. There is trace mitral valve regurgitation. There is no mitral valve stenosis. Pulmonic Valve Normal pulmonic valve structure and function. There is no pulmonic valve regurgitation. Tricuspid Valve There is moderate tricuspid valve regurgitation. The right ventricular systolic pressure is 41 mmHg. Normal right atrial pressure. Mild pulmonary hypertension is present. 1.8 x 0.9 cm vegetation on the tricuspid valve. Great Vessels All visible segments of the aorta are normal in size. The visualized portions of the pulmonary artery and branches are normal. Venous The inferior vena cava is normal in size and collapses greater than 50% with inspiration. Pericardium/Pleural There is no evidence of pericardial effusion. Prior Study Comparison Changes noted compared to prior study dated: 10/26/2022. Mild pulm HTN present. Measurements 2D Linear Measurements IVSd: 0.99 0.6-0.9/0.6-1.0 cm LVIDd: 3.83 3.9-5.3/4.2-5.9 cm LVIDd Index: 2.61 2.4-3.2/2.2-3.1 cm/m2 LVIDs: 2.34 2.0-3.6 cm LVPWd: 0.95 0.7-1.1 cm LV Mass: 141.98 67-162/88-224 g LV Mass Index: 96.58 43-95/49-115 g/m2 Tricuspid Valve TR Pk Cristian: 3.03 TR Pk Grad: 37.00 RVSP: 41.00 Pulmonary Valve PV Pk Cristian: 1.62 Peak PV Grad: 10.00 Updated in Other Vendor System with Status of Final Bud Pagan MD electronically signed on 02/05/2023 12:08:40 PM with status of Final
[2023-02-05 07:13] VITALS: BP 114/60; PULSE 84; RESP 20; TEMP 37; O2SAT 93
[2023-02-05 07:42] LABS: Basophils Absolute Auto 0.1 X10*3/uL (0.0-0.2); Basophils Percent Auto 0.3 % (0-2); Eosinophils Absolute Auto 0.1 X10*3/uL (0.0-0.4); Eosinophils Percent Auto 0.5 % (0-4); Hemoglobin 11.1 g/dl (12.0-16.0); Imm Gran Abs Auto 0.24 X10*3/uL (0.00-0.03); Imm Gran Pct Auto 1.3 % (0.0-0.4); Lymphocytes Absolute Auto 1.4 X10*3/uL (1.2-4.9); Lymphocytes Percent Auto 7.7 % (20-40); MANUAL DIFF FLAG SCAN; Mean Corpuscular HGB Conc 33.6 g/dl (31.0-35.0); Mean Corpuscular Hemoglobin 25.5 pg (27.0-33.0); Mean Corpuscular Volume 75.9 fL (80.0-98.0); Monocytes Percent Auto 10.8 % (2-11); Neutrophils Absolute Auto 14.4 x10*3/uL (2.0-8.3); Neutrophils Percent Auto 79.4 % (45-73); PLT CLUMP 1; Red Blood Count 4.35 X10*6/uL (4.20-5.50); Red Cell Distribution Width 14.8 % (11.0-16.0); SCAN SMEAR FLAG 1
[2023-02-05 08:00] LABS: Anion Gap 14 (12-20); Blood Urea Nitrogen 93 mg/dL (9-16); Calcium 7.8 mg/dL (8.4-10.2); Carbon Dioxide 20 mmol/L (22-29); Chloride 102 mmol/L (96-108); Creatinine Clr Calc Pharmacy 16.7; Estimated Glomerular Filt Rate 15; Glucose Random 113 mg/dL (60-115); Potassium 4.1 mmol/L (3.3-5.1); Sodium 132 mmol/L (135-145)
[2023-02-05 08:25] LABS: White Blood Count 18.2 X10*3/uL (4.8-10.8)
[2023-02-05 08:27] LABS: SLIDE REVIEW VERIFIED
--- NOTE | 2023-02-05 08:33 | HE.PHANOTE ---
Re: vanco Renal function still very poor. SCr 3.48 (slight improvement from 02/04 it was 3.91). Continue with current 750 mg q48 hours dosing and next level due 02/06/23 @1400.
--- NOTE | 2023-02-05 08:35 | HO.PM.IMPN ---
Subjective Subjective Date of Service: 02/05/23 Interval History: feeling unwell Physical Exam Vital Signs: Vital Signs: Last Vital Signs Temp 98.6 F 02/05/23 07:13 Pulse 84 02/05/23 07:13 Resp 20 02/05/23 07:13 BP 114/60 02/05/23 07:13 Pulse Ox 93 02/05/23 07:13 O2 Del Method Room Air 02/05/23 07:13 O2 Flow Rate 3 02/04/23 19:32 BMI result Body Mass Index 20.8 frail, ill appearing, loud systolic murmur, cachexic Objective Data Active Medications Acetaminophen (Acetaminophen 325 Mg Tablet) 650 mg PO Q6H PRN PRN Reason: Pain, Mild (Pain Scale 1-3) Enoxaparin Sodium (Enoxaparin Sodium 30 Mg/0.3 Ml Syringe) 30 mg SUBCUT Q24H [facility] Last Admin: 02/04/23 21:54 Dose: 30 mg Documented By: REEMA Ferrous Sulfate (Ferrous Sulfate 300 Mg/5 Ml Liquid) 300 mg PO BIDWM [facility] Last Admin: 02/05/23 07:34 Dose: Not Given Documented By: MARY ELLEN Non-Admin Reason: pt drowsy Comments: Vancomycin HCl 750 mg/ Sodium (Chloride) 265 mls @ 265 mls/hr IV Q48H [facility] Lactated Ringer's (Lr) 1,000 mls @ 100 mls/hr IVCONT .Q10H [facility] Last Admin: 02/05/23 04:36 Dose: 100 mls/hr Documented By: REEMA Melatonin (Melatonin 3 Mg Tablet) 6 mg PO BEDTIME PRN PRN Reason: Insomnia Multivitamins/Vitamin C (Multivitamin Tablet) 1 tab PO BEDTIME [facility] Last Admin: 02/04/23 21:57 Dose: Not Given Documented By: REEMA Non-Admin Reason: Patient Refused Ondansetron HCl (Ondansetron Hcl 4 Mg/2 Ml Vial) 4 mg IVPUSH Q8H PRN PRN Reason: Nausea and Vomiting Pharmacy Consult (Consult Rx Perform Med Rec) 1 each MISCELLANE ONCE PRN PRN Reason: Consult order Pharmacy Consult (Consult Rx Vancomycin Dosing) 1 each MISCELLANE DAILY PRN PRN Reason: Consult order Sodium Chloride (0.9 % Sodium Chloride Flush 3 Ml Syringe) 3 ml IVFLUSH QSHIFT [facility] Last Admin: 02/05/23 07:31 Dose: Not Given Documented By: MARY ELLEN Non-Admin Reason: IV Running Labs 02/05/23 07:33 02/05/23 07:33 Labs: Laboratory Results - last 24 hr 02/04/23 02/04/23 02/04/23 15:17 15:33 15:33 MCV 75.4 L MCH 25.9 L MCHC 34.3 RDW 14.6 Plt Count 117 L D MPV 12.1 Immature Gran % (Auto) 1.3 H Neut % (Auto) 89.4 H Lymph % (Auto) 3.3 L [place] % (Auto) 5.5 Eos % (Auto) 0.2 Baso % (Auto) 0.3 Lymph # (Auto) 0.6 L [place] # (Auto) 1.1 Eos # (Auto) 0.0 Baso # (Auto) 0.1 Abs Immat Gran (auto) 0.25 H Absolute Neuts (auto) 17.0 H Absolute Nucleated RBC 0.000 Nucleated RBC % (auto) 0.0 Smear Tech's Comments ESR Anion Gap 18 Estim Creat Clear Calc 14.8 Estimated GFR 13 Random Glucose 135 H Lactic Acid Calcium 8.4 Magnesium 2.0 Iron 11 L TIBC 176 L % Saturation 6 L Unsat Iron Binding 165 Total Bilirubin 0.6 AST 19 ALT 10 Alkaline Phosphatase 138 H Total Creatine Kinase 258 H Troponin I High Sens C-Reactive Protein 24.79 H Total Protein 6.6 Albumin 2.4 L Beta HCG, Quant < 2 Salicylates < 5.0 L Acetaminophen < 17 Ethyl Alcohol < 10 COVID-19 ([facility]) Negative COVID-19 Clin Com See Note 02/04/23 02/04/23 02/04/23 15:33 16:35 16:36 MCV MCH MCHC RDW Plt Count MPV Immature Gran % (Auto) Neut % (Auto) Lymph % (Auto) [place] % (Auto) Eos % (Auto) Baso % (Auto) Lymph # (Auto) [place] # (Auto) Eos # (Auto) Baso # (Auto) Abs Immat Gran (auto) Absolute Neuts (auto) Absolute Nucleated RBC Nucleated RBC % (auto) Smear Tech's Comments ESR 63 H Anion Gap Estim Creat Clear Calc Estimated GFR Random Glucose Lactic Acid 1.4 Calcium Magnesium Iron TIBC % Saturation Unsat Iron Binding Total Bilirubin AST ALT Alkaline Phosphatase Total Creatine Kinase Troponin I High Sens < 2.7 C-Reactive Protein Total Protein Albumin Beta HCG, Quant Salicylates Acetaminophen Ethyl Alcohol COVID-19 ([facility]) COVID-19 Clin Com 02/05/23 02/05/23 02/05/23 07:33 07:33 07:33 MCV 75.9 L MCH 25.5 L MCHC 33.6 RDW 14.8 Plt Count TNP MPV Not Reportable Immature Gran % (Auto) 1.3 H Neut % (Auto) 79.4 H Lymph % (Auto) 7.7 L [place] % (Auto) 10.8 Eos % (Auto) 0.5 Baso % (Auto) 0.3 Lymph # (Auto) 1.4 [place] # (Auto) 2.0 H Eos # (Auto) 0.1 Baso # (Auto) 0.1 Abs Immat Gran (auto) 0.24 H Absolute Neuts (auto) 14.4 H Absolute Nucleated RBC 0.000 Nucleated RBC % (auto) 0.0 Smear Tech's Comments VERIFIED ESR Anion Gap 14 Estim Creat Clear Calc 16.7 Cancelled Estimated GFR 15 Cancelled Random Glucose 113 Lactic Acid Calcium 7.8 L D Magnesium Iron TIBC % Saturation Unsat Iron Binding Total Bilirubin AST ALT Alkaline Phosphatase Total Creatine Kinase Troponin I High Sens C-Reactive Protein Total Protein Albumin Beta HCG, Quant Salicylates Acetaminophen Ethyl Alcohol COVID-19 ([facility]) COVID-19 Clin Com Microbiology Microbiology Results: Microbiology 02/04/23 16:34 Blood Culture - Preliminary Blood - Venous Prelim: GPC Gram Stain only 02/04/23 16:35 Blood Culture - Preliminary Blood - Venous Prelim: GPC Gram Stain only Assessment and Plan (1) REMA (acute kidney injury): Status: Acute Plan 37F PMH IVDA tricupsid endocarditis, HCV, mild inermittent asthma, presented with lethargy Severe sepsis due to endocarditis in a patient uses IV drugs with recent history of MRSA tricuspid valve endocarditis follow up cultures vanc iv repeat echo id eval REMA IVF, monitor polysubstance dependence addiction team eval chronic hcv outpatient follow up mild intermittent asthma stable dvt prophylaxis - lovenox full code reason for continued hospitalization:needs to clear cultures Time Spent With Patient Time: Total time managing care of this patient today ____ minutes. Quality Stroke Does the patient have a stroke diagnosis?: No VTE Prior VTE?: No VTE Risk Level:: Medical - moderate - high VTE Device Contraindication: Treatment Not Indicated VTE Drug Contraindication: N/A - Med Ordered
[2023-02-05 09:43] VITALS: TEMP 37
[2023-02-05] MEDS: Acetaminophen 325 MG TABLET 650 MG PO ×2 (09:45→18:06)
--- NOTE | 2023-02-05 10:15 | PHA.MEDREC ---
Pharmacy Consult ? Medication Reconciliation Pharmacy has completed the medication reconciliation. Spoke to patient. Says she doesn't know what she was suppose to be taking. Entered most recent medications filled but patient hasnt taken in awhile
--- NOTE | 2023-02-05 14:03 | MHC.CM.PN ---
DX Fatigue patient was not cooperative with the CM assessment. Information for the assessment was mostly obtained from EMR. Patient was independent prior to hospitalization. She states that she is paralyzed. Addiction medicine has been consulted. Pt receives Methadone at the [facility] [place]. She has + blood cultures. DP likely IV ABX in SNF. A referral has been sent to [facility]. The patient has been to [facility] earlier this year. She received 4 weeks IV ABX. ROSSY Gandhi via BLS.
[2023-02-05] MEDS: HYDROmorphone HCl 0.5 MG/0.5 ML SYRINGE IVPUSH ×2 (14:34→18:06)
[2023-02-05] MEDS: methADONE HCl 20 MG/2 ML ORAL.CONC 30 MG PO (15:36)
[2023-02-05 15:47] VITALS: BP 108/68; PULSE 75; RESP 18; TEMP 36.2; O2SAT 97
--- NOTE | 2023-02-05 15:54 | HO.ADDICTPRO ---
Subjective Subjective Date of Service: 02/05/23 Reason For Visit: fatigue Interim History: Patient is a 37 year old female currently medically admitted with endocarditis Known to the bid writer and the ACS via previous admissions, most recently 10/2022 where methadone was initiated and at time of discharge was at 65mg. Patient tearful when seen by this bid writer, reporting pain all over asking for medications. Unclear when she was last engaged in treatment with [facility], but based on history and current presentation appropriate to restart methadone and obtain clinical updates once patient is less symptomatic. Review of Systems Constitutional: Reports as per HPI, Reports body ache(s), Reports chills and Reports malaise Mental Status Exam Mental Status Exam Level of Consciousness: Awake and Restless Patient Behavior: Anxious and Crying Diagnostics Vital Signs (24Hr): Vital Signs - 24 hr 02/04/23 16:12 02/04/23 17:29 02/04/23 19:32 Temperature 98.9 F 98 F Pulse Rate 93 86 118 H Respiratory Rate 18 18 22 H Blood Pressure 114/53 L 101/48 L 119/57 L Pulse Oximetry 94 98 93 Oxygen Delivery Method Room Air Room Air Nasal Cannula Oxygen Flow Rate 3 02/04/23 21:48 02/05/23 03:31 02/05/23 07:13 Temperature 98.1 F 97.9 F 98.6 F Pulse Rate 89 95 84 Respiratory Rate 20 20 20 Blood Pressure 96/54 L 116/58 L 114/60 Pulse Oximetry 93 92 93 Oxygen Delivery Method Room Air Room Air Room Air Oxygen Flow Rate 02/05/23 09:43 02/05/23 15:47 Temperature 98.6 F 97.1 F Pulse Rate 75 Respiratory Rate 18 Blood Pressure 108/68 Pulse Oximetry 97 Oxygen Delivery Method Room Air Oxygen Flow Rate BMI result Body Mass Index 20.8 Labs 02/05/23 07:33 02/05/23 07:33 Labs: Laboratory Results - last 48 hr 02/04/23 02/04/23 02/04/23 15:17 15:33 15:33 WBC 19.0 H RBC 4.68 Hgb 12.1 D Hct 35.3 L MCV 75.4 L MCH 25.9 L MCHC 34.3 RDW 14.6 Plt Count 117 L D MPV 12.1 Immature Gran % (Auto) 1.3 H Neut % (Auto) 89.4 H Lymph % (Auto) 3.3 L [place] % (Auto) 5.5 Eos % (Auto) 0.2 Baso % (Auto) 0.3 Lymph # (Auto) 0.6 L [place] # (Auto) 1.1 Eos # (Auto) 0.0 Baso # (Auto) 0.1 Abs Immat Gran (auto) 0.25 H Absolute Neuts (auto) 17.0 H Absolute Nucleated RBC 0.000 Nucleated RBC % (auto) 0.0 Smear Tech's Comments ESR Sodium 131 L Potassium 3.2 L D Chloride 93 L Carbon Dioxide 23 Anion Gap 18 BUN 90 H Creatinine 3.91 H Estim Creat Clear Calc 14.8 Estimated GFR 13 Random Glucose 135 H Lactic Acid Calcium 8.4 Magnesium 2.0 Iron 11 L TIBC 176 L % Saturation 6 L Unsat Iron Binding 165 Total Bilirubin 0.6 AST 19 ALT 10 Alkaline Phosphatase 138 H Total Creatine Kinase 258 H Troponin I High Sens C-Reactive Protein 24.79 H Total Protein 6.6 Albumin 2.4 L Beta HCG, Quant < 2 Salicylates < 5.0 L Acetaminophen < 17 Ethyl Alcohol < 10 COVID-19 ([facility]) Negative COVID-19 Clin Com See Note 02/04/23 02/04/23 02/04/23 15:33 16:35 16:36 WBC RBC Hgb Hct MCV MCH MCHC RDW Plt Count MPV Immature Gran % (Auto) Neut % (Auto) Lymph % (Auto) [place] % (Auto) Eos % (Auto) Baso % (Auto) Lymph # (Auto) [place] # (Auto) Eos # (Auto) Baso # (Auto) Abs Immat Gran (auto) Absolute Neuts (auto) Absolute Nucleated RBC Nucleated RBC % (auto) Smear Tech's Comments ESR 63 H Sodium Potassium Chloride Carbon Dioxide Anion Gap BUN Creatinine Estim Creat Clear Calc Estimated GFR Random Glucose Lactic Acid 1.4 Calcium Magnesium Iron TIBC % Saturation Unsat Iron Binding Total Bilirubin AST ALT Alkaline Phosphatase Total Creatine Kinase Troponin I High Sens < 2.7 C-Reactive Protein Total Protein Albumin Beta HCG, Quant Salicylates Acetaminophen Ethyl Alcohol COVID-19 ([facility]) COVID-19 Clin Com 02/05/23 02/05/23 02/05/23 07:33 07:33 07:33 WBC 18.2 H RBC 4.35 Hgb 11.1 L Hct 33.0 L MCV 75.9 L MCH 25.5 L MCHC 33.6 RDW 14.8 Plt Count TNP MPV Not Reportable Immature Gran % (Auto) 1.3 H Neut % (Auto) 79.4 H Lymph % (Auto) 7.7 L [place] % (Auto) 10.8 Eos % (Auto) 0.5 Baso % (Auto) 0.3 Lymph # (Auto) 1.4 [place] # (Auto) 2.0 H Eos # (Auto) 0.1 Baso # (Auto) 0.1 Abs Immat Gran (auto) 0.24 H Absolute Neuts (auto) 14.4 H Absolute Nucleated RBC 0.000 Nucleated RBC % (auto) 0.0 Smear Tech's Comments VERIFIED ESR Sodium 132 L Potassium 4.1 D Chloride 102 Carbon Dioxide 20 L Anion Gap 14 BUN 93 H Creatinine 3.48 H Cancelled Estim Creat Clear Calc 16.7 Cancelled Estimated GFR 15 Cancelled Random Glucose 113 Lactic Acid Calcium 7.8 L D Magnesium Iron TIBC % Saturation Unsat Iron Binding Total Bilirubin AST ALT Alkaline Phosphatase Total Creatine Kinase Troponin I High Sens C-Reactive Protein Total Protein Albumin Beta HCG, Quant Salicylates Acetaminophen Ethyl Alcohol COVID-19 ([facility]) COVID-19 Clin Com Imaging Radiology Impressions: ITS Impressions Chest X-Ray 02/04/23 18:25 IMPRESSION: Diffuse patchy areas of opacity consistent with areas of infiltrate. As stated I believe some of these are shifting from previous therefore likely new areas. Continued follow-up recommended Chest CT 02/04/23 20:31 IMPRESSION: Bilateral pulmonary nodules, some of which are cavitary. Infectious, inflammatory and neoplastic processes should be considered. Findings would be compatible with septic emboli. Diffuse adenopathy. Fleischner guidelines were followed. Medications Medications Current Medications Acetaminophen (Acetaminophen 325 Mg Tablet) 650 mg PO Q6H PRN PRN Reason: Pain, Mild (Pain Scale 1-3) Last Admin: 02/05/23 09:45 Dose: 650 mg Enoxaparin Sodium (Enoxaparin Sodium 30 Mg/0.3 Ml Syringe) 30 mg SUBCUT Q24H [facility] Last Admin: 02/04/23 21:54 Dose: 30 mg Hydromorphone HCl (Hydromorphone Hcl 0.5 Mg/0.5 Ml Syringe) 0.5 mg IVPUSH Q4H PRN; Protocol PRN Reason: moderate pain Last Admin: 02/05/23 14:34 Dose: 0.5 mg Lactated Ringer's (Lr) 1,000 mls @ 100 mls/hr IVCONT .Q10H [facility] Last Admin: 02/05/23 14:37 Dose: 100 mls/hr Daptomycin 500 mg/ Sodium (Chloride) 60 mls @ 100 mls/hr IV Q48H [facility] Melatonin (Melatonin 3 Mg Tablet) 6 mg PO BEDTIME PRN PRN Reason: Insomnia Methadone HCl (Methadone Hcl 20 Mg/2 Ml Oral.Conc) 10 mg PO ONCE ONE Stop: 02/05/23 20:01 Methadone HCl (Methadone Hcl 20 Mg/2 Ml Oral.Conc) 45 mg PO DAILY [facility] Multivitamins/Vitamin C (Multivitamin Tablet) 1 tab PO BEDTIME [facility] Last Admin: 02/04/23 21:57 Dose: Not Given Ondansetron HCl (Ondansetron Hcl 4 Mg/2 Ml Vial) 4 mg IVPUSH Q8H PRN PRN Reason: Nausea and Vomiting Pharmacy Consult (Consult Rx Perform Med Rec) 1 each MISCELLANE ONCE PRN PRN Reason: Consult order Sodium Chloride (0.9 % Sodium Chloride Flush 3 Ml Syringe) 3 ml IVFLUSH QSHIFT [facility] Last Admin: 02/05/23 07:31 Dose: Not Given Allergies Allergies Allergy/AdvReac Type Severity Reaction Status Date / Time bee pollen [Bee Stings] Allergy Unknown SWELLING Verified 11/27/22 11:11 AT SITE morphine [Morphine] Allergy Unknown SKIN Verified 11/27/22 11:11 BUBBLED Penicillins Allergy Unknown HIVES Verified 11/27/22 11:11 BREATHING PBROBLEM Assessment & Plan Assessment & Plan (1) Opioid use disorder: Status: Acute Code(s): F11.90 - Opioid use, unspecified, uncomplicated Assessment and Plan: methadone 30mg X1 with additional 10mg in evening will continue to follow disaster recovery analyst to see over the weekend methadone 45mg in AM Total time managing care of this patient today _25___ minutes.
--- NOTE | 2023-02-05 16:07 | P.CNID_ITS ---
History of Present Illness Data of Consult Service Date: 02/05/23 Requesting physician: Jason Schultz Primary Care Provider: Unknown Physician HPI Reason for consult: bacteremia She presents to ER with overall body pain ,but tells me she has lumbar spine pain and cant walk. She has no fever or chills at this time. She has gram positive cocci in blood. She had prior MSSA bacteremia in September and received six weeks IV Daptomycin. She has tricuspid valve 1.8 cm vegetation and creatinine 3.4. She continues to use IV drugs. Review of Systems Review of Systems: Yes all other systems are reviewed and are negative PMFSH Past Medical History Medical History Abscess of left foot Asthma Cavitary lesion of lung Cellulitis of foot, left COVID-19 Early stage of Fungus infection in blood Hepatitis C MRSA (methicillin resistant staph aureus) culture positive Opioid use disorder Polysubstance abuse Sepsis Sepsis Severe sepsis Substance abuse Family History Family history: reviewed and not pertinent Surgical History Surgical History No pertinent past surgical history Status post incision and drainage Social History Social History Household Members: Unknown / Unable to assess Household Members Other:: pt refused to answer/ trying to sleep Housing: Apartment Housing Other:: homeless Do you presently have visiting nurse or other home services: No (pt refused to answer/ trying to sleep) Unable to assess alcohol history related to: Unknown Alcohol intake: never Patient Tobacco Use Status: Tobacco use Unknown Tobacco use type: Cigarette Cigarette Packs Per Day: 1 Cigarettes Per Day: 20.0 Years Smoked: 15 Smoked in Last 30 Days: Yes Second Hand Smoke Exposure: No Use of substances other than those prescribed or required for medical reasons: Unknown Substance Use Type: IV Drugs Last Used Substance: Just Prior to Admission Last Used Substance Other:: pt refused to answer/ trying to sleep Currently Displaying Signs/Symptoms of Drug Intoxication Withdrawal: No Other Past Substance Use Problem:: pt refused to answer/ trying to sleep Any prior treatment program specific to substance use: Yes Advance Directives: No Advance Directives Information Provided: No Do you have thoughts of harming others: None Do you have a plan to hurt others: No Plan Nutrition Risks: No Nutritional Risk Patient : No : No Poor oral hygiene: No service: No Current occupational status: unemployed Meds Allergies Allergy/AdvReac Type Severity Reaction Status Date / Time bee pollen [Bee Stings] Allergy Unknown SWELLING Verified 11/27/22 11:11 AT SITE morphine [Morphine] Allergy Unknown SKIN Verified 11/27/22 11:11 BUBBLED Penicillins Allergy Unknown HIVES Verified 11/27/22 11:11 BREATHING PBROBLEM Active Medications: Current Medications Acetaminophen (Acetaminophen 325 Mg Tablet) 650 mg PO Q6H PRN PRN Reason: Pain, Mild (Pain Scale 1-3) Last Admin: 02/05/23 09:45 Dose: 650 mg Enoxaparin Sodium (Enoxaparin Sodium 30 Mg/0.3 Ml Syringe) 30 mg SUBCUT Q24H [facility] Last Admin: 02/04/23 21:54 Dose: 30 mg Hydromorphone HCl (Hydromorphone Hcl 0.5 Mg/0.5 Ml Syringe) 0.5 mg IVPUSH Q4H PRN; Protocol PRN Reason: moderate pain Last Admin: 02/05/23 14:34 Dose: 0.5 mg Lactated Ringer's (Lr) 1,000 mls @ 100 mls/hr IVCONT .Q10H [facility] Last Admin: 02/05/23 14:37 Dose: 100 mls/hr Daptomycin 500 mg/ Sodium (Chloride) 60 mls @ 100 mls/hr IV Q48H [facility] Melatonin (Melatonin 3 Mg Tablet) 6 mg PO BEDTIME PRN PRN Reason: Insomnia Methadone HCl (Methadone Hcl 20 Mg/2 Ml Oral.Conc) 10 mg PO ONCE ONE Stop: 02/05/23 20:01 Methadone HCl (Methadone Hcl 20 Mg/2 Ml Oral.Conc) 45 mg PO DAILY [facility] Multivitamins/Vitamin C (Multivitamin Tablet) 1 tab PO BEDTIME [facility] Last Admin: 02/04/23 21:57 Dose: Not Given Ondansetron HCl (Ondansetron Hcl 4 Mg/2 Ml Vial) 4 mg IVPUSH Q8H PRN PRN Reason: Nausea and Vomiting Pharmacy Consult (Consult Rx Perform Med Rec) 1 each MISCELLANE ONCE PRN PRN Reason: Consult order Sodium Chloride (0.9 % Sodium Chloride Flush 3 Ml Syringe) 3 ml IVFLUSH QSHIFT [facility] Last Admin: 02/05/23 07:31 Dose: Not Given Home Medications Medication Instructions Recorded Confirmed Last Taken Type clonidine HCl 0.1 mg tablet 0.1 mg PO BID PRN anxiety 02/05/23 02/05/23 Unknown History gabapentin 300 mg capsule 300 mg PO TID 02/05/23 02/05/23 Unknown History hydroxyzine HCl 25 mg tablet 25 mg PO BID PRN anxiety 02/05/23 02/05/23 Unknown History ibuprofen 600 mg tablet (IBU) 600 mg PO TID PRN pain 02/05/23 02/05/23 Unknown History methocarbamol 750 mg tablet 750 mg PO BID PRN muscle pain 02/05/23 02/05/23 Unknown History Physical Exam Vital Signs: Vital Signs: Last Vital Signs Temp 97.1 F 02/05/23 15:47 Pulse 75 02/05/23 15:47 Resp 18 02/05/23 15:47 BP 108/68 02/05/23 15:47 Pulse Ox 97 02/05/23 15:47 O2 Del Method Room Air 02/05/23 15:47 O2 Flow Rate 3 02/04/23 19:32 BMI result Body Mass Index 20.8 Const: General: tired appearing Nutritional Appearance: cachectic and malnourished HEENT: Head: Yes normal to inspection Face and sinus: Yes normal facial exam Mouth: Normal oral and palatal mucosa present Teeth and gingiva: dentition normal Eyes: General: appearance normal, both eyes and all related structures Pupils: Equal, round and reactive pupils present Resp: Effort & Inspection: normal respiratory effort Cardio: Rate: regular rate Rhythm: regular rhythm GI: Palpation (GI): Soft to palpation and nontender : General: Yes no CVA tenderness Back/Spine/Pelvis: Back: no CVA tenderness Skin: General skin exam: no rashes or lesions noted Neuro: General: moves all extremities Cranial nerves: Yes Equal, round and reactive pupils present Extrem: Other: complaints of not able to raise legs Psych: Appearance: grossly normal Results Labs 02/05/23 07:33 02/05/23 07:33 Labs: Short CBC 02/05/23 Range/Units 07:33 WBC 18.2 H (4.8-10.8) X10*3/uL Hgb 11.1 L (12.0-16.0) g/dl Hct 33.0 L (37.0-47.0) % Plt Count TNP BMP 02/04/23 02/05/23 02/05/23 15:33 07:33 07:33 Sodium 131 L 132 L Potassium 3.2 L D 4.1 D Chloride 93 L 102 Carbon Dioxide 23 20 L BUN 90 H 93 H Creatinine 3.91 H 3.48 H Cancelled Calcium 8.4 7.8 L D Cardiac Enzymes 02/04/23 Range/Units 15:33 Total Creatine Kinase 258 H (26-140) U/L Liver Function 02/04/23 Range/Units 15:33 Total Bilirubin 0.6 (0.0-1.0) mg/dL AST 19 (5-31) U/L ALT 10 (0-31) U/L Alkaline Phosphatase 138 H (39-117) U/L Albumin 2.4 L (3.5-5.0) g/dL Microbiology Microbiology Results: Microbiology 02/04/23 16:34 Blood - Venous Blood Culture - Preliminary Prelim: GPC Gram Stain only 02/04/23 16:35 Blood - Venous Blood Culture - Preliminary Prelim: GPC Gram Stain only Assessment and Plan (1) Endocarditis: Status: Acute She has MSSA blood likely and recurrent bacteremia. Vegetation on valve is nearly 2 cm IVDU source. (2) Endocarditis due to methicillin susceptible Staphylococcus aureus (MSSA): Status: Acute (3) REAM (acute kidney injury): Status: Acute Plan Would give IV Daptomycin at least until renal function stabilized adjusted for 10-12 mg/kg daily and then probably switch to IV Vancomycin finish four to six weeks,depends if OM found spine. Interface with Cardiac Surgery evaluate if candidate for any surgery /AFUA? Time Spent With Patient Time: Total time managing care of this patient today ____ minutes.
[2023-02-05] MEDS: 0.9 % Sodium Chloride Flush 3 ML SYRINGE IVFLUSH (16:39)
[2023-02-05] MEDS: DAPTOmycin 500 MG in 0.9 % Sodium Chloride 50 ML 100 MG IV (16:39)
[2023-02-05 19:42] VITALS: BP 126/64; PULSE 104; RESP 20; TEMP 38.4; O2SAT 92
--- NOTE | 2023-02-05 20:27 | PC.NURSE ---
pt refused MRI md pink
[2023-02-05] MEDS: Acetaminophen 1,000 MG/100 ML PIGGYBACK 400 MG IV (20:34)
[2023-02-05] MEDS: Multivitamin TABLET 1 TAB PO (20:34)
[2023-02-05] MEDS: methADONE HCl 20 MG/2 ML ORAL.CONC 10 MG PO (20:36)
[2023-02-05] MEDS: Enoxaparin Sodium 30 MG/0.3 ML SYRINGE SUBCUT (21:11)
[2023-02-06] MEDS: HYDROmorphone HCl 0.5 MG/0.5 ML SYRINGE IVPUSH (00:42)
[2023-02-06] MEDS: Lactated Ringers 1,000 ML 100 ML IVCONT ×3 (00:44→20:07)
[2023-02-06 04:26] VITALS: BP 145/73; PULSE 95; RESP 20; TEMP 36.9; O2SAT 96
[2023-02-06 07:45] LABS: Hematocrit 29.8 % (37.0-47.0); Hemoglobin 10.3 g/dl (12.0-16.0); Mean Corpuscular HGB Conc 34.6 g/dl (31.0-35.0); Mean Corpuscular Hemoglobin 25.8 pg (27.0-33.0); Mean Corpuscular Volume 74.5 fL (80.0-98.0); Mean Platelet Volume 11.3 fL (9.4-12.3); Platelet Count 137 X10*3/uL (160-400); Red Cell Distribution Width 14.6 % (11.0-16.0); White Blood Count 20.8 X10*3/uL (4.8-10.8)
[2023-02-06 08:00] VITALS: BP 129/75; PULSE 85; RESP 17; TEMP 36.3; O2SAT 96
[2023-02-06] MEDS: methADONE HCl 20 MG/2 ML ORAL.CONC 45 MG PO (08:03)
[2023-02-06 08:28] LABS: Anion Gap 12 (12-20); Blood Urea Nitrogen 78 mg/dL (9-16); Calcium 7.8 mg/dL (8.4-10.2); Carbon Dioxide 23 mmol/L (22-29); Chloride 102 mmol/L (96-108); Creatinine Clr Calc Pharmacy 20.1; Estimated Glomerular Filt Rate 18; Glucose Fasting 124 mg/dL (60-99); Potassium 3.2 mmol/L (3.3-5.1); Sodium 134 mmol/L (135-145)
--- NOTE | 2023-02-06 08:38 | HO.PM.IMPN ---
Subjective Subjective Date of Service: 02/06/23 Interval History: back pain Physical Exam Vital Signs: Vital Signs: Last Vital Signs Temp 98.4 F 02/06/23 04:26 Pulse 95 02/06/23 04:26 Resp 20 02/06/23 04:26 BP 145/73 H 02/06/23 04:26 Pulse Ox 96 02/06/23 04:26 O2 Del Method Room Air 02/06/23 04:26 O2 Flow Rate 3 02/04/23 19:32 BMI result Body Mass Index 20.8 more alert, in pain, loud systolic murmur Objective Data Active Medications Acetaminophen (Acetaminophen 325 Mg Tablet) 650 mg PO Q6H PRN PRN Reason: Pain, Mild (Pain Scale 1-3) Last Admin: 02/05/23 18:06 Dose: 650 mg Documented By: MARY ELLEN Enoxaparin Sodium (Enoxaparin Sodium 30 Mg/0.3 Ml Syringe) 30 mg SUBCUT Q24H [facility] Last Admin: 02/05/23 21:11 Dose: 30 mg Documented By: DULCE Hydromorphone HCl (Hydromorphone Hcl 0.5 Mg/0.5 Ml Syringe) 1 mg IVPUSH Q4H PRN; Protocol PRN Reason: moderate pain Lactated Ringer's (Lr) 1,000 mls @ 100 mls/hr IVCONT .Q10H [facility] Last Admin: 02/06/23 00:44 Dose: 100 mls/hr Documented By: DULCE Daptomycin 500 mg/ Sodium (Chloride) 60 mls @ 100 mls/hr IV Q48H [facility] Last Infusion: 02/05/23 17:20 Dose: 0 mls/hr Documented By: MARY ELLEN Melatonin (Melatonin 3 Mg Tablet) 6 mg PO BEDTIME PRN PRN Reason: Insomnia Methadone HCl (Methadone Hcl 20 Mg/2 Ml Oral.Conc) 45 mg PO DAILY [facility] Last Admin: 02/06/23 08:03 Dose: 45 mg Documented By: MERCEDES Multivitamins/Vitamin C (Multivitamin Tablet) 1 tab PO BEDTIME [facility] Last Admin: 02/05/23 20:34 Dose: 1 tab Documented By: DULCE Ondansetron HCl (Ondansetron Hcl 4 Mg/2 Ml Vial) 4 mg IVPUSH Q8H PRN PRN Reason: Nausea and Vomiting Pharmacy Consult (Consult Rx Perform Med Rec) 1 each MISCELLANE ONCE PRN PRN Reason: Consult order Sodium Chloride (0.9 % Sodium Chloride Flush 3 Ml Syringe) 3 ml IVFLUSH QSHIFT [facility] Last Admin: 02/06/23 07:40 Dose: Not Given Documented By: MERCEDES Non-Admin Reason: IV Running Labs 02/06/23 07:37 02/06/23 07:37 Labs: Laboratory Results - last 24 hr 02/06/23 02/06/23 07:37 07:37 MCV 74.5 L MCH 25.8 L MCHC 34.6 RDW 14.6 Plt Count 137 L MPV 11.3 Absolute Nucleated RBC 0.000 Nucleated RBC % (auto) 0.0 Anion Gap 12 Estim Creat Clear Calc 20.1 Estimated GFR 18 Fasting Glucose 124 H Calcium 7.8 L Microbiology Microbiology Results: Microbiology 02/04/23 16:35 Blood Culture - Preliminary Blood - Venous Staphylococcus aureus 02/04/23 16:34 Blood Culture - Preliminary Blood - Venous Prelim: GPC Gram Stain only Assessment and Plan (1) REMA (acute kidney injury): Status: Acute Plan 37F PMH IVDA tricupsid endocarditis, HCV, mild inermittent asthma, presented with lethargy Severe sepsis due to tricuspid endocarditis in a patient uses IV drugs with recent history of MRSA follow up cultures dapto iv repeat echo showing persistent tricuspid vegetation 1.8cm id appreciated, will check MR spine REMA IVF, monitor, improving hypokalemia replace, monitor polysubstance dependence addiction team following methadone chronic hcv outpatient follow up mild intermittent asthma stable dvt prophylaxis - lovenox full code reason for continued hospitalization:needs to clear cultures Time Spent With Patient Time: Total time managing care of this patient today ____ minutes. Quality Stroke Does the patient have a stroke diagnosis?: No VTE Prior VTE?: No VTE Risk Level:: Medical - moderate - high VTE Device Contraindication: Treatment Not Indicated VTE Drug Contraindication: N/A - Med Ordered
[2023-02-06] MEDS: Potassium Chloride ER 20 MEQ TAB.ER.PRT 40 MEQ PO (09:23)
[2023-02-06] MEDS: HYDROmorphone HCl 0.5 MG/0.5 ML SYRINGE 1 MG IVPUSH ×3 (11:09→20:08)
--- NOTE | 2023-02-06 12:03 | MHC.RECOVRN ---
Met with pt in 384 to follow up on methadone initiation. Pt received 45 mg this morning. Pt laying in bed, eyes closed, wakes to voice. Reporting pain in back, shoulders, arms. Requesting pain medication. Difficult to engage in conversation. Pt reports sleeping off and on last night. Pt would like to continue methadone titration. Plan to meet with pt later today when more comfortable and able to engage in discussion.
[2023-02-06 16:00] VITALS: BP 147/79; PULSE 95; RESP 17; TEMP 36.3; O2SAT 97
[2023-02-06 19:43] VITALS: BP 126/73; PULSE 98; RESP 17; TEMP 37.7; O2SAT 95
[2023-02-06] MEDS: Multivitamin TABLET 1 TAB PO (20:07)
[2023-02-06] MEDS: Melatonin 3 MG TABLET 6 MG PO (21:37)
[2023-02-06] MEDS: Enoxaparin Sodium 30 MG/0.3 ML SYRINGE SUBCUT (21:38)
[2023-02-07 03:24] VITALS: BP 135/82; PULSE 90; RESP 18; TEMP 36.8; O2SAT 95
[2023-02-07 06:45] LABS: Mean Corpuscular HGB Conc 32.4 g/dl (31.0-35.0); Mean Corpuscular Hemoglobin 25.6 pg (27.0-33.0); Mean Corpuscular Volume 79.3 fL (80.0-98.0); Mean Platelet Volume 12.4 fL (9.4-12.3); Platelet Count 114 X10*3/uL (160-400); Red Blood Count 4.29 X10*6/uL (4.20-5.50); Red Cell Distribution Width 15.3 % (11.0-16.0); White Blood Count 18.5 X10*3/uL (4.8-10.8)
[2023-02-07 06:52] LABS: Anion Gap 13 (12-20); Blood Urea Nitrogen 59 mg/dL (9-16); Calcium 7.8 mg/dL (8.4-10.2); Carbon Dioxide 23 mmol/L (22-29); Chloride 103 mmol/L (96-108); Estimated Glomerular Filt Rate 26; Glucose Fasting 103 mg/dL (60-99); Potassium 4.1 mmol/L (3.3-5.1); Sodium 135 mmol/L (135-145)
[2023-02-07 08:00] VITALS: BP 132/77; PULSE 84; RESP 16; TEMP 36.8; O2SAT 94
--- NOTE | 2023-02-07 08:03 | P.PNIM_ITS ---
Subjective Subjective Date of Service: 02/07/23 Interval History: a bit better Physical Exam Vital Signs: Vital Signs: Last Vital Signs Temp 98.2 F 02/07/23 03:24 Pulse 90 02/07/23 03:24 Resp 18 02/07/23 03:24 BP 135/82 02/07/23 03:24 Pulse Ox 95 02/07/23 03:24 O2 Del Method Room Air 02/07/23 03:24 O2 Flow Rate 3 02/04/23 19:32 BMI result Body Mass Index 20.8 more alert, in pain, loud systolic murmur Objective Data Active Medications Acetaminophen (Acetaminophen 325 Mg Tablet) 650 mg PO Q6H PRN PRN Reason: Pain, Mild (Pain Scale 1-3) Last Admin: 02/05/23 18:06 Dose: 650 mg Documented By: MARY ELLEN Enoxaparin Sodium (Enoxaparin Sodium 30 Mg/0.3 Ml Syringe) 30 mg SUBCUT Q24H [facility] Last Admin: 02/06/23 21:38 Dose: 30 mg Documented By: DULCE Hydromorphone HCl (Hydromorphone Hcl 0.5 Mg/0.5 Ml Syringe) 1 mg IVPUSH Q4H PRN; Protocol PRN Reason: moderate pain Last Admin: 02/06/23 20:08 Dose: 1 mg Documented By: DULCE Daptomycin 500 mg/ Sodium (Chloride) 60 mls @ 100 mls/hr IV Q48H [facility] Last Infusion: 02/05/23 17:20 Dose: 0 mls/hr Documented By: MARY ELLEN Melatonin (Melatonin 3 Mg Tablet) 6 mg PO BEDTIME PRN PRN Reason: Insomnia Last Admin: 02/06/23 21:37 Dose: 6 mg Documented By: DULCE Methadone HCl (Methadone Hcl 20 Mg/2 Ml Oral.Conc) 45 mg PO DAILY [facility] Last Admin: 02/06/23 08:03 Dose: 45 mg Documented By: MERCEDES Multivitamins/Vitamin C (Multivitamin Tablet) 1 tab PO BEDTIME [facility] Last Admin: 02/06/23 20:07 Dose: 1 tab Documented By: DULCE Ondansetron HCl (Ondansetron Hcl 4 Mg/2 Ml Vial) 4 mg IVPUSH Q8H PRN PRN Reason: Nausea and Vomiting Pharmacy Consult (Consult Rx Perform Med Rec) 1 each MISCELLANE ONCE PRN PRN Reason: Consult order Sodium Chloride (0.9 % Sodium Chloride Flush 3 Ml Syringe) 3 ml IVFLUSH QSHIFT [facility] Last Admin: 02/07/23 07:28 Dose: Not Given Documented By: MERCEDES Non-Admin Reason: IV Running Labs 02/07/23 05:34 02/07/23 05:48 Labs: Laboratory Results - last 24 hr 02/06/23 02/07/23 02/07/23 07:37 05:34 05:48 MCV 79.3 L MCH 25.6 L MCHC 32.4 RDW 15.3 Plt Count 114 L MPV 12.4 H Absolute Nucleated RBC 0.000 Nucleated RBC % (auto) 0.0 Anion Gap 12 13 Estim Creat Clear Calc 20.1 27.0 Estimated GFR 18 26 Fasting Glucose 124 H 103 H Calcium 7.8 L 7.8 L Microbiology Microbiology Results: Microbiology 02/06/23 07:37 Blood Culture - Preliminary Blood - Venous Prelim: GPC Gram Stain only 02/06/23 07:37 Blood Culture - Preliminary Blood - Venous Prelim: GPC Gram Stain only 02/04/23 16:34 Blood Culture - Preliminary Blood - Venous Staphylococcus aureus 02/04/23 16:35 Blood Culture - Preliminary Blood - Venous Staphylococcus aureus Assessment and Plan (1) REMA (acute kidney injury): Status: Acute Plan 37F PMH IVDA tricupsid endocarditis, HCV, mild inermittent asthma, presented with lethargy Severe sepsis due to tricuspid endocarditis in a patient uses IV drugs with recent history of MSSA follow up cultures, repeat positive, repeat again 02/08/23 dapto iv repeat echo showing persistent tricuspid vegetation 1.8cm MR spine without obvious source of infection REMA IVF, monitor, improving hypokalemia replaced polysubstance dependence addiction team following methadone chronic hcv outpatient follow up mild intermittent asthma stable dvt prophylaxis - lovenox full code reason for continued hospitalization:needs to clear cultures Time Spent With Patient Time: Total time managing care of this patient today ____ minutes. Quality Stroke Does the patient have a stroke diagnosis?: No VTE Prior VTE?: No VTE Risk Level:: Medical - moderate - high VTE Device Contraindication: Treatment Not Indicated VTE Drug Contraindication: N/A - Med Ordered
--- NOTE | 2023-02-07 09:42 | MHC.RECOVRN ---
Met with pt in 384 to check in and follow up on methadone dose. Pt laying in bed, eyes closed, easily rouses to voice. Pt appears uncomfortable and slightly diaphoretic. Pt reports pain all over and is requesting pain medication. Pt reports prior to presentation using heroin, 5-10 bags daily, IV, as well as cocaine, 2 grams daily, INH. Pt had been at 65 mg methadone last admission, agreeable to titration. Discussed with Mala Edmondson NP, plan to increase to 55 mg daily. RN aware.
[2023-02-07] MEDS: methADONE HCl 20 MG/2 ML ORAL.CONC 55 MG PO (09:58)
[2023-02-07] MEDS: HYDROmorphone HCl 0.5 MG/0.5 ML SYRINGE 1 MG IVPUSH ×2 (14:35→19:54)
[2023-02-07] MEDS: DAPTOmycin 500 MG in 0.9 % Sodium Chloride 50 ML 100 MG IV (14:36)
[2023-02-07 15:27] VITALS: BP 130/65; PULSE 65; RESP 18; TEMP 36.7; O2SAT 97
[2023-02-07 19:12] VITALS: BP 136/75; PULSE 94; RESP 18; TEMP 37.5; O2SAT 95
[2023-02-07] MEDS: Multivitamin TABLET 1 TAB PO (21:40)
[2023-02-07] MEDS: Enoxaparin Sodium 30 MG/0.3 ML SYRINGE SUBCUT (21:40)
[2023-02-07] MEDS: 0.9 % Sodium Chloride Flush 3 ML SYRINGE IVFLUSH (21:40)
[2023-02-08 04:00] VITALS: BP 121/76; PULSE 88; RESP 16; TEMP 36.4; O2SAT 94
[2023-02-08 07:47] VITALS: BP 132/81; PULSE 83; RESP 18; TEMP 36; O2SAT 94
[2023-02-08] MEDS: HYDROmorphone HCl 0.5 MG/0.5 ML SYRINGE 1 MG IVPUSH ×2 (07:49→12:52)
[2023-02-08] MEDS: 0.9 % Sodium Chloride Flush 3 ML SYRINGE IVFLUSH ×2 (07:49→15:06)
[2023-02-08 08:11] LABS: HIV AB/AG Nonreactive (Nonreactive); HIV Num 1 0.08 S/CO (0.00-0.99)
--- NOTE | 2023-02-08 08:11 | HO.PM.IMPN ---
Subjective Subjective Date of Service: 02/08/23 Interval History: feeling ill Physical Exam Vital Signs: Vital Signs: Last Vital Signs Temp 96.8 F 02/08/23 07:47 Pulse 83 02/08/23 07:47 Resp 18 02/08/23 07:47 BP 132/81 02/08/23 07:47 Pulse Ox 94 02/08/23 07:47 O2 Del Method Room Air 02/08/23 07:47 O2 Flow Rate 3 02/04/23 19:32 BMI result Body Mass Index 20.8 more alert, in pain, loud systolic murmur Objective Data Active Medications Acetaminophen (Acetaminophen 325 Mg Tablet) 650 mg PO Q6H PRN PRN Reason: Pain, Mild (Pain Scale 1-3) Last Admin: 02/05/23 18:06 Dose: 650 mg Documented By: MARY ELLEN Enoxaparin Sodium (Enoxaparin Sodium 30 Mg/0.3 Ml Syringe) 30 mg SUBCUT Q24H [facility] Last Admin: 02/07/23 21:40 Dose: 30 mg Documented By: ROMARIO Hydromorphone HCl (Hydromorphone Hcl 0.5 Mg/0.5 Ml Syringe) 1 mg IVPUSH Q4H PRN; Protocol PRN Reason: moderate pain Last Admin: 02/08/23 07:49 Dose: 1 mg Documented By: SHANNAN Daptomycin 500 mg/ Sodium (Chloride) 60 mls @ 100 mls/hr IV Q48H [facility] Last Infusion: 02/07/23 15:27 Dose: 0 mls/hr Documented By: MERCEDES Melatonin (Melatonin 3 Mg Tablet) 6 mg PO BEDTIME PRN PRN Reason: Insomnia Last Admin: 02/06/23 21:37 Dose: 6 mg Documented By: DULCE Methadone HCl (Methadone Hcl 20 Mg/2 Ml Oral.Conc) 55 mg PO DAILY [facility] Last Admin: 02/07/23 09:58 Dose: 55 mg Documented By: MERCEDES Multivitamins/Vitamin C (Multivitamin Tablet) 1 tab PO BEDTIME [facility] Last Admin: 02/07/23 21:40 Dose: 1 tab Documented By: ROMARIO Ondansetron HCl (Ondansetron Hcl 4 Mg/2 Ml Vial) 4 mg IVPUSH Q8H PRN PRN Reason: Nausea and Vomiting Pharmacy Consult (Consult Rx Perform Med Rec) 1 each MISCELLANE ONCE PRN PRN Reason: Consult order Sodium Chloride (0.9 % Sodium Chloride Flush 3 Ml Syringe) 3 ml IVFLUSH QSHIFT [facility] Last Admin: 02/08/23 07:49 Dose: 3 ml Documented By: SHANNAN Labs 02/07/23 05:34 02/07/23 05:48 Microbiology Microbiology Results: Microbiology 02/06/23 07:37 Blood Culture - Preliminary Blood - Venous Prelim: GPC Gram Stain only 02/06/23 07:37 Blood Culture - Preliminary Blood - Venous Prelim: GPC Gram Stain only 02/04/23 16:34 Blood Culture - Final Blood - Venous Staphylococcus aureus 02/04/23 16:35 Blood Culture - Final Blood - Venous Staphylococcus aureus Assessment and Plan (1) REMA (acute kidney injury): Status: Acute Plan 37F PMH IVDA tricupsid endocarditis, HCV, mild inermittent asthma, presented with lethargy Severe sepsis due to tricuspid endocarditis in a patient uses IV drugs with recent history of MSSA follow up cultures, repeat positive, repeat again 02/08/23 dapto iv repeat echo showing persistent tricuspid vegetation 1.8cm MR spine without obvious source of infection if doesnt clear will need to consult cardiac surgery REMA IVF, monitor, improving hypokalemia replaced polysubstance dependence addiction team following methadone chronic hcv outpatient follow up mild intermittent asthma stable dvt prophylaxis - lovenox full code reason for continued hospitalization:needs to clear cultures Time Spent With Patient Time: Total time managing care of this patient today ____ minutes. Quality Stroke Does the patient have a stroke diagnosis?: No VTE Prior VTE?: No VTE Risk Level:: Medical - moderate - high VTE Device Contraindication: Treatment Not Indicated VTE Drug Contraindication: N/A - Med Ordered
[2023-02-08] MEDS: methADONE HCl 20 MG/2 ML ORAL.CONC 55 MG PO (08:24)
[2023-02-08 10:47] LABS: Hematocrit 28.5 % (37.0-47.0); Hemoglobin 9.5 g/dl (12.0-16.0); Mean Corpuscular HGB Conc 33.3 g/dl (31.0-35.0); Mean Corpuscular Hemoglobin 25.8 pg (27.0-33.0); Mean Corpuscular Volume 77.4 fL (80.0-98.0); Mean Platelet Volume 10.8 fL (9.4-12.3); Platelet Count 172 X10*3/uL (160-400); Red Blood Count 3.68 X10*6/uL (4.20-5.50); Red Cell Distribution Width 14.6 % (11.0-16.0); White Blood Count 14.8 X10*3/uL (4.8-10.8)
[2023-02-08 11:06] LABS: Anion Gap 13 (12-20); Blood Urea Nitrogen 46 mg/dL (9-16); Carbon Dioxide 26 mmol/L (22-29); Chloride 102 mmol/L (96-108); Creatinine Clr Calc Pharmacy 34.8; Estimated Glomerular Filt Rate 35; Glucose Fasting 117 mg/dL (60-99); Potassium 3.8 mmol/L (3.3-5.1); Sodium 137 mmol/L (135-145)
--- NOTE | 2023-02-08 12:31 | MHC.CM.PN ---
Addendum entered by Emperatriz Ferrari 02/08/23 14:05: DP: PT WILL TRANSFER TO [facility] FOR CONTINUED CARE. Original Note: EMR REVIEWED AND PER MD ROUNDS, PT IS NOT MEDICALLY CLEARED FOR DC (AWAITING CULTURES TO CLEAR) [facility] IS FOLLOWING AND UPDATED VIA [facility]. CM WILL CONTINUE TO FOLLOW FOR DC NEEDS/PLAN
--- NOTE | 2023-02-08 13:36 | MHC.RECOVRN ---
Briefly met with pt in 384. Pt asleep, wakes to voice. Appears comfortable. Reports feeling tired. In regards to withdrawal and pain, pt reports feeling better. Pt requesting to sleep. T/w available if needed.
--- NOTE | 2023-02-08 13:54 | PM.DS ---
DS: Providers Provider Date of Service: 02/08/23 Date of admission: 02/04/23 19:24 Primary care physician: Unknown Physician Consults: 02/04/23 14:07 Consult to Care Team Stat Comment: Reason for consultation: needs to see recovery 02/04/23 19:55 Addiction Medicine Routine Consulting Provider: Amrik Covering Reason for consultation: susbtance use disorder 02/05/23 13:33 Consult to Infectious Diseases Routine Consulting Provider: [facility] Disease Reason for consultation: endocarditis DS: Diagnosis Discharge Diagnosis (1) REMA (acute kidney injury): Status: Acute DS: Summary Hospital Course Hospital Course: from initial hpi: Chief Complaint: Lethargy Pt is a 37-year-old female with a PMH significant for?hepatitis C, endocarditis, IVDU, and mild intermittent asthma who presents to the ED with?lethargy and whole-body myalgias. Pt was recently admitted to the hospital 10/17/2022-11/02/2022 for severe sepsis secondary to acute tricuspid endocarditis, septic pulmonary emboli, and MSSA bacteremia.? Patient was treated with daptomycin and discharged to short-term rehab where she completed a 4 week course of IV antibiotics.? Patient was then discharged to [facility] for additional stabilization and treatment for addiction.? However patient states that shortly thereafter he was walking ear places where she used to use and soon started using again.? Patient states she mostly uses clean needles however some were dirty.? Primarily injected in her feet.? Says she was using one and a half bundles daily.? Patient says that about a week and half ago she began feeling tired and had all over body aches.? Had subjective fever, headaches, difficulty moving.? Patient states that today she has pain everywhere and in all joints .? Reports being unable to move since last night secondary to pain.? Has ?chest tightness? with inspiration.? Denies nausea, vomiting, diarrhea, abdominal pain.? No palpitations. In the ED patient was tachycardic up to 118, tachypneic up to 22, and hypotensive as low as 101/48. Labs were significant for leukocytosis of 19.0, ESR 63, sodium 131, potassium 3.2, chloride 93, BUN 90, creatinine 3.91, iron 11, TIBC 176, iron saturation 6, creatinine kinase 258, C-reactive protein 24.79.? Troponin negative. Lactic acid 1.4.? CXR showed diffuse patchy areas of opacity consistent with areas of infiltrate, likely new. CT?of chest pending. EKG demonstrated normal sinus rhythm with a prolonged QTc of 520 and no evidence of ST elevations or depressions. Pt was treated with ketorolac, IVF, and vancomycin. Pt will be admitted to the hospital for treatment and further evaluation of severe sepsis likely secondary to pulmonary source. hospital course: Patient was admitted for severe sepsis due to tricuspid endocarditis in a patient who uses IV drugs with recent history of MSSA. Cultures grew MSSA has been positive as recently as 02/06/2023, repeat was drawn 02/08/2023 and are pending. Patient was treated with IV daptomycin. Repeat echo showed tricuspid vegetation of 1.8 cm increased from September when it was 1.67 cm. MRI of the spine did not show obvious source of infection. She was seen by infectious disease who recommended transfer to tertiary center for cardiac surgery eval. Patient was accepted [facility]. Patient had acute kidney injury on admission, she has improved with IV fluids. She had some hypokalemia which was replaced. Her polysubstance dependence with opiate withdrawal she is treated with methadone. For chronic hepatitis-C she will follow up outpatient. For mild intermittent asthma she remained stable. Patient will be transferred to [facility]. Time Spent with Patient Time attestation: Total time managing care of this patient today ____ minutes. Discharge coordination time: Greater than 30 minutes Quality: Safe Use of Opioids Does Pt have an Active Cancer Diagnosis on the Problem List?: No Quality: Stroke Does the patient have a stroke diagnosis?: No Physical Exam Vital Signs: Vital Signs: Last Vital Signs Temp 96.8 F 02/08/23 07:47 Pulse 83 02/08/23 07:47 Resp 18 02/08/23 07:47 BP 132/81 02/08/23 07:47 Pulse Ox 94 02/08/23 07:47 O2 Del Method Room Air 02/08/23 07:47 O2 Flow Rate 3 02/04/23 19:32 BMI result Body Mass Index 20.8 more alert, in pain, loud systolic murmur DS: Data Data Completed and Pending Completed studies during hospitalization [Text1]: Procedures Drainage of Left Foot, Open Approach (09/23/21) Excision of Left Foot Skin, External Approach (09/23/21) Insertion of Infusion Device into Left Basilic Vein, Percutaneous Approach (09/23/21) Insertion of Infusion Device into Superior Vena Cava, Percutaneous Approach (10/17/22) Ultrasonography of Superior Vena Cava, Guidance (10/17/22) Labs on day of discharge: Laboratory Results - last 24 hr 02/06/23 02/08/23 02/08/23 07:37 10:30 10:30 WBC 14.8 H RBC 3.68 L Hgb 9.5 L Hct 28.5 L MCV 77.4 L MCH 25.8 L MCHC 33.3 RDW 14.6 Plt Count 172 D MPV 10.8 Absolute Nucleated RBC 0.000 Nucleated RBC % (auto) 0.0 Sodium 137 Potassium 3.8 Chloride 102 Carbon Dioxide 26 Anion Gap 13 BUN 46 H Creatinine 1.67 H Estim Creat Clear Calc 34.8 Estimated GFR 35 Fasting Glucose 117 H Calcium 8.0 L HIV 1&2 Ab/P24 Ag 4thGn Nonreactive Preliminary micro results at discharge 02/06/23 07:37 Blood Culture - Preliminary Blood - Venous Staphylococcus aureus 02/06/23 07:37 Blood Culture - Preliminary Blood - Venous Staphylococcus aureus Enterococcus/Streptococcus sp Discharge Plan Discharge Anticipated Discharge Date/Time: 02/08/23 13:52 Patient Disposition: Xfer Acute Care Hospital Discharge Diagnosis: tricuspid endocarditis Referrals: Physician,Unknown J [Primary Care Provider] - 1 Week Discharge Medications: New daptomycin 500 mg recon soln 299 mg IV Q24H Qty: 10 0RF Rx Instructions: administer over 30 mins methadone [Methadose] 10 mg/mL Concentrate 55 mg PO DAILY Qty: 0 0RF Rx Instructions: Partial Fill upon patient request. Continued sofosbuvir-velpatasvir [Epclusa] 400-100 mg tablet 1 tab PO DAILY 84 Days Qty: 84 0RF clonidine HCl 0.1 mg tablet 0.1 mg PO BID PRN (Reason: anxiety) methocarbamol 750 mg tablet 750 mg PO BID PRN (Reason: muscle pain) hydroxyzine HCl 25 mg tablet 25 mg PO BID PRN (Reason: anxiety) ibuprofen [IBU] 600 mg tablet 600 mg PO TID PRN (Reason: pain) gabapentin 300 mg capsule 300 mg PO TID Discharge Orders: Discharge Order (Routine); Ordered 02/08/23 Ordered By: Jason Schultz Diet: Advance to usual diet Activity on Discharge: As tolerated Stand Alone Forms: Patient Portal Discharge page Care Plan Goals: recovery Health Concerns: endocarditis Plan of Treatment: transfer to [facility], on dapto Assessment: see above
[2023-02-08] MEDS: HYDROmorphone HCl 1 MG/ML SYRINGE IVPUSH (15:06)
[2023-02-08 15:55] VITALS: BP 122/78; PULSE 73; RESP 18; TEMP 37.6; O2SAT 96
[2023-02-08] MEDS: DAPTOmycin 500 MG in 0.9 % Sodium Chloride 50 ML 120 MG IV (16:08)
== END 2023-02-08 18:22 | disposition short-term general hospital (02) | DRG 720 ==
LOC: HO.ED 18:05 → HO.EDOVER 20:08 → HO.S3 20:45
PROVIDERS: Internal Medicine; Physician Assistant; Physician Assistant Medical; Student in an Organized Health Care Education/Training Program; Admitting Provider Student in an Organized Health Care Education/Training Program; Emergency Provider Emergency Medicine; Visit Provider Internal Medicine
DX: A41.9 Sepsis, unspecified organism (principal); I33.0 Acute and subacute infective endocarditis; N17.9 Acute kidney failure, unspecified; J45.21 Mild intermittent asthma with (acute) exacerbation; F11.20 Opioid dependence, uncomplicated; D50.9 Iron deficiency anemia, unspecified; B18.2 Chronic viral hepatitis C; J45.20 Mild intermittent asthma, uncomplicated; F14.10 Cocaine abuse, uncomplicated; E87.6 Hypokalemia; B95.61 Methicillin susceptible Staphylococcus aureus infection as the cause of diseases classified elsewhere; R65.20 Severe sepsis without septic shock; Z20.822 Contact with and (suspected) exposure to COVID-19; Z86.14 Personal history of Methicillin resistant Staphylococcus aureus infection; Z88.0 Allergy status to penicillin; Z88.5 Allergy status to narcotic agent; Z79.899 Other long term (current) drug therapy
CPT/HCPCS: 36415; 71045; 71250; 72148; 80048; 80053; 80143; 80179; 80307; 82550; 83540; 83605; 83735; 84484; 84702; 85025; 85027; 85652; 86140; 87040; 87077; 87147; 87186; 87205; 87389; 87635; 93005; 93308; 99285; J0131; J0878; J1170; J1650; J1885; J3371

== ENCOUNTER 2023-03-28 09:44 | Inpatient (IN) | payer MEDICAID, SELFPAY ==
--- NOTE | ~2023-03-28 | XR_ITS ---
EXAMINATION: XR HIP, RIGHT CLINICAL INFORMATION: Right hip pain COMPARISON: None available. TECHNIQUE: AP pelvis and 2 views of right hip. FINDINGS: No fracture. Alignment is anatomic. Hip joint space is maintained. Soft tissues are unremarkable. XR/XR hip RT w PEL1V IMPRESSION: Normal right hip.
--- NOTE | ~2023-03-28 | NM_ITS ---
EXAMINATION: THREE PHASE BONE SCAN CLINICAL INFORMATION: Suspected osteomyelitis. Abscess left foot, cellulitis.. Also concern right hip. COMPARISON: No previous bone scan is available for comparison. Radiographs of the pelvis and right hip dated 03/30/2023, the same date as this bone scan and a radiograph of the chest dated 03/28/2023 are available for comparison.. TECHNIQUE: Initial rapid sequence images were obtained over the pelvis to the proximal thighs in the anterior and posterior projections during the bolus injection of 21 mCi Tc-99m MDP. Static images of the whole-body in multiple projections were then obtained 2.75 hours post injection. FINDINGS: Initial rapid sequence images of the pelvis, hips and proximal thighs show no foci of abnormally increased flow at any site. Blood pool images obtained immediately following the flow study show no foci of abnormal blood pool activity. Blood pool images were also obtained of the chest and both shoulders and these also show no abnormal blood pool activity. The delayed static images of the whole body show: In the head, no significant abnormalities are present. In the thoracic cage and upper extremities, there is minimally increased activity in the sternoclavicular joints bilaterally, slightly more prominently on the right. In the spine, there is a focus of mildly increased activity in the right posterior elements of the mid cervical spine, probably at the C4 level and likely due to facet arthropathy. There is mildly increased activity in the right costovertebral region or transverse process of T9. In the pelvis, no significant abnormalities are present. In the lower extremities, there is mildly increased activity in the medial malleolus of the right ankle. No significant abnormality is present in either foot.. NM/NM bone 3 phase IMPRESSION: A few mild nonspecific abnormalities are noted as described above and these are all likely arthritic or traumatic in etiology. None of these abnormalities is strongly suspicious for metastatic disease.. No significant abnormality is present in the left foot. There are no abnormalities strongly suspicious for osteomyelitis.
--- NOTE | ~2023-03-28 | XR_ITS ---
EXAMINATION: XR CHEST CLINICAL INFORMATION: Chest pain COMPARISON: CT chest from 02/04/2023 TECHNIQUE: Frontal view of the chest was obtained. FINDINGS: Diffuse patchy opacities throughout the bilateral lung simons likely reflects innumerable pulmonary nodules seen on prior cross-sectional imaging. No pneumothorax. Trachea is midline. Cardiac mediastinal silhouette is not enlarged. No large pleural effusion. Osseous structures are intact. Soft tissues are unremarkable. XR/XR chest 1V IMPRESSION: Diffuse patchy opacities throughout the bilateral lung simons likely reflects innumerable pulmonary nodules seen on prior cross-sectional imaging.
--- NOTE | 2023-03-28 09:52 | ED_ITS ---
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 Patient states that she has felt more and more sick over the last few days with all over body pain and a fever. Patient states that she continues to use IV drugs. Patient denies any dizziness, lightheadedness, abdominal pain, nausea, vomiting, chills, blurry vision, double vision, loss of vision, chest pain, difficulty breathing, shortness of breath, back pain, night sweats, pain with urination, increased urinary frequency, increased urinary urgency, blood in her urine or stool, syncope or a near syncopal episode, recent trauma or falls, bowel incontinence, bladder incontinence, bowel retention, bladder retention, or any other complain ts at this time. Onset (ago): day(s) Severity: moderate Severity scale (1-10): 4 Relieving factors: none Exacerbating factors: none Associated symptoms: fever/chills Treatments prior to arrival: none Related Data Home Medications Medication Instructions Recorded Confirmed gabapentin 300 mg capsule 300 mg PO TID 02/05/23 03/28/23 acetaminophen 325 mg tablet 975 mg PO Q6H 03/28/23 03/28/23 amoxicillin 875 mg-potassium 1 tab PO Q12H 03/28/23 03/28/23 clavulanate 125 mg tablet clonidine HCl 0.2 mg tablet 0.2 mg PO BID PRN anxiety 03/28/23 03/28/23 escitalopram oxalate 20 mg tablet 20 mg PO DAILY 03/28/23 03/28/23 lorazepam 0.5 mg tablet 0.5 mg PO BEDTIME PRN insomnia 03/28/23 03/28/23 magnesium oxide 400 mg (241.3 mg 400 mg PO BID 03/28/23 03/28/23 magnesium) tablet nicotine 21 mg/24 hr daily 1 patch topical DAILY 03/28/23 03/28/23 transdermal patch oxycodone 5 mg tablet 5 mg PO Q6H PRN pain 03/28/23 03/28/23 Previous Rx's Medication Instructions Recorded methadone 10 mg/mL oral 55 mg (5.5 mL) PO DAILY #0 mL 02/08/23 concentrate (Methadose) Allergies Allergy/AdvReac Type Severity Reaction Status Date / Time bee pollen [Bee Stings] Allergy Unknown SWELLING Verified 11/27/22 11:11 AT SITE morphine [Morphine] Allergy Unknown SKIN Verified 11/27/22 11:11 BUBBLED Penicillins Allergy Unknown HIVES Verified 11/27/22 11:11 BREATHING PBROBLEM Review of Systems Constitutional: Constitutional: Reports no additional constitutional complaints, Reports body ache(s), Denies chills, Reports fever(s) and Denies night sweats Eyes: Eyes: Reports no additional eye complaints, Denies blurry vision, Denies change in vision, Denies diplopia, Denies eye discharge, Denies loss of vision and Denies eye pain ENT: Denies dizziness Cardiovascular: Cardiovascular: Reports no additional cardiovascular complaints, Denies chest pain, Denies lightheadedness, Denies Loss of Consciousness and Denies dyspnea Respiratory: Respiratory: Reports no additional respiratory complaints and Denies dyspnea Gastrointestinal: Gastrointestinal: Reports no additional gastrointestinal complaints, Denies abdominal pain, Denies melena, Denies hematochezia, Denies change in bowel habits and Denies change in stool character Genitourinary: Genitourinary: Denies hematuria, Denies urinary frequency, Denies dysuria, Denies urinary incontinence, Denies urinary hesitancy and Denies urinary urgency Musculoskeletal: Musculoskeletal: Reports no additional musculoskeletal complaints, Denies numbness and Denies tingling Neurologic: Denies dizziness, Denies loss of vision, Denies numbness and Denies tingling Psychiatric: Psychiatric: Reports no additional psychiatric complaints Endocrine: Endocrine: Reports no additional endocrine complaints Hematologic/Lymphatic: Hematologic/Lymphatic: Reports no additional he matologic/lymphatic complaints Allergic/Immunologic: Allergic/Immunologic: Reports no additional allergic/immunologic complaints PMFSH Past Medical History Attestation statement: The following information was validated with the patient. Source: old records reviewed and nursing notes reviewed Medical History (Updated 03/28/23 @ 14:40 by SON Layton) Abscess of left foot Asthma Cavitary lesion of lung Cellulitis of foot, left COVID-19 Early stage of Fungus infection in blood Hepatitis C MRSA (methicillin resistant staph aureus) culture positive Opioid use disorder Polysubstance abuse Sepsis Sepsis Severe sepsis Substance abuse Surgical History No pertinent past surgical history Status post incision and drainage Social History Social History Household Members: Unknown / Unable to assess Household Members Other:: pt refused to answer/ trying to sleep Housing: Apartment Housing Other:: homeless Do you presently have visiting nurse or other home services: No (pt refused to answer/ trying to sleep) Unable to assess alcohol history related to: Unknown Alcohol intake: never Patient Tobacco Use Status: Tobacco use Unknown Tobacco use type: Cigarette Cigarette Packs Per Day: 1 Cigarettes Per Day: 20.0 Years Smoked: 15 Smoked in Last 30 Days: Yes Second Hand Smoke Exposure: No Use of substances other than those prescribed or required for medical reasons: Yes Substance Use Type: Heroin Advance Directives: No Advance Directives Information Provided: Yes service: No Current occupational status: unemployed Physical Exam ED Vital Signs: Vital Signs - 24 hr 03/28/23 09:54 Temperature 102.5 F H Pulse Rate 120 H Respiratory Rate 24 H Blood Pressure 112/85 Pulse Oximetry 94 Oxygen Delivery Method Room Air BMI result Body Mass Index 21.0 Const General: cooperative, no acute distress, alert and awake Nutritional Appearance: well nourished Orientation/consciousness: patient oriented x3 Limitations: no limitations HENMT Head: Yes normal to inspection and Yes atraumatic Ears: hearing grossly normal bilaterally and external ears normal General nose exam: Normal external nose present, no nasal discharge noted and no epistaxis Face and sinus: Yes normal facial exam, No abrasion and No laceration Mouth: Normal oral and palatal mucosa present, no drooling and no muffled voice Eyes General: appearance normal, both eyes and all related structures Periorbital: periorbital findings normal Eyelids: Yes eyelids normal Conjunctivae: conjunctivae normal Pupils: Equal, round and reactive pupils present EOM: EOMs intact bilaterally Neck Neck: Yes normal visual inspection, Yes full ROM and Yes no lymphadenopathy Chest Chest palpation & inspection: normal inspection of the chest Resp Effort & Inspection: normal respiratory effort and able to speak in complete sentences Auscultation: clear to auscultation bilaterally Cardio Rate: tachycardic Rhythm: regular rhythm GI Inspection: Yes normal to inspection Palpation (GI): Soft to palpation, not firm, nontender and no guarding Neuro General: patient oriented x3 and moves all extremities Cranial nerves: Yes Equal, round and reactive pupils present Cognition (Neuro): normal cognition Motor exam (neuro): 5/5 motor strength present throughout Sensory Exam: Normal double simultaneous stimulation for sensation Coordination: [id number] test normal Extrem General: Yes normal to inspection, Yes full ROM and Yes capillary refill normal Psych Appearance: grossly normal Mental Status: mental status grossly normal Affect: normal affect Attitude: cooperative Thought process: Normal thought process present Thought content: Normal thought content present Insight: Good insight present (Psych) Medications Administered Discontinued Medications Generic Name Dose Route Start Last Admin Trade Name Freq PRN Reason Stop Dose Admin Acetaminophen 650 mg 03/28/23 11:56 03/28/23 12:03 Acetaminophen 325 Mg Tablet PO 03/28/23 11:57 650 mg ONCE ONE Administration Sodium Chloride 1,000 mls @ 999 mls/hr 03/28/23 10:00 03/28/23 12:22 Ns IV 03/28/23 11:00 Infused .Q1H1M CORNELIUS Infusion Ceftriaxone Sodium 1 gm/ 50 mls @ 100 mls/hr 03/28/23 10:09 03/28/23 12:22 Sodium Chloride IV 03/28/23 10:38 Infused ONCE ONE Infusion Vancomycin HCl 1,000 mg/ 270 mls @ 270 mls/hr 03/28/23 10:09 03/28/23 11:23 Sodium Chloride IV 03/28/23 11:08 Not Given ONCE ONE Vancomycin HCl 1,500 mg/ 500 mls @ 333.333 mls/hr 03/28/23 10:16 03/28/23 12:17 Sodium Chloride IV 03/28/23 11:45 333.33 mls/hr ONCE ONE Administration Ketorolac Tromethamine 15 mg 03/28/23 11:31 03/28/23 11:52 Ketorolac Tromethamine 15 Mg/Ml Vial IVPUSH 03/28/23 11:32 15 mg ONCE ONE Administration Naloxone HCl 4 mg 03/28/23 10:28 03/28/23 10:37 Naloxone Hcl Nasal 4 Mg [place] NOSTRILALT 03/28/23 10:29 4 mg ONCE ONE Administration Medical Decision Making Medical Decision Making MDM Narrative: Patient is a 37 year old assigned female at with a history of hepatitis C, IVDA, and endocarditis due to MRSA presenting to the emergency department today with a fever and body aches. Patient's physical exam was as noted in the physical exam portion of this chart. Patient's blood work showed a decreased potassium of 2.7, decreased magnesium of 1.5, and elevated LFTs. The rest of the patient's labs are grossly normal. Patient's urine showed evidence of an acute infection. Patient's EKG showed sinus tachycardia and nonspecific T wave abnormalities. Patient's chest x-ray showed bilateral patchy infiltrates which may represent pneumonia. Patient was immediately given vancomycin and cephalexin to cover for possible endocarditis. Patient was given IV fluids, Toradol, and Tylenol. I spoke to the hospitalist team who agreed to admission. I explained my physical exam findings as well as all test results to the patient. I answered all questions asked by the patient. Patient verbalized agreement and understanding with this treatment plan and admission. Differential Diagnosis Differential Diagnoses: The differential diagnosis associated with the presentation includes Sepsis Endocarditis Pneumonia UTI IVDU IVDA Admission/Observation Consideration of admission/observation: Escalation of care including admissio n/observation considered Patient to be admitted. Consult Healthcare Provider Management of the patient was discussed with: Hospitalist (agreed to admission.) Lab Data [facility] Lab Attestation statement: I reviewed the patient's lab results. My interpretation of these results are in the MDM portion of this chart. 03/28/23 11:04 03/28/23 11:04 Labs: Lab Results 03/28/23 03/28/23 03/28/23 Range/Units 10:38 11:04 11:04 WBC 8.4 (4.8-10.8) X10*3/uL RBC 4.24 (4.20-5.50) X10*6/uL Hgb 10.7 L (12.0-16.0) g/dl Hct 33.7 L (37.0-47.0) % MCV 79.5 L (80.0-98.0) fL MCH 25.2 L (27.0-33.0) pg MCHC 31.8 (31.0-35.0) g/dl RDW 16.0 (11.0-16.0) % Plt Count 256 D (160-400) X10*3/uL MPV 10.0 (9.4-12.3) fL Immature Gran % (Auto) 0.4 (0.0-0.4) % Neut % (Auto) 85.4 H (45-73) % Lymph % (Auto) 8.7 L (20-40) % Martin % (Auto) 4.0 (2-11) % Eos % (Auto) 1.1 (0-4) % Baso % (Auto) 0.4 (0-2) % Lymph # (Auto) 0.7 L (1.2-4.9) X10*3/uL Martin # (Auto) 0.3 (0.1-1.2) X10*3/uL Eos # (Auto) 0.1 (0.0-0.4) X10*3/uL Baso # (Auto) 0.0 (0.0-0.2) X10*3/uL Abs Immat Gran (auto) 0.03 (0.00-0.03) X10*3/uL Absolute Neuts (auto) 7.2 (2.0-8.3) x10*3/uL Absolute Nucleated RBC 0.000 (0.0-0.012) X10*3/uL Nucleated RBC % (auto) 0.0 (0.0-0.2) /100WBC Sodium 138 (135-145) mmol/L Potassium 2.7 L D (3.3-5.1) mmol/L Chloride 101 (96-108) mmol/L Carbon Dioxide 23 (22-29) mmol/L Anion Gap 17 (12-20) BUN 17 H (9-16) mg/dL Creatinine 0.85 (0.5-1.4) mg/dL Estim Creat Clear Calc 84.3 Estimated GFR > 60 Random Glucose 111 (60-115) mg/dL Lactic Acid (0.5-2.0) mmol/L Calcium 10.3 H D (8.4-10.2) mg/dL Magnesium 1.5 L (1.6-2.6) mg/dL Iron 26 L (30-160) mcg/dL TIBC 290 (228-428) mcg/dL % Saturation 9 L (15-50) % Unsat Iron Binding 264 ug/dL Total Bilirubin 0.7 (0.0-1.0) mg/dL AST 41 H (5-31) U/L ALT 49 H (0-31) U/L Alkaline Phosphatase 129 H (39-117) U/L Total Creatine Kinase 32 (26-140) U/L Troponin I High Sens (<3.5-17.0) ng/L Total Protein 9.5 H (6.5-8.0) g/dL Albumin 3.4 L (3.5-5.0) g/dL Urine Color Dark Yellow Urine Appearance Cloudy Urine pH 5.5 (5.0-9.0) Ur Specific [place] 1.020 (1.005-1.025) Urine Protein 100 (2+) H (Neg-Trace) mg/dL Urine Glucose (UA) Negative (Negative) mg/dL Urine Ketones Negative (Negative) mg/dL Urine Blood Large (3+) H (Negative) Urine Nitrite Negative (Negative) Ur Leukocyte Esterase Small (1+) H (Negative) Urine RBC >20 H (0-2) /HPF Urine WBC 21-50 H (0-5) /HPF Ur Squamous Epith Cells 11-20 (0-2) /HPF Urine Bacteria 1+ (None Seen) Hyaline Casts 6-10 (0-2) /LPF COVID-19 (KORI) (Negative) COVID-19 Clin Com Influenza Type A (SUKUMAR) (Negative) Influenza Type B (SUKUMAR) (Negative) Influenza A & B Note 03/28/23 03/28/23 03/28/23 Range/Units 11:04 11:04 11:04 WBC (4.8-10.8) X10*3/uL RBC (4.20-5.50) X10*6/uL Hgb (12.0-16.0) g/dl Hct (37.0-47.0) % MCV (80.0-98.0) fL MCH (27.0-33.0) pg MCHC (31.0-35.0) g/dl RDW (11.0-16.0) % Plt Count (160-400) X10*3/uL MPV (9.4-12.3) fL Immature Gran % (Auto) (0.0-0.4) % Neut % (Auto) (45-73) % Lymph % (Auto) (20-40) % Martin % (Auto) (2-11) % Eos % (Auto) (0-4) % Baso % (Auto) (0-2) % Lymph # (Auto) (1.2-4.9) X10*3/uL Martin # (Auto) (0.1-1.2) X10*3/uL Eos # (Auto) (0.0-0.4) X10*3/uL Baso # (Auto) (0.0-0.2) X10*3/uL Abs Immat Gran (auto) (0.00-0.03) X10*3/uL Absolute Neuts (auto) (2.0-8.3) x10*3/uL Absolute Nucleated RBC (0.0-0.012) X10*3/uL Nucleated RBC % (auto) (0.0-0.2) /100WBC Sodium (135-145) mmol/L Potassium (3.3-5.1) mmol/L Chloride (96-108) mmol/L Carbon Dioxide (22-29) mmol/L Anion Gap (12-20) BUN (9-16) mg/dL Creatinine (0.5-1.4) mg/dL Estim Creat Clear Calc Estimated GFR Random Glucose (60-115) mg/dL Lactic Acid 1.0 (0.5-2.0) mmol/L Calcium (8.4-10.2) mg/dL Magnesium (1.6-2.6) mg/dL Iron (30-160) mcg/dL TIBC (228-428) mcg/dL % Saturation (15-50) % Unsat Iron Binding ug/dL Total Bilirubin (0.0-1.0) mg/dL AST (5-31) U/L ALT (0-31) U/L Alkaline Phosphatase (39-117) U/L Total Creatine Kinase (26-140) U/L Troponin I High Sens < 2.7 (<3.5-17.0) ng/L Total Protein (6.5-8.0) g/dL Albumin (3.5-5.0) g/dL Urine Color Urine Appearance Urine pH (5.0-9.0) Ur Specific [place] (1.005-1.025) Urine Protein (Neg-Trace) mg/dL Urine Glucose (UA) (Negative) mg/dL Urine Ketones (Negative) mg/dL Urine Blood (Negative) Urine Nitrite (Negative) Ur Leukocyte Esterase (Negative) Urine RBC (0-2) /HPF Urine WBC (0-5) /HPF Ur Squamous Epith Cells (0-2) /HPF Urine Bacteria (None Seen) Hyaline Casts (0-2) /LPF COVID-19 (KORI) (Negative) COVID-19 Clin Com Influenza Type A (SUKUMAR) Negative (Negative) Influenza Type B (SUKUMAR) Negative (Negative) Influenza A & B Note See Note 03/28/23 Range/Units 11:04 WBC (4.8-10.8) X10*3/uL RBC (4.20-5.50) X10*6/uL Hgb (12.0-16.0) g/dl Hct (37.0-47.0) % MCV (80.0-98.0) fL MCH (27.0-33.0) pg MCHC (31.0-35.0) g/dl RDW (11.0-16.0) % Plt Count (160-400) X10*3/uL MPV (9.4-12.3) fL Immature Gran % (Auto) (0.0-0.4) % Neut % (Auto) (45-73) % Lymph % (Auto) (20-40) % Martin % (Auto) (2-11) % Eos % (Auto) (0-4) % Baso % (Auto) (0-2) % Lymph # (Auto) (1.2-4.9) X10*3/uL Martin # (Auto) (0.1-1.2) X10*3/uL Eos # (Auto) (0.0-0.4) X10*3/uL Baso # (Auto) (0.0-0.2) X10*3/uL Abs Immat Gran (auto) (0.00-0.03) X10*3/uL Absolute Neuts (auto) (2.0-8.3) x10*3/uL Absolute Nucleated RBC (0.0-0.012) X10*3/uL Nucleated RBC % (auto) (0.0-0.2) /100WBC Sodium (135-145) mmol/L Potassium (3.3-5.1) mmol/L Chloride (96-108) mmol/L Carbon Dioxide (22-29) mmol/L Anion Gap (12-20) BUN (9-16) mg/dL Creatinine (0.5-1.4) mg/dL Estim Creat Clear Calc Estimated GFR Random Glucose (60-115) mg/dL Lactic Acid (0.5-2.0) mmol/L Calcium (8.4-10.2) mg/dL Magnesium (1.6-2.6) mg/dL Iron (30-160) mcg/dL TIBC (228-428) mcg/dL % Saturation (15-50) % Unsat Iron Binding ug/dL Total Bilirubin (0.0-1.0) mg/dL AST (5-31) U/L ALT (0-31) U/L Alkaline Phosphatase (39-117) U/L Total Creatine Kinase (26-140) U/L Troponin I High Sens (<3.5-17.0) ng/L Total Protein (6.5-8.0) g/dL Albumin (3.5-5.0) g/dL Urine Color Urine Appearance Urine pH (5.0-9.0) Ur Specific [place] (1.005-1.025) Urine Protein (Neg-Trace) mg/dL Urine Glucose (UA) (Negative) mg/dL Urine Ketones (Negative) mg/dL Urine Blood (Negative) Urine Nitrite (Negative) Ur Leukocyte Esterase (Negative) Urine RBC (0-2) /HPF Urine WBC (0-5) /HPF Ur Squamous Epith Cells (0-2) /HPF Urine Bacteria (None Seen) Hyaline Casts (0-2) /LPF COVID-19 (KORI) Negative (Negative) COVID-19 Clin Com See Note Influenza Type A (SUKUMAR) (Negative) Influenza Type B (SUKUMAR) (Negative) Influenza A & B Note Independent Interpretation I performed an independent interpretation of an: EKG and Plain X-Ray Interpretation: My interpretation is in agreement with the radiologist's impression of this imaging study. EXAMINATION: XR CHEST CLINICAL INFORMATION: Chest pain COMPARISON: CT chest from 02/04/2023 TECHNIQUE: Frontal view of the chest was obtained. FINDINGS: Diffuse patchy opacities throughout the bilateral lung simons likely reflects innumerable pulmonary nodules seen on prior cross-sectional imaging. No pneumothorax. Trachea is midline. Cardiac mediastinal silhouette is not enlarged. No large pleural effusion. Osseous structures are intact. Soft tissues are unremarkable. XR/XR chest 1V IMPRESSION: Diffuse patchy opacities throughout the bilateral lung simons likely reflects innumerable pulmonary nodules seen on prior cross-sectional imaging. Dictated By: Milton Herndon MD Signed By: Electronically signed by Milton Herndon MD 03/28/23 1048 -------- Vent. Rate: 122 BPM ? ? Atrial Rate: 122 BPM P-R Int: 128 ms? QRS Dur: 074 ms QT Int: 414 ms ? ? ? P-R-T Axes: 062 082 072 degrees QTc Int: 589 ms ? Sinus tachycardia Nonspecific T wave abnormality Abnormal ECG When compared with ECG of 05-FEB-2023 14:27, Vent. rate has increased BY? [address] now depressed in Lateral leads Nonspecific T wave abnormality now evident in Lateral leads DD/ 1130 Radiology Impression Discussion of test interpretation with radiology: I have reviewed the radiologist's reading. Independent Historian Clinical information obtained from an independent historian. History obtained from or confirmed by: EMS (EMS provided additional history and confirmed the history provided by the patient. ) External Record Review External record reviewed: Other (reviewed all previous ED, hospitalist, and infectious disease notes. ) Critical Care Time Critical Care Time Critical Care Time: Yes Total Critical Care Time: 45 Attestation: I spent 45 minutes of Critical Care Time with this patient. This does not include time spent on separately reported billable procedures. Discharge Plan Discharge Clinical Impression: UTI (urinary tract infection), Sepsis, Pneumonia Patient Disposition: Admitted As Inpatient
--- NOTE | 2023-03-28 09:53 | ECG_ITS ---
Test Reason : cp/feeing unwel Blood Pressure : / mmHG Vent. Rate : 122 BPM Atrial Rate : 122 BPM P-R Int : 128 ms QRS Dur : 074 ms QT Int : 414 ms P-R-T Axes : 062 082 072 degrees QTc Int : 589 ms Sinus tachycardia Nonspecific T wave abnormality Abnormal ECG When compared with ECG of 05-FEB-2023 14:27, Vent. rate has increased BY [address] now depressed in Lateral leads Nonspecific T wave abnormality now evident in Lateral leads Referred By: Angie Puga Electronically Signed By:CORNEL CROOK
[2023-03-28 09:54] VITALS: BP 112/85; BP 158/60; PULSE 120; PULSE 124; RESP 24; TEMP 39.2; O2SAT 94; BMI 21.0
[2023-03-28] MEDS: Naloxone HCl Nasal 4 MG SPRAY NOSTRILALT (10:37)
[2023-03-28 10:51] LABS: Appearance Urine Cloudy; Color Urine Dark Yellow; Glucose Urine UA Negative (Negative); Leukocyte Esterase Urine Small (1+) (Negative); Nitrite Urine Negative (Negative); PH 5.5 (5.0-9.0); UMIC TRIGGER UACC YES; Urine Blood Large (3+) (Negative); Urine Ketones Negative (Negative); Urine Protein 100 (2+) mg/dL (Neg-Trace)
[2023-03-28 11:04] LABS: Bacteria Urine 1+ (None Seen); RBC Urine >20 /HPF (0-2); UACC Culture Trigger YES; WBC Urine 21-50 /HPF (0-5)
[2023-03-28 11:10] LABS: MANUAL DIFF FLAG NO
[2023-03-28] MEDS: 0.9 % Sodium Chloride 1,000 ML 999 ML IV (11:12)
[2023-03-28 11:17] LABS: Basophils Percent Auto 0.4 % (0-2); Eosinophils Absolute Auto 0.1 X10*3/uL (0.0-0.4); Eosinophils Percent Auto 1.1 % (0-4); Hematocrit 33.7 % (37.0-47.0); Hemoglobin 10.7 g/dl (12.0-16.0); Imm Gran Abs Auto 0.03 X10*3/uL (0.00-0.03); Imm Gran Pct Auto 0.4 % (0.0-0.4); Lymphocytes Absolute Auto 0.7 X10*3/uL (1.2-4.9); Lymphocytes Percent Auto 8.7 % (20-40); Mean Corpuscular HGB Conc 31.8 g/dl (31.0-35.0); Mean Corpuscular Hemoglobin 25.2 pg (27.0-33.0); Mean Corpuscular Volume 79.5 fL (80.0-98.0); Monocytes Absolute Auto 0.3 X10*3/uL (0.1-1.2); Neutrophils Absolute Auto 7.2 x10*3/uL (2.0-8.3); Neutrophils Percent Auto 85.4 % (45-73); Platelet Count 256 X10*3/uL (160-400); Red Blood Count 4.24 X10*6/uL (4.20-5.50); White Blood Count 8.4 X10*3/uL (4.8-10.8)
[2023-03-28] MEDS: cefTRIAXone sodium 1 GM in 0.9 % Sodium Chloride 50 ML IV (11:23)
[2023-03-28 11:29] LABS: Alanine Aminotransferase 49 U/L (0-31); Albumin Level 3.4 g/dL (3.5-5.0); Alkaline Phosphatase 129 U/L (39-117); Anion Gap 17 (12-20); Aspartate Amino Transferase 41 U/L (5-31); Bilirubin Total 0.7 mg/dL (0.0-1.0); Blood Urea Nitrogen 17 mg/dL (9-16); Calcium 10.3 mg/dL (8.4-10.2); Carbon Dioxide 23 mmol/L (22-29); Chloride 101 mmol/L (96-108); Creatinine Clr Calc Pharmacy 84.3; Estimated Glomerular Filt Rate > 60; Glucose Random 111 mg/dL (60-115); Magnesium 1.5 mg/dL (1.6-2.6); Potassium 2.7 mmol/L (3.3-5.1); Sodium 138 mmol/L (135-145); Total Protein 9.5 g/dL (6.5-8.0)
[2023-03-28 11:30] LABS: IDNOW Serial# 16C4AD1C
--- NOTE | 2023-03-28 11:30 | PC.NURSE ---
pt upset, teary, and uncooperative upon arrival to ED, refusing to walk from EMS stretcher to ED stretcher, arguing and using disrespectful language towards EMS staff. pt threatening to leave and asking to be transferred out to another hospital. pt finally calmed down and cooperated with staff. pt became lethargic and would not stay awake to verbal stimuli so narcan was given based on pt's substance use history. the pt became more aroused and upset the pt who then proceeded to thrash around the bed and blow her nose on the ground to get the narcan out . pt then walked to the bathroom with steady gait, gave a urine sample and changed into clean hospital attire. ua obtained, IV access established, labs drawn, pt medicated per oct. resting quietly on stretcher, sleeping. rr even/unlabored. wctm
[2023-03-28 11:31] LABS: Influenza A Negative (Negative); Influenza B2 Negative (Negative)
[2023-03-28 11:35] LABS: COVID-19 Test Negative (Negative); IDNOW Serial# BCCEAD1C
[2023-03-28 11:47] LABS: Troponin-I High Sensitivity < 2.7 ng/L (<3.5-17.0)
[2023-03-28] MEDS: Ketorolac Tromethamine 15 MG/ML VIAL IVPUSH (11:52)
[2023-03-28] MEDS: Acetaminophen 325 MG TABLET 650 MG PO (12:03)
--- NOTE | 2023-03-28 12:13 | P.HPHOSP_ITS ---
History of Present Illness Date of Service: 03/28/23 Attending physician on admission: Zachary Robles Chief Complaint: Generalized weakness, fever, myalgias Pt is a 37-year-old female with a PMH significant for?hepatitis C, tricuspid endocarditis, IVDU, MSSA bacteremia, and mild intermittent asthma who presents to the ED with?fever and all over body aches. Patient somnolent at time of interview but arousable, however would immediately fall back asleep during interview before answering any questions. HPI thus obtained from provider and chart review. 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 Was admitted to the hospital on 10/17/2022-11/02/2022 for severe sepsis secondary to acute tricuspid endocarditis, septic pulmonary emboli, and MSSA bacteremia, treated with daptomycin. Sent to short term rehab but started using again. Patient was readmitted to the hospital on 02/04/2023-02/08/2023 again for severe sepsis due to tricuspid endocarditis with cultures again growing MSSA and again treated with daptomycin. Repeat echo showed tricuspid vegetation of 1.8 cm, in creased from September where it was 1.67 cm. Patient was transferred to [facility] for cardiac surgery eval. Patient states that after last discharge she has continued to use IV drugs. She began feeling fatigued and sick a few days ago with myalgias and fever. Presented to the ED today d/t feeling worse. In the ED patient was febrile at 102.5, tachycardic at 120, tachypneic at 24, sa tting at 94% on RA. Labs were significant for stable microcytic anemia of 10.7/33.7, hypokalemia of 2.7, hypomagnesesmia of 1.5, AST 41, ALT 49, alk-phos 129. No leukocytosis. Troponin negative. Renal function baseline. UA positive for UTI. CXR showed diffuse patchy opacities throughout the bilateral lung simons, likely reflecting innumerable pulmonary nodules seen on prior cross- sectional imaging. EKG demonstrated sinus tachycardia of 122 with nonspecific T- wave abnormalities and ST depression in lateral leads, changed from prior. Prolonged QTc of 589. Pt was treated with naloxone, IVF, vanco, ceftriaxone, and ketorolac. Pt will be admitted to the hospital for treatment further evaluation of sepsis secondary to UTI in a pt with recent bacteremia and endocarditis. Review of Systems Review of Systems: Unable to obtain d/t pt's mentation [facility] Medical History (Updated 03/28/23 @ 14:40 by SON Layton) Abscess of left foot Asthma Cavitary lesion of lung Cellulitis of foot, left COVID-19 Early stage of Fungus infection in blood Hepatitis C MRSA (methicillin resistant staph aureus) culture positive Opioid use disorder Polysubstance abuse Sepsis Sepsis Severe sepsis Substance abuse Surgical History No pertinent past surgical history Status post incision and drainage Social History Household Members: None Household Members Other:: pt refused to answer/ trying to sleep Housing: Homeless Housing Other:: homeless Do you presently have visiting nurse or other home services: No Unable to assess alcohol history related to: Unknown Alcohol intake: never Patient Tobacco Use Status: Tobacco use Unknown Tobacco use type: Cigarette Cigarette Packs Per Day: 1 Cigarettes Per Day: 20.0 Years Smoked: 15 Smoked in Last 30 Days: Yes Second Hand Smoke Exposure: No Use of substances other than those prescribed or required for medical reasons: Unknown Substance Use Type: Heroin Advance Directives: No Advance Directives Information Provided: Yes Recently lost weight without trying: Unsure How much weight loss: Unsure Patient : No service: No Current occupational status: unemployed Meds Allergies Allergy/AdvReac Type Severity Reaction Status Date / Time bee pollen [Bee Stings] Allergy Unknown SWELLING Verified 11/27/22 11:11 AT SITE morphine [Morphine] Allergy Unknown SKIN Verified 11/27/22 11:11 BUBBLED Penicillins Allergy Unknown HIVES Verified 11/27/22 11:11 BREATHING PBROBLEM Active Medications: Current Medications Potassium Chloride (Potassium Chloride/H20) 10 meq in 100 mls @ 100 mls/hr IV Q1H CORNELIUS Stop: 03/28/23 15:59 Pharmacy Consult (Consult Rx Perform Med Rec) 1 each MISCELLANE ONCE PRN PRN Reason: Consult order Home Medications Medication Instructions Recorded Confirmed Last Taken Type gabapentin 300 mg capsule 300 mg PO TID 02/05/23 03/28/23 Unknown History acetaminophen 325 mg tablet 975 mg PO Q6H 03/28/23 03/28/23 Unknown History amoxicillin 875 mg-potassium 1 tab PO Q12H 03/28/23 03/28/23 Unknown History clavulanate 125 mg tablet clonidine HCl 0.2 mg tablet 0.2 mg PO BID PRN anxiety 03/28/23 03/28/23 Unknown History escitalopram oxalate 20 mg tablet 20 mg PO DAILY 03/28/23 03/28/23 Unknown History lorazepam 0.5 mg tablet 0.5 mg PO BEDTIME PRN insomnia 03/28/23 03/28/23 Unknown History magnesium oxide 400 mg (241.3 mg 400 mg PO BID 03/28/23 03/28/23 Unknown History magnesium) tablet nicotine 21 mg/24 hr daily 1 patch topical DAILY 03/28/23 03/28/23 Unknown History transdermal patch oxycodone 5 mg tablet 5 mg PO Q6H PRN pain 03/28/23 03/28/23 Unknown History Physical Exam Vital Signs and Narrative: Vital Signs: Last Vital Signs Temp 102.5 F H 03/28/23 09:54 Pulse 120 H 03/28/23 09:54 Resp 24 H 03/28/23 09:54 BP 112/85 03/28/23 09:54 Pulse Ox 94 03/28/23 09:54 O2 Del Method Room Air 03/28/23 09:54 BMI result Body Mass Index 21.0 General: Somnolent but arousable to verbal stimuli, though falling immediately back to sleep, in no acute distress Resp: Limited exam, CTA bilaterally CVS: S1, S2, 3/6 murmur GI: +BS, NT, no distention Skin: Warm, no rash noted Neuro: Cranial nerves II-XII grossly intact bilaterally. Motor grossly intact bilaterally Extremities: No edema Results Labs 03/28/23 11:04 03/28/23 11:04 Labs: Laboratory Results - last 24 hr 03/28/23 03/28/23 03/28/23 10:38 11:04 11:04 MCV 79.5 L MCH 25.2 L MCHC 31.8 RDW 16.0 Plt Count 256 D MPV 10.0 Immature Gran % (Auto) 0.4 Neut % (Auto) 85.4 H Lymph % (Auto) 8.7 L [place] % (Auto) 4.0 Eos % (Auto) 1.1 Baso % (Auto) 0.4 Lymph # (Auto) 0.7 L [place] # (Auto) 0.3 Eos # (Auto) 0.1 Baso # (Auto) 0.0 Abs Immat Gran (auto) 0.03 Absolute Neuts (auto) 7.2 Absolute Nucleated RBC 0.000 Nucleated RBC % (auto) 0.0 Anion Gap 17 Estim Creat Clear Calc 84.3 Estimated GFR > 60 Random Glucose 111 Lactic Acid Calcium 10.3 H D Magnesium 1.5 L Total Bilirubin 0.7 AST 41 H ALT 49 H Alkaline Phosphatase 129 H Total Creatine Kinase 32 Total Protein 9.5 H Albumin 3.4 L Urine Color Dark Yellow Urine Appearance Cloudy Urine pH 5.5 Ur Specific [place] 1.020 Urine Protein 100 (2+) H Urine Glucose (UA) Negative Urine Ketones Negative Urine Blood Large (3+) H Urine Nitrite Negative Ur Leukocyte Esterase Small (1+) H Urine RBC >20 H Urine WBC 21-50 H Ur Squamous Epith Cells 11-20 Urine Bacteria 1+ Hyaline Casts 6-10 COVID-19 (KORI) COVID-19 Clin Com Influenza Type A (SUKUMAR) Influenza Type B (SUKUMAR) Influenza A & B Note 03/28/23 03/28/23 03/28/23 11:04 11:04 11:04 MCV MCH MCHC RDW Plt Count MPV Immature Gran % (Auto) Neut % (Auto) Lymph % (Auto) [place] % (Auto) Eos % (Auto) Baso % (Auto) Lymph # (Auto) [place] # (Auto) Eos # (Auto) Baso # (Auto) Abs Immat Gran (auto) Absolute Neuts (auto) Absolute Nucleated RBC Nucleated RBC % (auto) Anion Gap Estim Creat Clear Calc Estimated GFR Random Glucose Lactic Acid 1.0 Calcium Magnesium Total Bilirubin AST ALT Alkaline Phosphatase Total Creatine Kinase Total Protein Albumin Urine Color Urine Appearance Urine pH Ur Specific [place] Urine Protein Urine Glucose (UA) Urine Ketones Urine Blood Urine Nitrite Ur Leukocyte Esterase Urine RBC Urine WBC Ur Squamous Epith Cells Urine Bacteria Hyaline Casts COVID-19 (KORI) Negative COVID-19 Clin Com See Note Influenza Type A (SUKUMAR) Negative Influenza Type B (SUKUMAR) Negative Influenza A & B Note See Note Imaging Radiologist's Impressions: Impressions Chest X-Ray 03/28/23 10:37 IMPRESSION: Diffuse patchy opacities throughout the bilateral lung simons likely reflects innumerable pulmonary nodules seen on prior cross-sectional imaging. Assessment and Plan (1) Sepsis: Status: Acute (2) UTI (urinary tract infection): Status: Acute Plan Pt is a 37-year-old female with a PMH significant for?hepatitis C, tricuspid endocarditis, IVDU, MSSA bacteremia, and mild intermittent asthma who presents to the ED with?fever and all over body aches. Pt will be admitted to the hospital for treatment further evaluation of sepsis secondary to UTI in a pt with recent bacteremia and endocarditis. Sepsis in the setting of UTI and possible bacteremia Patient with recent history of tricuspid endocarditis and MSSA bacteremia UA positive for UTI Patient meets sepsis criteria, not severe: Tachycardic, tachypneic, febrile, UTI Patient received IVF in the ED, will be placed on maintenance fluids IV antibiotics: Ceftriaxone and vanco, started 03/28/2023 Follow blood cultures ID consult Consider repeat echocardiogram if blood cultures warrant it Hypokalemia Potassium 2.7 at time of presentation Patient given p.o. and IV potassium in ED Follow BMP Hypomagnesesmia Patient's magnesium 1 point at presentation Given 2 g IV Mag in ED Continue home magmesium Follow mag Prolonged QTc EKG showed QTc of 589 Repeat EKG tomorrow Polysubstance use IV heroin and cocaine abuse Addiction Team consult Hold methadone d/t prolonged QTc Morphine or Oxy po scheduled for withdrawal symptoms Microcytic anemia Iron levels low at 26, saturation 9% Will start on oral iron supplementation Chronic hepatitis C Patient with transaminitis Should follow-up outpatient for treatment Full Code Attending:?Dr. Robles DVT Prophylaxis: Lovenox Pt will require a hospitalization of at least two nights for treatment of?sepsis secondary to UTI in the setting of patient with hx of recent IVDU, tricuspid endocarditis, and MSSA bacteremia. Time Spent With Patient Time: Total time managing care of this patient today ____ minutes. Quality Stroke Does the patient have a stroke diagnosis?: No VTE Prior VTE?: No VTE Risk Level:: Medical - moderate - high VTE Device Contraindication: Treatment Not Indicated VTE Drug Contraindication: N/A - Med Ordered
[2023-03-28] MEDS: vancomycin HCL 1,500 MG in 0.9 % Sodium Chloride 500 ML 333.33 MG IV (12:17)
--- NOTE | 2023-03-28 12:41 | PHA.PROG ---
Admission Date/Time: March 28, 2023 12:30 Indication: Weight in k.967 kg Adjusted body weight in K KG [place] body weight in K.3 KG Obesity Dosing Indication % IBW: Serum Creatinine - Last 168 Hours 03/28/23 11:04 Creatinine 0.85 Estimated CrCl and GFR - Last 168 Hours 03/28/23 11:04 Estim Creat Clear Calc 84.3 Estimated GFR > 60 Vancomycin Loading Dose: 1500 MG Current Vancomycin Dosing Regimen: 1000 MG Q12H Vancomycin Monitoring using AUC goal of 400 - 600 range with trough as surrogate marker: PREDICTED AUC = 582 Date and Time for next Vancomycin Level to be drawn: 03/29/23 @1000 (BEFORE 3RD DOSE) Pharmacist Comments on Vancomycin Plan: Vancomycin dosing will take advantage of [employer] as a clinical decision support tool that uses Bayesian modeling to calculate individual patient's pharmacokinetic parameters and forecast the patient's drug concentration time course with the target goal AUC 24 range of 400 - 600 mg/L/hr.
[2023-03-28 13:27] LABS: Iron 26 mcg/dL (30-160); Percent Iron Saturation 9 % (15-50); Total Iron Binding Capacity 290 mcg/dL (228-428); Unsaturated Iron Binding 264 ug/dL
--- NOTE | 2023-03-28 14:09 | PC.NURSE ---
this RN was made aware that the pt ripped out their IV. vanco only infuled for about 30 min. Deborah RN placed a new IV to the pt's right pinky and wrapped with gauze. IV patent. vanco now infusing in new line. pt sleeping on stretcher. rr even/unlabored. fever coming down, 100.2. wctm
--- NOTE | 2023-03-28 14:42 | PC.NURSE ---
nurse to nurse report given to SUE Camp
[2023-03-28 14:53] VITALS: BP 117/75; PULSE 95; RESP 18; TEMP 37.9; O2SAT 93
[2023-03-28] MEDS: 0.9 % Sodium Chloride Flush 3 ML SYRINGE IVFLUSH (15:08)
[2023-03-28] MEDS: Magnesium Sulfate/H2O 2 GM/50 ML PIGGYBACK IV (15:08)
[2023-03-28] MEDS: Potassium Chloride Packet 20 MEQ PACKET 40 MEQ PO (15:12)
[2023-03-28] MEDS: Enoxaparin Sodium 40 MG/0.4 ML SYRINGE SUBCUT (15:13)
[2023-03-28] MEDS: Nicotine 21 MG PATCH.TD24 TRANSDERMA (15:13)
[2023-03-28] MEDS: 0.9 % Sodium Chloride 1,000 ML 100 ML IVCONT (15:18)
--- NOTE | 2023-03-28 15:26 | PC.NURSE ---
Pt arrived to unit via stetcher. Lethargic but arousable. Able to answer a few questions and then falls back to sleep. Does not appear to have pain at this time. Bed alarm set, bedside camera in room for pt safety.
[2023-03-28] MEDS: Potassium Chloride/H20 10 MEQ/100 ML PIGGYBACK 100 MEQ IV ×3 (16:54→21:26)
[2023-03-28 20:00] VITALS: BP 114/70; PULSE 93; RESP 18; TEMP 37.5; O2SAT 98
[2023-03-28] MEDS: Gabapentin 300 MG CAPSULE PO (20:40)
[2023-03-28] MEDS: Magnesium Oxide 400 MG TABLET PO (20:40)
[2023-03-28] MEDS: vancomycin HCL 1,000 MG in 0.9 % Sodium Chloride 250 ML 270 MG IV (23:55)
[2023-03-29] MEDS: Potassium Chloride/H20 10 MEQ/100 ML PIGGYBACK 100 MEQ IV (01:25)
[2023-03-29 03:46] VITALS: BP 124/78; PULSE 100; RESP 16; TEMP 36.3; O2SAT 100
[2023-03-29 05:36] LABS: MANUAL DIFF FLAG NO
[2023-03-29 05:40] LABS: Basophils Absolute Auto 0.1 X10*3/uL (0.0-0.2); Basophils Percent Auto 0.5 % (0-2); Eosinophils Absolute Auto 0.1 X10*3/uL (0.0-0.4); Eosinophils Percent Auto 1.1 % (0-4); Hematocrit 32.6 % (37.0-47.0); Imm Gran Abs Auto 0.05 X10*3/uL (0.00-0.03); Imm Gran Pct Auto 0.5 % (0.0-0.4); Lymphocytes Absolute Auto 1.9 X10*3/uL (1.2-4.9); Lymphocytes Percent Auto 17.7 % (20-40); Mean Corpuscular HGB Conc 30.7 g/dl (31.0-35.0); Mean Corpuscular Hemoglobin 25.1 pg (27.0-33.0); Mean Corpuscular Volume 81.7 fL (80.0-98.0); Mean Platelet Volume 10.5 fL (9.4-12.3); Monocytes Absolute Auto 0.7 X10*3/uL (0.1-1.2); Monocytes Percent Auto 6.9 % (2-11); Neutrophils Absolute Auto 7.7 x10*3/uL (2.0-8.3); Neutrophils Percent Auto 73.3 % (45-73); Platelet Count 252 X10*3/uL (160-400); Red Blood Count 3.99 X10*6/uL (4.20-5.50); Red Cell Distribution Width 16.7 % (11.0-16.0); White Blood Count 10.4 X10*3/uL (4.8-10.8)
[2023-03-29 05:53] LABS: Anion Gap 16 (12-20); Blood Urea Nitrogen 10 mg/dL (9-16); Calcium 8.9 mg/dL (8.4-10.2); Carbon Dioxide 18 mmol/L (22-29); Chloride 113 mmol/L (96-108); Creatinine Clr Calc Pharmacy 88.5; Estimated Glomerular Filt Rate > 60; Glucose Random 181 mg/dL (60-115); Potassium 3.5 mmol/L (3.3-5.1); Sodium 143 mmol/L (135-145)
[2023-03-29] MEDS: 0.9 % Sodium Chloride 1,000 ML 100 ML IVCONT (06:43)
[2023-03-29 07:34] VITALS: BP 144/94; PULSE 89; RESP 18; TEMP 36.1; O2SAT 97
--- NOTE | 2023-03-29 08:00 | ECG_ITS ---
Test Reason : qtc check Blood Pressure : / mmHG Vent. Rate : 085 BPM Atrial Rate : 085 BPM P-R Int : 134 ms QRS Dur : 076 ms QT Int : 394 ms P-R-T Axes : 054 041 049 degrees QTc Int : 468 ms Normal sinus rhythm Normal ECG When compared with ECG of 28-MAR-2023 11:30, Nonspecific T wave abnormality, improved in Inferior leads Nonspecific T wave abnormality no longer evident in Lateral leads Referred By: Patricia Flynn Electronically Signed By:CORNEL CROOK
[2023-03-29] MEDS: Magnesium Oxide 400 MG TABLET PO ×2 (08:50→20:16)
[2023-03-29] MEDS: 0.9 % Sodium Chloride Flush 3 ML SYRINGE IVFLUSH ×3 (08:50→20:17)
[2023-03-29] MEDS: Ferrous Sulfate 300 MG/5 ML LIQUID PO ×2 (08:50→16:15)
[2023-03-29] MEDS: Escitalopram Oxalate 20 MG TABLET PO (08:50)
[2023-03-29] MEDS: Gabapentin 300 MG CAPSULE PO ×3 (08:50→20:16)
[2023-03-29] MEDS: methADONE HCl 20 MG/2 ML ORAL.CONC PO (09:08)
[2023-03-29 09:19] LABS: Amphetamine Screen Urine Not Detected (Not Detect); Barbiturates, Urine Not Detected (Not Detect); Benzodiazepines Screen Urine Not Detected (Not Detect); Cannabinoid Screen Urine Not Detected (Not Detect); Cocaine Screen Urine POSITIVE (Not Detect); Fentanyl, urine POSITIVE (Not Detect); Opiate Screen Urine POSITIVE (Not Detect); Phencyclidine Screen Urine Not Detected (Not Detect)
--- NOTE | 2023-03-29 09:27 | MHC.CM.PN ---
CM MET WITH PT AT BEDSIDE. PT APPEARS NERVOUS AND RELUCTANT TO ANSWER QUESTIONS. SUPPORT OFFERED + THRIVE ASSESSMENT. 413/SAFE NEIGHBORHOOD GUIDE PROVIDED. PT IS HOMELESS BUT WILL THINK ABOUT A PENITENTIARY. PT STATES SHE GETS HER METHADONE FROM THE HOSPITAL. INDEPENDENT AT BASELINE. +COVID VAX X1 NO HCP, DECLINES AT THIS TIME. NO PCP, DECLINES [facility]. DP: PT MAY NEED PENITENTIARY AT DC IF AGREEABLE. PT WILL NEED TRANSPORT.
[2023-03-29 09:45] LABS: Vancomycin Random 17.5 mcg/mL (15-20)
--- NOTE | 2023-03-29 09:55 | HE.PHANOTE ---
RE: vanco Trough came back on 03/29 @ 17.5 mg/L; predicted AUC was supratherapeutic so decreased dose to 750mg Q12H with predicted AUC of 472 mg/L, predicted trough of 14.5. Next level to be drawn 03/30 @1000
[2023-03-29] MEDS: cefTRIAXone sodium 1 GM in 0.9 % Sodium Chloride 50 ML IV (11:50)
[2023-03-29] MEDS: vancomycin HCL 750 MG in 0.9 % Sodium Chloride 250 ML 265 MG IV (11:50)
[2023-03-29 12:09] VITALS: BP 109/74; PULSE 90; RESP 18; TEMP 36.1; O2SAT 97
--- NOTE | 2023-03-29 12:15 | HE.PHANOTE ---
RE: [facility] Pharmacy has received patients methadone verification form, patient last dosed with [facility] with 60 mg in the morning and 55 mg in the evening. Last doses 03/23/23
--- NOTE | 2023-03-29 12:25 | PM.EVENT ---
Event Note Date of Service: 03/29/23 Event Note: methadone dosing football pad repairer verified with [facility] that patient had been recieving split dosing methadone 60mg in AM and 55mg PM. Last dose 03/23 Plan: -20mg ordered earlier in AM (prior to verification), additional 40mg ordered once verified. Total 60mg AM -due to having missed 4 doses of methadone, dosing will be resumed lower than previously prescribed--will reintroduce PM dosing over the next several days -football pad repairer to obtain dosing history at [facility] to review dose increase history Time Spent With Patient Time: Total time managing care of this patient today ____ minutes.
[2023-03-29] MEDS: methADONE HCl 20 MG/2 ML ORAL.CONC 40 MG PO (12:38)
--- NOTE | 2023-03-29 15:24 | MHC.RECOVRN ---
Met with pt in 377 after consult placed to Addiction Medicine. Yesterday, pt had been BIBA and reporting all over body pain rating greater than 10. Pt subsequently admitted to [facility] for treatment of sepsis and UTI. Pt familiar with t/w from previous consults. Pt laying in bed, awake, alert, easily engages in conversation however unable to complete assessment due to pt experiencing withdrawal symptoms. Pt reports discharge from [facility] on 03/23 and having received 115 mg methadone that day. Pt received 20 mg this morning and is currently experiencing upset stomach, body aches, diaphoresis. T/w spoke with SUE Zamora, at [place] [id number] who confirmed last methadone dose on 03/23, 60 mg in AM, 55 mg in PM. T/w then spoke with pharmacist, Ana M, who reported dosing hx as follows: 02/09-02/11 65 mg 02/12 65 mg AM 10 mg PM 02/13-02/15 25 mg AM, 25 mg PM, 25 mg evening 02/16 25 mg AM, 50 mg PM 02/17-02/23 75 mg 02/24-02/25 85 mg 02/26-03/02 85 mg AM, 5 mg PM 03/03 90 mg 03/04-03/14 95 mg divided in 3 doses 03/15 95 mg AM, 10 mg PM 03/16-03/18 30 mg, 10 mg, 35 mg, 30 mg 03/19 30 mg, 5 mg, 50 mg 03/20 55 mg AM, 50 mg PM 03/21 55 mg, 10 mg, 50 mg 03/22 55 mg AM, 50 mg PM 03/23 60 mg AM, 55 mg PM Discussed with Kenyatta Portillo APRN.
[2023-03-29 15:29] VITALS: BP 117/81; PULSE 71; RESP 18; TEMP 36.7; O2SAT 97
--- NOTE | 2023-03-29 17:14 | HO.PM.IMPN ---
Subjective Subjective Date of Service: 03/29/23 Interval History: Follow-up for patient with sepsis secondary to UTI Patient complains of right-sided musculoskeletal pain, especially of right shoulder Pt was recently transferred from here to [facility] for tricuspid endocarditis and MSSA bacteremia, treated with 6 weeks IV Unasyn from 02/10-03/23/2023 Patient states that since discharge she has been using heroin again, injecting in hands No acute overnight events Review of Systems Right-sided musculoskeletal pain, especially right shoulder, , hip, and ankle Denies fever, chills, nausea, vomiting No abdominal pain Denies chest pain/pressure, palpitations Physical Exam Vital Signs: Vital Signs: Last Vital Signs Temp 98.0 F 03/29/23 15:29 Pulse 71 03/29/23 15:29 Resp 18 03/29/23 15:29 BP 117/81 03/29/23 15:29 Pulse Ox 97 03/29/23 15:29 O2 Del Method Room Air 03/29/23 15:29 BMI result Body Mass Index 21.0 General: AOx3, no acute distress, pt with poor hygiene, dentition Resp: CTA bilaterally CVS: S1, S2, 3/6 murmur GI: +BS, NT, no distention Skin: No rash Neuro: Cranial nerves II-XII grossly intact bilaterally. Motor grossly intact bilaterally Extremities: No edema Psych: Appropriate affect Objective Data Active Medications Acetaminophen (Acetaminophen 325 Mg Tablet) 650 mg PO Q6H PRN PRN Reason: Pain, Mild (Pain Scale 1-3) Clonidine HCl (Clonidine Hcl 0.2 Mg Tablet) 0.2 mg PO BID PRN; Protocol PRN Reason: anxiety Enoxaparin Sodium (Enoxaparin Sodium 40 Mg/0.4 Ml Syringe) 40 mg SUBCUT Q24H [facility] Last Admin: 03/29/23 13:20 Dose: Not Given Documented By: TERRIE Non-Admin Reason: Patient Refused Escitalopram Oxalate (Escitalopram Oxalate 20 Mg Tablet) 20 mg PO DAILY [facility] Last Admin: 03/29/23 08:50 Dose: 20 mg Documented By: TERRIE Ferrous Sulfate (Ferrous Sulfate 300 Mg/5 Ml Liquid) 300 mg PO BIDWM [facility] Last Admin: 03/29/23 16:15 Dose: 300 mg Documented By: TERRIE Gabapentin (Gabapentin 300 Mg Capsule) 300 mg PO TID [facility] Last Admin: 03/29/23 16:15 Dose: 300 mg Documented By: TERRIE Ceftriaxone Sodium 1 gm/ (Sodium Chloride) 50 mls @ 100 mls/hr IV Q24H [facility] Last Infusion: 03/29/23 12:28 Dose: 100 mls/hr Documented By: TERRIE Vancomycin HCl 750 mg/ Sodium (Chloride) 265 mls @ 265 mls/hr IV Q12H [facility] Last Infusion: 03/29/23 13:20 Dose: 0 mls/hr Documented By: TERRIE Lorazepam (Lorazepam 0.5 Mg Tablet) 0.5 mg PO BEDTIME PRN PRN Reason: insomnia Magnesium Oxide (Magnesium Oxide 400 Mg Tablet) 400 mg PO BID [facility] Last Admin: 03/29/23 08:50 Dose: 400 mg Documented By: TERRIE Melatonin (Melatonin 3 Mg Tablet) 6 mg PO BEDTIME PRN PRN Reason: Insomnia Nicotine (Nicotine 21 Mg Patch.Td24) 21 mg TRANSDERMA DAILY [facility] Last Admin: 03/29/23 08:50 Dose: Not Given Documented By: TERRIE Non-Admin Reason: Patient Refused Ondansetron HCl (Ondansetron Hcl 4 Mg/2 Ml Vial) 4 mg IVPUSH Q8H PRN PRN Reason: Nausea and Vomiting Pharmacy Consult (Consult Rx Perform Med Rec) 1 each MISCELLANE ONCE PRN PRN Reason: Consult order Pharmacy Consult (Consult Rx Vancomycin Dosing) 1 each MISCELLANE DAILY PRN PRN Reason: Consult order Sodium Chloride (0.9 % Sodium Chloride Flush 3 Ml Syringe) 3 ml IVFLUSH QSHIFT [facility] Last Admin: 03/29/23 08:50 Dose: 3 ml Documented By: TERRIE Labs 03/29/23 05:32 03/29/23 05:32 Labs: Laboratory Results - last 24 hr 03/29/23 03/29/23 03/29/23 05:32 05:32 05:32 MCV 81.7 MCH 25.1 L MCHC 30.7 L RDW 16.7 H Plt Count 252 MPV 10.5 Immature Gran % (Auto) 0.5 H Neut % (Auto) 73.3 H Lymph % (Auto) 17.7 L [place] % (Auto) 6.9 Eos % (Auto) 1.1 Baso % (Auto) 0.5 Lymph # (Auto) 1.9 [place] # (Auto) 0.7 Eos # (Auto) 0.1 Baso # (Auto) 0.1 Abs Immat Gran (auto) 0.05 H Absolute Neuts (auto) 7.7 Absolute Nucleated RBC 0.000 Nucleated RBC % (auto) 0.0 Anion Gap 16 Estim Creat Clear Calc Cancelled 88.5 Estimated GFR Cancelled > 60 Random Glucose 181 H Calcium 8.9 D Random Vancomycin Urine Opiates Screen Urine Fentanyl Screen Ur Barbiturates Screen Ur Phencyclidine Scrn Ur Amphetamines Screen U Benzodiazepines Scrn Urine Cocaine Screen U Marijuana (THC) Screen 03/29/23 03/29/23 08:51 09:23 MCV MCH MCHC RDW Plt Count MPV Immature Gran % (Auto) Neut % (Auto) Lymph % (Auto) [place] % (Auto) Eos % (Auto) Baso % (Auto) Lymph # (Auto) [place] # (Auto) Eos # (Auto) Baso # (Auto) Abs Immat Gran (auto) Absolute Neuts (auto) Absolute Nucleated RBC Nucleated RBC % (auto) Anion Gap Estim Creat Clear Calc Estimated GFR Random Glucose Calcium Random Vancomycin 17.5 Urine Opiates Screen POSITIVE H Urine Fentanyl Screen POSITIVE H Ur Barbiturates Screen Not Detected Ur Phencyclidine Scrn Not Detected Ur Amphetamines Screen Not Detected U Benzodiazepines Scrn Not Detected Urine Cocaine Screen POSITIVE H U Marijuana (THC) Screen Not Detected Microbiology Microbiology Results: Microbiology 03/28/23 11:19 Blood Culture - Preliminary Blood - Venous No growth after 24 hours. 03/28/23 11:04 Blood Culture - Preliminary Blood - Venous No growth after 24 hours. 03/28/23 Unknown Urine Culture - Final Urine clean catch - Urine arias top Strep agalactiae (Grp B) Assessment and Plan (1) UTI (urinary tract infection): Status: Acute (2) Sepsis: Status: Acute (3) Opioid use disorder: Status: Acute Plan Pt is a 37-year-old female with a PMH significant for?hepatitis C, tricuspid endocarditis, IVDU, MSSA bacteremia, and mild intermittent asthma who presents to the ED with?fever and all over body aches.? Pt will be admitted to the hospital for treatment further evaluation of sepsis secondary to UTI in a pt with recent bacteremia and endocarditis. Sepsis in the setting of UTI and possible bacteremia Patient with recent history of tricuspid endocarditis and MSSA bacteremia UA positive for UTI Patient meets sepsis criteria, not severe:? Tachycardic, tachypneic, febrile, UTI Patient received IVF in the ED, will be placed on maintenance fluids IV antibiotics:? Ceftriaxone and vanco, started 03/28/2023 Follow blood cultures ID consult Consider repeat echocardiogram if blood cultures warrant it Hypokalemia, replenished Potassium 2.7 at time of presentation Patient given p.o. and IV potassium in ED Currently WNL Follow BMP Hypomagnesesmia Patient's magnesium 1 point at presentation Given 2 g IV Mag in ED Continue home magnesium Follow mag Prolonged QTc, resolved Initial EKG showed QTc of 589 Repeat EKG with QTc of 468 Right shoulder pain [place]A 03[place]06[place]23 [place] [facility] [place] of right sternal clavicular joint septic arthritis and osteomyelitis with overlying mild cystitis of medial pectoralis musculature Patient underwent IR guided biopsy of right sternoclavicular joint that was negative for septic arthritis Repeat CTA on 03/23/2023 showed unchanged infectious/inflammatory changes of the right sternoclavicular joint with significant improvement of overlying right medial pectoralis myositis. No significant interval osseous erosion to suggest osteomyelitis Ibuprofen for pain, Hold acetaminophen due to transaminitis Whole body pain/weakness PT evaluation Polysubstance use IV heroin and cocaine abuse Addiction Team consult Split methadone dosing per Addiction Medicine Microcytic anemia Iron levels low at 26, saturation 9% Will start on oral iron supplementation Chronic hepatitis C Patient with transaminitis Should follow-up outpatient for treatment Full Code Attending:?Dr. Burns DVT Prophylaxis: Lovenox Dispo: awaiting final blood cultures to r/o bacteremia in a pt with recent hx of IVDU, tricuspid endocarditis, and MSSA bacteremia. Time Spent With Patient Time: Total time managing care of this patient today ____ minutes. Quality Stroke Does the patient have a stroke diagnosis?: No VTE Prior VTE?: No VTE Risk Level:: Medical - moderate - high VTE Device Contraindication: Treatment Not Indicated VTE Drug Contraindication: N/A - Med Ordered
[2023-03-29 20:00] VITALS: BP 121/80; PULSE 78; RESP 16; TEMP 36.5; O2SAT 99
[2023-03-29] MEDS: Melatonin 3 MG TABLET 6 MG PO (20:16)
[2023-03-29] MEDS: Ibuprofen 400 MG TABLET PO (20:17)
[2023-03-30] MEDS: 0.9 % Sodium Chloride Flush 3 ML SYRINGE IVFLUSH ×2 (00:01→16:27)
[2023-03-30] MEDS: vancomycin HCL 750 MG in 0.9 % Sodium Chloride 250 ML 265 MG IV (00:01)
[2023-03-30 03:10] VITALS: BP 112/72; PULSE 64; RESP 14; TEMP 36.1; O2SAT 98
[2023-03-30 06:36] LABS: Creatinine Clr Calc Pharmacy 98.2; Estimated Glomerular Filt Rate > 60
[2023-03-30 06:38] LABS: Magnesium 1.9 mg/dL (1.6-2.6)
[2023-03-30 07:47] VITALS: BP 130/94; PULSE 68; RESP 16; TEMP 36.1; O2SAT 97
[2023-03-30] MEDS: Escitalopram Oxalate 20 MG TABLET PO (08:44)
[2023-03-30] MEDS: Gabapentin 300 MG CAPSULE PO ×3 (08:44→20:17)
[2023-03-30 08:45] LABS: Alanine Aminotransferase 31 U/L (0-31); Albumin Level 2.7 g/dL (3.5-5.0); Alkaline Phosphatase 90 U/L (39-117); Anion Gap 13 (12-20); Aspartate Amino Transferase 27 U/L (5-31); Bilirubin Total 0.2 mg/dL (0.0-1.0); Blood Urea Nitrogen 8 mg/dL (9-16); Carbon Dioxide 23 mmol/L (22-29); Chloride 110 mmol/L (96-108); Creatinine Clr Calc Pharmacy 98.2; Estimated Glomerular Filt Rate > 60; Glucose Random 106 mg/dL (60-115); Potassium 3.9 mmol/L (3.3-5.1); Sodium 142 mmol/L (135-145); Total Protein 7.6 g/dL (6.5-8.0)
[2023-03-30] MEDS: Magnesium Oxide 400 MG TABLET PO ×2 (08:45→20:17)
[2023-03-30] MEDS: methADONE HCl 20 MG/2 ML ORAL.CONC 65 MG PO (08:45)
[2023-03-30 10:28] LABS: Vancomycin Trough 13.4 mcg/mL (10.0-20.0)
--- NOTE | 2023-03-30 10:34 | HE.PHANOTE ---
RE: vanco Trough on 03/30 came back at 13.4mg/L; renal function improved. Increased dose back to 1000mg Q12H with predicted AUC of 539mg/L, trough of 15.6. Next level o be drawn 03/31 @1000
[2023-03-30] MEDS: Sennosides/Docusate Sodium TABLET 2 TAB PO ×2 (10:53→20:17)
[2023-03-30] MEDS: polyethylene glycoL 3350 17 GM POWD.PACK PO (10:54)
[2023-03-30] MEDS: cefTRIAXone sodium 1 GM in 0.9 % Sodium Chloride 50 ML IV (10:55)
[2023-03-30 11:37] LABS: HCG Quantitative < 2 mIU/mL
[2023-03-30] MEDS: vancomycin HCL 1,000 MG in 0.9 % Sodium Chloride 250 ML 270 MG IV (13:12)
--- NOTE | 2023-03-30 15:01 | P.PNIM_ITS ---
Subjective Subjective Date of Service: 03/30/23 Interval History: fever resolved c/o R hip pain injects drugs into hands Review of Systems Review of Systems: Yes all other systems are reviewed and are negative Physical Exam Vital Signs: Vital Signs: Last Vital Signs Temp 97.0 F 03/30/23 07:47 Pulse 68 03/30/23 07:47 Resp 16 03/30/23 07:47 BP 130/94 H 03/30/23 07:47 Pulse Ox 97 03/30/23 07:47 O2 Del Method Room Air 03/30/23 07:47 BMI result Body Mass Index 21.0 Gen: in no acute distress HEENT: sclera anicteric, moist mucus membranes Neck: supple Lungs: clear to auscultation bilaterally Heart: regular rate and rhythm, no murmurs Abd: soft, non-tender, non-distended Ext: no edema Skin: warm/well-perfused Neuro: alert and oriented x3, no focal findings Psych: appropriate affect Objective Data Active Medications Clonidine HCl (Clonidine Hcl 0.2 Mg Tablet) 0.2 mg PO BID PRN; Protocol PRN Reason: anxiety Enoxaparin Sodium (Enoxaparin Sodium 40 Mg/0.4 Ml Syringe) 40 mg SUBCUT Q24H [facility] Last Admin: 03/30/23 08:48 Dose: Not Given Documented By: MARYANN Non-Admin Reason: Patient Refused Escitalopram Oxalate (Escitalopram Oxalate 20 Mg Tablet) 20 mg PO DAILY [facility] Last Admin: 03/30/23 08:44 Dose: 20 mg Documented By: MARYANN Gabapentin (Gabapentin 300 Mg Capsule) 300 mg PO TID [facility] Last Admin: 03/30/23 14:18 Dose: 300 mg Documented By: MARYANN Ceftriaxone Sodium 1 gm/ (Sodium Chloride) 50 mls @ 100 mls/hr IV Q24H [facility] Last Infusion: 03/30/23 11:46 Dose: 100 mls/hr Documented By: MARYANN Vancomycin HCl 1,000 mg/ (Sodium Chloride) 270 mls @ 270 mls/hr IV Q12H [facility] Last Infusion: 03/30/23 14:20 Dose: 270 mls/hr Documented By: MARYANN Ibuprofen (Ibuprofen 400 Mg Tablet) 400 mg PO TIDWM PRN PRN Reason: Pain, Mild (Pain Scale 1-3) Last Admin: 03/29/23 20:17 Dose: 400 mg Documented By: HAWA Lorazepam (Lorazepam 0.5 Mg Tablet) 0.5 mg PO BEDTIME PRN PRN Reason: insomnia Magnesium Oxide (Magnesium Oxide 400 Mg Tablet) 400 mg PO BID [facility] Last Admin: 03/30/23 08:45 Dose: 400 mg Documented By: MARYANN Melatonin (Melatonin 3 Mg Tablet) 6 mg PO BEDTIME PRN PRN Reason: Insomnia Last Admin: 03/29/23 20:16 Dose: 6 mg Documented By: HAWA Methadone HCl (Methadone Hcl 20 Mg/2 Ml Oral.Conc) 65 mg PO DAILY [facility] Last Admin: 03/30/23 08:45 Dose: 65 mg Documented By: MARYANN Nicotine (Nicotine 21 Mg Patch.Td24) 21 mg TRANSDERMA DAILY [facility] Last Admin: 03/30/23 08:49 Dose: Not Given Documented By: MARYANN Non-Admin Reason: Patient Refused Ondansetron HCl (Ondansetron Hcl 4 Mg/2 Ml Vial) 4 mg IVPUSH Q8H PRN PRN Reason: Nausea and Vomiting Pharmacy Consult (Consult Rx Perform Med Rec) 1 each MISCELLANE ONCE PRN PRN Reason: Consult order Pharmacy Consult (Consult Rx Vancomycin Dosing) 1 each MISCELLANE DAILY PRN PRN Reason: Consult order Polyethylene Glycol (Polyethylene Glycol 3350 17 Gm Powd.Pack) 17 gm PO DAILY [facility] Last Admin: 03/30/23 10:54 Dose: 17 gm Documented By: MARYANN Senna/Docusate Sodium (Sennosides/Docusate Sodium Tablet) 2 tab PO BID [facility] Last Admin: 03/30/23 10:53 Dose: 2 tab Documented By: MARYANN Sodium Chloride (0.9 % Sodium Chloride Flush 3 Ml Syringe) 3 ml IVFLUSH QSHIFT [facility] Last Admin: 03/30/23 00:01 Dose: 3 ml Documented By: MUKULSAN Labs 03/29/23 05:32 03/30/23 06:11 Labs: Laboratory Results - last 24 hr 03/30/23 03/30/23 03/30/23 06:11 06:11 10:08 Anion Gap 13 Estim Creat Clear Calc 98.2 98.2 Estimated GFR > 60 > 60 Random Glucose 106 Calcium 9.0 Magnesium 1.9 Total Bilirubin 0.2 AST 27 ALT 31 Alkaline Phosphatase 90 Total Protein 7.6 Albumin 2.7 L Beta HCG, Quant Vancomycin Trough 13.4 03/30/23 11:02 Anion Gap Estim Creat Clear Calc Estimated GFR Random Glucose Calcium Magnesium Total Bilirubin AST ALT Alkaline Phosphatase Total Protein Albumin Beta HCG, Quant < 2 Vancomycin Trough Microbiology Microbiology Results: Microbiology 03/28/23 11:19 Blood Culture - Preliminary Blood - Venous No growth after 48 hours. 03/28/23 11:04 Blood Culture - Preliminary Blood - Venous No growth after 48 hours. 03/28/23 Unknown Urine Culture - Final Urine clean catch - Urine arias top Strep agalactiae (Grp B) Assessment and Plan (1) UTI (urinary tract infection): Status: Acute (2) Sepsis: Status: Acute (3) Opioid use disorder: Status: Acute Plan d3 37yo F with HCV, [place] [facility] [place]MSSA bacteremia,, ongoing GIANNA, mild int asthma presenting with sepsis sepsis with recent tricuspid endocarditis/MSSA bacteremia - on vanco + ceftriax d3, follow BCx - urine growing GBS, covered with above regimen - check pelvic/hip X-ray + NM bone scan - ID consultation R shoulder pain - [place] [facility] [place] sternoclavicular joint septic a rthritis and osteomyelitis; underwent IR guided biopsy of right sternoclavicular joint that was negative for septic arthritis - repeat CTA on 03/23/2023 showed unchanged infectious/inflammatory changes of the right sternoclavicular joint with significant improvement of overlying right medial pectoralis myositis. No significant interval osseous erosion to suggest osteomyelitis hypoK - repleted hypoMg - repleted QT prolongation - QTc 589->468 ms with correction of lytes above polysubstance abuse [fentanyl + cocaine] - methadone split dosing, Addiction Medicine following GIANNA - start PO Fe once bacterial infection controlled chronic HCV - outpt treatment - screen HBV mood disorder - escitalopram, lorazepam VTE ppx - LMWH dispo - TBD In my clinical judgment, the patient requires continued inpatient hospitalization for the following reasons: IV ABX Time Spent With Patient Time: Total time managing care of this patient today __45__ minutes. Quality Stroke Does the patient have a stroke diagnosis?: No VTE Prior VTE?: No VTE Risk Level:: Medical - moderate - high VTE Device Contraindication: Treatment Not Indicated VTE Drug Contraindication: N/A - Med Ordered
--- NOTE | 2023-03-30 15:51 | P.CNID_ITS ---
History of Present Illness Data of Consult Service Date: 03/29/23 Requesting physician: Patricia Flynn Primary Care Provider: Unknown Physician HPI Reason for consult: UTI E coli She presents with nausea,fatigue and myalgia. She has had MSSA bacteremia and h/o endocarditis. She has negative blood cultures. She has urine E coli. Review of Systems Review of Systems: Yes all other systems are reviewed and are negative PMFSH Past Medical History Medical History Abscess of left foot Asthma Cavitary lesion of lung Cellulitis of foot, left COVID-19 Early stage of Fungus infection in blood Hepatitis C MRSA (methicillin resistant staph aureus) culture positive Opioid use disorder Polysubstance abuse Sepsis Sepsis Severe sepsis Substance abuse Family History Family history: reviewed and not pertinent Surgical History Surgical History No pertinent past surgical history Status post incision and drainage Social History Social History Household Members: None Household Members Other:: pt refused to answer/ trying to sleep Housing: Homeless Housing Other:: homeless Do you presently have visiting nurse or other home services: No Unable to assess alcohol history related to: Unknown Alcohol intake: never Patient Tobacco Use Status: Tobacco use Unknown Tobacco use type: Cigarette Cigarette Packs Per Day: 1 Cigarettes Per Day: 20.0 Years Smoked: 15 Smoked in Last 30 Days: Yes Second Hand Smoke Exposure: No Use of substances other than those prescribed or required for medical reasons: Unknown Substance Use Type: Heroin Currently Displaying Signs/Symptoms of Drug Intoxication Withdrawal: No Advance Directives: No Advance Directives Information Provided: Yes Recently lost weight without trying: Unsure How much weight loss: Unsure Patient : No service: No Current occupational status: unemployed Meds Allergies Allergy/AdvReac Type Severity Reaction Status Date / Time bee pollen [Bee Stings] Allergy Unknown SWELLING Verified 11/27/22 11:11 AT SITE morphine [Morphine] Allergy Unknown SKIN Verified 11/27/22 11:11 BUBBLED Penicillins Allergy Unknown HIVES Verified 11/27/22 11:11 BREATHING PBROBLEM Active Medications: Current Medications Clonidine HCl (Clonidine Hcl 0.2 Mg Tablet) 0.2 mg PO BID PRN; Protocol PRN Reason: anxiety Enoxaparin Sodium (Enoxaparin Sodium 40 Mg/0.4 Ml Syringe) 40 mg SUBCUT Q24H [facility] Last Admin: 03/30/23 08:48 Dose: Not Given Escitalopram Oxalate (Escitalopram Oxalate 20 Mg Tablet) 20 mg PO DAILY [facility] Last Admin: 03/30/23 08:44 Dose: 20 mg Gabapentin (Gabapentin 300 Mg Capsule) 300 mg PO TID [facility] Last Admin: 03/30/23 14:18 Dose: 300 mg Ceftriaxone Sodium 1 gm/ (Sodium Chloride) 50 mls @ 100 mls/hr IV Q24H [facility] Last Infusion: 03/30/23 11:46 Dose: Infused Vancomycin HCl 1,000 mg/ (Sodium Chloride) 270 mls @ 270 mls/hr IV Q12H [facility] Last Infusion: 03/30/23 14:20 Dose: Infused Ibuprofen (Ibuprofen 400 Mg Tablet) 400 mg PO TIDWM PRN PRN Reason: Pain, Mild (Pain Scale 1-3) Last Admin: 03/29/23 20:17 Dose: 400 mg Lorazepam (Lorazepam 0.5 Mg Tablet) 0.5 mg PO BEDTIME PRN PRN Reason: insomnia Magnesium Oxide (Magnesium Oxide 400 Mg Tablet) 400 mg PO BID [facility] Last Admin: 03/30/23 08:45 Dose: 400 mg Melatonin (Melatonin 3 Mg Tablet) 6 mg PO BEDTIME PRN PRN Reason: Insomnia Last Admin: 03/29/23 20:16 Dose: 6 mg Methadone HCl (Methadone Hcl 20 Mg/2 Ml Oral.Conc) 65 mg PO DAILY [facility] Last Admin: 03/30/23 08:45 Dose: 65 mg Nicotine (Nicotine 21 Mg Patch.Td24) 21 mg TRANSDERMA DAILY [facility] Last Admin: 03/30/23 08:49 Dose: Not Given Ondansetron HCl (Ondansetron Hcl 4 Mg/2 Ml Vial) 4 mg IVPUSH Q8H PRN PRN Reason: Nausea and Vomiting Pharmacy Consult (Consult Rx Perform Med Rec) 1 each MISCELLANE ONCE PRN PRN Reason: Consult order Pharmacy Consult (Consult Rx Vancomycin Dosing) 1 each MISCELLANE DAILY PRN PRN Reason: Consult order Polyethylene Glycol (Polyethylene Glycol 3350 17 Gm Powd.Pack) 17 gm PO DAILY [facility] Last Admin: 03/30/23 10:54 Dose: 17 gm Senna/Docusate Sodium (Sennosides/Docusate Sodium Tablet) 2 tab PO BID [facility] Last Admin: 03/30/23 10:53 Dose: 2 tab Sodium Chloride (0.9 % Sodium Chloride Flush 3 Ml Syringe) 3 ml IVFLUSH QSHIFT [facility] Last Admin: 03/30/23 00:01 Dose: 3 ml Home Medications Medication Instructions Recorded Confirmed Last Taken Type gabapentin 300 mg capsule 300 mg PO TID 02/05/23 03/28/23 Unknown History acetaminophen 325 mg tablet 975 mg PO Q6H 03/28/23 03/28/23 Unknown History amoxicillin 875 mg-potassium 1 tab PO Q12H 03/28/23 03/28/23 Unknown History clavulanate 125 mg tablet clonidine HCl 0.2 mg tablet 0.2 mg PO BID PRN anxiety 03/28/23 03/28/23 Unknown History escitalopram oxalate 20 mg tablet 20 mg PO DAILY 03/28/23 03/28/23 Unknown History lorazepam 0.5 mg tablet 0.5 mg PO BEDTIME PRN insomnia 03/28/23 03/28/23 Unknown History magnesium oxide 400 mg (241.3 mg 400 mg PO BID 03/28/23 03/28/23 Unknown History magnesium) tablet nicotine 21 mg/24 hr daily 1 patch topical DAILY 03/28/23 03/28/23 Unknown History transdermal patch oxycodone 5 mg tablet 5 mg PO Q6H PRN pain 03/28/23 03/28/23 Unknown History Physical Exam Vital Signs: Vital Signs: Last Vital Signs Temp 97.0 F 03/30/23 07:47 Pulse 68 03/30/23 07:47 Resp 16 03/30/23 07:47 BP 130/94 H 03/30/23 07:47 Pulse Ox 97 03/30/23 07:47 O2 Del Method Room Air 03/30/23 07:47 BMI result Body Mass Index 21.0 Const: General: cooperative HEENT: Head: Yes normal to inspection Face and sinus: Yes normal facial exam Mouth: Normal oral and palatal mucosa present Teeth and gingiva: d entition normal Eyes: General: appearance normal, both eyes and all related structures Pupils: Equal, round and reactive pupils present Resp: Effort & Inspection: normal respiratory effort Cardio: Rate: regular rate Rhythm: regular rhythm GI: Palpation (GI): Soft to palpation and nontender : General: Yes no CVA tenderness Back/Spine/Pelvis: Back: no CVA tenderness Skin: General skin exam: no rashes or lesions noted Neuro: General: moves all extremities Cranial nerves: Yes Equal, round and reactive pupils present Extrem: General: Yes normal to inspection Psych: Appearance: grossly normal Results Labs 03/29/23 05:32 03/30/23 06:11 Labs: BMP 03/30/23 03/30/23 06:11 06:11 Sodium 142 Potassium 3.9 Chloride 110 H Carbon Dioxide 23 BUN 8 L Creatinine 0.73 0.73 Calcium 9.0 Liver Function 03/30/23 Range/Units 06:11 Total Bilirubin 0.2 (0.0-1.0) mg/dL AST 27 (5-31) U/L ALT 31 (0-31) U/L Alkaline Phosphatase 90 (39-117) U/L Albumin 2.7 L (3.5-5.0) g/dL Microbiology Microbiology Results: Microbiology 03/28/23 11:19 Blood - Venous Blood Culture - Preliminary No growth after 48 hours. 03/28/23 11:04 Blood - Venous Blood Culture - Preliminary No growth after 48 hours. 03/28/23 Unknown Urine clean catch - Urine arias top Urine Culture - Final Strep agalactiae (Grp B) Assessment and Plan (1) UTI (urinary tract infection): Status: Acute She has E coli UTI Blood cultures are negative. (2) REMA (acute kidney injury): Status: Acute Plan Would give po Ceftin for 14 day total. Time Spent With Patient Time: Total time managing care of this patient today ____ minutes.
[2023-03-30 16:00] VITALS: BP 111/72; PULSE 67; RESP 16; TEMP 36.1; O2SAT 97
[2023-03-30] MEDS: Ibuprofen 400 MG TABLET PO (16:30)
--- NOTE | 2023-03-30 17:16 | HO.ADDICTPRO ---
Subjective Subjective Date of Service: 03/30/23 Reason For Visit: Fever Interim History: Patient seen in follow up Methadone 65mg today. claims account specialist reviewed methadone dosing while at [facility] and somewhat difficult to follow as dosing changed almost daily and was administered btwn 2 and 3 times per day. This conventional mortgage underwriter met with patient who appeared comfortable and reporting no withdrawal sx since she recived methadone this AM, however she felt very ill when she 1st woke up and had difficulty doing anything until she got her methadone. She states that while at [facility] they were adjusting her methadone to address her pain and this is why she was getting such frequent dosing. She does acknowledge that methadone did not actually address her discomfort while there. Reviewed with patient challenges with continuing to split doses like that including possibility for either discharge or transfer to another facility where medication would not be able to be administered in that way. Patient verbalized understanding and stated that she did not want to have methadone given in the fashion that she was previously getting it. She is reporting significant discomfort on her right side from her clavicle were shoulder all the way down her arm and the side of her body as well. She is open to scheduled NSAIDs or low-dose oxycodone. She is tearful stating that she did not want to be discharged from [facility] and had no plan for follow-up including methadone treatment. Unclear if this is accurate as this conventional mortgage underwriter does not have access to her previous notes from [facility]. At time of evaluation patient did not appear restless or diaphoretic. Denying any GI symptoms. Review of Systems Constitutional: Reports as per HPI Mental Status Exam Mental Status Exam Patient Appearance: Well Grooomed Patient Orientation: Person, Place, Time and Situation Level of Consciousness: Awake, Appropriate and Alert Patient Behavior: Appropriate and Talkative Mood Description: Calm Affect Description: Calm and Appropriate Judgement: Good Diagnostics Vital Signs (24Hr): Vital Signs - 24 hr 03/29/23 20:00 03/30/23 03:10 03/30/23 07:47 Temperature 97.7 F 96.9 F 97.0 F Pulse Rate 78 64 68 Respiratory Rate 16 14 16 Blood Pressure 121/80 112/72 130/94 H Pulse Oximetry 99 98 97 Oxygen Delivery Method Room Air Room Air Room Air 03/30/23 16:00 Temperature 97.0 F Pulse Rate 67 Respiratory Rate 16 Blood Pressure 111/72 Pulse Oximetry 97 Oxygen Delivery Method Room Air BMI result Body Mass Index 21.0 Labs 03/29/23 05:32 03/30/23 06:11 Labs: Laboratory Results - last 48 hr 03/29/23 03/29/23 03/29/23 05:32 05:32 05:32 WBC 10.4 RBC 3.99 L Hgb 10.0 L Hct 32.6 L MCV 81.7 MCH 25.1 L MCHC 30.7 L RDW 16.7 H Plt Count 252 MPV 10.5 Immature Gran % (Auto) 0.5 H Neut % (Auto) 73.3 H Lymph % (Auto) 17.7 L [place] % (Auto) 6.9 Eos % (Auto) 1.1 Baso % (Auto) 0.5 Lymph # (Auto) 1.9 [place] # (Auto) 0.7 Eos # (Auto) 0.1 Baso # (Auto) 0.1 Abs Immat Gran (auto) 0.05 H Absolute Neuts (auto) 7.7 Absolute Nucleated RBC 0.000 Nucleated RBC % (auto) 0.0 Sodium 143 Potassium 3.5 D Chloride 113 H Carbon Dioxide 18 L Anion Gap 16 BUN 10 Creatinine Cancelled 0.81 Estim Creat Clear Calc Cancelled 88.5 Estimated GFR Cancelled > 60 Random Glucose 181 H Calcium 8.9 D Magnesium Total Bilirubin AST ALT Alkaline Phosphatase Total Protein Albumin Beta HCG, Quant Vancomycin Trough Random Vancomycin Urine Opiates Screen Urine Fentanyl Screen Ur Barbiturates Screen Ur Phencyclidine Scrn Ur Amphetamines Screen U Benzodiazepines Scrn Urine Cocaine Screen U Marijuana (THC) Screen 03/29/23 03/29/23 03/30/23 08:51 09:23 06:11 WBC RBC Hgb Hct MCV MCH MCHC RDW Plt Count MPV Immature Gran % (Auto) Neut % (Auto) Lymph % (Auto) [place] % (Auto) Eos % (Auto) Baso % (Auto) Lymph # (Auto) [place] # (Auto) Eos # (Auto) Baso # (Auto) Abs Immat Gran (auto) Absolute Neuts (auto) Absolute Nucleated RBC Nucleated RBC % (auto) Sodium Potassium Chloride Carbon Dioxide Anion Gap BUN Creatinine 0.73 Estim Creat Clear Calc 98.2 Estimated GFR > 60 Random Glucose Calcium Magnesium Total Bilirubin AST ALT Alkaline Phosphatase Total Protein Albumin Beta HCG, Quant Vancomycin Trough Random Vancomycin 17.5 Urine Opiates Screen POSITIVE H Urine Fentanyl Screen POSITIVE H Ur Barbiturates Screen Not Detected Ur Phencyclidine Scrn Not Detected Ur Amphetamines Screen Not Detected U Benzodiazepines Scrn Not Detected Urine Cocaine Screen POSITIVE H U Marijuana (THC) Screen Not Detected 03/30/23 03/30/23 03/30/23 06:11 10:08 11:02 WBC RBC Hgb Hct MCV MCH MCHC RDW Plt Count MPV Immature Gran % (Auto) Neut % (Auto) Lymph % (Auto) [place] % (Auto) Eos % (Auto) Baso % (Auto) Lymph # (Auto) [place] # (Auto) Eos # (Auto) Baso # (Auto) Abs Immat Gran (auto) Absolute Neuts (auto) Absolute Nucleated RBC Nucleated RBC % (auto) Sodium 142 Potassium 3.9 Chloride 110 H Carbon Dioxide 23 Anion Gap 13 BUN 8 L Creatinine 0.73 Estim Creat Clear Calc 98.2 Estimated GFR > 60 Random Glucose 106 Calcium 9.0 Magnesium 1.9 Total Bilirubin 0.2 AST 27 ALT 31 Alkaline Phosphatase 90 Total Protein 7.6 Albumin 2.7 L Beta HCG, Quant < 2 Vancomycin Trough 13.4 Random Vancomycin Urine Opiates Screen Urine Fentanyl Screen Ur Barbiturates Screen Ur Phencyclidine Scrn Ur Amphetamines Screen U Benzodiazepines Scrn Urine Cocaine Screen U Marijuana (THC) Screen Imaging Radiology Impressions: ITS Impressions Chest X-Ray 03/28/23 10:37 IMPRESSION: Diffuse patchy opacities throughout the bilateral lung simons likely reflects innumerable pulmonary nodules seen on prior cross-sectional imaging. Bone Scan Nuclear Medicine 03/30/23 14:00 IMPRESSION: A few mild nonspecific abnormalities are noted as described above and these are all likely arthritic or traumatic in etiology. None of these abnormalities is strongly suspicious for metastatic disease.. No significant abnormality is present in the left foot. There are no abnormalities strongly suspicious for osteomyelitis. Medications Medications Current Medications Clonidine HCl (Clonidine Hcl 0.2 Mg Tablet) 0.2 mg PO BID PRN; Protocol PRN Reason: anxiety Enoxaparin Sodium (Enoxaparin Sodium 40 Mg/0.4 Ml Syringe) 40 mg SUBCUT Q24H [facility] Last Admin: 03/30/23 08:48 Dose: Not Given Escitalopram Oxalate (Escitalopram Oxalate 20 Mg Tablet) 20 mg PO DAILY [facility] Last Admin: 03/30/23 08:44 Dose: 20 mg Gabapentin (Gabapentin 300 Mg Capsule) 300 mg PO TID [facility] Last Admin: 03/30/23 14:18 Dose: 300 mg Ceftriaxone Sodium 1 gm/ (Sodium Chloride) 50 mls @ 100 mls/hr IV Q24H [facility] Last Infusion: 03/30/23 11:46 Dose: Infused Vancomycin HCl 1,000 mg/ (Sodium Chloride) 270 mls @ 270 mls/hr IV Q12H [facility] Last Infusion: 03/30/23 14:20 Dose: Infused Ibuprofen (Ibuprofen 400 Mg Tablet) 400 mg PO TIDWM PRN PRN Reason: Pain, Mild (Pain Scale 1-3) Last Admin: 03/30/23 16:30 Dose: 400 mg Lorazepam (Lorazepam 0.5 Mg Tablet) 0.5 mg PO BEDTIME PRN PRN Reason: insomnia Magnesium Oxide (Magnesium Oxide 400 Mg Tablet) 400 mg PO BID [facility] Last Admin: 03/30/23 08:45 Dose: 400 mg Melatonin (Melatonin 3 Mg Tablet) 6 mg PO BEDTIME PRN PRN Reason: Insomnia Last Admin: 03/29/23 20:16 Dose: 6 mg Methadone HCl (Methadone Hcl 20 Mg/2 Ml Oral.Conc) 65 mg PO DAILY [facility] Last Admin: 03/30/23 08:45 Dose: 65 mg Nicotine (Nicotine 21 Mg Patch.Td24) 21 mg TRANSDERMA DAILY [facility] Last Admin: 03/30/23 08:49 Dose: Not Given Ondansetron HCl (Ondansetron Hcl 4 Mg/2 Ml Vial) 4 mg IVPUSH Q8H PRN PRN Reason: Nausea and Vomiting Pharmacy Consult (Consult Rx Perform Med Rec) 1 each MISCELLANE ONCE PRN PRN Reason: Consult order Pharmacy Consult (Consult Rx Vancomycin Dosing) 1 each MISCELLANE DAILY PRN PRN Reason: Consult order Polyethylene Glycol (Polyethylene Glycol 3350 17 Gm Powd.Pack) 17 gm PO DAILY [facility] Last Admin: 03/30/23 10:54 Dose: 17 gm Senna/Docusate Sodium (Sennosides/Docusate Sodium Tablet) 2 tab PO BID [facility] Last Admin: 03/30/23 10:53 Dose: 2 tab Sodium Chloride (0.9 % Sodium Chloride Flush 3 Ml Syringe) 3 ml IVFLUSH QSHIFT [facility] Last Admin: 03/30/23 16:27 Dose: 3 ml Allergies Allergies Allergy/AdvReac Type Severity Reaction Status Date / Time bee pollen [Bee Stings] Allergy Unknown SWELLING Verified 11/27/22 11:11 AT SITE morphine [Morphine] Allergy Unknown SKIN Verified 11/27/22 11:11 BUBBLED Penicillins Allergy Unknown HIVES Verified 11/27/22 11:11 BREATHING PBROBLEM Assessment & Plan Assessment & Plan (1) Opioid use disorder: Status: Acute Code(s): F11.90 - Opioid use, unspecified, uncomplicated Assessment and Plan: Methadone to be increased to 70 mg daily tomorrow 03/31/2023 Will hold at this dose for a day or two claims account specialist to start OTP referral process Plan . Total time managing care of this patient today ___35_ minutes.
[2023-03-30 19:50] VITALS: BP 118/73; PULSE 71; RESP 18; TEMP 36.8; O2SAT 98
[2023-03-31] MEDS: 0.9 % Sodium Chloride Flush 3 ML SYRINGE IVFLUSH ×2 (00:38→08:38)
[2023-03-31] MEDS: vancomycin HCL 1,000 MG in 0.9 % Sodium Chloride 250 ML 270 MG IV ×2 (00:40→12:02)
[2023-03-31 03:20] VITALS: BP 111/71; PULSE 68; RESP 16; TEMP 36.3; O2SAT 98
[2023-03-31 06:55] LABS: Hemoglobin 9.3 g/dl (12.0-16.0); Mean Corpuscular Hemoglobin 24.8 pg (27.0-33.0); Mean Corpuscular Volume 82.7 fL (80.0-98.0); Mean Platelet Volume 10.4 fL (9.4-12.3); Platelet Count 249 X10*3/uL (160-400); Red Blood Count 3.75 X10*6/uL (4.20-5.50); Red Cell Distribution Width 16.7 % (11.0-16.0); White Blood Count 6.2 X10*3/uL (4.8-10.8)
[2023-03-31 07:10] LABS: Anion Gap 15 (12-20); Blood Urea Nitrogen 12 mg/dL (9-16); Calcium 9.1 mg/dL (8.4-10.2); Carbon Dioxide 23 mmol/L (22-29); Chloride 110 mmol/L (96-108); Creatinine Clr Calc Pharmacy 96.8; Estimated Glomerular Filt Rate > 60; Glucose Random 125 mg/dL (60-115); Potassium 3.9 mmol/L (3.3-5.1); Sodium 144 mmol/L (135-145)
[2023-03-31 07:30] LABS: HBS Num1 > 1000.00 mIU/mL (0-7.99); HBc Num1 0.17 S/CO (0.00-0.79); Hepatitis B Core Antibody Nonreactive (Nonreactive); Hepatitis B Surface Antigen Negative (Negative); ~Hepatitis B Surface Antibody REACTIVE (Nonreactive)
[2023-03-31 07:41] VITALS: BP 137/81; PULSE 54; RESP 18; TEMP 36.9; O2SAT 98
[2023-03-31] MEDS: Sennosides/Docusate Sodium TABLET 2 TAB PO (08:37)
[2023-03-31] MEDS: Gabapentin 300 MG CAPSULE PO (08:38)
[2023-03-31] MEDS: Magnesium Oxide 400 MG TABLET PO (08:38)
[2023-03-31] MEDS: methADONE HCl 20 MG/2 ML ORAL.CONC 70 MG PO (08:38)
[2023-03-31] MEDS: Escitalopram Oxalate 20 MG TABLET PO (08:38)
[2023-03-31] MEDS: Ibuprofen 400 MG TABLET PO (10:15)
[2023-03-31 11:12] LABS: Vancomycin Trough 17.4 mcg/mL (10.0-20.0)
[2023-03-31] MEDS: cefTRIAXone sodium 1 GM in 0.9 % Sodium Chloride 50 ML IV (11:18)
--- NOTE | 2023-03-31 12:05 | PM.IMHP ---
History of Present Illness Date of Service: 03/31/23 Chief Complaint: fever from admission H+P by hospitalist SON Flynn, 03/28/23: Pt is a 37-year-old female with a PMH significant for?hepatitis C, tricuspid endocarditis, IVDU, MSSA bacteremia, and mild intermittent asthma who presents to the ED with?fever and all over body aches.? Patient somnolent at time of interview but arousable, however would immediately fall back asleep during interview before answering any questions.? HPI thus obtained from provider and chart review.? 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 Was admitted to the hospital on 10/17/2022-11/02/2022 for severe sepsis secondary to acute tricuspid endocarditis, septic pulmonary emboli, and MSSA bacteremia, treated with daptomycin. Sent to short term rehab but started using again. Patient was readmitted to the hospital on 02/04/2023-02/08/2023 again for severe sepsis due to tricuspid endocarditis with cultures again growing MSSA and again treated with daptomycin.? Repeat echo showed tricuspid vegetation of 1.8 cm, increased from September where it was 1.67 cm. Patient was transferred to [facility] for cardiac surgery eval.? Patient states that after last discharge she has continued to use IV drugs. She began feeling fatigued and sick a few days ago with myalgias and fever. Presented to the ED today d/t feeling worse. In the ED patient was febrile at 102.5, tachycardic at 120, tachypneic at 24, satting at 94% on RA. Labs were significant for stable microcytic anemia of 10.7/33.7, hypokalemia of 2.7, hypomagnesesmia of 1.5, AST 41, ALT 49, alk-phos 129.? No leukocytosis.? Troponin negative. Renal function baseline. UA positive for UTI. CXR showed diffuse patchy opacities throughout the bilateral lung simons, likely reflecting innumerable pulmonary nodules seen on prior cross-sectional imaging. EKG demonstrated sinus tachycardia of 122 with nonspecific T-wave abnormalities and ST depression in lateral leads, changed from prior.? Prolonged QTc of 589. Pt was treated with naloxone, IVF, vanco, ceftriaxone, and ketorolac. Pt will be admitted to the hospital for treatment further evaluation of sepsis secondary to UTI in a pt with recent bacteremia and endocarditis. [facility] Medical History Abscess of left foot Asthma Cavitary lesion of lung Cellulitis of foot, left COVID-19 Early stage of Fungus infection in blood Hepatitis C MRSA (methicillin resistant staph aureus) culture positive Opioid use disorder Polysubstance abuse Sepsis Sepsis Severe sepsis Substance abuse Surgical History No pertinent past surgical history Status post incision and drainage Social History Household Members: None Household Members Other:: pt refused to answer/ trying to sleep Housing: Homeless Housing Other:: homeless Do you presently have visiting nurse or other home services: No Unable to assess alcohol history related to: Unknown Alcohol intake: never Patient Tobacco Use Status: Tobacco use Unknown Tobacco use type: Cigarette Cigarette Packs Per Day: 1 Cigarettes Per Day: 20.0 Years Smoked: 15 Smoked in Last 30 Days: Yes Second Hand Smoke Exposure: No Use of substances other than those prescribed or required for medical reasons: Unknown Substance Use Type: Heroin Currently Displaying Signs/Symptoms of Drug Intoxication Withdrawal: No Advance Directives: No Advance Directives Information Provided: Yes Recently lost weight without trying: Unsure How much weight loss: Unsure Patient : No service: No Current occupational status: unemployed Meds Allergies Allergy/AdvReac Type Severity Reaction Status Date / Time bee pollen [Bee Stings] Allergy Unknown SWELLING Verified 11/27/22 11:11 AT SITE morphine [Morphine] Allergy Unknown SKIN Verified 11/27/22 11:11 BUBBLED Penicillins Allergy Unknown HIVES Verified 11/27/22 11:11 BREATHING PBROBLEM Active Medications: Current Medications Clonidine HCl (Clonidine Hcl 0.2 Mg Tablet) 0.2 mg PO BID PRN; Protocol PRN Reason: anxiety Enoxaparin Sodium (Enoxaparin Sodium 40 Mg/0.4 Ml Syringe) 40 mg SUBCUT Q24H [facility] Last Admin: 03/30/23 08:48 Dose: Not Given Escitalopram Oxalate (Escitalopram Oxalate 20 Mg Tablet) 20 mg PO DAILY [facility] Last Admin: 03/31/23 08:38 Dose: 20 mg Gabapentin (Gabapentin 300 Mg Capsule) 300 mg PO TID [facility] Last Admin: 03/31/23 08:38 Dose: 300 mg Ceftriaxone Sodium 1 gm/ (Sodium Chloride) 50 mls @ 100 mls/hr IV Q24H [facility] Last Infusion: 03/31/23 11:48 Dose: Infused Vancomycin HCl 1,000 mg/ (Sodium Chloride) 270 mls @ 270 mls/hr IV Q12H [facility] Last Admin: 03/31/23 12:02 Dose: 270 mls/hr Ibuprofen (Ibuprofen 400 Mg Tablet) 400 mg PO TIDWM PRN PRN Reason: Pain, Mild (Pain Scale 1-3) Last Admin: 03/31/23 10:15 Dose: 400 mg Lorazepam (Lorazepam 0.5 Mg Tablet) 0.5 mg PO BEDTIME PRN PRN Reason: insomnia Magnesium Oxide (Magnesium Oxide 400 Mg Tablet) 400 mg PO BID [facility] Last Admin: 03/31/23 08:38 Dose: 400 mg Melatonin (Melatonin 3 Mg Tablet) 6 mg PO BEDTIME PRN PRN Reason: Insomnia Last Admin: 03/29/23 20:16 Dose: 6 mg Methadone HCl (Methadone Hcl 20 Mg/2 Ml Oral.Conc) 70 mg PO DAILY [facility] Last Admin: 03/31/23 08:38 Dose: 70 mg Nicotine (Nicotine 21 Mg Patch.Td24) 21 mg TRANSDERMA DAILY [facility] Last Admin: 03/31/23 09:00 Dose: Not Given Ondansetron HCl (Ondansetron Hcl 4 Mg/2 Ml Vial) 4 mg IVPUSH Q8H PRN PRN Reason: Nausea and Vomiting Pharmacy Consult (Consult Rx Perform Med Rec) 1 each MISCELLANE ONCE PRN PRN Reason: Consult order Pharmacy Consult (Consult Rx Vancomycin Dosing) 1 each MISCELLANE DAILY PRN PRN Reason: Consult order Polyethylene Glycol (Polyethylene Glycol 3350 17 Gm Powd.Pack) 17 gm PO DAILY [facility] Last Admin: 03/31/23 09:00 Dose: Not Given Senna/Docusate Sodium (Sennosides/Docusate Sodium Tablet) 2 tab PO BID [facility] Last Admin: 03/31/23 08:37 Dose: 2 tab Sodium Chloride (0.9 % Sodium Chloride Flush 3 Ml Syringe) 3 ml IVFLUSH QSHIFT [facility] Last Admin: 03/31/23 08:38 Dose: 3 ml Home Medications Medication Instructions Recorded Confirmed Last Taken Type gabapentin 300 mg capsule 300 mg PO TID 06/09/23 07/30/23 Unknown History acetaminophen 325 mg tablet 975 mg PO Q6H 03/28/23 03/28/23 Unknown History clonidine HCl 0.2 mg tablet 0.2 mg PO BID PRN anxiety 03/28/23 03/28/23 Unknown History escitalopram oxalate 20 mg tablet 20 mg PO DAILY 03/28/23 03/28/23 Unknown History lorazepam 0.5 mg tablet 0.5 mg PO BEDTIME PRN insomnia 03/28/23 03/28/23 Unknown History magnesium oxide 400 mg (241.3 mg 400 mg PO BID 03/28/23 03/28/23 Unknown History magnesium) tablet Physical Exam Vital Signs and Narrative: Vital Signs: Last Vital Signs Temp 98.4 F 03/31/23 07:41 Pulse 54 03/31/23 07:41 Resp 18 03/31/23 07:41 BP 137/81 03/31/23 07:41 Pulse Ox 98 03/31/23 07:41 O2 Del Method Room Air 03/31/23 07:41 BMI result Body Mass Index 21.0 Results Labs 03/31/23 06:20 03/31/23 06:20 Labs: Laboratory Results - last 24 hr 03/31/23 03/31/23 03/31/23 06:20 06:20 06:20 MCV 82.7 MCH 24.8 L MCHC 30.0 L RDW 16.7 H Plt Count 249 MPV 10.4 Absolute Nucleated RBC 0.000 Nucleated RBC % (auto) 0.0 Anion Gap 15 Estim Creat Clear Calc 96.8 Estimated GFR > 60 Random Glucose 125 H Calcium 9.1 Vancomycin Trough Hep Bs Antigen Negative Hep Bs Antibody REACTIVE Hep B Core Total Ab Nonreactive 03/31/23 10:31 MCV MCH MCHC RDW Plt Count MPV Absolute Nucleated RBC Nucleated RBC % (auto) Anion Gap Estim Creat Clear Calc Estimated GFR Random Glucose Calcium Vancomycin Trough 17.4 Hep Bs Antigen Hep Bs Antibody Hep B Core Total Ab Imaging Radiologist's Impressions: Impressions Hip/Pelvis X-Ray 03/30/23 11:46 IMPRESSION: Normal right hip. Bone Scan Nuclear Medicine 03/30/23 14:00 IMPRESSION: A few mild nonspecific abnormalities are noted as described above and these are all likely arthritic or traumatic in etiology. None of these abnormalities is strongly suspicious for metastatic disease.. No significant abnormality is present in the left foot. There are no abnormalities strongly suspicious for osteomyelitis. Assessment and Plan Time Spent With Patient Time: Total time managing care of this patient today ____ minutes. Quality Stroke Does the patient have a stroke diagnosis?: No VTE Prior VTE?: No VTE Risk Level:: Medical - moderate - high VTE Device Contraindication: Treatment Not Indicated VTE Drug Contraindication: N/A - Med Ordered
--- NOTE | 2023-03-31 12:10 | PM.DS ---
DS: Providers Provider Date of Service: 03/31/23 Date of admission: 03/28/23 12:30 Primary care physician: Unknown Physician Consults: 03/28/23 13:24 Consult to Infectious Diseases Routine Consulting Provider: [facility] Infectious Disease Reason for consultation: Sepsis, UTI, ?bacteremia. Pt with hx of endocarditis and MSSA bacteremia 03/28/23 13:28 Addiction Medicine Routine Consulting Provider: Addiction Covering Reason for consultation: IV heroin and cocaine use DS: Diagnosis Discharge Diagnosis (1) Opioid use disorder: Status: Acute (2) Endocarditis due to methicillin susceptible Staphylococcus aureus (MSSA): Status: Acute (3) Septic pulmonary embolism: Status: Acute (4) UTI (urinary tract infection): Status: Acute (5) Hypokalemia: Status: Acute (6) Hypomagnesemia: Status: Acute (7) Iron deficiency anemia: Status: Acute DS: Summary Hospital Course Hospital Course: from admission H+P by hospitalist SON Flynn, 03/28/23: Pt is a 37-year-old female with a PMH significant for?hepatitis C, tricuspid endocarditis, IVDU, MSSA bacteremia, and mild intermittent asthma who presents to the ED with?fever and all over body aches.? Patient somnolent at time of interview but arousable, however would immediately fall back asleep during interview before answering any questions.? HPI thus obtained from provider and chart review.? 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 Was admitted to the hospital on 10/17/2022-11/02/2022 for severe sepsis secondary to acute tricuspid endocarditis, septic pulmonary emboli, and MSSA bacteremia, treated with daptomycin. Sent to short term rehab but started using again. Patient was readmitted to the hospital on 02/04/2023-02/08/2023 again for severe sepsis due to tricuspid endocarditis with cultures again growing MSSA and again treated with daptomycin.? Repeat echo showed tricuspid vegetation of 1.8 cm, increased from September where it was 1.67 cm. Patient was transferred to [facility] for cardiac surgery eval.? Patient states that after last discharge she has continued to use IV drugs. She began feeling fatigued and sick a few days ago with myalgias and fever. Presented to the ED today d/t feeling worse. In the ED patient was febrile at 102.5, tachycardic at 120, tachypneic at 24, satting at 94% on RA. Labs were significant for stable microcytic anemia of 10.7/33.7, hypokalemia of 2.7, hypomagnesesmia of 1.5, AST 41, ALT 49, alk-phos 129.? No leukocytosis.? Troponin negative. Renal function baseline. UA positive for UTI. CXR showed diffuse patchy opacities throughout the bilateral lung simons, likely reflecting innumerable pulmonary nodules seen on prior cross-sectional imaging. EKG demonstrated sinus tachycardia of 122 with nonspecific T-wave abnormalities and ST depression in lateral leads, changed from prior.? Prolonged QTc of 589. Pt was treated with naloxone, IVF, vanco, ceftriaxone, and ketorolac. Pt will be admitted to the hospital for treatment further evaluation of sepsis secondary to UTI in a pt with recent bacteremia and endocarditis. This 37yo F with chronic HCV who was recently admitted to [facility] for MSSA/Enterococcus faecalis endocarditis and discharged on 03/23/23 continued to inject drugs and presented with fever and myalgias. She was found to be septic and was admitted to the medical-surgical service. Due to the prior history, she was given IV vancomycin and IV ceftriaxone. Blood cultures, however, resulted negative. Urine grew group B Streptococcus. Pelvic/hip X-rays and nuclear medicine bone scans were negative for osteomyelitis. She was discharged on the 3 weeks of amoxicillin-clavulanate that had been prescribed by [facility] on 03/23/23. QT normalized with repletion of potassium and magnesium. She was seen by Addiction Medicine and methadone was increased to 70 mg daily. She was referred to the [facility] methadone clinic for ongoing care. She was also prescribed iron for anemia. Time Spent with Patient Time attestation: Total time managing care of this patient today __35__ minutes. Discharge coordination time: Greater than 30 minutes Quality: Safe Use of Opioids Does Pt have an Active Cancer Diagnosis on the Problem List?: No Quality: Stroke Does the patient have a stroke diagnosis?: No Physical Exam Vital Signs: Vital Signs: Last Vital Signs Temp 98.4 F 03/31/23 07:41 Pulse 54 03/31/23 07:41 Resp 18 03/31/23 07:41 BP 137/81 03/31/23 07:41 Pulse Ox 98 03/31/23 07:41 O2 Del Method Room Air 03/31/23 07:41 BMI result Body Mass Index 21.0 Gen: in no acute distress HEENT: sclera anicteric, moist mucus membranes Neck: supple Lungs: clear to auscultation bilaterally Heart: regular rate and rhythm, no murmurs Abd: soft, non-tender, non-distended Ext: no edema Skin: warm/well-perfused Neuro: alert and oriented x3, no focal findings Psych: appropriate affect DS: Data Data Completed and Pending Completed studies during hospitalization [Text1]: Laboratory Results WBC 6.2 X10*3/uL (4.8-10.8) 03/31/23 06:20 RBC 3.75 X10*6/uL (4.20-5.50) L 03/31/23 06:20 Hgb 9.3 g/dl (12.0-16.0) L 03/31/23 06:20 Hct 31.0 % (37.0-47.0) L 03/31/23 06:20 MCV 82.7 fL (80.0-98.0) 03/31/23 06:20 MCH 24.8 pg (27.0-33.0) L 03/31/23 06:20 MCHC 30.0 g/dl (31.0-35.0) L 03/31/23 06:20 RDW 16.7 % (11.0-16.0) H 03/31/23 06:20 Plt Count 249 X10*3/uL (160-400) 03/31/23 06:20 MPV 10.4 fL (9.4-12.3) 03/31/23 06:20 Immature Gran % (Auto) 0.5 % (0.0-0.4) H 03/29/23 05:32 Neut % (Auto) 73.3 % (45-73) H 03/29/23 05:32 Lymph % (Auto) 17.7 % (20-40) L 03/29/23 05:32 Wilcox % (Auto) 6.9 % (2-11) 03/29/23 05:32 Eos % (Auto) 1.1 % (0-4) 03/29/23 05:32 Baso % (Auto) 0.5 % (0-2) 03/29/23 05:32 Lymph # (Auto) 1.9 X10*3/uL (1.2-4.9) 03/29/23 05:32 Wilcox # (Auto) 0.7 X10*3/uL (0.1-1.2) 03/29/23 05:32 Eos # (Auto) 0.1 X10*3/uL (0.0-0.4) 03/29/23 05:32 Baso # (Auto) 0.1 X10*3/uL (0.0-0.2) 03/29/23 05:32 Abs Immat Gran (auto) 0.05 X10*3/uL (0.00-0.03) H 03/29/23 05:32 Absolute Neuts (auto) 7.7 x10*3/uL (2.0-8.3) 03/29/23 05:32 Absolute Nucleated RBC 0.000 X10*3/uL (0.0-0.012) 03/31/23 06:20 Nucleated RBC % (auto) 0.0 /100WBC (0.0-0.2) 03/31/23 06:20 Sodium 144 mmol/L (135-145) 03/31/23 06:20 Potassium 3.9 mmol/L (3.3-5.1) 03/31/23 06:20 Chloride 110 mmol/L (96-108) H 03/31/23 06:20 Carbon Dioxide 23 mmol/L (22-29) 03/31/23 06:20 Anion Gap 15 (12-20) 03/31/23 06:20 BUN 12 mg/dL (9-16) 03/31/23 06:20 Creatinine 0.74 mg/dL (0.5-1.4) 03/31/23 06:20 Estim Creat Clear Calc 96.8 03/31/23 06:20 Estimated GFR > 60 03/31/23 06:20 Random Glucose 125 mg/dL (60-115) H 03/31/23 06:20 Lactic Acid 1.0 mmol/L (0.5-2.0) 03/28/23 11:04 Calcium 9.1 mg/dL (8.4-10.2) 03/31/23 06:20 Magnesium 1.9 mg/dL (1.6-2.6) 03/30/23 06:11 Iron 26 mcg/dL (30-160) L 03/28/23 11:04 TIBC 290 mcg/dL (228-428) 03/28/23 11:04 % Saturation 9 % (15-50) L 03/28/23 11:04 Unsat Iron Binding 264 ug/dL 03/28/23 11:04 Total Bilirubin 0.2 mg/dL (0.0-1.0) 03/30/23 06:11 AST 27 U/L (5-31) 03/30/23 06:11 ALT 31 U/L (0-31) 03/30/23 06:11 Alkaline Phosphatase 90 U/L (39-117) 03/30/23 06:11 Total Creatine Kinase 32 U/L (26-140) 03/28/23 11:04 Troponin I High Sens < 2.7 ng/L (<3.5-17.0) 03/28/23 11:04 Total Protein 7.6 g/dL (6.5-8.0) 03/30/23 06:11 Albumin 2.7 g/dL (3.5-5.0) L 03/30/23 06:11 Beta HCG, Quant < 2 mIU/mL 03/30/23 11:02 Urine Color Dark Yellow 03/28/23 10:38 Urine Appearance Cloudy 03/28/23 10:38 Urine pH 5.5 (5.0-9.0) 03/28/23 10:38 Ur Specific Amston 1.020 (1.005-1.025) 03/28/23 10:38 Urine Protein 100 (2+) mg/dL (Neg-Trace) H 03/28/23 10:38 Urine Glucose (UA) Negative mg/dL (Negative) 03/28/23 10:38 Urine Ketones Negative mg/dL (Negative) 03/28/23 10:38 Urine Blood Large (3+) (Negative) H 03/28/23 10:38 Urine Nitrite Negative (Negative) 03/28/23 10:38 Ur Leukocyte Esterase Small (1+) (Negative) H 03/28/23 10:38 Urine RBC >20 /HPF (0-2) H 03/28/23 10:38 Urine WBC 21-50 /HPF (0-5) H 03/28/23 10:38 Ur Squamous Epith Cells 11-20 /HPF (0-2) 03/28/23 10:38 Urine Bacteria 1+ (None Seen) 03/28/23 10:38 Hyaline Casts 6-10 /LPF (0-2) 03/28/23 10:38 Vancomycin Trough 17.4 mcg/mL (10.0-20.0) 03/31/23 10:31 Random Vancomycin 17.5 mcg/mL (15-20) 03/29/23 09:23 Urine Opiates Screen POSITIVE (Not Detect) H 03/29/23 08:51 Urine Fentanyl Screen POSITIVE (Not Detect) H 03/29/23 08:51 Ur Barbiturates Screen Not Detected (Not Detect) 03/29/23 08:51 Ur Phencyclidine Scrn Not Detected (Not Detect) 03/29/23 08:51 Ur Amphetamines Screen Not Detected (Not Detect) 03/29/23 08:51 U Benzodiazepines Scrn Not Detected (Not Detect) 03/29/23 08:51 Urine Cocaine Screen POSITIVE (Not Detect) H 03/29/23 08:51 U Marijuana (THC) Screen Not Detected (Not Detect) 03/29/23 08:51 COVID-19 (KORI) Negative (Negative) 03/28/23 11:04 COVID-19 Clin Com See Note 03/28/23 11:04 Hep Bs Antigen Negative (Negative) 03/31/23 06:20 Hep Bs Antibody REACTIVE (Nonreactive) 03/31/23 06:20 Hep B Core Total Ab Nonreactive (Nonreactive) 03/31/23 06:20 Influenza Type A (SUKUMAR) Negative (Negative) 03/28/23 11:04 Influenza Type B (SUKUMAR) Negative (Negative) 03/28/23 11:04 Influenza A & B Note See Note 03/28/23 11:04 Impressions Chest X-Ray 03/28/23 10:37 IMPRESSION: Diffuse patchy opacities throughout the bilateral lung simons likely reflects innumerable pulmonary nodules seen on prior cross-sectional imaging. Hip/Pelvis X-Ray 03/30/23 11:46 IMPRESSION: Normal right hip. Bone Scan Nuclear Medicine 03/30/23 14:00 IMPRESSION: A few mild nonspecific abnormalities are noted as described above and these are all likely arthritic or traumatic in etiology. None of these abnormalities is strongly suspicious for metastatic disease.. No significant abnormality is present in the left foot. There are no abnormalities strongly suspicious for osteomyelitis. Discharge Plan Discharge Anticipated Discharge Date/Time: 03/31/23 11:54 Patient Disposition: Home, Self-Care Discharge Diagnosis: sepsis due to UTI opioid use disorder iron deficiency anemia Referrals: [facility] [Provider Group] - 1 Week Betty Shrestha MD [Physician] - 2 Weeks Physician,Carol Barraza [Primary Care Provider] - 1 Week Discharge Medications: New methadone [Methadose] 10 mg/mL Concentrate 70 mg PO DAILY Qty: 1 0RF Rx Instructions: Partial Fill upon patient request. ferrous sulfate 324 mg (65 mg iron) tablet,delayed release (DR/EC) 324 mg PO DAILY Qty: 30 0RF Continued gabapentin 300 mg capsule 300 mg PO TID acetaminophen 325 mg tablet 975 mg PO Q6H clonidine HCl 0.2 mg tablet 0.2 mg PO BID PRN (Reason: anxiety) magnesium oxide 400 mg (241.3 mg magnesium) tablet 400 mg PO BID lorazepam 0.5 mg tablet 0.5 mg PO BEDTIME PRN (Reason: insomnia) escitalopram oxalate 20 mg tablet 20 mg PO DAILY nicotine 21 mg/24 hr patch 24 hour 1 patch topical DAILY Qty: 30 0RF amoxicillin-pot clavulanate 875-125 mg tablet 1 tab PO Q12H Qty: 42 0RF Discontinued methadone [Methadose] 10 mg/mL Concentrate 55 mg PO DAILY Qty: 0 0RF Rx Instructions: Partial Fill upon patient request. oxycodone 5 mg tablet 5 mg PO Q6H PRN (Reason: pain) Discharge Orders: Discharge Order (Routine); Ordered 03/31/23 Ordered By: Mustapha Barr Diet: Advance to usual diet Activity on Discharge: As tolerated Stand Alone Forms: Patient Portal Discharge page Care Plan Goals: cure of infection Health Concerns: sepsis due to UTI opioid use disorder iron deficiency anemia Plan of Treatment: amoxicillin-clavulanate 875-125 mg twice daily for three weeks methadone 70 mg daily ferrous sulfate 324 mg daily Please establish primary care NICKOLAS. Follow up with [facility] Infectious Disease in 2 weeks. Return to the hospital if you experience recurrent or worsening symptoms. Assessment: See Discharge Summary.
--- NOTE | 2023-03-31 12:42 | MHC.RECOVRN ---
This bid writer met with patient, to review plan prior to d/c. Pt admitted for fever. Pt requesting referral for MTD sent to [facility]. Pt given [facility] walk in hours. Pt given last dose letter, bus passes, list of shelters in [facility]. Reviewed MTD referral process, pt to present tomorrow with Last Dose Letter, this bid writer to send referral to [facility]. Pt verbalized understanding.
--- NOTE | 2023-03-31 13:12 | MHC.CM.PN ---
DP: PT HAS BEEN MEDICALLY CLEARED FOR DC. PT IS DECLINING A CORRECTION AT THIS TIME,BROCHURE PROVIDED IF CHANGES HER MIND. PER RECOVER NOTE, METHADONE CLINIC ARRANGED AND LAST DOSE LETTER WAS PROVIDED. PT IS REQUESTING A LYFT RIDE TO THE LIBRARY, ARRANGED FOR 2 PM. RN AWARE.
== END 2023-03-31 13:52 | disposition home or self-care (01) | DRG 720 ==
LOC: HO.ED 10:02 → HO.EDOVER 12:34 → HO.S3 12:41
PROVIDERS: Physician Assistant Medical; Student in an Organized Health Care Education/Training Program; Admitting Provider Student in an Organized Health Care Education/Training Program; Emergency Provider Student in an Organized Health Care Education/Training Program; Visit Provider Family Medicine
DX: A41.9 Sepsis, unspecified organism (principal); N17.9 Acute kidney failure, unspecified; J18.9 Pneumonia, unspecified organism; D50.9 Iron deficiency anemia, unspecified; F11.20 Opioid dependence, uncomplicated; B18.2 Chronic viral hepatitis C; E83.42 Hypomagnesemia; E87.6 Hypokalemia; F19.10 Other psychoactive substance abuse, uncomplicated; F14.10 Cocaine abuse, uncomplicated; R94.31 Abnormal electrocardiogram [ECG] [EKG]; F39 Unspecified mood [affective] disorder; B95.1 Streptococcus, group B, as the cause of diseases classified elsewhere; N39.0 Urinary tract infection, site not specified; J45.20 Mild intermittent asthma, uncomplicated; Z20.822 Contact with and (suspected) exposure to COVID-19; Z86.14 Personal history of Methicillin resistant Staphylococcus aureus infection; Z88.0 Allergy status to penicillin; Z79.899 Other long term (current) drug therapy
CPT/HCPCS: 36415; 71045; 73502; 78315; 80048; 80053; 80202; 80307; 81001; 82550; 82565; 83540; 83605; 83735; 84484; 84702; 85025; 85027; 86704; 86706; 87040; 87086; 87147; 87340; 87502; 87635; 93005; 97161; 99285; A9503; J0696; J1650; J1885; J3370; J3371; J3475

== ENCOUNTER → 2023-03-28 09:53 | Outpatient (BNV) | payer MEDICAID, SELFPAY | PROVIDERS: Admitting Provider Student in an Organized Health Care Education/Training Program; Emergency Provider Student in an Organized Health Care Education/Training Program; Visit Provider Internal Medicine | DX: R00.0 Tachycardia, unspecified (principal); R94.31 Abnormal electrocardiogram [ECG] [EKG] | CPT/HCPCS: 93010 ==

== ENCOUNTER 2023-03-28 12:30 | Outpatient (BNV) | payer MEDICAID, SELFPAY | END 2023-03-29 08:00 | PROVIDERS: Admitting Provider Student in an Organized Health Care Education/Training Program; Emergency Provider Student in an Organized Health Care Education/Training Program; Visit Provider Internal Medicine | DX: R94.31 Abnormal electrocardiogram [ECG] [EKG] (principal) | CPT/HCPCS: 93010 ==

== ENCOUNTER → 2023-03-28 12:30 | Outpatient (BNV) | payer MEDICAID, SELFPAY | PROVIDERS: Admitting Provider Student in an Organized Health Care Education/Training Program; Emergency Provider Student in an Organized Health Care Education/Training Program; Visit Provider Student in an Organized Health Care Education/Training Program | DX: I33.0 Acute and subacute infective endocarditis (principal); B95.61 Methicillin susceptible Staphylococcus aureus infection as the cause of diseases classified elsewhere; E83.42 Hypomagnesemia; I26.90 Septic pulmonary embolism without acute cor pulmonale; F11.90 Opioid use, unspecified, uncomplicated; N39.0 Urinary tract infection, site not specified; E87.6 Hypokalemia; D50.9 Iron deficiency anemia, unspecified | CPT/HCPCS: 99223; 99232; 99239 ==

== ENCOUNTER → 2023-03-28 12:30 | Outpatient (BNV) | payer MEDICAID, SELFPAY | PROVIDERS: Admitting Provider Student in an Organized Health Care Education/Training Program; Emergency Provider Student in an Organized Health Care Education/Training Program; Visit Provider Internal Medicine | DX: N39.0 Urinary tract infection, site not specified (principal); N17.9 Acute kidney failure, unspecified | CPT/HCPCS: 99222 ==

== ENCOUNTER → 2023-03-28 12:30 | Outpatient (BNV) | payer OTHER, SELFPAY | PROVIDERS: Admitting Provider Student in an Organized Health Care Education/Training Program; Emergency Provider Student in an Organized Health Care Education/Training Program; Visit Provider Nurse Practitioner Psychiatric/Mental Health | DX: F11.90 Opioid use, unspecified, uncomplicated (principal) | CPT/HCPCS: 99231; 99499 ==

== ENCOUNTER 2024-10-09 22:22 | Emergency (ER) | payer OTHER, SELFPAY ==
--- NOTE | ~2024-10-09 | XR_ITS ---
CLINICAL HISTORY: cough Chest X-ray, 2 Views COMPARISON: CR/SR - XR CHEST 1V - 03/28/23 10:28 EDT FINDINGS: No consolidation. No pleural effusion. No pneumothorax. No cardiomegaly. No acute fracture. IMPRESSION: No acute findings. This document has been electronically signed by: Quentin Avila MD on 10/09/2024 23:44:48
[2024-10-09 22:32] VITALS: BP 131/93; PULSE 83; RESP 16; TEMP 36.7; O2SAT 97; BMI 22.7
[2024-10-09 23:46] LABS: MANUAL DIFF FLAG NO
[2024-10-09 23:48] LABS: Basophils Absolute Auto 0.1 X10*3/uL (0.0-0.2); Basophils Percent Auto 0.5 % (0-2); Eosinophils Absolute Auto 0.2 X10*3/uL (0.0-0.4); Hematocrit 38.4 % (37.0-47.0); Hemoglobin 12.4 g/dl (12.0-16.0); Imm Gran Abs Auto 0.02 X10*3/uL (0.00-0.03); Imm Gran Pct Auto 0.2 % (0.0-0.4); Lymphocytes Percent Auto 40.7 % (20-40); Mean Corpuscular HGB Conc 32.3 g/dl (31.0-35.0); Mean Corpuscular Hemoglobin 26.7 pg (27.0-33.0); Mean Corpuscular Volume 82.6 fL (80.0-98.0); Mean Platelet Volume 10.9 fL (9.4-12.3); Monocytes Absolute Auto 0.9 X10*3/uL (0.1-1.2); Monocytes Percent Auto 9.6 % (2-11); Neutrophils Absolute Auto 4.6 x10*3/uL (2.0-8.3); Platelet Count 246 X10*3/uL (160-400); Red Blood Count 4.65 X10*6/uL (4.20-5.50); Red Cell Distribution Width 13.6 % (11.0-16.0); White Blood Count 9.8 X10*3/uL (4.8-10.8)
[2024-10-10 00:01] LABS: Alanine Aminotransferase 33 U/L (0-31); Albumin Level 3.8 g/dL (3.5-5.0); Alkaline Phosphatase 98 U/L (39-117); Anion Gap 13 (12-20); Aspartate Amino Transferase 33 U/L (5-31); Bilirubin Total 0.5 mg/dL (0.0-1.0); Blood Urea Nitrogen 15 mg/dL (9-16); Carbon Dioxide 25 mmol/L (22-29); Chloride 105 mmol/L (96-108); Creatinine Clr Calc Pharmacy 79.9; Estimated Glomerular Filt Rate > 60; Glucose Random 126 mg/dL (60-115); Potassium 3.6 mmol/L (3.3-5.1); Sodium 139 mmol/L (135-145); Total Protein 8.4 g/dL (6.5-8.0)
[2024-10-10 00:24] LABS: Influenza A PCR NEGATIVE (Negative); Influenza B PCR NEGATIVE (Negative); Resp Syncy Virus RNA Qual PCR NEGATIVE (Negative); SARS COV2 PCR INHOUSE NEGATIVE (Negative)
== END 2024-10-10 04:16 | disposition left against medical advice (07) ==
PROVIDERS: Emergency Provider Emergency Medicine
DX: H92.09 Otalgia, unspecified ear (principal); R50.9 Fever, unspecified; R05.9 Cough, unspecified; Z03.818 Encounter for observation for suspected exposure to other biological agents ruled out
CPT/HCPCS: 0241U; 71046; 80053; 85025; 99281

== ENCOUNTER → 2024-10-09 22:50 | Outpatient (BNV) | payer MEDICAID, SELFPAY | PROVIDERS: Visit Provider Radiology Diagnostic Radiology | DX: R05.9 Cough, unspecified (principal) | CPT/HCPCS: 71046 ==

== ENCOUNTER 2024-10-15 08:50 | Emergency (ER) | payer OTHER, SELFPAY ==
[2024-10-15 09:10] VITALS: BP 117/79; PULSE 81; RESP 18; TEMP 36.7; O2SAT 99; BMI 20.8
--- NOTE | 2024-10-15 09:28 | ED.GENADULT ---
HPI - General Adult General Chief complaint: General Medical Stated complaint: missed methadone dose Time Seen by Provider: 10/15/24 09:16 Source: patient and RN notes reviewed Mode of arrival: ambulatory Limitations: no limitations History of Present Illness ED Provider: Tere Vides PA-C HPI narrative: This is a 38-year-old female, with a history of opioid use disorder on methadone, who presents emergency department for methadone dosing. Patient states that she is on 75 mg of methadone, which she last received 2-3 days ago. She last use 1 bag of heroin last night due to withdrawal. She was feeling well, no current complaints. MD complaint: Methadone dosing Onset (ago): day(s) Related Data Home Medications ?Medication ?Instructions ?Recorded ?Confirmed gabapentin 300 mg capsule 300 mg PO TID 02/05/23 03/28/23 acetaminophen 325 mg tablet 975 mg PO Q6H 03/28/23 03/28/23 clonidine HCl 0.2 mg tablet 0.2 mg PO BID PRN anxiety 03/28/23 03/28/23 escitalopram oxalate 20 mg tablet 20 mg PO DAILY 03/28/23 03/28/23 lorazepam 0.5 mg tablet 0.5 mg PO BEDTIME PRN insomnia 03/28/23 03/28/23 magnesium oxide 400 mg (241.3 mg 400 mg PO BID 03/28/23 03/28/23 magnesium) tablet methadone 10 mg/mL oral 75 mg PO DAILY 10/15/24 10/15/24 concentrate (Methadose) Previous Rx's ?Medication ?Instructions ?Recorded amoxicillin 875 mg-potassium 1 tab PO Q12H #42 tabs 03/31/23 clavulanate 125 mg tablet ferrous sulfate 324 mg (65 mg 324 mg PO DAILY #30 tabs 03/31/23 iron) tablet,delayed release nicotine 21 mg/24 hr daily 1 patch topical DAILY #30 ea 03/31/23 transdermal patch Allergies Allergy/AdvReac Type Severity Reaction Status Date / Time bee pollen [Bee Stings] Allergy Unknown SWELLING Verified 10/15/24 09:13 AT SITE morphine [Morphine] Allergy Unknown SKIN Verified 10/15/24 09:13 BUBBLED Penicillins Allergy Unknown HIVES Verified 10/15/24 09:13 BREATHING PBROBLEM Review of Systems Review of Systems: Yes all other systems are reviewed and are negative PMFSH Past Medical History Medical History (Updated 10/15/24 @ 10:54 by SON Sarkar) Cavitary lesion of lung Hepatitis C Polysubstance abuse Sepsis Opioid use disorder COVID-19 Early stage of Abscess of left foot Severe sepsis Cellulitis of foot, left Fungus infection in blood MRSA (methicillin resistant staph aureus) culture positive Sepsis Substance abuse Asthma Surgical History No pertinent past surgical history Status post incision and drainage Social History Social History Household Members: None Household Members Other:: pt refused to answer/ trying to sleep Housing: Homeless Housing Other:: homeless Do you presently have visiting nurse or other home services: No Unable to assess alcohol history related to: Unknown Alcohol intake: never Comment: instructed to use callbell if help needed Patient Tobacco Use Status: Tobacco use Unknown Tobacco use type: Cigarette Cigarette Packs Per Day: 1 Cigarettes Per Day: 20.0 Years Smoked: 15 Second Hand Smoke Exposure: No Substance Use Type: Heroin Advance Directives: No Advance Directives Information Provided: No service: No Current occupational status: unemployed Physical Exam ED Vital Signs: Vital Signs - 24 hr 10/15/24 09:10 Temperature 98.0 F Pulse Rate 81 Respiratory Rate 18 Blood Pressure 117/79 Pulse Oximetry 99 Oxygen Delivery Method Room Air BMI result Body Mass Index 20.8 Const Other: General: Awake, alert, and oriented X3. No acute distress. HEENT: Normal inspection CVS: Normal heart rate and rhythm. Pulses normal. Respiratory: No respiratory distress Skin: Warm, dry, no rashes noted to exposed skin. Normal skin color. Normal skin turgor. Extremities: Normal to inspection Neuro: Oriented X 3. No motor deficit. No sensory deficit. Course Reevaluation(s) Reevaluation #1: Patient was seen and evaluated by the addiction Medicine team, they recommend starting her on 40 mg given she has not had her methadone dose since 10/09. Kenyatta Portillo recommends starting at 40 mg, can give additional 10 mg dose if she still feels symptomatic. We waited about 1 hour per patient's request, and patient reporting that she was still withdrawal. Scoring a 6 on her COWs scale. Will medicate with 10 mg and she will follow-up with her methadone clinic. Time: 12:41 Medications Administered Discontinued Medications Generic Name Dose Route Start Last Admin Trade Name Hetal PRN Reason Stop Dose Admin Methadone HCl 40 mg 10/15/24 10:53 10/15/24 11:05 Methadone Hcl 20 Mg/2 Ml Oral.Conc PO 10/15/24 10:54 40 mg ONCE ONE Administration Medical Decision Making Medical Decision Making [facility] Narrative: This is a 38-year-old female who presents emergency department for evaluation of methadone dosing. She goes to be on [employer] [facility] [employer]. Last had methadone 2-3 days ago. She is currently on 75 mg. Last use 1 bag of heroin last night for withdrawal symptoms. She has no current complaints. Vital signs stable. She is alert and oriented x4. We will confirm methadone dosing Differential Diagnosis Differential Diagnoses: The differential diagnosis associated with the presentation includes Methadone dosing, opioid use disorder, polysubstance abuse, medication refill Discharge Plan Discharge Clinical Impression: Methadone dependence Patient Disposition: Home, Self-Care Instructions: Opioid Use Disorder (ED) Additional Instructions: You were seen in the emergency department due to methadone dosing. Because your last confirmed dose was on October 09, we are allowed to give you 50mg of methadone today. Please follow-up with your methadone clinic. If any new or worsening symptoms occur including but not limited to severe chest pain, shortness for breath, please seek emergent care. Prescriptions: No Action gabapentin 300 mg capsule 300 mg PO TID acetaminophen 325 mg tablet 975 mg PO Q6H clonidine HCl 0.2 mg tablet 0.2 mg PO BID PRN (Reason: anxiety) magnesium oxide 400 mg (241.3 mg magnesium) tablet 400 mg PO BID lorazepam 0.5 mg tablet 0.5 mg PO BEDTIME PRN (Reason: insomnia) escitalopram oxalate 20 mg tablet 20 mg PO DAILY nicotine 21 mg/24 hr patch 24 hour 1 patch topical DAILY Qty: 30 0RF amoxicillin-pot clavulanate 875-125 mg tablet 1 tab PO Q12H Qty: 42 0RF ferrous sulfate 324 mg (65 mg iron) tablet,delayed release (DR/EC) 324 mg PO DAILY Qty: 30 0RF methadone [Methadose] 10 mg/mL concentrate 75 mg PO DAILY Rx Instructions: Partial Fill upon patient request. Print Language: Monegasque
--- NOTE | 2024-10-15 10:56 | HE.PHANOTE ---
METHADONE Dose: 75mg, last dosed 75mg at [facility] on 10/09/24 per SUE Whitaker. Provided by SUE Robert.
[2024-10-15] MEDS: methADONE HCl 20 MG/2 ML ORAL.CONC 40 MG PO (11:05)
--- NOTE | 2024-10-15 11:08 | MHC.RECOVRN ---
Methadone verified:Per Julianne ROGERS, patient was last dosed on 10/09 10:26am with 75 mg of methadone at [facility] in [place] [phone] (option 4)
--- NOTE | 2024-10-15 12:03 | PC.NURSE ---
This RN attempted to discharge the patient. Received Methadone 40mg at 11:05am. Patient states Can I get another 10mg of Methadone or something? I don't feel any better, I still feel really crappy . SON Sarkar notified and is reaching out to Kenyatta Portillo regarding request.
[2024-10-15 12:37] VITALS: PULSE 74
[2024-10-15] MEDS: methADONE HCl 20 MG/2 ML ORAL.CONC 10 MG PO (12:51)
[2024-10-15 13:32] VITALS: BP 117/79; PULSE 81; RESP 18; TEMP 36.7; O2SAT 99
== END 2024-10-15 13:32 | disposition home or self-care (01) ==
PROVIDERS: Emergency Provider Emergency Medicine
DX: F11.20 Opioid dependence, uncomplicated (principal)
CPT/HCPCS: 99283